=== PATIENT | female | born 1950 | race Caucasian/White ===

== ENCOUNTER 2017-12-16 07:24 | Day surgery (SDC) | payer OTHER, BC ==
[2017-12-16] MEDS ORDERED: SODIUM CHLORIDE 1,000 ML IV SCH (09:00)
[2017-12-16 09:42] LABS: BASO % 0.4 % (0-2.0); EOS % 2.8 % (0-4.5); HEMATOCRIT 38.6 % (32.4-45.2); HEMOGLOBIN 12.4 GM/dL (10.7-15.3); LYMPH % 11.4 % (8-40); MCH 30.3 pg (25.7-33.7); MCHC 32.2 g/dl (32.0-36.0); MEAN CELL VOLUME 94.1 fl (80-96); NEUT % 79.4 % (42.8-82.8); PLATELET COUNT 234 K/MM3 (134-434); RBC 4.11 M/mm3 (3.60-5.2); RDW 14.4 % (11.6-15.6); WHITE BLOOD COUNT 5.8 K/mm3 (4.0-10.0)
[2017-12-16] MEDS ORDERED: DEXAMETHASONE SOD PHOSPHATE 10 MG/1 ML VIAL IVPB ONE (09:45)
[2017-12-16] MEDS ORDERED: D5-1/2NS+20 MEQ KCL - 20 MEQ/1,000 ML INFUS.BAG IV SCH ×2 (09:45→10:45)
[2017-12-16] MEDS ORDERED: PALONOSETRON HCL 0.25 MG/5 ML VIAL IVPUSH ONE (10:00)
[2017-12-16] MEDS ORDERED: DEXAMETHASONE INJECTION 20 MG, RANITIDINE INJECTION 50 MG, DIPHENHYDRAMINE 50 MG in SOD... IVPB ONE (10:00)
[2017-12-16 10:19] LABS: ALBUMIN 3.5 g/dl (3.4-5.0); ALK PHOS 101 U/L (45-117); ANION GAP 8 (8-16); BILIRUBIN,DIRECT < 0.2 mg/dL (0.0-0.2); BILIRUBIN,TOTAL 0.5 mg/dL (0.2-1.0); BLOOD UREA NITROGEN 19 mg/dL (7-18); CALCIUM 7.8 mg/dL (8.5-10.1); CHLORIDE 108 mmol/L (98-107); CO2 26 mmol/L (21-32); CREATININE 0.6 mg/dL (0.55-1.02); GLUCOSE,RANDOM 105 mg/dL (74-106); MAGNESIUM 2.2 mg/dL (1.8-2.4); POTASSIUM 3.7 mmol/L (3.5-5.1); SGOT/AST 17 U/L (15-37); SGPT/ALT 22 U/L (12-78); SODIUM 142 mmol/L (136-145)
[2017-12-16] MEDS ORDERED: PACLITAXEL 126 MG in SODIUM CHLORIDE 250 ML IVPB ONE (10:30)
[2017-12-16] MEDS ORDERED: SODIUM CHLORIDE IVPB ONE (11:00)
[2017-12-16] MEDS ORDERED: CARBOPLATIN IVPB ONE (11:00)
[2017-12-16 15:11] VITALS: BP 114/61; PULSE 93; TEMP 98.1
[2017-12-22] MEDS ORDERED: DEXAMETHASONE IVPB ONE (15:00)
[2017-12-22] MEDS ORDERED: [UNRECOGNIZED DRUG - OTHER] IVPB ONE (15:00)
[2017-12-22] MEDS ORDERED: DIPHENHYDRAMINE IVPB ONE (15:00)
[2017-12-22] MEDS ORDERED: RANITIDINE IVPB ONE (15:00)
[2017-12-23] MEDS ORDERED: RANITIDINE IVPB ONE (10:00)
[2017-12-23] MEDS ORDERED: DIPHENHYDRAMINE IVPB ONE (10:00)
[2017-12-23] MEDS ORDERED: [UNRECOGNIZED DRUG - OTHER] IVPB ONE (10:00)
[2017-12-23] MEDS ORDERED: DEXAMETHASONE IVPB ONE (10:00)
[2017-12-23] MEDS ORDERED: SODIUM CHLORIDE 1,000 ML IV SCH (10:00)
[2017-12-23] MEDS ORDERED: PACLITAXEL 126 MG in SODIUM CHLORIDE 250 ML IVPB ONE (10:30)
[2017-12-23] MEDS ORDERED: CARBOPLATIN IVPB ONE (11:30)
[2017-12-23] MEDS ORDERED: SODIUM CHLORIDE IVPB ONE (11:30)
== END 2017-12-16 15:15 | disposition home or self-care (01) ==
LOC: JONCCHEMO 07:24 → J7W 09:19 → JONCCHEMO 15:15
PROVIDERS: ATTEND Internal Medicine Hematology & Oncology
PROC: 3E04305 Introduction of Other Antineoplastic into Central Vein, Percutaneous Approach (ICD-10-PCS; principal; 2017-12-16)
PROC: 3E043GC Introduction of Other Therapeutic Substance into Central Vein, Percutaneous Approach (ICD-10-PCS; 2017-12-16)
PROC: 3E0437Z Introduction of Electrolytic and Water Balance Substance into Central Vein, Percutaneous Approach (ICD-10-PCS; 2017-12-16)
DX: Z51.11 Encounter for antineoplastic chemotherapy (principal); C15.9 Malignant neoplasm of esophagus, unspecified; I10 Essential (primary) hypertension; E78.00 Pure hypercholesterolemia, unspecified
CPT/HCPCS: 36415; 80048; 80076; 82378; 83735; 85025; 96361; 96367; 96375; 96413; 96417; J1100; J2469

== ENCOUNTER 2017-12-23 07:54 | Day surgery (SDC) | payer OTHER, BC ==
[2017-12-23 09:49] LABS: BASO % 0.5 % (0-2.0); HEMATOCRIT 35.7 % (32.4-45.2); LYMPH % 13.9 % (8-40); MCH 31.4 pg (25.7-33.7); MCHC 33.5 g/dl (32.0-36.0); MEAN CELL VOLUME 93.8 fl (80-96); MEAN PLT VOLUME 8.6 fl (7.5-11.1); MONO % 6.2 % (3.8-10.2); NEUT % 75.4 % (42.8-82.8); PLATELET COUNT 236 K/MM3 (134-434); RBC 3.81 M/mm3 (3.60-5.2); RDW 14.1 % (11.6-15.6); WHITE BLOOD COUNT 4.7 K/mm3 (4.0-10.0)
[2017-12-23 10:13] LABS: ANION GAP 8 (8-16); BLOOD UREA NITROGEN 23 mg/dL (7-18); CALCIUM 7.9 mg/dL (8.5-10.1); CHLORIDE 108 mmol/L (98-107); CO2 25 mmol/L (21-32); CREATININE 0.5 mg/dL (0.55-1.02); GLUCOSE,RANDOM 90 mg/dL (74-106); MAGNESIUM 2.1 mg/dL (1.8-2.4); POTASSIUM 3.9 mmol/L (3.5-5.1); SODIUM 141 mmol/L (136-145)
[2017-12-23] MEDS ORDERED: ONDANSETRON IVPB ONE (10:30)
[2017-12-23] MEDS ORDERED: [UNRECOGNIZED DRUG - OTHER] IVPB ONE (10:30)
[2017-12-23] MEDS ORDERED: DEXAMETHASONE IVPB ONE (10:30)
[2017-12-23] MEDS ORDERED: SODIUM CHLORIDE 720 ML IV ONE (10:30)
[2017-12-23] MEDS ORDERED: PACLITAXEL 126 MG in SODIUM CHLORIDE 250 ML IVPB ONE (11:00)
[2017-12-23] MEDS ORDERED: SODIUM CHLORIDE IVPB ONE (12:00)
[2017-12-23] MEDS ORDERED: CARBOPLATIN IVPB ONE (12:00)
[2017-12-23 18:24] VITALS: BP 96/58; PULSE 98; TEMP 98.3
[2017-12-23] MEDS ORDERED: PORTA CATH FLUSH 10 ML IVPUSH ONE (18:24)
== END 2017-12-23 14:00 | disposition home or self-care (01) ==
LOC: JONCCHEMO 07:54 → J7W 09:05 → JONCCHEMO 14:00
PROVIDERS: ATTEND Internal Medicine Hematology & Oncology
DX: Z51.11 Encounter for antineoplastic chemotherapy (principal); C15.9 Malignant neoplasm of esophagus, unspecified
CPT/HCPCS: 36415; 80048; 83735; 85025; 96361; 96367; 96375; 96413; 96417

== ENCOUNTER 2017-12-30 07:34 | Day surgery (SDC) | payer OTHER, BC ==
[2017-12-30 09:44] LABS: BASO % 0.5 % (0-2.0); EOS % 3.5 % (0-4.5); HEMATOCRIT 34.9 % (32.4-45.2); HEMOGLOBIN 11.8 GM/dL (10.7-15.3); LYMPH % 15.1 % (8-40); MCH 31.8 pg (25.7-33.7); MCHC 33.9 g/dl (32.0-36.0); MEAN CELL VOLUME 93.9 fl (80-96); MEAN PLT VOLUME 8.1 fl (7.5-11.1); MONO % 7.9 % (3.8-10.2); PLATELET COUNT 215 K/MM3 (134-434); RBC 3.72 M/mm3 (3.60-5.2); RDW 14.2 % (11.6-15.6); WHITE BLOOD COUNT 3.3 K/mm3 (4.0-10.0)
[2017-12-30 09:56] VITALS: TEMP 97.6
[2017-12-30] MEDS ORDERED: DEXAMETHASONE IVPB ONE (10:00)
[2017-12-30] MEDS ORDERED: [UNRECOGNIZED DRUG - OTHER] IVPB ONE (10:00)
[2017-12-30] MEDS ORDERED: RANITIDINE IVPB ONE (10:00)
[2017-12-30] MEDS ORDERED: SODIUM CHLORIDE 1,000 ML IV SCH (10:00)
[2017-12-30 10:09] LABS: ALBUMIN 3.4 g/dl (3.4-5.0); ALK PHOS 88 U/L (45-117); ANION GAP 6 (8-16); BILIRUBIN,DIRECT 0.2 mg/dL (0.0-0.2); BILIRUBIN,TOTAL 0.7 mg/dL (0.2-1.0); BLOOD UREA NITROGEN 22 mg/dL (7-18); CALCIUM 7.4 mg/dL (8.5-10.1); CHLORIDE 109 mmol/L (98-107); CO2 26 mmol/L (21-32); CREATININE 0.6 mg/dL (0.55-1.02); GLUCOSE,RANDOM 88 mg/dL (74-106); POTASSIUM 3.8 mmol/L (3.5-5.1); SGOT/AST 14 U/L (15-37); SGPT/ALT 24 U/L (12-78); SODIUM 141 mmol/L (136-145); TOT PROT 6.5 g/dl (6.4-8.2)
[2017-12-30] MEDS ORDERED: PORTA CATH FLUSH 10 ML IVPUSH ONE (10:10)
[2017-12-30] MEDS ORDERED: WATER IVPB ONE (10:30)
[2017-12-30] MEDS ORDERED: DEXTROSE 5% IVPB ONE (10:30)
[2017-12-30] MEDS ORDERED: PACLITAXEL IVPB ONE (10:30)
[2017-12-30] MEDS ORDERED: SODIUM CHLORIDE IVPB ONE (11:30)
[2017-12-30] MEDS ORDERED: CARBOPLATIN IVPB ONE (11:30)
[2017-12-30 16:39] VITALS: BP 101/57; PULSE 89
== END 2017-12-30 12:00 | disposition home or self-care (01) ==
LOC: JONCCHEMO 07:34 → J7W 08:54 → JONCCHEMO 12:00
PROVIDERS: ATTEND Internal Medicine Hematology & Oncology
DX: Z51.11 Encounter for antineoplastic chemotherapy (principal); C15.9 Malignant neoplasm of esophagus, unspecified
CPT/HCPCS: 36415; 80048; 80076; 83735; 85025; 96367; 96375; 96413; J1100; J7030

== ENCOUNTER 2018-01-06 07:18 | Day surgery (SDC) | payer OTHER, BC ==
[2018-01-06] MEDS ORDERED: SODIUM CHLORIDE 1,000 ML IV ONE (08:00)
[2018-01-06] MEDS ORDERED: DEXAMETHASONE INJECTION 20 MG, DIPHENHYDRAMINE 50 MG, RANITIDINE INJECTION 50 MG in SOD... IVPB ONE (08:30)
[2018-01-06] MEDS ORDERED: PALONOSETRON HCL 0.25 MG/5 ML VIAL IVPUSH ONE (08:30)
[2018-01-06 08:48] LABS: BASO % 1.1 % (0-2.0); EOS % 4.3 % (0-4.5); HEMATOCRIT 35.3 % (32.4-45.2); HEMOGLOBIN 11.8 GM/dL (10.7-15.3); LYMPH % 21.7 % (8-40); MCH 31.7 pg (25.7-33.7); MCHC 33.4 g/dl (32.0-36.0); MEAN CELL VOLUME 94.8 fl (80-96); MEAN PLT VOLUME 7.9 fl (7.5-11.1); NEUT % 62.9 % (42.8-82.8); PLATELET COUNT 192 K/MM3 (134-434); RBC 3.72 M/mm3 (3.60-5.2); RDW 14.6 % (11.6-15.6); WHITE BLOOD COUNT 2.5 K/mm3 (4.0-10.0)
[2018-01-06] MEDS ORDERED: WATER IVPB ONE (09:00)
[2018-01-06] MEDS ORDERED: PACLITAXEL IVPB ONE (09:00)
[2018-01-06] MEDS ORDERED: DEXTROSE 5% IVPB ONE (09:00)
[2018-01-06 09:16] LABS: ALBUMIN 3.6 g/dl (3.4-5.0); ANION GAP 5 (8-16); BILIRUBIN,TOTAL 0.4 mg/dL (0.2-1.0); BLOOD UREA NITROGEN 17 mg/dL (7-18); CALCIUM 7.9 mg/dL (8.5-10.1); CHLORIDE 112 mmol/L (98-107); CO2 27 mmol/L (21-32); CREATININE 0.7 mg/dL (0.55-1.02); GLUCOSE,RANDOM 99 mg/dL (74-106); POTASSIUM 4.4 mmol/L (3.5-5.1); SGOT/AST 21 U/L (15-37); SGPT/ALT 37 U/L (12-78); SODIUM 144 mmol/L (136-145); TOT PROT 6.8 g/dl (6.4-8.2)
[2018-01-06 09:17] LABS: ALK PHOS 76 U/L (45-117)
[2018-01-06 09:42] VITALS: BP 113/66; PULSE 86; TEMP 97.9
[2018-01-06 09:50] LABS: BILIRUBIN,DIRECT < 0.2 mg/dL (0.0-0.2); MAGNESIUM 1.9 mg/dL (1.8-2.4)
[2018-01-06] MEDS ORDERED: CARBOplatin 155 MG in SODIUM CHLORIDE 250 ML IVPB ONE (10:00)
[2018-01-06] MEDS ORDERED: PORTA CATH FLUSH 10 ML IVPUSH ONE (17:36)
== END 2018-01-06 13:00 | disposition home or self-care (01) ==
LOC: JONCCHEMO 07:18 → J7W 09:10 → JONCCHEMO 13:00
PROVIDERS: ATTEND Internal Medicine Hematology & Oncology
DX: Z51.11 Encounter for antineoplastic chemotherapy (principal); C15.9 Malignant neoplasm of esophagus, unspecified
CPT/HCPCS: 36415; 80053; 80076; 82378; 83735; 85025; 96367; 96375; 96413; 96417; J1100; J2469; J7030

== ENCOUNTER 2018-01-20 07:32 | Day surgery (SDC) | payer OTHER, BC ==
[2018-01-20] MEDS ORDERED: RANITIDINE IVPB ONE ×2 (08:00→11:30)
[2018-01-20] MEDS ORDERED: [UNRECOGNIZED DRUG - OTHER] IVPB ONE (08:00)
[2018-01-20] MEDS ORDERED: SODIUM CHLORIDE 1,000 ML IV ONE (08:00)
[2018-01-20] MEDS ORDERED: DIPHENHYDRAMINE IVPB ONE ×2 (08:00→11:30)
[2018-01-20] MEDS ORDERED: DEXAMETHASONE IVPB ONE ×2 (08:00→11:30)
[2018-01-20] MEDS ORDERED: WATER IVPB ONE (08:30)
[2018-01-20] MEDS ORDERED: DEXTROSE 5% IVPB ONE (08:30)
[2018-01-20] MEDS ORDERED: PACLITAXEL 126 MG in SODIUM CHLORIDE 250 ML IVPB ONE (08:30)
[2018-01-20] MEDS ORDERED: PACLITAXEL IVPB ONE (08:30)
[2018-01-20] MEDS ORDERED: CARBOPLATIN IVPB ONE (09:30)
[2018-01-20] MEDS ORDERED: SODIUM CHLORIDE IVPB ONE (09:30)
[2018-01-20 10:27] LABS: BASO % 0.5 % (0-2.0); EOS % 1.6 % (0-4.5); HEMATOCRIT 35.4 % (32.4-45.2); HEMOGLOBIN 11.8 GM/dL (10.7-15.3); LYMPH % 25.3 % (8-40); MCH 32.3 pg (25.7-33.7); MCHC 33.3 g/dl (32.0-36.0); MEAN CELL VOLUME 96.9 fl (80-96); MEAN PLT VOLUME 8.6 fl (7.5-11.1); MONO % 10.3 % (3.8-10.2); NEUT % 62.3 % (42.8-82.8); PLATELET COUNT 112 K/MM3 (134-434); RBC 3.65 M/mm3 (3.60-5.2); RDW 15.8 % (11.6-15.6); WHITE BLOOD COUNT 2.3 K/mm3 (4.0-10.0)
[2018-01-20 10:51] VITALS: TEMP 97.7
[2018-01-20] MEDS ORDERED: PORTA CATH FLUSH 10 ML IVPUSH ONE (10:51)
[2018-01-20 10:56] LABS: ALBUMIN 3.7 g/dl (3.4-5.0); ANION GAP 5 (8-16); BLOOD UREA NITROGEN 26 mg/dL (7-18); CALCIUM 8.7 mg/dL (8.5-10.1); CHLORIDE 110 mmol/L (98-107); CO2 29 mmol/L (21-32); CREATININE 0.7 mg/dL (0.55-1.02); GLUCOSE,RANDOM 94 mg/dL (74-106); POTASSIUM 4.5 mmol/L (3.5-5.1); SGOT/AST 25 U/L (15-37); SODIUM 144 mmol/L (136-145)
[2018-01-20 10:59] LABS: ALK PHOS 86 U/L (45-117); BILIRUBIN,TOTAL 0.2 mg/dL (0.2-1.0); SGPT/ALT 36 U/L (12-78)
[2018-01-20 11:09] LABS: ALBUMIN 3.6 g/dl (3.4-5.0); ALK PHOS 83 U/L (45-117); BILIRUBIN,DIRECT < 0.2 mg/dL (0.0-0.2); BILIRUBIN,TOTAL 0.2 mg/dL (0.2-1.0); MAGNESIUM 1.7 mg/dL (1.8-2.4); SGOT/AST 23 U/L (15-37); SGPT/ALT 35 U/L (12-78)
[2018-01-20] MEDS ORDERED: [UNRECOGNIZED DRUG - OTHER] IVPB ONE (11:30)
[2018-01-20] MEDS ORDERED: ALTEPLASE 2 MG VIAL CVP ONE (11:45)
[2018-01-20 14:26] VITALS: BP 92/57; PULSE 96
== END 2018-01-20 14:27 | disposition home or self-care (01) ==
LOC: JONCCHEMO 07:32 → J7W 11:07 → JONCCHEMO 14:27
PROVIDERS: ATTEND Internal Medicine Hematology & Oncology
DX: Z51.11 Encounter for antineoplastic chemotherapy (principal); C15.9 Malignant neoplasm of esophagus, unspecified
CPT/HCPCS: 36415; 80053; 80076; 83735; 85025; 96413; 96417; J1100; J2405; J2997; J7030

== ENCOUNTER 2018-01-27 07:12 | Day surgery (SDC) | payer OTHER, BC ==
[2018-01-27] MEDS ORDERED: DEXAMETHASONE INJECTION 20 MG, DIPHENHYDRAMINE 50 MG, RANITIDINE INJECTION 50 MG in SOD... IVPB ONE (08:00)
[2018-01-27] MEDS ORDERED: SODIUM CHLORIDE 1,000 ML IV ONE (08:00)
[2018-01-27] MEDS ORDERED: PALONOSETRON HCL 0.25 MG/5 ML VIAL IVPUSH ONE (08:00)
[2018-01-27] MEDS ORDERED: PACLITAXEL 126 MG in SODIUM CHLORIDE 250 ML IVPB ONE (08:30)
[2018-01-27 09:28] LABS: BASO % 0.4 % (0-2.0); EOS % 1.7 % (0-4.5); HEMOGLOBIN 10.8 GM/dL (10.7-15.3); LYMPH % 18.4 % (8-40); MCH 32.7 pg (25.7-33.7); MCHC 33.6 g/dl (32.0-36.0); MEAN CELL VOLUME 97.1 fl (80-96); MEAN PLT VOLUME 8.1 fl (7.5-11.1); MONO % 9.5 % (3.8-10.2); PLATELET COUNT 105 K/MM3 (134-434); RDW 17.1 % (11.6-15.6)
[2018-01-27] MEDS ORDERED: CARBOplatin 155 MG in SODIUM CHLORIDE 250 ML IVPB ONE (09:30)
[2018-01-27 09:33] VITALS: TEMP 97.9
[2018-01-27] MEDS ORDERED: PORTA CATH FLUSH 10 ML IVPUSH ONE (09:33)
[2018-01-27 09:54] LABS: ALBUMIN 3.3 g/dl (3.4-5.0); ANION GAP 6 (8-16); BLOOD UREA NITROGEN 20 mg/dL (7-18); CALCIUM 8.4 mg/dL (8.5-10.1); CHLORIDE 110 mmol/L (98-107); CO2 27 mmol/L (21-32); CREATININE 0.6 mg/dL (0.55-1.02); GLUCOSE,RANDOM 101 mg/dL (74-106); POTASSIUM 4.6 mmol/L (3.5-5.1); SGOT/AST 15 U/L (15-37); SGPT/ALT 27 U/L (12-78); SODIUM 143 mmol/L (136-145)
[2018-01-27 09:56] LABS: ALK PHOS 71 U/L (45-117); BILIRUBIN,TOTAL 0.4 mg/dL (0.2-1.0); TOT PROT 6.7 g/dl (6.4-8.2)
[2018-01-27 09:57] LABS: BILIRUBIN,DIRECT < 0.2 mg/dL (0.0-0.2); MAGNESIUM 1.9 mg/dL (1.8-2.4)
[2018-01-27 14:23] VITALS: BP 92/52; PULSE 88
== END 2018-01-27 12:30 | disposition home or self-care (01) ==
LOC: JONCCHEMO 07:12 → J7W 09:18 → JONCCHEMO 12:30
PROVIDERS: ATTEND Internal Medicine Hematology & Oncology
DX: Z51.11 Encounter for antineoplastic chemotherapy (principal); C15.9 Malignant neoplasm of esophagus, unspecified
CPT/HCPCS: 36415; 80053; 80076; 83735; 85025; 96367; 96375; 96413; 96417; J1100; J2469; J7030

== ENCOUNTER 2018-02-10 07:41 | Day surgery (SDC) | payer OTHER, BC ==
[2018-02-10 09:58] LABS: HEMATOCRIT 32.4 % (32.4-45.2); HEMOGLOBIN 10.9 GM/dL (10.7-15.3); MCH 33.3 pg (25.7-33.7); MCHC 33.6 g/dl (32.0-36.0); MEAN CELL VOLUME 99.1 fl (80-96); MEAN PLT VOLUME 8.5 fl (7.5-11.1); PLATELET COUNT 180 K/MM3 (134-434); RBC 3.26 M/mm3 (3.60-5.2); RDW 19.4 % (11.6-15.6); WHITE BLOOD COUNT 2.8 K/mm3 (4.0-10.0)
[2018-02-10] MEDS ORDERED: SODIUM CHLORIDE 1,000 ML IV ONE (10:00)
[2018-02-10] MEDS ORDERED: [UNRECOGNIZED DRUG - OTHER] IVPB ONE (10:00)
[2018-02-10] MEDS ORDERED: DEXAMETHASONE IVPB ONE (10:00)
[2018-02-10] MEDS ORDERED: RANITIDINE IVPB ONE (10:00)
[2018-02-10 10:11] VITALS: TEMP 97.2
[2018-02-10] MEDS ORDERED: PORTA CATH FLUSH 10 ML IVPUSH ONE (10:11)
[2018-02-10 10:19] LABS: ALBUMIN 3.4 g/dl (3.4-5.0); ALK PHOS 83 U/L (45-117); ANION GAP 4 (8-16); BILIRUBIN,DIRECT < 0.2 mg/dL (0.0-0.2); BILIRUBIN,TOTAL 0.3 mg/dL (0.2-1.0); BLOOD UREA NITROGEN 27 mg/dL (7-18); CALCIUM 8.1 mg/dL (8.5-10.1); CHLORIDE 110 mmol/L (98-107); CO2 28 mmol/L (21-32); CREATININE 0.7 mg/dL (0.55-1.02); GLUCOSE,RANDOM 92 mg/dL (74-106); POTASSIUM 4.5 mmol/L (3.5-5.1); SGOT/AST 15 U/L (15-37); SGPT/ALT 22 U/L (12-78); SODIUM 142 mmol/L (136-145); TOT PROT 6.7 g/dl (6.4-8.2)
[2018-02-10] MEDS ORDERED: PACLITAXEL 126 MG in SODIUM CHLORIDE 250 ML IVPB ONE (10:30)
[2018-02-10 10:50] LABS: ANISOCYTOSIS 1+; PLATELET ESTIMATE NORMAL
[2018-02-10] MEDS ORDERED: SODIUM CHLORIDE IVPB ONE (11:30)
[2018-02-10] MEDS ORDERED: CARBOPLATIN IVPB ONE (11:30)
[2018-02-10 12:21] VITALS: BP 106/58; PULSE 95
== END 2018-02-10 12:15 | disposition home or self-care (01) ==
LOC: JONCCHEMO 07:41 → J7W 09:39 → JONCCHEMO 12:15
PROVIDERS: ATTEND Internal Medicine Hematology & Oncology
DX: Z51.11 Encounter for antineoplastic chemotherapy (principal); C15.9 Malignant neoplasm of esophagus, unspecified
CPT/HCPCS: 36415; 80053; 80076; 82378; 83735; 85025; 96367; 96375; 96413; 96417; J1100

== ENCOUNTER 2018-02-17 07:34 | Day surgery (SDC) | payer OTHER, BC ==
[2018-02-17] MEDS ORDERED: DEXAMETHASONE INJECTION 20 MG, RANITIDINE INJECTION 50 MG, DIPHENHYDRAMINE 50 MG in SOD... IVPB ONE (10:00)
[2018-02-17] MEDS ORDERED: PALONOSETRON HCL 0.25 MG/5 ML VIAL IVPUSH ONE (10:00)
[2018-02-17] MEDS ORDERED: SODIUM CHLORIDE 1,000 ML IV SCH (10:00)
[2018-02-17 10:13] LABS: HEMATOCRIT 30.1 % (32.4-45.2); HEMOGLOBIN 10.4 GM/dL (10.7-15.3); MCHC 34.5 g/dl (32.0-36.0); MEAN CELL VOLUME 98.5 fl (80-96); MEAN PLT VOLUME 8.5 fl (7.5-11.1); PLATELET COUNT 161 K/MM3 (134-434); RBC 3.05 M/mm3 (3.60-5.2); RDW 20.4 % (11.6-15.6); WHITE BLOOD COUNT 3.6 K/mm3 (4.0-10.0)
[2018-02-17] MEDS ORDERED: PACLITAXEL 126 MG in SODIUM CHLORIDE 250 ML IVPB ONE (10:30)
[2018-02-17 10:45] LABS: ANION GAP 8 (8-16); BLOOD UREA NITROGEN 19 mg/dL (7-18); CALCIUM 8.3 mg/dL (8.5-10.1); CHLORIDE 109 mmol/L (98-107); CO2 27 mmol/L (21-32); CREATININE 0.5 mg/dL (0.55-1.02); GLUCOSE,RANDOM 94 mg/dL (74-106); MAGNESIUM 2.1 mg/dL (1.8-2.4); SODIUM 144 mmol/L (136-145)
[2018-02-17 11:08] LABS: ALBUMIN 3.4 g/dl (3.4-5.0); ALK PHOS 86 U/L (45-117); BILIRUBIN,DIRECT < 0.2 mg/dL (0.0-0.2); BILIRUBIN,TOTAL 0.3 mg/dL (0.2-1.0); SGOT/AST 20 U/L (15-37); SGPT/ALT 30 U/L (12-78); TOT PROT 6.4 g/dl (6.4-8.2)
[2018-02-17] MEDS ORDERED: CARBOPLATIN IVPB ONE (11:30)
[2018-02-17] MEDS ORDERED: SODIUM CHLORIDE IVPB ONE (11:30)
[2018-02-17 11:52] LABS: ANISOCYTOSIS 2+; MACROCYTOSIS 1+; PLATELET ESTIMATE NORMAL
[2018-02-17 16:19] VITALS: BP 116/58; PULSE 98; TEMP 97.6
[2018-02-17] MEDS ORDERED: PORTA CATH FLUSH 10 ML IVPUSH ONE (16:19)
== END 2018-02-17 14:00 | disposition home or self-care (01) ==
LOC: JONCCHEMO 07:34 → J7W 10:27 → JONCCHEMO 14:00
PROVIDERS: ATTEND Internal Medicine Hematology & Oncology
DX: Z51.11 Encounter for antineoplastic chemotherapy (principal); C15.9 Malignant neoplasm of esophagus, unspecified
CPT/HCPCS: 36415; 80048; 80076; 82378; 83735; 85025; 96367; 96375; 96413; 96417; J1100; J2469; J7030

== ENCOUNTER → 2018-03-19 | Day surgery (SDC) | payer OTHER, BC ==
[~2018-03-19] MED LIST: DEXAMETHASONE INJECTION 20 MG in SODIUM CHLORIDE 50 ML IVPB ONE; OXALIPLATIN 100 MG, OXALIPLATIN 45 MG in DEXTROSE 5%-WATER - 500 ML IV ONE; PALONOSETRON HCL 0.25 MG/5 ML VIAL IVPUSH ONE; SODIUM CHLORIDE 250 ML IV ONE
[2018-03-19 10:54] VITALS: BP 91/58; PULSE 93; TEMP 97.8
[2018-03-19 11:09] LABS: BASO % 0.4 % (0-2.0); EOS % 2.8 % (0-4.5); HEMATOCRIT 29.6 % (32.4-45.2); HEMOGLOBIN 9.9 GM/dL (10.7-15.3); LYMPH % 13.5 % (8-40); MCHC 33.6 g/dl (32.0-36.0); MEAN CELL VOLUME 104.3 fl (80-96); MEAN PLT VOLUME 8.1 fl (7.5-11.1); MONO % 8.1 % (3.8-10.2); NEUT % 75.2 % (42.8-82.8); PLATELET COUNT 85 K/MM3 (134-434); RBC 2.84 M/mm3 (3.60-5.2); RDW 20.5 % (11.6-15.6); WHITE BLOOD COUNT 3.9 K/mm3 (4.0-10.0)
[2018-03-19 11:30] LABS: ALK PHOS 80 U/L (45-117); ANION GAP 5 (8-16); BILIRUBIN,DIRECT < 0.2 mg/dL (0.0-0.2); BILIRUBIN,TOTAL 0.4 mg/dL (0.2-1.0); BLOOD UREA NITROGEN 20 mg/dL (7-18); CHLORIDE 108 mmol/L (98-107); CO2 28 mmol/L (21-32); CREATININE 0.6 mg/dL (0.55-1.02); GLUCOSE,RANDOM 90 mg/dL (74-106); MAGNESIUM 2.3 mg/dL (1.8-2.4); SGOT/AST 19 U/L (15-37); SODIUM 141 mmol/L (136-145); TOT PROT 6.7 g/dl (6.4-8.2)
[2018-03-19 13:26] LABS: SGPT/ALT 32 U/L (12-78)
[2018-03-19 15:31] LABS: ANISOCYTOSIS 1+
[2018-03-19 15:32] LABS: MACROCYTOSIS 1+; PLATELET ESTIMATE SLT DECREASE
== END | disposition home or self-care (01) ==
LOC: JONCCHEMO 07:33
PROVIDERS: ATTEND Internal Medicine Hematology & Oncology
PROC: 3E043GC Introduction of Other Therapeutic Substance into Central Vein, Percutaneous Approach (ICD-10-PCS; principal; 2018-03-19)
DX: Z53.8 Procedure and treatment not carried out for other reasons (principal)
CPT/HCPCS: 36415; 80053; 80076; 83735; 85025

== ENCOUNTER 2018-03-26 07:36 | Day surgery (SDC) | payer OTHER, BC ==
[2018-03-26] MEDS ORDERED: SODIUM CHLORIDE 250 ML IV ONE ×2 (08:00→11:00)
[2018-03-26] MEDS ORDERED: DEXAMETHASONE INJECTION 20 MG in SODIUM CHLORIDE 50 ML IVPB ONE (08:30)
[2018-03-26] MEDS ORDERED: PALONOSETRON HCL 0.25 MG/5 ML VIAL IVPUSH ONE (08:30)
[2018-03-26] MEDS ORDERED: OXALIPLATIN 100 MG, OXALIPLATIN 45 MG in DEXTROSE 5%-WATER - 500 ML IV ONE (09:00)
[2018-03-26] MEDS ORDERED: SODIUM CHLORIDE 1,000 ML IV SCH (12:30)
[2018-03-26 15:58] VITALS: BP 116/64; PULSE 87; TEMP 98.1
[2018-03-26] MEDS ORDERED: PORTA CATH FLUSH 10 ML IVPUSH ONE (16:10)
== END 2018-03-26 10:30 | disposition home or self-care (01) ==
LOC: JONCCHEMO 07:36 → J7W 10:25 → JONCCHEMO 10:30
PROVIDERS: ATTEND Internal Medicine Hematology & Oncology
DX: Z51.11 Encounter for antineoplastic chemotherapy (principal); C15.9 Malignant neoplasm of esophagus, unspecified
CPT/HCPCS: 96361; 96367; 96375; 96413; 96415; J1100; J2469; J7030; J9263

== ENCOUNTER 2018-05-12 07:30 | Day surgery (SDC) | payer OTHER, BC ==
[2018-05-12] MEDS ORDERED: DEXAMETHASONE INJECTION 20 MG in SODIUM CHLORIDE 50 ML IVPB ONE (08:00)
[2018-05-12] MEDS ORDERED: PEMBROLIZUMAB 200 MG in SODIUM CHLORIDE 100 ML IV ONE (08:30)
[2018-05-12] MEDS ORDERED: PEMBROLIZUMAB 200 MG in SODIUM CHLORIDE 50 ML IV ONE (08:30)
[2018-05-12] MEDS ORDERED: SODIUM CHLORIDE 250 ML IV ONE (09:00)
[2018-05-12 09:18] LABS: BASO % 0.4 % (0-2.0); EOS % 3.1 % (0-4.5); HEMATOCRIT 33.4 % (32.4-45.2); HEMOGLOBIN 11.3 GM/dL (10.7-15.3); LYMPH % 13.4 % (8-40); MCHC 33.7 g/dl (32.0-36.0); MEAN CELL VOLUME 109.8 fl (80-96); MONO % 7.8 % (3.8-10.2); NEUT % 75.3 % (42.8-82.8); PLATELET COUNT 153 K/MM3 (134-434); RBC 3.05 M/mm3 (3.60-5.2); RDW 13.9 % (11.6-15.6); WHITE BLOOD COUNT 4.3 K/mm3 (4.0-10.0)
[2018-05-12 09:43] LABS: ALBUMIN 3.2 g/dl (3.4-5.0); ALK PHOS 94 U/L (45-117); ANION GAP 5 (8-16); BILIRUBIN,DIRECT < 0.2 mg/dL (0.0-0.2); BILIRUBIN,TOTAL 0.2 mg/dL (0.2-1.0); BLOOD UREA NITROGEN 22 mg/dL (7-18); CALCIUM 8.3 mg/dL (8.5-10.1); CHLORIDE 111 mmol/L (98-107); CO2 28 mmol/L (21-32); CREATININE 0.8 mg/dL (0.55-1.02); GLUCOSE,RANDOM 107 mg/dL (74-106); MAGNESIUM 2.2 mg/dL (1.8-2.4); POTASSIUM 4.1 mmol/L (3.5-5.1); SGOT/AST 22 U/L (15-37); SGPT/ALT 19 U/L (12-78); SODIUM 144 mmol/L (136-145); TOT PROT 6.5 g/dl (6.4-8.2)
[2018-05-12 14:36] LABS: ANISOCYTOSIS 1+; MACROCYTOSIS 1+; PLATELET ESTIMATE DECREASED
[2018-05-12 15:48] VITALS: TEMP 97.9
[2018-05-12] MEDS ORDERED: PORTA CATH FLUSH 10 ML IVPUSH ONE ×2 (15:48→15:59)
[2018-05-12 16:06] VITALS: BP 106/64; PULSE 90
== END 2018-05-12 11:30 | disposition home or self-care (01) ==
LOC: JONCCHEMO 07:30 → J7W 09:44 → JONCCHEMO 11:30
PROVIDERS: ATTEND Internal Medicine Hematology & Oncology
DX: Z51.11 Encounter for antineoplastic chemotherapy (principal); C15.9 Malignant neoplasm of esophagus, unspecified
CPT/HCPCS: 36415; 80053; 80076; 83735; 85025; 96361; 96367; 96375; 96413; J1100; J9271

== ENCOUNTER 2018-06-24 07:30 | Day surgery (SDC) | payer OTHER, BC ==
[2018-06-24] MEDS ORDERED: DEXAMETHASONE INJECTION 20 MG in SODIUM CHLORIDE 50 ML IVPB ONE (08:00)
[2018-06-24] MEDS ORDERED: PEMBROLIZUMAB 200 MG in SODIUM CHLORIDE 100 ML IV ONE (08:30)
[2018-06-24] MEDS ORDERED: SODIUM CHLORIDE 250 ML IV ONE (09:00)
[2018-06-24 09:32] LABS: BASO % 0.2 % (0-2.0); EOS % 3.2 % (0-4.5); HEMATOCRIT 34.9 % (32.4-45.2); HEMOGLOBIN 11.7 GM/dL (10.7-15.3); LYMPH % 12.2 % (8-40); MCH 33.7 pg (25.7-33.7); MCHC 33.5 g/dl (32.0-36.0); MEAN CELL VOLUME 100.9 fl (80-96); MEAN PLT VOLUME 8.8 fl (7.5-11.1); MONO % 8.7 % (3.8-10.2); NEUT % 75.7 % (42.8-82.8); PLATELET COUNT 177 K/MM3 (134-434); RBC 3.46 M/mm3 (3.60-5.2); RDW 13.2 % (11.6-15.6); WHITE BLOOD COUNT 3.8 K/mm3 (4.0-10.0)
[2018-06-24 10:03] LABS: ALBUMIN 2.8 g/dl (3.4-5.0); BILIRUBIN,DIRECT < 0.2 mg/dL (0.0-0.2); MAGNESIUM 2.2 mg/dL (1.8-2.4); SGOT/AST 28 U/L (15-37); SGPT/ALT 24 U/L (12-78)
[2018-06-24 10:04] LABS: ALBUMIN 2.9 g/dl (3.4-5.0); ANION GAP 8 MMOL/L (8-16); BLOOD UREA NITROGEN 17 mg/dL (7-18); CALCIUM 8.1 mg/dL (8.5-10.1); CHLORIDE 109 mmol/L (98-107); CO2 28 mmol/L (21-32); GLUCOSE,RANDOM 89 mg/dL (74-106); POTASSIUM 4.7 mmol/L (3.5-5.1); SODIUM 145 mmol/L (136-145)
[2018-06-24 10:05] LABS: ALK PHOS 103 U/L (45-117); BILIRUBIN,TOTAL 0.3 mg/dL (0.2-1.0); TOT PROT 6.3 g/dl (6.4-8.2)
[2018-06-24 10:07] LABS: ALK PHOS 108 U/L (45-117); BILIRUBIN,TOTAL 0.2 mg/dL (0.2-1.0); CREATININE 0.6 mg/dL (0.55-1.02); SGOT/AST 27 U/L (15-37); SGPT/ALT 26 U/L (12-78); TOT PROT 6.6 g/dl (6.4-8.2)
[2018-06-24] MEDS ORDERED: PORTA CATH FLUSH 10 ML IVPUSH ONE (11:49)
[2018-06-24 11:50] VITALS: TEMP 97.7
[2018-06-24 11:51] VITALS: BP 110/75; PULSE 92
== END 2018-06-24 11:30 | disposition home or self-care (01) ==
LOC: JONCCHEMO 07:30 → J7W 09:50 → JONCCHEMO 11:30
PROVIDERS: ATTEND Internal Medicine Hematology & Oncology
PROC: 3E04305 Introduction of Other Antineoplastic into Central Vein, Percutaneous Approach (ICD-10-PCS; principal; 2018-06-24)
PROC: 3E043GC Introduction of Other Therapeutic Substance into Central Vein, Percutaneous Approach (ICD-10-PCS; 2018-06-24)
PROC: 3E0437Z Introduction of Electrolytic and Water Balance Substance into Central Vein, Percutaneous Approach (ICD-10-PCS; 2018-06-24)
DX: Z51.11 Encounter for antineoplastic chemotherapy (principal); C15.5 Malignant neoplasm of lower third of esophagus
CPT/HCPCS: 36415; 80053; 80076; 82378; 83735; 85025; 96375; 96413; J1100; J9271

== ENCOUNTER 2018-07-14 07:34 | Day surgery (SDC) | payer OTHER, BC ==
[2018-07-14] MEDS ORDERED: DEXAMETHASONE INJECTION 20 MG in SODIUM CHLORIDE 50 ML IVPB ONE (08:00)
[2018-07-14] MEDS ORDERED: PEMBROLIZUMAB 200 MG in SODIUM CHLORIDE 100 ML IV ONE (08:30)
[2018-07-14 08:34] VITALS: TEMP 98.2
[2018-07-14] MEDS ORDERED: SODIUM CHLORIDE 250 ML IV ONE (09:00)
[2018-07-14 09:02] LABS: BASO % 0.2 % (0-2.0); EOS % 4.1 % (0-4.5); HEMATOCRIT 32.9 % (32.4-45.2); LYMPH % 9.3 % (8-40); MCHC 33.5 g/dl (32.0-36.0); MEAN CELL VOLUME 98.5 fl (80-96); MEAN PLT VOLUME 8.3 fl (7.5-11.1); MONO % 6.2 % (3.8-10.2); NEUT % 80.2 % (42.8-82.8); PLATELET COUNT 229 K/MM3 (134-434); RBC 3.34 M/mm3 (3.60-5.2); RDW 13.7 % (11.6-15.6); WHITE BLOOD COUNT 7.1 K/mm3 (4.0-10.0)
[2018-07-14 09:32] LABS: ALBUMIN 2.8 g/dl (3.4-5.0); ALBUMIN 2.9 g/dl (3.4-5.0); ALK PHOS 104 U/L (45-117); ANION GAP 4 MMOL/L (8-16); BILIRUBIN,DIRECT < 0.2 mg/dL (0.0-0.2); BILIRUBIN,TOTAL 0.3 mg/dL (0.2-1); BLOOD UREA NITROGEN 19 mg/dL (7-18); CHLORIDE 108 mmol/L (98-107); CO2 30 mmol/L (21-32); CREATININE 0.7 mg/dL (0.55-1.3); GLUCOSE,RANDOM 95 mg/dL (74-106); MAGNESIUM 2.1 mg/dL (1.8-2.4); POTASSIUM 4.5 mmol/L (3.5-5.1); SGOT/AST 17 U/L (15-37); SGOT/AST 18 U/L (15-37); SGPT/ALT 17 U/L (13-61); SODIUM 142 mmol/L (136-145); TOT PROT 6.6 g/dl (6.4-8.2); TOT PROT 6.8 g/dl (6.4-8.2)
[2018-07-14] MEDS ORDERED: PORTA CATH FLUSH 10 ML IVPUSH ONE (10:10)
[2018-07-14 13:25] VITALS: BP 98/51; PULSE 92
== END 2018-07-14 12:10 | disposition home or self-care (01) ==
LOC: JONCCHEMO 07:34 → J7W 09:41 → JONCCHEMO 12:10
PROVIDERS: ATTEND Internal Medicine Hematology & Oncology
DX: Z51.11 Encounter for antineoplastic chemotherapy (principal); C15.5 Malignant neoplasm of lower third of esophagus
CPT/HCPCS: 36415; 80053; 80076; 83735; 85025; 96361; 96375; 96413; J1100; J9271

== ENCOUNTER 2018-08-04 07:30 | Day surgery (SDC) | payer OTHER, BC ==
[2018-08-04] MEDS ORDERED: DEXAMETHASONE INJECTION 20 MG in SODIUM CHLORIDE 50 ML IVPB ONE (08:00)
[2018-08-04] MEDS ORDERED: PEMBROLIZUMAB 200 MG in SODIUM CHLORIDE 100 ML IV ONE (08:30)
[2018-08-04] MEDS ORDERED: SODIUM CHLORIDE 250 ML IV ONE (09:00)
[2018-08-04 09:17] LABS: BASO % 0.3 % (0-2.0); HEMATOCRIT 36.1 % (32.4-45.2); HEMOGLOBIN 11.7 GM/dL (10.7-15.3); LYMPH % 10.3 % (8-40); MCH 31.2 pg (25.7-33.7); MCHC 32.5 g/dl (32.0-36.0); MEAN CELL VOLUME 96.1 fl (80-96); MEAN PLT VOLUME 8.3 fl (7.5-11.1); MONO % 6.3 % (3.8-10.2); NEUT % 81.1 % (42.8-82.8); PLATELET COUNT 280 K/MM3 (134-434); RBC 3.75 M/mm3 (3.60-5.2); RDW 13.9 % (11.6-15.6); WHITE BLOOD COUNT 8.9 K/mm3 (4.0-10.0)
[2018-08-04 10:28] LABS: ALK PHOS 86 U/L (45-117); ANION GAP 7 MMOL/L (8-16); BILIRUBIN,TOTAL 0.4 mg/dL (0.2-1); BLOOD UREA NITROGEN 20 mg/dL (7-18); CALCIUM 8.9 mg/dL (8.5-10.1); CHLORIDE 110 mmol/L (98-107); CO2 26 mmol/L (21-32); CREATININE 0.7 mg/dL (0.55-1.3); GLUCOSE,RANDOM 86 mg/dL (74-106); POTASSIUM 4.7 mmol/L (3.5-5.1); SGOT/AST 18 U/L (15-37); SGPT/ALT 19 U/L (13-61); SODIUM 142 mmol/L (136-145); TOT PROT 6.8 g/dl (6.4-8.2)
[2018-08-04 10:58] LABS: BILIRUBIN,DIRECT 0.1 mg/dL (0.0-0.2); BILIRUBIN,TOTAL 0.4 mg/dL (0.2-1); MAGNESIUM 2.1 mg/dL (1.8-2.4); TOT PROT 6.6 g/dl (6.4-8.2)
[2018-08-04 11:56] VITALS: TEMP 97.8
[2018-08-04 11:57] VITALS: BP 98/52; PULSE 86
[2018-08-04] MEDS ORDERED: PORTA CATH FLUSH 10 ML IVPUSH ONE (11:59)
== END 2018-08-04 11:00 | disposition home or self-care (01) ==
LOC: JONCCHEMO 07:30 → JONCNONCHE 07:30 → J7W 09:27 → JONCCHEMO 11:00
PROVIDERS: ATTEND Internal Medicine Hematology & Oncology
DX: Z51.11 Encounter for antineoplastic chemotherapy (principal); C15.5 Malignant neoplasm of lower third of esophagus
CPT/HCPCS: 36415; 80053; 80076; 83735; 85025; 96361; 96367; 96375; 96413; J1100; J9271

== ENCOUNTER 2018-08-25 07:13 | Day surgery (SDC) | payer OTHER, BC ==
[2018-08-25] MEDS ORDERED: DEXAMETHASONE INJECTION 20 MG in SODIUM CHLORIDE 50 ML IVPB ONE (08:00)
[2018-08-25] MEDS ORDERED: PEMBROLIZUMAB 200 MG in SODIUM CHLORIDE 100 ML IV ONE (08:30)
[2018-08-25] MEDS ORDERED: SODIUM CHLORIDE 250 ML IV ONE (09:00)
[2018-08-25 10:21] LABS: BASO % 0.4 % (0-2.0); EOS % 3.2 % (0-4.5); HEMATOCRIT 36.5 % (32.4-45.2); HEMOGLOBIN 12.2 GM/dL (10.7-15.3); LYMPH % 11.8 % (8-40); MCH 30.8 pg (25.7-33.7); MCHC 33.3 g/dl (32.0-36.0); MEAN CELL VOLUME 92.4 fl (80-96); MEAN PLT VOLUME 8.1 fl (7.5-11.1); MONO % 7.1 % (3.8-10.2); NEUT % 77.5 % (42.8-82.8); PLATELET COUNT 284 K/MM3 (134-434); RBC 3.95 M/mm3 (3.60-5.2); RDW 14.2 % (11.6-15.6)
[2018-08-25 10:57] LABS: ALK PHOS 90 U/L (45-117); ANION GAP 8 MMOL/L (8-16); BILIRUBIN,DIRECT 0.1 mg/dL (0.0-0.2); BILIRUBIN,TOTAL 0.2 mg/dL (0.2-1); BLOOD UREA NITROGEN 22 mg/dL (7-18); CALCIUM 8.2 mg/dL (8.5-10.1); CHLORIDE 106 mmol/L (98-107); CO2 27 mmol/L (21-32); CREATININE 0.6 mg/dL (0.55-1.3); GLUCOSE,RANDOM 77 mg/dL (74-106); MAGNESIUM 2.2 mg/dL (1.8-2.4); POTASSIUM 4.4 mmol/L (3.5-5.1); SGOT/AST 15 U/L (15-37); SGPT/ALT 18 U/L (13-61); SODIUM 141 mmol/L (136-145); TOT PROT 6.9 g/dl (6.4-8.2)
[2018-08-25 16:18] VITALS: TEMP 98.3
[2018-08-25] MEDS ORDERED: PORTA CATH FLUSH 10 ML IVPUSH ONE (16:18)
[2018-08-25 16:20] VITALS: BP 99/45; PULSE 84
== END 2018-08-25 12:30 | disposition home or self-care (01) ==
LOC: JONCCHEMO 07:13 → J7W 10:50 → JONCCHEMO 12:30
PROVIDERS: ATTEND Internal Medicine Hematology & Oncology
DX: Z51.11 Encounter for antineoplastic chemotherapy (principal); C15.5 Malignant neoplasm of lower third of esophagus
CPT/HCPCS: 36415; 80053; 80076; 83735; 85025; 96361; 96375; 96413; J1100; J9271

== ENCOUNTER 2018-09-15 07:21 | Day surgery (SDC) | payer OTHER, BC ==
[2018-09-15 09:38] LABS: BASO % 0.3 % (0-2.0); EOS % 2.7 % (0-4.5); HEMATOCRIT 33.1 % (32.4-45.2); HEMOGLOBIN 11.2 GM/dL (10.7-15.3); LYMPH % 9.3 % (8-40); MCH 30.6 pg (25.7-33.7); MCHC 33.7 g/dl (32.0-36.0); MEAN CELL VOLUME 90.6 fl (80-96); MEAN PLT VOLUME 8.1 fl (7.5-11.1); MONO % 6.4 % (3.8-10.2); NEUT % 81.3 % (42.8-82.8); PLATELET COUNT 263 K/MM3 (134-434); RBC 3.65 M/mm3 (3.60-5.2); RDW 15.2 % (11.6-15.6); WHITE BLOOD COUNT 5.9 K/mm3 (4.0-10.0)
[2018-09-15] MEDS ORDERED: DEXAMETHASONE INJECTION 20 MG in SODIUM CHLORIDE 50 ML IVPB ONE (10:00)
[2018-09-15] MEDS ORDERED: PEMBROLIZUMAB 200 MG in SODIUM CHLORIDE 100 ML IVPB ONE (10:30)
[2018-09-15 10:52] LABS: ALK PHOS 86 U/L (45-117); ANION GAP 8 MMOL/L (8-16); BILIRUBIN,DIRECT 0.2 mg/dL (0.0-0.2); BILIRUBIN,TOTAL 0.4 mg/dL (0.2-1); BLOOD UREA NITROGEN 23 mg/dL (7-18); CHLORIDE 109 mmol/L (98-107); CO2 24 mmol/L (21-32); CREATININE 0.7 mg/dL (0.55-1.3); GLUCOSE,RANDOM 91 mg/dL (74-106); MAGNESIUM 2.1 mg/dL (1.8-2.4); POTASSIUM 4.2 mmol/L (3.5-5.1); SGOT/AST 17 U/L (15-37); SGPT/ALT 19 U/L (13-61); SODIUM 141 mmol/L (136-145); TOT PROT 6.6 g/dl (6.4-8.2)
[2018-09-15] MEDS ORDERED: SODIUM CHLORIDE 250 ML IV ONE (11:00)
[2018-09-15] MEDS ORDERED: PORTA CATH FLUSH 10 ML IVPUSH ONE (15:42)
[2018-09-15 15:43] VITALS: BP 116/52; PULSE 105; TEMP 97.9
== END 2018-09-15 12:00 | disposition home or self-care (01) ==
LOC: JONCCHEMO 07:21 → J7W 08:55 → JONCCHEMO 12:00
PROVIDERS: ATTEND Internal Medicine Hematology & Oncology
DX: Z51.11 Encounter for antineoplastic chemotherapy (principal); C15.5 Malignant neoplasm of lower third of esophagus
CPT/HCPCS: 36415; 80048; 80076; 83735; 85025; 96361; 96367; 96375; 96413; J1100; J9271

== ENCOUNTER 2018-10-06 06:56 | Day surgery (SDC) | payer OTHER, BC ==
[2018-10-06 09:16] LABS: BASO % 0.1 % (0-2.0); EOS % 2.3 % (0-4.5); HEMOGLOBIN 11.8 GM/dL (10.7-15.3); LYMPH % 7.9 % (8-40); MCH 30.5 pg (25.7-33.7); MCHC 33.7 g/dl (32.0-36.0); MEAN CELL VOLUME 90.4 fl (80-96); MEAN PLT VOLUME 8.1 fl (7.5-11.1); MONO % 5.7 % (3.8-10.2); PLATELET COUNT 208 K/MM3 (134-434); RBC 3.87 M/mm3 (3.60-5.2); RDW 15.7 % (11.6-15.6); WHITE BLOOD COUNT 6.7 K/mm3 (4.0-10.0)
[2018-10-06 09:36] LABS: ALBUMIN 2.9 g/dl (3.4-5.0); BILIRUBIN,DIRECT 0.1 mg/dL (0.0-0.2); BILIRUBIN,TOTAL 0.4 mg/dL (0.2-1); MAGNESIUM 2.2 mg/dL (1.8-2.4)
[2018-10-06 09:41] LABS: ALBUMIN 2.9 g/dl (3.4-5.0); ALK PHOS 72 U/L (45-117); ANION GAP 6 MMOL/L (8-16); BILIRUBIN,TOTAL 0.4 mg/dL (0.2-1); BLOOD UREA NITROGEN 21 mg/dL (7-18); CALCIUM 7.1 mg/dL (8.5-10.1); CHLORIDE 110 mmol/L (98-107); CO2 26 mmol/L (21-32); CREATININE 0.6 mg/dL (0.55-1.3); GLUCOSE,RANDOM 106 mg/dL (74-106); POTASSIUM 4.1 mmol/L (3.5-5.1); SGOT/AST 21 U/L (15-37); SGPT/ALT 24 U/L (13-61); SODIUM 142 mmol/L (136-145)
[2018-10-06] MEDS ORDERED: DEXAMETHASONE SODIUM PHOSPHATE 20 MG in SODIUM CHLORIDE 50 ML IVPB ONE (10:00)
[2018-10-06] MEDS ORDERED: PEMBROLIZUMAB 200 MG in SODIUM CHLORIDE 50 ML IV ONE (10:30)
[2018-10-06] MEDS ORDERED: SODIUM CHLORIDE 250 ML IV ONE (11:00)
[2018-10-06 11:05] VITALS: BP 92/43; PULSE 105; TEMP 97.2
[2018-10-06] MEDS ORDERED: PORTA CATH FLUSH 10 ML IVPUSH ONE (11:05)
== END 2018-10-06 10:50 | disposition home or self-care (01) ==
LOC: JONCCHEMO 06:56 → J7W 09:18 → JONCCHEMO 10:50
PROVIDERS: ATTEND Internal Medicine Hematology & Oncology
PROC: 3E04305 Introduction of Other Antineoplastic into Central Vein, Percutaneous Approach (ICD-10-PCS; principal; 2018-10-06)
PROC: 3E043GC Introduction of Other Therapeutic Substance into Central Vein, Percutaneous Approach (ICD-10-PCS; 2018-10-06)
DX: Z51.11 Encounter for antineoplastic chemotherapy (principal); C15.5 Malignant neoplasm of lower third of esophagus; I10 Essential (primary) hypertension; E78.00 Pure hypercholesterolemia, unspecified
CPT/HCPCS: 36415; 80053; 80076; 83735; 85025; 96375; 96413; J9271

== ENCOUNTER 2018-10-27 08:25 | Day surgery (SDC) | payer OTHER, BC ==
[2018-10-27] MEDS ORDERED: DEXAMETHASONE INJECTION 20 MG in SODIUM CHLORIDE 50 ML IVPB ONE (09:00)
[2018-10-27 09:06] LABS: BASO % 0.4 % (0-2.0); EOS % 1.8 % (0-4.5); HEMATOCRIT 34.5 % (32.4-45.2); HEMOGLOBIN 11.7 GM/dL (10.7-15.3); LYMPH % 11.5 % (8-40); MCH 29.8 pg (25.7-33.7); MCHC 33.8 g/dl (32.0-36.0); MEAN CELL VOLUME 88.2 fl (80-96); MEAN PLT VOLUME 7.7 fl (7.5-11.1); MONO % 8.8 % (3.8-10.2); NEUT % 77.5 % (42.8-82.8); PLATELET COUNT 273 K/MM3 (134-434); RBC 3.92 M/mm3 (3.60-5.2); RDW 15.2 % (11.6-15.6)
[2018-10-27] MEDS ORDERED: PEMBROLIZUMAB 200 MG in SODIUM CHLORIDE 100 ML IV ONE (09:30)
[2018-10-27 09:33] LABS: ALBUMIN 2.7 g/dl (3.4-5.0); ALK PHOS 76 U/L (45-117); ANION GAP 6 MMOL/L (8-16); BILIRUBIN,DIRECT 0.1 mg/dL (0.0-0.2); BILIRUBIN,TOTAL 0.4 mg/dL (0.2-1); BLOOD UREA NITROGEN 18 mg/dL (7-18); CALCIUM 7.8 mg/dL (8.5-10.1); CHLORIDE 109 mmol/L (98-107); CO2 27 mmol/L (21-32); CREATININE 0.7 mg/dL (0.55-1.3); GLUCOSE,RANDOM 116 mg/dL (74-106); MAGNESIUM 2.1 mg/dL (1.8-2.4); POTASSIUM 3.9 mmol/L (3.5-5.1); SGOT/AST 16 U/L (15-37); SGPT/ALT 18 U/L (13-61); SODIUM 142 mmol/L (136-145); TOT PROT 5.7 g/dl (6.4-8.2)
[2018-10-27] MEDS ORDERED: SODIUM CHLORIDE 250 ML IV ONE (10:00)
[2018-10-27] MEDS ORDERED: PORTA CATH FLUSH 10 ML IVPUSH ONE (16:13)
[2018-10-27 16:14] VITALS: BP 85/44; PULSE 104; TEMP 97.7
== END 2018-10-27 12:35 | disposition home or self-care (01) ==
LOC: JONCCHEMO 08:25 → J7W 10:44 → JONCCHEMO 12:35
PROVIDERS: ATTEND Internal Medicine Hematology & Oncology
DX: Z51.11 Encounter for antineoplastic chemotherapy (principal); C15.5 Malignant neoplasm of lower third of esophagus
CPT/HCPCS: 36415; 80048; 80076; 83735; 84436; 84439; 84443; 85025; 96361; 96375; 96413; J1100; J9271

== ENCOUNTER 2018-11-17 06:36 | Day surgery (SDC) | payer OTHER, BC ==
[2018-11-17 09:00] LABS: BASO % 0.4 % (0-2.0); EOS % 2.6 % (0-4.5); HEMATOCRIT 33.2 % (32.4-45.2); HEMOGLOBIN 11.2 GM/dL (10.7-15.3); LYMPH % 10.7 % (8-40); MCHC 33.8 g/dl (32.0-36.0); MEAN CELL VOLUME 88.8 fl (80-96); MEAN PLT VOLUME 7.9 fl (7.5-11.1); MONO % 7.6 % (3.8-10.2); NEUT % 78.7 % (42.8-82.8); PLATELET COUNT 261 K/MM3 (134-434); RBC 3.74 M/mm3 (3.60-5.2); RDW 16.1 % (11.6-15.6); WHITE BLOOD COUNT 5.3 K/mm3 (4.0-10.0)
[2018-11-17 09:28] LABS: ALBUMIN 2.8 g/dl (3.4-5.0); ALK PHOS 79 U/L (45-117); ANION GAP 4 MMOL/L (8-16); BILIRUBIN,DIRECT 0.1 mg/dL (0.0-0.2); BILIRUBIN,TOTAL 0.3 mg/dL (0.2-1); BLOOD UREA NITROGEN 17 mg/dL (7-18); CALCIUM 8.1 mg/dL (8.5-10.1); CHLORIDE 109 mmol/L (98-107); CO2 29 mmol/L (21-32); CREATININE 0.7 mg/dL (0.55-1.3); GLUCOSE,RANDOM 74 mg/dL (74-106); MAGNESIUM 2.2 mg/dL (1.8-2.4); POTASSIUM 4.6 mmol/L (3.5-5.1); SGOT/AST 19 U/L (15-37); SGPT/ALT 16 U/L (13-61); SODIUM 142 mmol/L (136-145); TOT PROT 6.2 g/dl (6.4-8.2)
[2018-11-17] MEDS ORDERED: DEXAMETHASONE SODIUM PHOSPHATE 20 MG in SODIUM CHLORIDE 50 ML IVPB ONE (10:00)
[2018-11-17 10:08] VITALS: TEMP 98.4
[2018-11-17] MEDS ORDERED: PEMBROLIZUMAB 200 MG in SODIUM CHLORIDE 100 ML IV ONE (10:30)
[2018-11-17] MEDS ORDERED: SODIUM CHLORIDE 250 ML IV ONE (11:00)
[2018-11-17 13:43] VITALS: BP 96/43; PULSE 92
[2018-11-17] MEDS ORDERED: PORTA CATH FLUSH 10 ML IVPUSH ONE (13:43)
== END 2018-11-17 11:40 | disposition home or self-care (01) ==
LOC: JONCCHEMO 06:36 → J7W 09:57 → JONCCHEMO 11:40
PROVIDERS: ATTEND Internal Medicine Hematology & Oncology
DX: Z51.11 Encounter for antineoplastic chemotherapy (principal); C18.8 Malignant neoplasm of overlapping sites of colon
CPT/HCPCS: 36415; 80048; 80076; 83735; 85025; 96375; 96413; J9271

== ENCOUNTER 2018-11-24 06:28 | Day surgery (SDC) | payer OTHER, BC ==
[2018-11-24 08:57] LABS: BASO % 0.4 % (0-2.0); EOS % 3.2 % (0-4.5); HEMATOCRIT 32.5 % (32.4-45.2); HEMOGLOBIN 10.8 GM/dL (10.7-15.3); LYMPH % 13.1 % (8-40); MCH 29.4 pg (25.7-33.7); MCHC 33.2 g/dl (32.0-36.0); MEAN CELL VOLUME 88.7 fl (80-96); MEAN PLT VOLUME 7.8 fl (7.5-11.1); NEUT % 72.3 % (42.8-82.8); PLATELET COUNT 243 K/MM3 (134-434); RBC 3.66 M/mm3 (3.60-5.2); RDW 16.3 % (11.6-15.6); WHITE BLOOD COUNT 4.9 K/mm3 (4.0-10.0)
[2018-11-24 09:26] LABS: ALBUMIN 2.8 g/dl (3.4-5.0); ALK PHOS 69 U/L (45-117); ANION GAP 6 MMOL/L (8-16); BILIRUBIN,DIRECT 0.1 mg/dL (0.0-0.2); BILIRUBIN,TOTAL 0.3 mg/dL (0.2-1); BLOOD UREA NITROGEN 20 mg/dL (7-18); CALCIUM 7.9 mg/dL (8.5-10.1); CHLORIDE 109 mmol/L (98-107); CO2 28 mmol/L (21-32); CREATININE 0.6 mg/dL (0.55-1.3); GLUCOSE,RANDOM 87 mg/dL (74-106); POTASSIUM 3.9 mmol/L (3.5-5.1); SGOT/AST 14 U/L (15-37); SGPT/ALT 15 U/L (13-61); SODIUM 142 mmol/L (136-145); TOT PROT 5.8 g/dl (6.4-8.2)
[2018-11-24] MEDS ORDERED: DEXAMETHASONE SODIUM PHOSPHATE 20 MG in SODIUM CHLORIDE 50 ML IVPB ONE (10:00)
[2018-11-24] MEDS ORDERED: ATROPINE SO4 0.4 MG/1 ML VIAL NR ONE (10:00)
[2018-11-24] MEDS ORDERED: PALONOSETRON HCL 0.25 MG/5 ML VIAL IVPUSH ONE (10:00)
[2018-11-24] MEDS ORDERED: LEUCOVORIN INJECTION - 572 MG in DEXTROSE 5%-WATER - 250 ML IVPB ONE (10:30)
[2018-11-24] MEDS ORDERED: IRINOTECAN HCL 190 MG in DEXTROSE 5%-WATER - 500 ML IVPB ONE (11:00)
[2018-11-24] MEDS ORDERED: FLUOROURACIL CP ONE (12:30)
[2018-11-24] MEDS ORDERED: FLUOROURACIL 500 MG/10 ML VIAL IVPUSH ONE (12:30)
[2018-11-24] MEDS ORDERED: SODIUM CHLORIDE CP ONE (12:30)
[2018-11-24] MEDS ORDERED: SODIUM CHLORIDE 1,000 ML IV SCH (13:00)
[2018-11-24] MEDS ORDERED: PORTA CATH FLUSH 10 ML IVPUSH ONE (16:18)
[2018-11-24 16:19] VITALS: TEMP 98
[2018-11-24 16:21] VITALS: BP 88/48; PULSE 98
== END 2018-11-24 15:55 | disposition home or self-care (01) ==
LOC: JONCCHEMO 06:28 → J7W 09:44 → JONCCHEMO 15:55
PROVIDERS: ATTEND Internal Medicine Hematology & Oncology
DX: Z51.11 Encounter for antineoplastic chemotherapy (principal); C18.8 Malignant neoplasm of overlapping sites of colon
CPT/HCPCS: 36415; 80048; 80076; 83735; 85025; 96367; 96375; 96413; 96415; 96417; G0498; J2469; J7030; J9190; J9206

== ENCOUNTER 2018-11-26 07:05 | Day surgery (SDC) | payer OTHER, BC ==
[2018-11-26] MEDS ORDERED: ONDANSETRON 4 MG/2 ML VIAL IVPB ONE (13:15)
[2018-11-26] MEDS ORDERED: DEXAMETHASONE SOD PHOSPHATE 4 MG/1 ML VIAL IVPB ONE (13:15)
[2018-11-26] MEDS ORDERED: D5-NS + 20 MEQ KCL - 20 MEQ/1,000 ML INFUS.BAG IV SCH (13:15)
[2018-11-26 17:29] VITALS: TEMP 97.8
[2018-11-26 17:38] VITALS: BP 86/45; PULSE 89
[2018-11-26] MEDS ORDERED: PORTA CATH FLUSH 10 ML IVPUSH ONE (17:38)
== END 2018-11-26 17:15 | disposition home or self-care (01) ==
LOC: JONCCHEMO 07:05 → J7W 12:34 → JONCCHEMO 17:15
PROVIDERS: ATTEND Internal Medicine Hematology & Oncology
PROC: 3E043GC Introduction of Other Therapeutic Substance into Central Vein, Percutaneous Approach (ICD-10-PCS; principal; 2018-11-26)
PROC: 3E043GC Introduction of Other Therapeutic Substance into Central Vein, Percutaneous Approach (ICD-10-PCS; 2018-11-26)
DX: C18.8 Malignant neoplasm of overlapping sites of colon (principal)
CPT/HCPCS: 96361; 96365; 96367; 96375

== ENCOUNTER 2018-11-27 09:25 | Day surgery (SDC) | payer OTHER, BC ==
[2018-11-27] MEDS ORDERED: MAGNESIUM SULF 50% (8.12 MEQ/2 ML-1 GM VIAL) ONE (10:00)
[2018-11-27] MEDS ORDERED: ONDANSETRON 4 MG/2 ML VIAL ONE (10:01)
[2018-11-27] MEDS ORDERED: DEXAMETHASONE SOD PHOSPHATE 10 MG/1 ML VIAL ONE (10:01)
[2018-11-27] MEDS ORDERED: D5-NS + 20 MEQ KCL - 20 MEQ/1,000 ML INFUS.BAG IV SCH (10:15)
[2018-11-27] MEDS ORDERED: DEXAMETHASONE SOD PHOSPHATE 10 MG/1 ML VIAL IVPB ONE (10:15)
[2018-11-27] MEDS ORDERED: ONDANSETRON 4 MG/2 ML VIAL IVPB ONE (10:15)
[2018-11-27] MEDS ORDERED: MAGNESIUM SULF 50% (8.12 MEQ/2 ML-1 GM VIAL) IVPB ONE (10:15)
[2018-11-27] MEDS ORDERED: PORTA CATH FLUSH 10 ML IVPUSH ONE ×2 (14:51→15:07)
[2018-11-27 15:07] VITALS: BP 112/52; PULSE 85
[2018-11-27 15:14] VITALS: TEMP 97.6
== END 2018-11-27 12:30 | disposition home or self-care (01) ==
LOC: JONCNONCHE 09:25 → J7W 09:43 → JONCNONCHE 12:30
PROVIDERS: ATTEND Internal Medicine Hematology & Oncology
PROC: 3E043GC Introduction of Other Therapeutic Substance into Central Vein, Percutaneous Approach (ICD-10-PCS; principal; 2018-11-27)
PROC: 3E043GC Introduction of Other Therapeutic Substance into Central Vein, Percutaneous Approach (ICD-10-PCS; 2018-11-27)
DX: C18.8 Malignant neoplasm of overlapping sites of colon (principal)
CPT/HCPCS: 96361; 96365; 96367; 96375; 96417; J1100

== ENCOUNTER 2018-12-04 20:33 | Inpatient (IN) | payer OTHER, BC ==
--- NOTE | 2018-12-04 20:43 | PDOC ---
History of Present Illness - General Stated Complaint: Broken hip Time Seen by Provider: 12/04/18 20:35 - History of Present Illness Initial Comments: 12/04/18 20:52 68 year old woman with a history of HTN, HLD, Esophageal CA s/p chemotherapy who presents after a fall onto the R hip that occurred this morning at approximately 0900 while walking to her car and slipping on ice. She was able to bear some weight on the hip after the fall. She denies hitting her head, or neck, falling on her back, any other extremity injury. Denies loss of consciousness, chest pain, nausea, diaphoresis, lightheadedness before or after falling. She was seen at an urgent care where she had hip Xrays that showed what looked to be a R hip fx and she was sent to Orthopedics and was seen by Dr. Conklin who wanted her to be admitted in hospital for surgery in 2 days. The patient took some Tylenol and states she currently feels okay if she does not move her hips too much. She has no other complaints at bedside. Past History - Past Medical History Allergies/Adverse Reactions: Allergies Allergy/AdvReac Type Severity Reaction Status Date / Time No Known Drug Allergies Allergy Verified 12/04/18 22:56 Home Medications: Ambulatory Orders Aspirin 81 mg PO DAILY 12/04/18 Docusate Sodium [Colace] 100 mg PO DAILY 12/04/18 Anemia: No Asthma: No Cancer: Yes (ESOPHAGEAL) Cardiac Disorders: No CVA: No COPD: No CHF: No Dementia: No Diabetes: No GI Disorders: No Disorders: No HTN: Yes Hypercholesterolemia: Yes Liver Disease: No Seizures: No Thyroid Disease: No - Surgical History Abdominal Surgery: Yes (12/01/15 EGD) Appendectomy: No Cardiac Surgery: No Cholecystectomy: Yes Lung Surgery: No Neurologic Surgery: No Orthopedic Surgery: No - Suicide/Smoking/Psychosocial Hx Smoking History: Never smoked Have you smoked in the past 12 months: No Hx Alcohol Use: No Drug/Substance Use Hx: No Substance Use Type: None Hx Substance Use Treatment: No *Physical Exam - Physical Exam Comments: 12/04/18 21:46 GENERAL: Awake, alert, and fully oriented, in no acute distress HEAD: No signs of trauma, normocephalic, atraumatic EYES: EOMI, sclera anicteric, conjunctiva clear ENT: oropharynx clear without exudates. Moist mucosa NECK: Normal ROM, supple LUNGS: No distress, speaks full sentences, clear to auscultation bilaterally HEART: Regular rate and rhythm, normal S1 and S2, no murmurs, rubs or gallops, peripheral pulses normal and equal bilaterally. ABDOMEN: Soft, nontender, normoactive bowel sounds. No guarding, no rebound. No masses EXTREMITIES : Normal inspection, Limited hip range 2/2 pain, 5/5 strength on plantar and dosriflexion, FROM of the R knee, no laxity or pain to palpation, no edema. No clubbing or cyanosis. palpable pulses NEUROLOGICAL: Cranial nerves II through XII grossly intact. Normal speech, no focal sensorimotor deficits SKIN: Warm, Dry, normal turgor, no rashes or lesions noted ED Treatment Course - LABORATORY CBC & Chemistry Diagram: 12/04/18 20:46 12/04/18 20:50 - RADIOLOGY Radiology Studies Ordered: Category Date Time Status FEMUR-RIGHT [RAD] Stat Radiology 12/04/18 20:36 Ordered HIP & PELVIS-RIGHT [RAD] Stat Radiology 12/04/18 20:36 Ordered Medical Decision Making - Medical Decision Making 12/05/18 04:30 ED Course: consdier fx vs dislocation vs contusion hoevwer pt found to have fx at outside facility hip XR, cbc, cmp, ptr/inr, ptt Patient does not currently desire pain medications at this time R Hip XR: intertrochanter fx Multiple attempts to contact Dr. Conklin, orthopedics. Could not be reached callisthenics instructor orthopedics called as requested by admitting, Dr Woo made aware of patient. Patient admitted to medicine. *DC/Admit/Observation/Transfer Diagnosis at time of Disposition: Hip fracture, right - Discharge Dispostion Condition at time of disposition: Fair Decision to Admit order: Yes - Referrals - Patient Instructions - Post Discharge Activity
--- NOTE | 2018-12-04 20:43 | PDOC ---
Attending Attestation - HPI HPI: 12/04/18 21:28 The patient is a 68 year old female, with a significant PMH of HTN, HLD, Esophageal CA 2/p chemotherapy who presents to the emergency department s/p fall at 9AM today. Patient states that she was walking and slipped on ice, sustaining her fall on the right hip. Patient has been able to bear weight after the fall. Patient went to an urgent care after the fall and had and XR done there. Patient was referred to an orthopedist, Dr. Conklin, who told her she had a fracture and needed to come to the ER to be admitted. Patient is not requesting any pain meds at this time. The patient denies chest pain, shortness of breath, headache and dizziness. Denies fever, chills, nausea, vomit, diarrhea and constipation. Denies dysuria, frequency, urgency and hematuria. Allergies: NKA Past surgical history: None reported. Social history: No reported alcohol, drug or cigarette use. <Urszula Benoit - Last Filed: 12/04/18 21:40> - Physicial Exam PE: 12/05/18 01:00 Agree with resident exam. patient is able to flex R hip to 90 degrees and to bend her knee past 90 degrees. No other signs of injury. - Medical Decision Making 12/05/18 01:02 Pt presents to the Ed after sent in from orthopedist office with hip fx. Xray shows intertrochanteric hip fx. Will admit to medicine and consult Dr. Conklin. <Aide Neri - Last Filed: 12/05/18 01:02>
[2018-12-04] MEDS ORDERED: morphine CARPU-JECT 2 MG/1 ML DISP.SYRIN IVPUSH ONE (20:46)
[2018-12-04 20:54] VITALS: BMI 15.6
[2018-12-04 21:23] LABS: BASO % 0.1 % (0-2.0); HEMATOCRIT 36.7 % (32.4-45.2); LYMPH % 8.1 % (8-40); MCH 29.8 pg (25.7-33.7); MCHC 32.8 g/dl (32.0-36.0); MEAN CELL VOLUME 90.8 fl (80-96); MEAN PLT VOLUME 7.8 fl (7.5-11.1); MONO % 5.4 % (3.8-10.2); NEUT % 84.4 % (42.8-82.8); PLATELET COUNT 165 K/MM3 (134-434); RBC 4.04 M/mm3 (3.60-5.2); RDW 16.3 % (11.6-15.6); WHITE BLOOD COUNT 5.7 K/mm3 (4.0-10.0)
[2018-12-04 21:34] LABS: INR 1.3 (0.83-1.09); PROTHROMBIN TIME (PATIENT) 15.4 SEC (9.7-13.0)
[2018-12-04 21:37] LABS: ACTIVATED PTT 26.2 SECONDS (25.2-36.5)
[2018-12-04 22:26] LABS: ALBUMIN 3.3 g/dl (3.4-5.0); ALK PHOS 84 U/L (45-117); ANION GAP 8 MMOL/L (8-16); BILIRUBIN,TOTAL 0.7 mg/dL (0.2-1); BLOOD UREA NITROGEN 23 mg/dL (7-18); CHLORIDE 107 mmol/L (98-107); CO2 24 mmol/L (21-32); CREATININE 0.7 mg/dL (0.55-1.3); GLUCOSE,RANDOM 171 mg/dL (74-106); POTASSIUM 3.7 mmol/L (3.5-5.1); SGOT/AST 21 U/L (15-37); SGPT/ALT 21 U/L (13-61); SODIUM 139 mmol/L (136-145)
--- NOTE | 2018-12-04 23:29 | PN ---
Teaching Attending Note Name of Resident: Melanie Lofton ATTENDING PHYSICIAN STATEMENT I saw and evaluated the patient. I reviewed the resident's note and discussed the case with the resident. I agree with the resident's findings and plan as documented. SUBJECTIVE: Patient is a 68 year old woman with a PMH of HTN, HLD, Esophageal CA s/p chemotherapy who presents after a fall onto the R hip that occurred this morning at approximately 0900 while walking to her car and slipping on ice. She was able to bear some weight on the hip after the fall. She denies hitting her head, or neck, falling on her back, any other extremity injury. Denies loss of consciousness, chest pain, nausea, diaphoresis, lightheadedness before or after falling. She was seen at an urgent care where she had hip Xrays that showed what looked to be a R hip fx and she was sent to Orthopedics and was seen by Dr. Conklin who wanted her to be admitted in hospital for surgery in 2 days. The patient took some Tylenol and states she currently feels okay if she does not move her hips too much. OBJECTIVE: Alert and small framed Vital Signs Period Temp Pulse Resp BP Sys/Spicer Pulse Ox Last 24 Hr 99.7 F 22 126/67 97 HEENT: No Jaundice, eye redness or discharge, PERRLA, EOMI. Normocephalic, atraumatic. External ears are normal and hearing is grossly intact. No nasal discharge. Neck: Supple, nontender. No palpable adenopathy or thyromegaly. No JVD Chest: Good effort. Right chest port. Clear to auscultation and percussion. Heart: Regular. No S3, rub or murmur Abdomen: Not distended, soft, nontender and no HSM. No rebound or guarding. Normoactive bowel sounds. Ext: Peripheral pulses intact. No leg edema. Limited ROM right hip. Skin: Warm and dry. No petechiae, rash or ecchymosis. Neuro: Alert. Oriented x3. CN 2-12 grossly intact. Sensation grossly intact in all four extremities and DTR are symmetric. Home Medications Medication Instructions Recorded Aspirin 81 mg PO DAILY 12/04/18 Docusate Sodium [Colace] 100 mg PO DAILY 12/04/18 Abnormal Lab Results 12/04/18 12/04/18 12/04/18 20:46 20:46 20:50 RDW 16.3 H Neutrophils % 84.4 H PT with INR 15.40 H INR 1.30 H BUN 23 H Random Glucose 171 H Calcium 8.0 L Albumin 3.3 L ASSESSMENT AND PLAN: 1. Right hip fracture - Diagnosis based on information from Urgent Care Center. Awaiting official reading of hip xrays. Will get right hip CT scan and use tylenol for pain control. Will keep her NPO and give IV NS. Sinus tachycardia noted on EKG. Will get TFT and Urinalysis. Ortho consulted. Consult PT. Hyperglycemia is unexplained. Check HbA1c and implement sliding scale insulin regimen. Will consult surgical tech for malnutrition and being underweight. Esophageal cancer stable on chemotherapy. 2. DVT prophylaxis - Heparin 5000u sq tid. 3. Advance directives - Full code
[2018-12-05] MEDS ORDERED: MORPHINE SULFATE 2 MG/ML VIAL ONE (00:43)
[2018-12-05] MEDS ORDERED: SODIUM CHLORIDE 1,000 ML IV SCH (00:45)
[2018-12-05] MEDS ORDERED: ACETAMINOPHEN 325 MG TABLET (FP) PO PRN ×2 (00:50→07:26)
--- NOTE | 2018-12-05 00:52 | HP ---
CHIEF COMPLAINT: s/p fall, R hip fracture PCP: Dr. Wolf (but has not seen since 2016) HISTORY OF PRESENT ILLNESS: 68F w/ pmhx of HTN, esophageal cancer (s/p tumor resection in 2016, now on chemo ) presented to the ED with R hip pain s/p fall. Pt states this morning at 9am, after loading her belongings in her car, she proceeded to walk towards the drivers' cash clerk's side when she slipped on ice and fall on her R hip. She does not report hitting her head or loss of consciousness. Pt states she was able to get back up herself and then proceeded to go to her dentist appointment. After returning home, the R hip pain worsened and as a result, she took Tylenol. She also reports borrowing her neighbors cane to help her walk around as the pain was exacerbated with weight-bearing, especially while walking. Pt states she went to Urgent Care to be evaluated where an x-ray of her hip was done and was subsequently referred to see an orthopedist at [facility]. Upon evaluation at [facility], pt was told that she would need surgery on her hip and to proceed to the hospital for further evaluation by ortho surgeon. ER course was notable for: (1) BP 126/67, HR 85, 97% RA, Glu 171 (2) Morphine 2 mg IVP (3) Hip/Pelvis, R femur xray done; awaiting read Recent Travel: Denies PAST MEDICAL HISTORY: HTN (not currently on meds) esophageal cx (s/p tumor resection, currently on chemo; follows up with Dr. 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 Exercise: Does chair yoga twice a week Family History: Allergies PCN - hives/rashes HOME MEDICATIONS: Home Medications Medication Instructions Recorded Aspirin 81 mg PO DAILY 12/04/18 Docusate Sodium [Colace] 100 mg PO DAILY 12/04/18 REVIEW OF SYSTEMS CONSTITUTIONAL: Denies fever, chills, diaphoresis, generalized weakness, malaise HEENT: Denies rhinorrhea, nasal congestion, throat pain, throat swelling, difficulty swallowing, mouth swelling, ear pain, eye pain, visual changes CARDIOVASCULAR: Denies chest pain, syncope, palpitations, irregular heart rate, lightheadedness, peripheral edema RESPIRATORY: Denies cough, shortness of breath, dyspnea with exertion, orthopnea GASTROINTESTINAL: Denies abdominal pain, abdominal distension, nausea, vomiting , diarrhea, constipation, melena, hematochezia GENITOURINARY: Denies dysuria, frequency, urgency, hesitancy, hematuria MUSCULOSKELETAL: Admits to R hip pain when weight bearing/walking NEUROLOGIC: Admits to unsteady, antalgic gait; Denies headache, focal weakness or paresthesias, dizziness, seizure, mental status changes, bladder or bowel incontinence PHYSICAL EXAMINATION Vital Signs - 24 hr 12/04/18 20:39 Temperature 99.7 F H Respiratory 22 H Rate Blood Pressure 126/67 O2 Sat by Pulse 97 Oximetry (%) GENERAL: AAOx3. NAD. Resting comfortably in bed. Pleasant. Thin female. HEENT: AT/NC. EOMI. PIOTR. Moist mucus membranes. Facial muscles intact. NECK: Normal range of motion, supple without lymphadenopathy, JVD, or masses. LUNGS: CTA B/L. No wheezes/crackles noted. Symmetric chest rise. CHEST: Has portacath R side of chest HEART: Tachycardic. Normal S1, S2. No murmurs noted. ABDOMEN: Soft, nontender, not distended, normoactive bowel sounds, no guarding, no rebound, no masses. No hepatomegaly or splenomegaly. MUSCULOSKELETAL: No bony deformities noted. UPPER EXTREMITIES: 2+ pulses, warm, well-perfused. No cyanosis. No clubbing. No peripheral edema. 5/5 b/l muscle strength shoulder and elbow flexion/extension. 5/5 hand tax services specialist b/l. LOWER EXTREMITIES: 2+ pulses, warm, well-perfused. No calf tenderness. No peripheral edema. Limited range of motion in R hip due to pain. 5/5 L hip flexion. NEUROLOGICAL: Facial muscles intact. Normal speech. Unable to assess gait. Laboratory Results - last 24 hr 12/04/18 12/04/18 12/04/18 20:46 20:46 20:46 WBC 5.7 RBC 4.04 Hgb 12.0 Hct 36.7 MCV 90.8 MCH 29.8 MCHC 32.8 RDW 16.3 H Plt Count 165 D MPV 7.8 Absolute Neuts (auto) 4.8 Neutrophils % 84.4 H Lymphocytes % 8.1 D Monocytes % 5.4 Eosinophils % 2.0 Basophils % 0.1 Nucleated RBC % 0 PT with INR 15.40 H INR 1.30 H PTT (Actin FS) 26.2 Sodium Potassium Chloride Carbon Dioxide Anion Gap BUN Creatinine Creat Clearance w eGFR Random Glucose Calcium Total Bilirubin AST ALT Alkaline Phosphatase Total Protein Albumin Blood Type B POSITIVE Antibody Screen Negative 12/04/18 20:50 WBC RBC Hgb Hct MCV MCH MCHC RDW Plt Count MPV Absolute Neuts (auto) Neutrophils % Lymphocytes % Monocytes % Eosinophils % Basophils % Nucleated RBC % PT with INR INR PTT (Actin FS) Sodium 139 Potassium 3.7 Chloride 107 Carbon Dioxide 24 Anion Gap 8 BUN 23 H Creatinine 0.7 Creat Clearance w eGFR > 60 Random Glucose 171 H Calcium 8.0 L Total Bilirubin 0.7 AST 21 ALT 21 Alkaline Phosphatase 84 Total Protein 7.0 Albumin 3.3 L Blood Type Antibody Screen IMAGING: * Femur x-ray: pending * Hip/Pelvis x-ray: pending * Pelvis CT: pending * EKG: sinus tachycardia, QTc 447 ms, no ST-T changes ASSESSMENT/PLAN: 68F w/ pmhx of HTN, esophageal cancer (s/p tumor resection in 2015, now on chemo ) presented to the ED with R hip pain s/p fall. #R hip pain; likely 2/2 R hip fracture -Concern for hip fracture was based on pt's prior imaging done at Urgent Care and evaluation by ortho at [facility]. Pt was told she needed R hip surgery. Will keep NPO, give IVF, and Tylenol PRN for pain control -CT of hip/pelvis ordered, femur/hip/pelvis x-ray ordered; await final read -Ortho consult; await recs -Fall risk precautions #Hyperglycemia; ? etiology as pt does not have history of DM -Hgb A1c ordered -ISS/BGMs Q6H -Cont to monitor #Underweight; BMI 15.7, likely related to malignancy/malnutrition -cheese wrapper consult #Esophageal cancer; currently on chemotherapy (s/p tumor resection in 2015) -Pt sees Dr. Gore for treatment; last tx was Saturday, Nov 24 -Cont to follow up as outpatient #HTN. Stable. 126/67. -Pt has been off medications as her BP has been wnl. -Cont to monitor #Prophylaxis -SCDs; hold home ASA for now #FEN -NS @ 75 -recheck cecile in AM -NPO except meds for possible surgery dispo -admit to med-surg -full code -medications have been reconciled Visit type - Emergency Visit Emergency Visit: Yes ED Registration Date: 12/05/18 Care time: The patient presented to the Emergency Department on the above date and was hospitalized for further evaluation of their emergent condition. - New Patient This patient is new to me today: Yes Date on this admission: 12/05/18 - Critical Care Critical Care patient: No
[2018-12-05] MEDS: INSULIN SLIDING SCALE (NOVOLOG) 1 VIAL SQ SCH ×2 (06:52→11:57)
[2018-12-05] MEDS ORDERED: MORPHINE SULFATE 2 MG/ML VIAL IVPUSH PRN (07:27)
--- NOTE | 2018-12-05 08:45 | CONSULT ---
Consult - text type - Consultation Consultation Note: ORTHOPEDIC SURGERY CONSULTATION NOTE Department of Orthopedic Surgery HISTORY OF PRESENT ILLNESS Arlene Hamilton is a 68 year old female with a PMH of HTN, esophageal cancer (s/p tumor resection in 2016, currently on chemo) who presents to [facility] with right hip pain. The orthopedic service was consulted for a right hip fracture. The injury occurred yesterday after a slip and fall on ice. She was able to get up and she went to her dentist appointment for a filling. She went to [facility] afterwards and they referred her to Dr. Pereira ([facility]). She was diagnosed with a hip fracture and was advised to go to the emergency room. The patient notes severe pain to the right hip. Denies any other injuries. Denies numbness, tingling or other constitutional complaints. The patient does not use an assistive devices at baseline. Active Problems Problem Status Category Onset Hip fracture, right Acute Medical Past Medical History Cardio/Vascular HTN,Hyperlipdemia Heme/Onc Other Past Surgical History Past Surgical History Cholecystectomy Social History Smoking history Never smoked Hx Alcohol Use No ADL Independent History of Recent Travel No Allergies Allergy/AdvReac Type Severity Reaction Status Date / Time No Known Drug Allergies Allergy Verified 12/04/18 22:56 Active Medications Generic Name Dose Route Start Last Admin Trade Name Freq PRN Reason Stop Dose Admin Acetaminophen 650 mg 12/05/18 07:26 Tylenol - PO Q4H PRN PAIN LEVEL 4 - 6 Sodium Chloride 1,000 mls @ 75 mls/hr 12/05/18 00:45 12/05/18 00:48 Normal Saline - IV 75 mls/hr ASDIR SUSANA Administration Insulin Aspart 1 vial 12/05/18 06:00 12/05/18 06:52 Novolog Vial Sliding Scale - SQ Not Given Q6HPO SUSANA Protocol Morphine Sulfate 2 mg 12/05/18 07:27 Morphine Sulfate IVPUSH Q4H PRN PAIN LEVEL 7 - 10 Vital Signs (last) Temp Pulse Resp BP Pulse Ox 98.2 F 96 H 18 131/68 99 12/05/18 03:44 12/05/18 03:44 12/05/18 03:44 12/05/18 03:44 12/05/18 03:44 Intake and Output 12/03/18 12/04/18 12/05/18 23:59 23:59 23:59 Intake Total 800 Balance 800 Intake: IV 800 Normal Saline - 1,000 ml 800 @ 75 mls/hr IV ASDIR [facility] Rx#:[id number] Other: Voiding Method Bedpan Weight 100 lb 100 lb Height 5 ft 7 in 5 ft 7 in Body Mass Index (BMI) 15.6 15.6 Weight Measurement Method Est/Stated by Patient Laboratory 12/04/18 20:46 12/04/18 20:50 PT with INR 15.40 SEC (9.7-13.0) H 12/04/18 20:46 PTT (Actin FS) 26.2 SECONDS (25.2-36.5) 12/04/18 20:46 FAMILY HISTORY Unknown REVIEW OF SYMPTOMS A twelve-point review of systems was performed and was negative except as noted in HPI. PHYSICAL EXAM Constitutional: Alert and oriented to person, place, and time. Appears well- developed and well-nourished. No acute distress, appropriate mood and affect. HEENT: Normocephalic, atraumatic Cardiovascular: Regular rate and rhythm, extremities warm, no cyanosis. Pulmonary: Breathing comfortably, normal air movement, no audible wheezing. Right Upper Extremity: No tenderness to palpation. Full passive and active ROM, free from pain. Left Upper Extremity: No tenderness to palpation. Full passive and active ROM, free from pain. Right Lower Extremity: Skin warm, dry, and intact; no lesions, rashes or ulcers noted. Muscle mass equal and symmetric to contralateral side. No atrophy noted. No masses or effusions noted. Tender to palpation at proximal thigh; nontender throughout rest of extremity. No cords or calf tenderness. No significant calf/ ankle edema. + Log roll. Unable to SLR. EHL/TA/GS motor intact; SILT distally; 2 + DP pulses; Cap refill brisk. Tone and reflexes normal. Left Lower Extremity: Skin warm, dry, and intact; no lesions, rashes or ulcers noted. Muscle mass equal and symmetric to contralateral side. No atrophy noted. No masses or effusions noted. No tenderness to palpation. No cords or calf tenderness. No significant calf/ankle edema. Full passive and active ROM, free from pain. Joints stable with no pathologic laxity. EHL/TA/GS motor intact; SILT distally; 2+ DP pulses; Cap refill brisk. Tone and reflexes normal. IMAGING I personally reviewed all radiographs, CT, and other imaging. They demonstrate an impacted femoral neck fracture. ASSESSMENT AND PLAN Arlene Hamilton is a 68 year old female presenting status post mechanical fall with a right sided impacted femoral neck fracture. We have reviewed the imaging and clinical findings in detail, as well as their potential implications. This is an operative fracture. - NPO; IVF - Will need clearance prior to surgery - Suman - [facility] - Patient was evaluated by another orthopedic surgeon in the office and sent to ED. Will attempt to reach Drs. Conklin/Kelli for further plan. Addendum 12/05/2018 1:13 PM: Case discussed with Dr. Conklin. I will take over the care for Ms. Hamilton. We will proceed to OR today as planned. Risks, benefits and alternatives discussed with the patient. She wishes to proceed with surgery. All questions were answered. Thank you for involving our team in the care of this patient. Please call us at [phone] with questions
[2018-12-05] MEDS ORDERED: LACTATED RINGERS SOLUTION 1,000 ML/1,000 ML INFUS.BAG IV SCH ×2 (10:30→16:15)
--- NOTE | 2018-12-05 11:28 | PN ---
Physical Exam: SUBJECTIVE: Patient seen and examined at bedside. Requests further pain control beyond tylenol. Difficulty urinating but was eventually able to void without catheterization. Otherwise no acute complaints. OBJECTIVE: Vital Signs Period Temp Pulse Resp BP Sys/Spicer Pulse Ox Last 24 Hr 98.2 F-99.7 F 96-98 18-22 126-131/65-68 97-100 GENERAL: A&Ox3, NAD HEAD: NC/AT EYES: PERRLA, EOMI, sclera anicteric, conjunctiva clear. No ptosis. ENT: Ears normal, nares patent, oropharynx clear without exudates, moist mucous membranes. NECK: Trachea midline, full range of motion, supple. LUNGS: Breath sounds equal, clear to auscultation bilaterally, no wheezes, no crackles, no accessory muscle use. HEART: Regular rate and rhythm, S1, S2 without murmur, rub or gallop. ABDOMEN: Soft, nontender, nondistended, normoactive bowel sounds, no guarding, no rebound, no hepatosplenomegaly, no masses. EXTREMITIES: 2+ pulses, warm, well-perfused, no edema. +tenderness to palpation on right trochanteric surface. NEUROLOGICAL: Cranial nerves II through XII grossly intact. Normal speech, gait not observed. PSYCH: Normal mood, normal affect. SKIN: Warm, dry, normal turgor, no rashes or lesions noted Laboratory Results - last 24 hr 12/04/18 12/04/18 12/04/18 20:46 20:46 20:46 WBC 5.7 RBC 4.04 Hgb 12.0 Hct 36.7 MCV 90.8 MCH 29.8 MCHC 32.8 RDW 16.3 H Plt Count 165 D MPV 7.8 Absolute Neuts (auto) 4.8 Neutrophils % 84.4 H Lymphocytes % 8.1 D Monocytes % 5.4 Eosinophils % 2.0 Basophils % 0.1 Nucleated RBC % 0 PT with INR 15.40 H INR 1.30 H PTT (Actin FS) 26.2 Sodium Potassium Chloride Carbon Dioxide Anion Gap BUN Creatinine Creat Clearance w eGFR POC Glucometer Random Glucose Hemoglobin A1c % Calcium Total Bilirubin AST ALT Alkaline Phosphatase Total Protein Albumin TSH Free T4 Blood Type B POSITIVE Antibody Screen Negative 12/04/18 12/05/18 12/05/18 20:50 05:30 05:45 WBC RBC Hgb Hct MCV MCH MCHC RDW Plt Count MPV Absolute Neuts (auto) Neutrophils % Lymphocytes % Monocytes % Eosinophils % Basophils % Nucleated RBC % PT with INR INR PTT (Actin FS) Sodium 139 Potassium 3.7 Chloride 107 Carbon Dioxide 24 Anion Gap 8 BUN 23 H Creatinine 0.7 Creat Clearance w eGFR > 60 POC Glucometer Random Glucose 171 H Hemoglobin A1c % 6.3 Calcium 8.0 L Total Bilirubin 0.7 AST 21 ALT 21 Alkaline Phosphatase 84 Total Protein 7.0 Albumin 3.3 L TSH 1.37 Free T4 1.55 H Blood Type Antibody Screen 12/05/18 06:45 WBC RBC Hgb Hct MCV MCH MCHC RDW Plt Count MPV Absolute Neuts (auto) Neutrophils % Lymphocytes % Monocytes % Eosinophils % Basophils % Nucleated RBC % PT with INR INR PTT (Actin FS) Sodium Potassium Chloride Carbon Dioxide Anion Gap BUN Creatinine Creat Clearance w eGFR POC Glucometer 75 Random Glucose Hemoglobin A1c % Calcium Total Bilirubin AST ALT Alkaline Phosphatase Total Protein Albumin TSH Free T4 Blood Type Antibody Screen Active Medications Generic Name Dose Route Start Last Admin Trade Name Freq PRN Reason Stop Dose Admin Acetaminophen 650 mg 12/05/18 07:26 Tylenol - PO Q4H PRN PAIN LEVEL 4 - 6 Lactated Ringer's 1,000 ml in 1,000 mls @ 75 mls/hr 12/05/18 10:30 12/05/18 10:34 Lactated Ringers Solution IV 75 mls/hr ASDIR SUSANA Administration Insulin Aspart 1 vial 12/05/18 06:00 12/05/18 06:52 Novolog Vial Sliding Scale - SQ Not Given Q6HPO [facility] Protocol Morphine Sulfate 2 mg 12/05/18 07:27 12/05/18 10:45 Morphine Sulfate IVPUSH 2 mg Q4H PRN Administration PAIN LEVEL 7 - 10 ASSESSMENT/PLAN: 68 y/o F w/ PMHx HTN, HLD 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 #R hip Fx -Dr. Woo (ortho) consulted, reviewed images and diagnosed with impacted femoral neck fracture of R hip -for surgery today -EKG and cardiac factors reviewed -Pt is at least moderate risk for this non-cardiac, non-vascular, non- neurosurgery -pain meds per scale -will treat with perioperative hydration and DVT prophylaxis #endocrine -elevated glucose -A1c pending -BGM, SSI for now #cardiac -home meds following Sx #oncologic -under Tx w/ Dr. Gore, no inpatient intervention #PPx -DVT: SCDs at this time, pharmacologic AC following Sx -GI: not indicated #FEN -LR @ 75 -monitor and replete lytes -resume diet following Sx #code -full #dispo -cont to monitor on med/surg Visit type - Emergency Visit Emergency Visit: No - New Patient This patient is new to me today: Yes Date on this admission: 12/05/18 - Critical Care Critical Care patient: No
[2018-12-05 12:33] LABS: URINE APPEARANCE CLEAR; URINE BILIRUBIN NEGATIVE (<2.0 mg/dL); URINE COLOR LTYELLOW; URINE GLUCOSE (UA) NEGATIVE (NEGATIVE); URINE KETONE 1+ (NEGATIVE); URINE LEUK ESTERASE NEGATIVE (NEGATIVE); URINE NITRITE NEGATIVE (NEGATIVE); URINE PROTEIN NEGATIVE (NEGATIVE); URINE UROBILINOGEN NEGATIVE mg/dL (0.2-1.0)
--- NOTE | 2018-12-05 12:52 | EKG ---
Test Reason : Blood Pressure : / mmHG Vent. Rate : 104 BPM Atrial Rate : 104 BPM P-R Int : 132 ms QRS Dur : 072 ms QT Int : 340 ms P-R-T Axes : 071 090 050 degrees QTc Int : 447 ms SINUS TACHYCARDIA POSSIBLE LEFT ATRIAL ENLARGEMENT RIGHTWARD AXIS BORDERLINE ECG WHEN COMPARED WITH ECG OF 17-NOV-2007 11:11, NO SIGNIFICANT CHANGE WAS FOUND Confirmed by PAGE LOVELL MD ([id number]) on 12/05/2018 12:52:08 PM Referred By: Confirmed By:PAGE LOVELL MD
[2018-12-05] MEDS ORDERED: BUPIVACAINE HCL/PF 0.5% (5MG/ML) 10 ML VIAL ONE ×2 (13:20→13:21)
[2018-12-05] MEDS ORDERED: MIDAZOLAM HCL 2 MG/2 ML SINGLE DOSE VIAL ONE ×2 (13:36→14:13)
[2018-12-05] MEDS ORDERED: CLINDAMYCIN PHOSPHATE 600 MG/4 ML VIAL ONE ×2 (13:38)
[2018-12-05] MEDS ORDERED: CLINDAMYCIN 900 MG PREMIX BAG IVPB ONE (13:39)
[2018-12-05] MEDS ORDERED: PHENYLEPHRINE HCL 10 MG/1 ML SINGLE DOSE VIAL ONE (14:17)
[2018-12-05] MEDS ORDERED: oxyCODONE HCL 5 MG TABLET PO PRN ×2 (15:01→16:15)
[2018-12-05] MEDS ORDERED: PROMETHAZINE HCL 25 MG/1 ML VIAL IVPUSH PRN ×2 (15:01→16:15)
[2018-12-05] MEDS ORDERED: ONDANSETRON 4 MG/2 ML VIAL IVPUSH PRN ×2 (15:01→16:15)
[2018-12-05 16:05] LABS: HEMATOCRIT 33.4 % (32.4-45.2); HEMOGLOBIN 11.2 GM/dL (10.7-15.3); MCH 30.4 pg (25.7-33.7); MCHC 33.5 g/dl (32.0-36.0); MEAN CELL VOLUME 90.7 fl (80-96); MEAN PLT VOLUME 7.9 fl (7.5-11.1); PLATELET COUNT 139 K/MM3 (134-434); RBC 3.68 M/mm3 (3.60-5.2); RDW 16.4 % (11.6-15.6); WHITE BLOOD COUNT 4.4 K/mm3 (4.0-10.0)
[2018-12-05 16:06] LABS: BASO % 0.3 % (0-2.0); EOS % 5.4 % (0-4.5); LYMPH % 9.1 % (8-40); MONO % 5.3 % (3.8-10.2); NEUT % 79.9 % (42.8-82.8)
--- NOTE | 2018-12-05 17:12 | OPR ---
OPERATIVE NOTE DATE OF PROCEDURE: 12/05/2018 TITLE OF PROCEDURE: Percutaneous Fixation of Right Femoral Neck Fracture (CPT 66408) INDICATIONS: Arlene Hamilton is a 68 year old female, who presented with a right impacted femoral neck fracture. The treatment options and alternatives, surgical procedure, risks and benefits, and post-operative course were discussed with the patient. Surgery was indicated for reduction and stabilization of the fracture to prevent injury and allow healing. They elected to proceed and consents were signed. PREOPERATIVE DIAGNOSIS: Right valgus impacted femoral neck fracture POSTOPERATIVE DIAGNOSIS: Right valgus impacted femoral neck fracture SURGEON: Manjinder Woo DO ASBESTOS MICROSCOPIST: Junaid Fraser DO ANESTHESIA: Spinal SPECIMENS: None IMPLANT: Carlos 8.0 mm and 6.5 mm Cannulated Screws PROCEDURE DETAILS: Before surgery, the patient was seen and identified in the preoperative holding area. The consent and planned procedure was again discussed with the patient and family, and all questions were answered. The operative site was marked. After obtaining informed consent, the patient was brought to the operating room and placed supine on the operating table. After appropriate anesthetic induction , the patient was positioned and secured to the fracture table. The left upper extremity was placed upon a well padded armrest and the ulnar nerve was protected with an egg-crate. The right upper extremity was positioned over a pillow across the chest. The left leg, which had an SCD that was on and operating, was brought into the scissor position. The left peroneal nerve was padded and protected with egg-crate. The right lower extremity was then isolated and pre-scrubbed with chlorhexidine. The right lower extremity was then prepped and draped in the usual surgical sterile fashion. A time-out was performed and we verified site and side of surgery and administration of pre- operative antibiotics. We used fluoroscopy throughout the procedure to help guide placement of the guide wires and screws. We marked an incision along the lateral aspect of the femur distal to the vastus ridge about 3 cm in length and an incision was made through the skin. Sharp dissection was carried out to the level of the IT fascia. This was divided also in line with the skin incision. The lateral femur was directly palpated. A terminally threaded guidewire was advanced to the the lateral cortex of the proximal femur above the level of the lesser trochanter. Biplanar fluoroscopy was used to housing court judge positioning. The guidewire was then placed through the lateral cortex along the central inferior portion along the inferior cortex of the femoral neck. We placed a second guidewire in the anterior-superior femoral neck and into the femoral head and a third wire along the posterior superior femoral neck to complete an inverted triangle. Guidewire lengths were judged fluoroscopically. We were careful to purchase subchondral bone without penetrating the femoral head cartilage. We then measured lengths of the screws. We drilled the cannulated drill over the guidewires to the femoral neck. We then placed an 8.0 mm diameter screw inferiorly and two 6.5 mm diameter screws superiorly. They were placed into the femoral head with excellent purchase on the lateral cortex. Fluoroscopy was used to verify screw length and that no screws violating the femoral head articular surface on multiple views. The hip was taken through range of motion and was smooth through a full range of motion. The wound was then copiously irrigated. Final films were obtained. We closed the deep tissue with 0 Vicryl suture. The skin was closed with 2-0 Vicryl and paddy. Xeroform and an Aquacell dressing was applied. Anesthesia was reversed and the patient was transferred to hospital bed. ESTIMATED BLOOD LOSS: 25 mL. POSTOPERATIVE PLAN: The patient will be allowed toe-touch weight-bearing from postoperative day 1, advancing to WBAT in 6-8 weeks. Follow up in the office in 2 to 3 weeks for wound check. DVT prophylaxis with lovenox (40 mg daily if ClCr >30 mL/min, or 30 mg daily if ClCr <30 mL/min) beginning tomorrow 10 am. Continue for 3 weeks.
[2018-12-05] MEDS ORDERED: INSULIN SLIDING SCALE (NOVOLOG) 1 VIAL SQ SCH (18:00)
[2018-12-05] MEDS: MORPHINE SULFATE 2 MG/ML VIAL IVPUSH PRN ×2 (19:03→22:46)
--- NOTE | 2018-12-05 19:11 | PN ---
Teaching Attending Note Name of Resident: Denton Claire ATTENDING PHYSICIAN STATEMENT I saw and evaluated the patient. I reviewed the resident's note and discussed the case with the resident. I agree with the resident's findings and plan as documented. SUBJECTIVE: Feels well, mild hip discomfort. No chest pain/nausea/vomiting. No fever/chills. OBJECTIVE: Afebrile, Hemodynamically Stable. Last Vital Signs Temp Pulse Resp BP Pulse Ox 97.7 F 80 18 116/54 L 99 12/05/18 18:57 12/05/18 18:57 12/05/18 18:57 12/05/18 18:57 12/05/18 18:57 HEENT - Atraumatic, Normocephalic. Heart - S1, S2, RRR Lungs - clear to auscultation. Abdomen - Soft, nontender. Bowel Sounds normal. Extremities - no edema. No calf tenderness (no rotation/shortening) Laboratory Results - last 24 hr 12/04/18 12/04/18 12/04/18 20:46 20:46 20:46 WBC 5.7 RBC 4.04 Hgb 12.0 Hct 36.7 MCV 90.8 MCH 29.8 MCHC 32.8 RDW 16.3 H Plt Count 165 D MPV 7.8 Absolute Neuts (auto) 4.8 Neutrophils % 84.4 H Lymphocytes % 8.1 D Monocytes % 5.4 Eosinophils % 2.0 Basophils % 0.1 Nucleated RBC % 0 PT with INR 15.40 H INR 1.30 H PTT (Actin FS) 26.2 Sodium Potassium Chloride Carbon Dioxide Anion Gap BUN Creatinine Creat Clearance w eGFR POC Glucometer Random Glucose Hemoglobin A1c % Calcium Total Bilirubin AST ALT Alkaline Phosphatase Total Protein Albumin TSH Free T4 Urine Color Urine Appearance Urine pH Ur Specific [place] Urine Protein Urine Glucose (UA) Urine Ketones Urine Blood Urine Nitrite Urine Bilirubin Urine Urobilinogen Ur Leukocyte Esterase Blood Type B POSITIVE Antibody Screen Negative 12/04/18 12/05/18 12/05/18 20:50 05:30 05:45 WBC RBC Hgb Hct MCV MCH MCHC RDW Plt Count MPV Absolute Neuts (auto) Neutrophils % Lymphocytes % Monocytes % Eosinophils % Basophils % Nucleated RBC % PT with INR INR PTT (Actin FS) Sodium 139 Potassium 3.7 Chloride 107 Carbon Dioxide 24 Anion Gap 8 BUN 23 H Creatinine 0.7 Creat Clearance w eGFR > 60 POC Glucometer Random Glucose 171 H Hemoglobin A1c % 6.3 Calcium 8.0 L Total Bilirubin 0.7 AST 21 ALT 21 Alkaline Phosphatase 84 Total Protein 7.0 Albumin 3.3 L TSH 1.37 Free T4 1.55 H Urine Color Urine Appearance Urine pH Ur Specific [place] Urine Protein Urine Glucose (UA) Urine Ketones Urine Blood Urine Nitrite Urine Bilirubin Urine Urobilinogen Ur Leukocyte Esterase Blood Type Antibody Screen 12/05/18 12/05/18 12/05/18 06:45 10:28 11:55 WBC RBC Hgb Hct MCV MCH MCHC RDW Plt Count MPV Absolute Neuts (auto) Neutrophils % Lymphocytes % Monocytes % Eosinophils % Basophils % Nucleated RBC % PT with INR INR PTT (Actin FS) Sodium Potassium Chloride Carbon Dioxide Anion Gap BUN Creatinine Creat Clearance w eGFR POC Glucometer 75 64 Random Glucose Hemoglobin A1c % Calcium Total Bilirubin AST ALT Alkaline Phosphatase Total Protein Albumin TSH Free T4 Urine Color Ltyellow Urine Appearance Clear Urine pH 5.0 Ur Specific [place] 1.019 Urine Protein Negative Urine Glucose (UA) Negative Urine Ketones 1+ H Urine Blood Negative Urine Nitrite Negative Urine Bilirubin Negative Urine Urobilinogen Negative Ur Leukocyte Esterase Negative Blood Type Antibody Screen 12/05/18 12/05/18 12/05/18 15:35 16:57 18:01 WBC 4.4 RBC 3.68 Hgb 11.2 Hct 33.4 MCV 90.7 MCH 30.4 MCHC 33.5 RDW 16.4 H Plt Count 139 MPV 7.9 Absolute Neuts (auto) 3.5 Neutrophils % 79.9 Lymphocytes % 9.1 Monocytes % 5.3 Eosinophils % 5.4 H D Basophils % 0.3 Nucleated RBC % 0 PT with INR INR PTT (Actin FS) Sodium Potassium Chloride Carbon Dioxide Anion Gap BUN Creatinine Creat Clearance w eGFR POC Glucometer 55 61 Random Glucose Hemoglobin A1c % Calcium Total Bilirubin AST ALT Alkaline Phosphatase Total Protein Albumin TSH Free T4 Urine Color Urine Appearance Urine pH Ur Specific [place] Urine Protein Urine Glucose (UA) Urine Ketones Urine Blood Urine Nitrite Urine Bilirubin Urine Urobilinogen Ur Leukocyte Esterase Blood Type Antibody Screen Current Medications Generic Name Dose Route Start Last Admin Trade Name Freq PRN Reason Stop Dose Admin Acetaminophen 650 mg 12/05/18 16:15 Tylenol - PO Q4H PRN PAIN LEVEL 4 - 6 Enoxaparin Sodium 40 mg 12/06/18 10:00 Lovenox - SQ DAILY [facility] Fentanyl 50 mcg 12/05/18 16:15 Sublimaze Injection - IVPUSH [id number] PRN PAIN-PACU ORDER X 4 DOSES ONLY Clindamycin Phosphate 900 mg in 50 mls @ 100 mls/hr 12/05/18 22:00 Cleocin 900 Mg Premix Ivpb - IVPB 12/06/18 06:29 Q8H SUSANA Protocol Lactated Ringer's 1,000 ml in 1,000 mls @ 75 mls/hr 12/05/18 16:15 12/05/18 16:00 Lactated Ringers Solution IV 100 mls ASDIR SUSANA Administration Insulin Aspart 1 vial 12/05/18 18:00 12/05/18 18:02 Novolog Vial Sliding Scale - SQ Not Given Q6HPO SUSANA Protocol Morphine Sulfate 2 mg 12/05/18 16:15 12/05/18 19:03 Morphine Sulfate IVPUSH 2 mg Q4H PRN Administration PAIN LEVEL 7 - 10 Ondansetron HCl 4 mg 12/05/18 16:15 Zofran Injection IVPUSH Q6H PRN NAUSEA AND/OR VOMITING Oxycodone HCl 10 mg 12/05/18 16:15 Roxicodone - PO 12/06/18 15:00 Q4H PRN PAIN LEVEL 6-10 Promethazine HCl 12.5 mg 12/05/18 16:15 Phenergan Injection - IVPUSH Q6H PRN NAUSEA-FOR RESCUE AFTER 15 MIN ASSESSMENT/PLAN 68 year old female with history of HTN (no longer on meds), Esophageal Ca s/p tumor resection 2015, recently received chemotherapy (follows with Dr. Gore) presented to ED after mechanical fall on ice with R hip pain, found to have femoral neck fracture. 1. R Femoral Neck fracture secondary to mechanical fall. CT Pelvis - R femoral neck fracture, displaced and rotated. Evaluated by Ortho - for OR today Tracey-op IV hydration, and post-op DVT Px. 2. Hyperglycemia at presentation, A1C 6.3 (pre-diabetic) No need for sliding scale coverage especially as patient is NPO. 3. Esophageal Ca currently on chemotherapy (s/p tumor resection in 2015) Last Chemo 11/24/18 No leukopenia on labs. Afebrile, Hemodynamically Stable. Follows with Dr. Zheng DVT Px - Lovenox post-op.
[2018-12-05] MEDS: CLINDAMYCIN 900 MG PREMIX IVPB 900 MG/50 ML BAG IVPB SCH (21:56)
[2018-12-05] MEDS ORDERED: diphenhydrAMINE HCL 25 MG CAPSULE (FP) PO ONE (22:02)
[2018-12-06] MEDS: CLINDAMYCIN 900 MG PREMIX IVPB 900 MG/50 ML BAG IVPB SCH (06:00)
[2018-12-06] MEDS: MORPHINE SULFATE 2 MG/ML VIAL IVPUSH PRN (06:55)
--- NOTE | 2018-12-06 08:27 | PN ---
Physical Exam: SUBJECTIVE: Patient seen and examined at bedside. No new complaints. Pain controlled. OBJECTIVE: Vital Signs Period Temp Pulse Resp BP Sys/Spicer Pulse Ox Last 24 Hr 97.7 F-98.6 F 71-99 11-18 92-157/39-553 99-100 GENERAL: The patient is awake, alert, and fully oriented, in no acute distress. HEAD: Normal with no signs of trauma. NECK: Trachea midline, full range of motion, supple. LUNGS: Breath sounds equal, clear to auscultation bilaterally, no wheezes, no crackles, no accessory muscle use. HEART: Regular rate and rhythm, S1, S2 without murmur, rub or gallop. ABDOMEN: Soft, nontender, nondistended, normoactive bowel sounds, no guarding, no rebound, no hepatosplenomegaly, no masses. EXTREMITIES: 2+ pulses, warm, well-perfused, no edema. NEUROLOGICAL: Cranial nerves II through X grossly intact. Normal speech, gait not observed. Strength 5/5 in all 4 extremities SKIN: Warm, dry, normal turgor, no rashes or lesions noted Laboratory Results - last 24 hr 12/05/18 12/05/18 12/05/18 10:28 11:55 15:35 WBC 4.4 RBC 3.68 Hgb 11.2 Hct 33.4 MCV 90.7 MCH 30.4 MCHC 33.5 RDW 16.4 H Plt Count 139 MPV 7.9 Absolute Neuts (auto) 3.5 Neutrophils % 79.9 Lymphocytes % 9.1 Monocytes % 5.3 Eosinophils % 5.4 H D Basophils % 0.3 Nucleated RBC % 0 POC Glucometer 64 Urine Color Ltyellow Urine Appearance Clear Urine pH 5.0 Ur Specific [place] 1.019 Urine Protein Negative Urine Glucose (UA) Negative Urine Ketones 1+ H Urine Blood Negative Urine Nitrite Negative Urine Bilirubin Negative Urine Urobilinogen Negative Ur Leukocyte Esterase Negative 12/05/18 12/05/18 12/05/18 16:57 18:01 22:21 WBC RBC Hgb Hct MCV MCH MCHC RDW Plt Count MPV Absolute Neuts (auto) Neutrophils % Lymphocytes % Monocytes % Eosinophils % Basophils % Nucleated RBC % POC Glucometer 55 61 69 Urine Color Urine Appearance Urine pH Ur Specific [place] Urine Protein Urine Glucose (UA) Urine Ketones Urine Blood Urine Nitrite Urine Bilirubin Urine Urobilinogen Ur Leukocyte Esterase 02/16/19 06:05 WBC RBC Hgb Hct MCV MCH MCHC RDW Plt Count MPV Absolute Neuts (auto) Neutrophils % Lymphocytes % Monocytes % Eosinophils % Basophils % Nucleated RBC % POC Glucometer 75 Urine Color Urine Appearance Urine pH Ur Specific [place] Urine Protein Urine Glucose (UA) Urine Ketones Urine Blood Urine Nitrite Urine Bilirubin Urine Urobilinogen Ur Leukocyte Esterase Active Medications Generic Name Dose Route Start Last Admin Trade Name Freq PRN Reason Stop Dose Admin Acetaminophen 650 mg 12/05/18 16:15 Tylenol - PO Q4H PRN PAIN LEVEL 4 - 6 Enoxaparin Sodium 40 mg 12/06/18 10:00 Lovenox - SQ DAILY [facility] Fentanyl 50 mcg 12/05/18 16:15 Sublimaze Injection - IVPUSH [id number] PRN PAIN-PACU ORDER X 4 DOSES ONLY Lactated Ringer's 1,000 ml in 1,000 mls @ 75 mls/hr 12/05/18 16:15 12/05/18 16:00 Lactated Ringers Solution IV 100 mls ASDIR SUSANA Administration Morphine Sulfate 2 mg 12/05/18 16:15 12/06/18 06:55 Morphine Sulfate IVPUSH 2 mg Q4H PRN Administration PAIN LEVEL 7 - 10 Ondansetron HCl 4 mg 12/05/18 16:15 Zofran Injection IVPUSH Q6H PRN NAUSEA AND/OR VOMITING Oxycodone HCl 10 mg 12/05/18 16:15 Roxicodone - PO 12/06/18 15:00 Q4H PRN PAIN LEVEL 6-10 Promethazine HCl 12.5 mg 12/05/18 16:15 Phenergan Injection - IVPUSH Q6H PRN NAUSEA-FOR RESCUE AFTER 15 MIN ASSESSMENT/PLAN: 68 y/o F w/ PMHx HTN, HLD 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 #POD 1 R hip Fx repair -pain controlled -c/w pain regimen per ortho -bendryl PO HS PRN insominia -d/c fluids; patient eating well. -Pt dropped 2 g Hb after surgery; 11.2 to 9.2 -afternoon CBC rpt shows improvement in Hb; monitor daily and maintain normal transfusion thresholds. #endocrine -BGM WNL overnight -will d/c BGM, ISS #cardiac -home meds following Sx #oncologic -under Tx w/ Dr. Gore, no inpatient intervention #FEN -no fluid indicated -pt hypokalemic and hypomagnesemic; repleted and rpt labs WNL -resume diet following Sx #PPx -Lovenox 40mg SQ daily per ortho #dispo -cont to monitor on med/surg -full code Visit type - Emergency Visit Emergency Visit: Yes ED Registration Date: 12/05/18 Care time: The patient presented to the Emergency Department on the above date and was hospitalized for further evaluation of their emergent condition. - New Patient This patient is new to me today: Yes Date on this admission: 12/06/18 - Critical Care Critical Care patient: No - Discharge Referral Referred to [facility] No
[2018-12-06 08:42] LABS: BASO % 0.3 % (0-2.0); HEMATOCRIT 28.3 % (32.4-45.2); HEMOGLOBIN 9.2 GM/dL (10.7-15.3); LYMPH % 5.6 % (8-40); MCH 29.3 pg (25.7-33.7); MCHC 32.5 g/dl (32.0-36.0); MEAN CELL VOLUME 90.2 fl (80-96); MEAN PLT VOLUME 7.8 fl (7.5-11.1); MONO % 5.4 % (3.8-10.2); NEUT % 81.7 % (42.8-82.8); PLATELET COUNT 131 K/MM3 (134-434); RBC 3.14 M/mm3 (3.60-5.2); RDW 16.2 % (11.6-15.6); WHITE BLOOD COUNT 5.1 K/mm3 (4.0-10.0)
[2018-12-06 09:25] LABS: ALBUMIN 2.4 g/dl (3.4-5.0); ALK PHOS 61 U/L (45-117); ANION GAP 10 MMOL/L (8-16); BILIRUBIN,TOTAL 0.6 mg/dL (0.2-1); BLOOD UREA NITROGEN 8 mg/dL (7-18); CALCIUM 7.2 mg/dL (8.5-10.1); CHLORIDE 105 mmol/L (98-107); CO2 24 mmol/L (21-32); CREATININE 0.5 mg/dL (0.55-1.3); GLUCOSE,RANDOM 73 mg/dL (74-106); MAGNESIUM 1.4 mg/dL (1.8-2.4); PHOSPHOROUS 3.9 mg/dL (2.5-4.9); POTASSIUM 3.3 mmol/L (3.5-5.1); SGOT/AST 15 U/L (15-37); SGPT/ALT 15 U/L (13-61); SODIUM 138 mmol/L (136-145)
[2018-12-06] MEDS: ENOXAPARIN NA (PORCINE) 40 MG/0.4 ML DISP.SYRIN SQ SCH (09:51)
[2018-12-06] MEDS ORDERED: MAGNESIUM SULF 50% (8.12 MEQ/2 ML-1 GM VIAL) IVPB ONE (09:55)
[2018-12-06] MEDS ORDERED: POTASSIUM CHLORIDE TABS 20 MEQ TABLET.ER (FP) PO ONE (09:55)
--- NOTE | 2018-12-06 10:58 | PN ---
Progress Note (short form) - Note Progress Note: ORTHOPEDIC SURGERY PROGRESS NOTE Department of Orthopedic Surgery SUBJECTIVE No acute events overnight. No complaints currently. Denies chest pain, shortness of breath, or calf pain. No nausea or vomiting. Tolerating oral intake. Pain control difficult overnight, but improving. Intake & Output 12/04/18 12/05/18 12/06/18 23:59 23:59 23:59 Intake Total 2475 900 Output Total 1475 300 Balance 1000 600 Intake: IV 2425 850 LACTATED RINGERS SOLUTION 525 850 1,000 ml In 1,000 ml @ 75 mls/hr IV ASDIR SUSANA Rx #:[id number] Normal Saline - 1,000 ml 800 @ 75 mls/hr IV ASDIR [facility] Rx#:[id number] IVPB 50 50 Output: Urine 1450 300 Will 500 300 Estimated Blood Loss 25 Other: Voiding Method Indwelling Catheter Weight 100 lb 100 lb Height 5 ft 7 in 5 ft 7 in Body Mass Index (BMI) 15.6 15.6 Weight Measurement Method Est/Stated by Patient Active Medications Generic Name Dose Route Start Last Admin Trade Name Freq PRN Reason Stop Dose Admin Acetaminophen 650 mg 12/05/18 16:15 Tylenol - PO Q4H PRN PAIN LEVEL 4 - 6 Diphenhydramine HCl 25 mg 12/06/18 10:38 Benadryl - PO HS PRN INSOMNIA Enoxaparin Sodium 40 mg 12/06/18 10:00 12/06/18 09:51 Lovenox - SQ 40 mg DAILY [facility] Administration Fentanyl 50 mcg 12/05/18 16:15 Sublimaze Injection - IVPUSH [id number] PRN PAIN-PACU ORDER X 4 DOSES ONLY Morphine Sulfate 2 mg 12/05/18 16:15 12/06/18 06:55 Morphine Sulfate IVPUSH 2 mg Q4H PRN Administration PAIN LEVEL 7 - 10 Ondansetron HCl 4 mg 12/05/18 16:15 Zofran Injection IVPUSH Q6H PRN NAUSEA AND/OR VOMITING Oxycodone HCl 10 mg 12/05/18 16:15 Roxicodone - PO 12/06/18 15:00 Q4H PRN PAIN LEVEL 6-10 Promethazine HCl 12.5 mg 12/05/18 16:15 Phenergan Injection - IVPUSH Q6H PRN NAUSEA-FOR RESCUE AFTER 15 MIN Vital Signs (last) Temp Pulse Resp BP Pulse Ox 98.1 F 95 H 20 116/62 99 12/06/18 10:00 12/06/18 10:00 12/06/18 10:00 12/06/18 10:00 12/05/18 20:54 Laboratory (coagulation) PT with INR 15.40 SEC (9.7-13.0) H 12/04/18 20:46 Laboratory 12/06/18 06:00 12/06/18 06:00 PHYSICAL EXAMINATION General: Alert, oriented, cooperative and no distress. Lower Extremity: Dressing clean and intact; Compartments soft and compressible. Muscle mass equal and symmetric to contralateral side. No atrophy noted. No masses or effusions noted. No tenderness to palpation. Full passive and active ROM, free from pain. EHL/TA/GS motor intact; SILT distally; 2+ DP pulses; Cap refill brisk. DVT Exam: No evidence of DVT seen on physical exam; No cords or calf tenderness ; No significant calf/ankle edema. IMAGING Postoperative radiographs reviewed. They show maintenance of fracture reduction with hardware in good position. ASSESSMENT AND PLAN Arlene Hamilton is a 68 year old female status post right hip CRPP POD #1. - Monitor H/H - Pain control: Minimize narcotic use - DVT prophylaxis - TTWB RLE - OOBTC - Ice/Elevation - Elevate HOB, encourage oral intake - Appreciate medical management (Nutrition optimization, decubitus precautions heel/sacrum) - PT/OT
--- NOTE | 2018-12-06 11:32 | PN ---
Progress Note (short form) - Note Progress Note: POD #1 - s/p cannulated screw right hip under spinal anesthesia. VSS. Pt. doing well, resting comfortably in bed. No complaints. No apparent anesthetic complications noted. Continue current care.
[2018-12-06 12:44] LABS: HEMATOCRIT 30.5 % (32.4-45.2); HEMOGLOBIN 10.3 GM/dL (10.7-15.3); MCH 30.3 pg (25.7-33.7); MCHC 33.6 g/dl (32.0-36.0); MEAN CELL VOLUME 90.2 fl (80-96); PLATELET COUNT 144 K/MM3 (134-434); RBC 3.38 M/mm3 (3.60-5.2); RDW 16.2 % (11.6-15.6); WHITE BLOOD COUNT 5.5 K/mm3 (4.0-10.0)
[2018-12-06 13:07] LABS: ANION GAP 7 MMOL/L (8-16); BLOOD UREA NITROGEN 8 mg/dL (7-18); CALCIUM 7.3 mg/dL (8.5-10.1); CHLORIDE 105 mmol/L (98-107); CO2 27 mmol/L (21-32); CREATININE 0.5 mg/dL (0.55-1.3); GLUCOSE,RANDOM 105 mg/dL (74-106); MAGNESIUM 2.5 mg/dL (1.8-2.4); POTASSIUM 3.6 mmol/L (3.5-5.1); SODIUM 139 mmol/L (136-145)
--- NOTE | 2018-12-06 20:15 | PN ---
Teaching Attending Note Name of Resident: Arnold Zambrano ATTENDING PHYSICIAN STATEMENT I saw and evaluated the patient. I reviewed the resident's note and discussed the case with the resident. I agree with the resident's findings and plan as documented. SUBJECTIVE: Feels well, mild hip discomfort. No chest pain/nausea/vomiting. No fever/chills. Tolerating oral intake. OBJECTIVE: Afebrile, Hemodynamically Stable. Last Vital Signs Temp Pulse Resp BP Pulse Ox 98.1 F 95 H 20 116/62 98 12/06/18 10:00 12/06/18 10:00 12/06/18 10:00 12/06/18 10:00 12/06/18 09:00 HEENT - Atraumatic, Normocephalic. Heart - S1, S2, RRR Lungs - clear to auscultation. Abdomen - Soft, nontender. Bowel Sounds normal. Extremities - no edema. No calf tenderness. Surgical Site dressed. Laboratory Results - last 24 hr 12/05/18 12/06/18 12/06/18 22:21 06:00 06:00 WBC 5.1 RBC 3.14 L Hgb 9.2 L Hct 28.3 L D MCV 90.2 MCH 29.3 MCHC 32.5 RDW 16.2 H Plt Count 131 L MPV 7.8 Absolute Neuts (auto) 4.2 Neutrophils % 81.7 Lymphocytes % 5.6 L D Monocytes % 5.4 Eosinophils % 7.0 H Basophils % 0.3 Nucleated RBC % 0 Sodium 138 Potassium 3.3 L Chloride 105 Carbon Dioxide 24 Anion Gap 10 BUN 8 Creatinine 0.5 L Creat Clearance w eGFR > 60 POC Glucometer 69 Random Glucose 73 L Calcium 7.2 L Phosphorus 3.9 Magnesium 1.4 L Total Bilirubin 0.6 AST 15 ALT 15 Alkaline Phosphatase 61 Total Protein 5.0 L Albumin 2.4 L 12/06/18 12/06/18 12/06/18 06:05 12:30 12:30 WBC 5.5 RBC 3.38 L Hgb 10.3 L Hct 30.5 L MCV 90.2 MCH 30.3 MCHC 33.6 RDW 16.2 H Plt Count 144 MPV 8.0 Absolute Neuts (auto) Neutrophils % Lymphocytes % Monocytes % Eosinophils % Basophils % Nucleated RBC % Sodium 139 Potassium 3.6 Chloride 105 Carbon Dioxide 27 Anion Gap 7 L BUN 8 Creatinine 0.5 L Creat Clearance w eGFR > 60 POC Glucometer 75 Random Glucose 105 Calcium 7.3 L Phosphorus Magnesium 2.5 H Total Bilirubin AST ALT Alkaline Phosphatase Total Protein Albumin Current Medications Generic Name Dose Route Start Last Admin Trade Name Freq PRN Reason Stop Dose Admin Acetaminophen 650 mg 12/05/18 16:15 Tylenol - PO Q4H PRN PAIN LEVEL 4 - 6 Diphenhydramine HCl 25 mg 12/06/18 10:38 Benadryl - PO HS PRN INSOMNIA Enoxaparin Sodium 40 mg 12/06/18 10:00 12/06/18 09:51 Lovenox - SQ 40 mg DAILY SUSANA Administration Fentanyl 50 mcg 12/05/18 16:15 Sublimaze Injection - IVPUSH [id number] PRN PAIN-PACU ORDER X 4 DOSES ONLY Morphine Sulfate 2 mg 12/05/18 16:15 12/06/18 06:55 Morphine Sulfate IVPUSH 2 mg Q4H PRN Administration PAIN LEVEL 7 - 10 Ondansetron HCl 4 mg 12/05/18 16:15 Zofran Injection IVPUSH Q6H PRN NAUSEA AND/OR VOMITING Promethazine HCl 12.5 mg 12/05/18 16:15 Phenergan Injection - IVPUSH Q6H PRN NAUSEA-FOR RESCUE AFTER 15 MIN ASSESSMENT/PLAN 68 year old female with history of HTN (no longer on meds), Esophageal Ca s/p tumor resection 2016, recently received chemotherapy (follows with Dr. Gore) presented to ED after mechanical fall on ice with R hip pain, found to have femoral neck fracture. 1. R Femoral Neck fracture secondary to mechanical fall. POD 1 s/p Percutaneous fixation of R femoral neck by Ortho CT Pelvis - R femoral neck fracture, displaced and rotated. PT Rehab versus home with PT 2. Hyperglycemia at presentation, A1C 6.3 (pre-diabetic) No need for sliding scale coverage 3. Esophageal Ca currently on chemotherapy (s/p tumor resection in 2015) Last Chemo 11/24/18 No leukopenia on labs. Afebrile, Hemodynamically Stable. Follows with Dr. Gore 4. Electrolyte Abnormalities - Hypokalemia/Hypomagnesemia - repleted. 5. Acute Blood Loss Anemia sec to Orthopedic fracture and surgery H/H 9.12/18 down from on admission Fe supplementation started. DVT Px - Lovenox SQ
[2018-12-06] MEDS: ACETAMINOPHEN 325 MG TABLET (FP) PO PRN (21:35)
[2018-12-06] MEDS: FERROUS SO4 325 MG TABLET (FP) PO SCH (22:35)
[2018-12-06] MEDS: diphenhydrAMINE HCL 25 MG CAPSULE (FP) PO PRN (23:18)
[2018-12-07 07:51] LABS: HEMATOCRIT 30.5 % (32.4-45.2); HEMOGLOBIN 10.5 GM/dL (10.7-15.3); MCHC 34.4 g/dl (32.0-36.0); MEAN CELL VOLUME 90.2 fl (80-96); MEAN PLT VOLUME 7.7 fl (7.5-11.1); PLATELET COUNT 147 K/MM3 (134-434); RBC 3.39 M/mm3 (3.60-5.2); RDW 15.9 % (11.6-15.6); WHITE BLOOD COUNT 5.1 K/mm3 (4.0-10.0)
[2018-12-07 08:37] LABS: ANION GAP 6 MMOL/L (8-16); BLOOD UREA NITROGEN 7 mg/dL (7-18); CALCIUM 7.5 mg/dL (8.5-10.1); CHLORIDE 107 mmol/L (98-107); CO2 27 mmol/L (21-32); CREATININE 0.5 mg/dL (0.55-1.3); GLUCOSE,RANDOM 81 mg/dL (74-106); MAGNESIUM 2.3 mg/dL (1.8-2.4); PHOSPHOROUS 3.3 mg/dL (2.5-4.9); POTASSIUM 4.2 mmol/L (3.5-5.1); SODIUM 140 mmol/L (136-145)
[2018-12-07] MEDS: ENOXAPARIN NA (PORCINE) 40 MG/0.4 ML DISP.SYRIN SQ SCH (09:33)
[2018-12-07] MEDS: FERROUS SO4 325 MG TABLET (FP) PO SCH ×2 (09:33→23:05)
--- NOTE | 2018-12-07 10:24 | PN ---
Progress Note (short form) - Note Progress Note: ORTHOPEDIC SURGERY PROGRESS NOTE ` Department of Orthopedic Surgery SUBJECTIVE No acute events overnight. No complaints currently. Denies chest pain, shortness of breath, or calf pain. No nausea or vomiting. Tolerating oral intake. Pain controlled. PHYSICAL EXAMINATION General: Alert, oriented, cooperative and no distress. Lower Extremity: Dressing clean and intact; Compartments soft and compressible. Muscle mass equal and symmetric to contralateral side. No atrophy noted. No masses or effusions noted. No tenderness to palpation. Full passive and active ROM, free from pain. Able to SLR without pain. EHL/TA/GS motor intact; SILT distally; 2+ DP pulses; Cap refill brisk. DVT Exam: No evidence of DVT seen on physical exam; No cords or calf tenderness ; No significant calf/ankle edema. Intake & Output 12/05/18 12/06/18 12/07/18 23:59 23:59 23:59 Intake Total 2475 1800 Output Total 1475 1300 700 Balance 1000 500 -700 Intake: IV 2425 850 LACTATED RINGERS SOLUTION 525 850 1,000 ml In 1,000 ml @ 75 mls/hr IV ASDIR SUSANA Rx #:[id number] Normal Saline - 1,000 ml 800 @ 75 mls/hr IV ASDIR SUSANA Rx#:[id number] IVPB 50 150 Oral 800 Output: Urine 1450 1300 700 Will 500 1300 Void 700 Estimated Blood Loss 25 Other: Voiding Method Indwelling Catheter Bedpan Bowel Movement No Weight 100 lb Height 5 ft 7 in Body Mass Index (BMI) 15.6 Active Medications Generic Name Dose Route Start Last Admin Trade Name Freq PRN Reason Stop Dose Admin Acetaminophen 650 mg 12/05/18 16:15 12/06/18 21:35 Tylenol - PO 650 mg Q4H PRN Administration PAIN LEVEL 4 - 6 Diphenhydramine HCl 25 mg 12/06/18 10:38 12/06/18 23:18 Benadryl - PO 25 mg HS PRN Administration INSOMNIA Enoxaparin Sodium 40 mg 12/06/18 10:00 12/07/18 09:33 Lovenox - SQ 40 mg DAILY SUSANA Administration Fentanyl 50 mcg 12/05/18 16:15 Sublimaze Injection - IVPUSH [id number] PRN PAIN-PACU ORDER X 4 DOSES ONLY Ferrous Sulfate 325 mg 12/06/18 22:00 12/07/18 09:33 Feosol - PO 325 mg BID SUSANA Administration Morphine Sulfate 2 mg 12/05/18 16:15 12/06/18 06:55 Morphine Sulfate IVPUSH 2 mg Q4H PRN Administration PAIN LEVEL 7 - 10 Ondansetron HCl 4 mg 12/05/18 16:15 Zofran Injection IVPUSH Q6H PRN NAUSEA AND/OR VOMITING Promethazine HCl 12.5 mg 12/05/18 16:15 Phenergan Injection - IVPUSH Q6H PRN NAUSEA-FOR RESCUE AFTER 15 MIN Vital Signs (last) Temp Pulse Resp BP Pulse Ox 97.4 F L 89 20 110/58 L 98 12/07/18 06:06 12/07/18 06:06 12/07/18 06:06 12/07/18 06:06 12/06/18 21:00 Laboratory (coagulation) PT with INR 15.40 SEC (9.7-13.0) H 12/04/18 20:46 Laboratory 12/07/18 06:30 12/07/18 06:30 ASSESSMENT AND PLAN Arlene Hamilton is a 68 year old female status post right hip CRPP POD #2. - Monitor H/H - Pain control: Minimize narcotic use - PT Daily - DVT prophylaxis - TTWB RLE - OOBTC - Ice/Elevation - Elevate HOB, encourage oral intake - Appreciate medical management (Nutrition optimization, decubitus precautions heel/sacrum) - Dispo Planning
--- NOTE | 2018-12-07 15:49 | PN ---
Progress Note (short form) - Note Progress Note: SUBJECTIVE: Feels well, mild hip discomfort. No chest pain/nausea/vomiting. No fever/chills. Tolerating oral intake. OBJECTIVE: Afebrile, BP on low side. Last Vital Signs Temp Pulse Resp BP Pulse Ox 98.1 F 108 H 19 90/50 L 96 12/07/18 15:00 12/07/18 15:00 12/07/18 15:00 12/07/18 15:00 12/07/18 09:00 Heart - S1, S2, RRR Lungs - clear to auscultation. Abdomen - Soft, nontender. Bowel Sounds normal. Extremities - no edema. No calf tenderness. Surgical Site dressed. Laboratory Results - last 24 hr 12/07/18 12/07/18 06:30 06:30 WBC 5.1 RBC 3.39 L Hgb 10.5 L Hct 30.5 L MCV 90.2 MCH 31.0 MCHC 34.4 RDW 15.9 H Plt Count 147 MPV 7.7 Sodium 140 Potassium 4.2 Chloride 107 Carbon Dioxide 27 Anion Gap 6 L BUN 7 Creatinine 0.5 L Creat Clearance w eGFR > 60 Random Glucose 81 Calcium 7.5 L Phosphorus 3.3 Magnesium 2.3 Current Medications Generic Name Dose Route Start Last Admin Trade Name Freq PRN Reason Stop Dose Admin Acetaminophen 650 mg 12/05/18 16:15 12/06/18 21:35 Tylenol - PO 650 mg Q4H PRN Administration PAIN LEVEL 4 - 6 Diphenhydramine HCl 25 mg 12/06/18 10:38 12/06/18 23:18 Benadryl - PO 25 mg HS PRN Administration INSOMNIA Enoxaparin Sodium 40 mg 12/06/18 10:00 12/07/18 09:33 Lovenox - SQ 40 mg DAILY SUSANA Administration Fentanyl 50 mcg 12/05/18 16:15 Sublimaze Injection - IVPUSH [id number] PRN PAIN-PACU ORDER X 4 DOSES ONLY Ferrous Sulfate 325 mg 12/06/18 22:00 12/07/18 09:33 Feosol - PO 325 mg BID SUSANA Administration Morphine Sulfate 2 mg 12/05/18 16:15 12/06/18 06:55 Morphine Sulfate IVPUSH 2 mg Q4H PRN Administration PAIN LEVEL 7 - 10 Ondansetron HCl 4 mg 12/05/18 16:15 Zofran Injection IVPUSH Q6H PRN NAUSEA AND/OR VOMITING Promethazine HCl 12.5 mg 12/05/18 16:15 Phenergan Injection - IVPUSH Q6H PRN NAUSEA-FOR RESCUE AFTER 15 MIN ASSESSMENT/PLAN 68 year old female with history of HTN (no longer on meds), Esophageal Ca s/p tumor resection 2016, recently received chemotherapy (follows with Dr. Gore) presented to ED after mechanical fall on ice with R hip pain, found to have femoral neck fracture. 1. R Femoral Neck fracture secondary to mechanical fall. POD 2 s/p Percutaneous fixation of R femoral neck by Ortho CT Pelvis - R femoral neck fracture, displaced and rotated. PT Awaiting placement at Rehab facility 2. Hyperglycemia at presentation, A1C 6.3 (pre-diabetic) No need for sliding scale coverage 3. Esophageal Ca currently on chemotherapy (s/p tumor resection in 2015) Last Chemo 11/24/18 No leukopenia on labs. Afebrile, Hemodynamically Stable. Follows with Dr. Gore 4. Electrolyte Abnormalities - Hypokalemia/Hypomagnesemia - resolved s/p repletion. 5. Acute Blood Loss Anemia sec to Orthopedic fracture and surgery H/H 10.5/30.5 down from on admission Fe supplementation started. DVT Px - Lovenox SQ Visit type - Emergency Visit Emergency Visit: Yes ED Registration Date: 12/05/18 Care time: The patient presented to the Emergency Department on the above date and was hospitalized for further evaluation of their emergent condition. - New Patient This patient is new to me today: No - Critical Care Critical Care patient: No - Discharge Referral Referred to [facility] Med P.C.: No
[2018-12-07] MEDS: ACETAMINOPHEN 325 MG TABLET (FP) PO PRN (20:43)
[2018-12-07] MEDS: diphenhydrAMINE HCL 25 MG CAPSULE (FP) PO PRN (23:05)
[2018-12-08] MEDS: ENOXAPARIN NA (PORCINE) 40 MG/0.4 ML DISP.SYRIN SQ SCH (09:30)
[2018-12-08] MEDS: FERROUS SO4 325 MG TABLET (FP) PO SCH ×2 (09:30→22:03)
--- NOTE | 2018-12-08 09:31 | PN ---
Progress Note (short form) - Note Progress Note: ORTHOPEDIC SURGERY PROGRESS NOTE ` Department of Orthopedic Surgery SUBJECTIVE No acute events overnight. No complaints currently. Denies chest pain, shortness of breath, or calf pain. No nausea or vomiting. Tolerating oral intake. Pain controlled. Patient was able to get up with PT yesterday and sit in a chair with minimal discomfort. PHYSICAL EXAMINATION General: Alert, oriented, cooperative and no distress. Right Lower Extremity: Dressing clean and intact; Compartments soft and compressible. Muscle mass equal and symmetric to contralateral side. No atrophy noted. No masses or effusions noted. No tenderness to palpation. Full passive and active ROM, free from pain. Able to SLR and bend knee without pain. EHL/TA/ GS motor intact; SILT distally; 2+ DP pulses; Cap refill brisk. DVT Exam: No evidence of DVT seen on physical exam; No cords or calf tenderness ; No significant calf/ankle edema. Intake & Output 12/06/18 12/07/18 12/08/18 23:59 23:59 23:59 Intake Total 1800 Output Total 1300 1100 Balance 500 -1100 Intake: IV 850 LACTATED RINGERS SOLUTION 850 1,000 ml In 1,000 ml @ 75 mls/hr IV ASDIR SUSANA Rx #:[id number] IVPB 150 Oral 800 Output: Urine 1300 1100 Will 1300 Void 1100 Other: Voiding Method Bedpan Bedside Commode Bowel Movement No Yes: 1 No # Bowel Movements 1 Active Medications Generic Name Dose Route Start Last Admin Trade Name Freq PRN Reason Stop Dose Admin Acetaminophen 650 mg 12/05/18 16:15 12/07/18 20:43 Tylenol - PO 650 mg Q4H PRN Administration PAIN LEVEL 4 - 6 Diphenhydramine HCl 25 mg 12/06/18 10:38 12/07/18 23:05 Benadryl - PO 25 mg HS PRN Administration INSOMNIA Enoxaparin Sodium 40 mg 12/06/18 10:00 12/07/18 09:33 Lovenox - SQ 40 mg DAILY SUSANA Administration Fentanyl 50 mcg 12/05/18 16:15 Sublimaze Injection - IVPUSH [id number] PRN PAIN-PACU ORDER X 4 DOSES ONLY Ferrous Sulfate 325 mg 12/06/18 22:00 12/07/18 23:05 Feosol - PO 325 mg BID SUSANA Administration Morphine Sulfate 2 mg 12/05/18 16:15 12/06/18 06:55 Morphine Sulfate IVPUSH 2 mg Q4H PRN Administration PAIN LEVEL 7 - 10 Ondansetron HCl 4 mg 12/05/18 16:15 Zofran Injection IVPUSH Q6H PRN NAUSEA AND/OR VOMITING Promethazine HCl 12.5 mg 12/05/18 16:15 Phenergan Injection - IVPUSH Q6H PRN NAUSEA-FOR RESCUE AFTER 15 MIN Vital Signs (last) Temp Pulse Resp BP Pulse Ox 98.3 F 85 20 100/51 L 96 12/08/18 06:00 12/08/18 06:00 12/08/18 06:00 12/08/18 06:00 12/07/18 21:00 Laboratory (coagulation) PT with INR 15.40 SEC (9.7-13.0) H 12/04/18 20:46 Laboratory 12/07/18 06:30 12/07/18 06:30 ASSESSMENT AND PLAN Arlene Hamilton is a 68 year old female status post right hip CRPP POD #3. - Monitor H/H - Pain control: Minimize narcotic use - PT Daily - DVT prophylaxis - TTWB RLE - OOBTC - Ice/Elevation - Elevate HOB, encourage oral intake - Appreciate medical management (Nutrition optimization, decubitus precautions heel/sacrum) - Dispo Planning
[2018-12-08] MEDS: ACETAMINOPHEN 325 MG TABLET (FP) PO PRN ×2 (09:37→22:03)
--- NOTE | 2018-12-08 10:12 | PN ---
Progress Note (short form) - Note Progress Note: UPDATE: BP noted to be 85/55 (MAP 65) this afternoon. Will bolus 250cc NS followed by NS@100cc/hr for 1L. Monitor BP; signed out to night team to monitor. CBC ordered for tomorrow to r/o blood loss as causative agent for hypovolemia Subjective: Pt without complaints today. Continues to work with physical therapy and reports can bend knee slightly. Pt tolerating food without complaints. BM today with normal character and quality. No other complaints today Objective: 12/08/18 06:00 Temperature 98.3 F Pulse Rate 85 Respiratory 20 Rate Blood Pressure 100/51 L Gen: NAD, awake, alert, sitting in bed HEENT: NC/AT, JULIETH, MMM Neck: ROM intact, supple Lungs: CTA b/l without wheezes or rhonchi noted. On RA Cardiac: RRR no appreciable murmur ABD: Soft, nondistended, nontender, no guarding, normoactive BS, no organomegaly appreciated MSK: ROM limited with lower extremities. Neuro: Nonfocal exam. normal speech. gait not observed EXT: No peripheral edema, no calf tenderness noted SKIN: No rashes noted Active Medications Acetaminophen (Tylenol -) 650 mg PO Q4H PRN PRN Reason: PAIN LEVEL 4 - 6 Last Admin: 12/08/18 09:37 Dose: 650 mg Diphenhydramine HCl (Benadryl -) 25 mg PO HS PRN PRN Reason: INSOMNIA Last Admin: 12/07/18 23:05 Dose: 25 mg Enoxaparin Sodium (Lovenox -) 40 mg SQ DAILY [facility] Last Admin: 12/08/18 09:30 Dose: 40 mg Fentanyl (Sublimaze Injection -) 50 mcg IVPUSH [id number] PRN PRN Reason: PAIN-PACU ORDER X 4 DOSES ONLY Ferrous Sulfate (Feosol -) 325 mg PO BID [facility] Last Admin: 12/08/18 09:30 Dose: 325 mg Sodium Chloride (Normal Saline -) 1,000 mls @ 100 mls/hr IV ASDIR SUSANA Sodium Chloride (Normal Saline -) 250 mls @ 250 mls/hr IV ASDIR STA Stop: 12/08/18 19:25 Last Admin: 12/08/18 18:35 Dose: 250 mls/hr Morphine Sulfate (Morphine Sulfate) 2 mg IVPUSH Q4H PRN PRN Reason: PAIN LEVEL 7 - 10 Last Admin: 12/06/18 06:55 Dose: 2 mg Ondansetron HCl (Zofran Injection) 4 mg IVPUSH Q6H PRN PRN Reason: NAUSEA AND/OR VOMITING Promethazine HCl (Phenergan Injection -) 12.5 mg IVPUSH Q6H PRN PRN Reason: NAUSEA-FOR RESCUE AFTER 15 MIN A/P R femoral neck fx 2/2 mechanical fall Acute blood loss anemia (resolved) Pre-diabetes Esophageal Cancer (s/p tumor resection) --POD 3 s/p ORIF R fem neck fx with ortho --Continue pain control with Morphine 2mg q4h IVP and Tylenol PRN --Continue physical therapy --Pending placement for rehabilitation services --Hem/Onc on board --Will defer chemotherapy until next week due to concern with post-op wound healing --Currently stable --A1c 6.3% this admission; no indication for ISS FEN: Fluids: None Electrolyte abnormalities: Nutrition: PPX: DVT - Lovenox 40mg SQ GI - not indicated Dispo: Awaiting rehab placement Case discussed with Dr. Roque Suarez, DO - IM PGY-2
--- NOTE | 2018-12-08 11:25 | PN ---
Progress Note (short form) - Note Progress Note: Patient seen and examined Well known to me Metastatic esophageal ca, s/p neoadjuvant chemotherapy with carboplatinum, taxol , followed by esophagectomy, followed by adjuvant therapy. Unfortunately with recurrence followed by immunotherapy followed by progression and most recently with FOLFOX therapy. Patient slipped on ice sustaining hip fracture requiring repair. P.E. HEENT: LAUREN, EOM Intact Oropharynx: No thrush, No mucositis Neck: Supple Nodes: Without adenopathy Breasts: Without masses Cor: RSR, No murmurs, No gallops Lungs: Clear to P&A Abd: Soft, Normal bowel sounds, No organomegaly Ext:No significant edema Skin: No rashes, Integument intact Last Vital Signs Temp Pulse Resp BP Pulse Ox 98.3 F 85 20 100/51 L 96 12/08/18 06:00 12/08/18 06:00 12/08/18 09:00 12/08/18 06:00 12/08/18 09:00 Current Medications Generic Name Dose Route Start Last Admin Trade Name Freq PRN Reason Stop Dose Admin Acetaminophen 650 mg 12/05/18 16:15 12/08/18 09:37 Tylenol - PO 650 mg Q4H PRN Administration PAIN LEVEL 4 - 6 Diphenhydramine HCl 25 mg 12/06/18 10:38 12/07/18 23:05 Benadryl - PO 25 mg HS PRN Administration INSOMNIA Enoxaparin Sodium 40 mg 12/06/18 10:00 12/08/18 09:30 Lovenox - SQ 40 mg DAILY SUSANA Administration Fentanyl 50 mcg 12/05/18 16:15 Sublimaze Injection - IVPUSH [id number] PRN PAIN-PACU ORDER X 4 DOSES ONLY Ferrous Sulfate 325 mg 12/06/18 22:00 12/08/18 09:30 Feosol - PO 325 mg BID SUSANA Administration Morphine Sulfate 2 mg 12/05/18 16:15 12/06/18 06:55 Morphine Sulfate IVPUSH 2 mg Q4H PRN Administration PAIN LEVEL 7 - 10 Ondansetron HCl 4 mg 12/05/18 16:15 Zofran Injection IVPUSH Q6H PRN NAUSEA AND/OR VOMITING Promethazine HCl 12.5 mg 12/05/18 16:15 Phenergan Injection - IVPUSH Q6H PRN NAUSEA-FOR RESCUE AFTER 15 MIN CBC, BMP 12/07/18 06:30 12/07/18 06:30 Impression: 68 year old s/p fall on ice with hip fracture requiring repair s/p chemotherapy and surgery Will hold off on chemotherapy as it interferes with wound healing . Will discuss with surgery when it can be resumed. Would maintain lovenox x 30 days post op.
--- NOTE | 2018-12-08 18:19 | PN ---
Teaching Attending Note Name of Resident: Rick Suarez ATTENDING PHYSICIAN STATEMENT I saw and evaluated the patient. I reviewed the resident's note and discussed the case with the resident. I agree with the resident's findings and plan as documented. SUBJECTIVE: Feels well, mild hip discomfort. No chest pain/nausea/vomiting. No fever/chills. No cough/sputum. Tolerating oral intake. OBJECTIVE: Afebrile, BP low trending. Last Vital Signs Temp Pulse Resp BP Pulse Ox 97.9 F 111 H 20 85/55 L 96 12/08/18 17:23 12/08/18 17:23 12/08/18 17:23 12/08/18 17:23 12/08/18 09:00 HEENT - Atraumatic. No pharyngeal erythema/exudate Heart - S1, S2, RRR Lungs - clear to auscultation. Abdomen - Soft, nontender. Bowel Sounds normal. Extremities - no edema. No calf tenderness. Surgical Site dressed. Current Medications Generic Name Dose Route Start Last Admin Trade Name Freq PRN Reason Stop Dose Admin Acetaminophen 650 mg 12/05/18 16:15 12/08/18 09:37 Tylenol - PO 650 mg Q4H PRN Administration PAIN LEVEL 4 - 6 Diphenhydramine HCl 25 mg 12/06/18 10:38 12/07/18 23:05 Benadryl - PO 25 mg HS PRN Administration INSOMNIA Enoxaparin Sodium 40 mg 12/06/18 10:00 12/08/18 09:30 Lovenox - SQ 40 mg DAILY SUSANA Administration Fentanyl 50 mcg 12/05/18 16:15 Sublimaze Injection - IVPUSH [id number] PRN PAIN-PACU ORDER X 4 DOSES ONLY Ferrous Sulfate 325 mg 12/06/18 22:00 12/08/18 09:30 Feosol - PO 325 mg BID SUSANA Administration Morphine Sulfate 2 mg 12/05/18 16:15 12/06/18 06:55 Morphine Sulfate IVPUSH 2 mg Q4H PRN Administration PAIN LEVEL 7 - 10 Ondansetron HCl 4 mg 12/05/18 16:15 Zofran Injection IVPUSH Q6H PRN NAUSEA AND/OR VOMITING Promethazine HCl 12.5 mg 12/05/18 16:15 Phenergan Injection - IVPUSH Q6H PRN NAUSEA-FOR RESCUE AFTER 15 MIN ASSESSMENT/PLAN 68 year old female with history of HTN (no longer on meds), Esophageal Ca s/p tumor resection 2016, recently received chemotherapy (follows with Dr. Gore) presented to ED after mechanical fall on ice with R hip pain, found to have femoral neck fracture. 1. R Femoral Neck fracture secondary to mechanical fall. POD 3 s/p Percutaneous fixation of R femoral neck by Ortho CT Pelvis - R femoral neck fracture, displaced and rotated. PT Awaiting placement at Rehab facility 2. Hyperglycemia at presentation, A1C 6.3 (pre-diabetic) No need for sliding scale coverage 3. Esophageal Ca currently on chemotherapy (s/p tumor resection in 2015) Last Chemo 11/24/18 No leukopenia on labs. Afebrile, Hemodynamically Stable. Follows with Dr. Gore - next chemo scheduled 12/09/18 - will be deferred as per Dr. Gore. 4. Electrolyte Abnormalities - Hypokalemia/Hypomagnesemia - resolved s/p repletion. 5. Acute Blood Loss Anemia sec to Orthopedic fracture and surgery H/H 10.5/30.5 down from on admission Fe supplementation started. Repeat labs pending. 6. Hypotensive - likely due to dehydration/mild blood loss. Will repeat H/H and hydrate gently overnight. No signs of infection or sepsis currently. DVT Px - Lovenox SQ for 30 days post-op
[2018-12-08] MEDS ORDERED: SODIUM CHLORIDE 250 ML IV STA (18:26)
[2018-12-08] MEDS ORDERED: SODIUM CHLORIDE 1,000 ML IV SCH (18:30)
[2018-12-08 21:01] LABS: BASO % 0.4 % (0-2.0); EOS % 9.6 % (0-4.5); HEMATOCRIT 29.9 % (32.4-45.2); HEMOGLOBIN 10.1 GM/dL (10.7-15.3); MCH 30.8 pg (25.7-33.7); MCHC 33.7 g/dl (32.0-36.0); MEAN CELL VOLUME 91.4 fl (80-96); MEAN PLT VOLUME 8.1 fl (7.5-11.1); MONO % 7.3 % (3.8-10.2); NEUT % 72.7 % (42.8-82.8); PLATELET COUNT 172 K/MM3 (134-434); RBC 3.28 M/mm3 (3.60-5.2); RDW 16.8 % (11.6-15.6)
[2018-12-08 21:23] LABS: ANION GAP 7 MMOL/L (8-16); BLOOD UREA NITROGEN 17 mg/dL (7-18); CALCIUM 7.7 mg/dL (8.5-10.1); CHLORIDE 108 mmol/L (98-107); CO2 27 mmol/L (21-32); CREATININE 0.6 mg/dL (0.55-1.3); GLUCOSE,RANDOM 101 mg/dL (74-106); PHOSPHOROUS 3.3 mg/dL (2.5-4.9); POTASSIUM 3.9 mmol/L (3.5-5.1); SODIUM 142 mmol/L (136-145)
[2018-12-08] MEDS: diphenhydrAMINE HCL 25 MG CAPSULE (FP) PO PRN (22:04)
[2018-12-09] MEDS: ACETAMINOPHEN 325 MG TABLET (FP) PO PRN (02:02)
[2018-12-09] MEDS ORDERED: LACTATED RINGERS SOLUTION 1,000 ML/1,000 ML INFUS.BAG IV SCH (09:00)
--- NOTE | 2018-12-09 09:01 | PN ---
Physical Exam: SUBJECTIVE: Patient seen and examined at bedside. Slept poorly d/t pain. PRN pain medications explained. Has been passing flatus, having bowel movements, and voiding. OBJECTIVE: Vital Signs Period Temp Pulse Resp BP Sys/Spicer Pulse Ox Last 24 Hr 97.4 F-98.1 F 72-111 20-20 85-138/55-82 96-96 GENERAL: A&Ox3, NAD HEAD: NC/AT EYES: PERRLA, EOMI, sclera anicteric, conjunctiva clear. No ptosis. ENT: Ears normal, nares patent, oropharynx clear without exudates, moist mucous membranes. NECK: Trachea midline, full range of motion, supple. LUNGS: Breath sounds equal, clear to auscultation bilaterally, no wheezes, no crackles, no accessory muscle use. HEART: Regular rate and rhythm, S1, S2 without murmur, rub or gallop. ABDOMEN: Soft, nontender, nondistended, normoactive bowel sounds, no guarding, no rebound, no hepatosplenomegaly, no masses. EXTREMITIES: 2+ pulses, warm, well-perfused, no edema. dressings on right trochanteric surface c/d/i, tender in surrounding area NEUROLOGICAL: Cranial nerves II through XII grossly intact. Normal speech, gait not observed. PSYCH: Normal mood, normal affect. SKIN: Warm, dry, normal turgor, no rashes or lesions noted Laboratory Results - last 24 hr 12/08/18 12/08/18 20:30 20:30 WBC 5.0 RBC 3.28 L Hgb 10.1 L Hct 29.9 L MCV 91.4 MCH 30.8 MCHC 33.7 RDW 16.8 H Plt Count 172 MPV 8.1 Absolute Neuts (auto) 3.7 Neutrophils % 72.7 Lymphocytes % 10.0 D Monocytes % 7.3 Eosinophils % 9.6 H Basophils % 0.4 Nucleated RBC % 0 Sodium 142 Potassium 3.9 Chloride 108 H Carbon Dioxide 27 Anion Gap 7 L BUN 17 Creatinine 0.6 Creat Clearance w eGFR > 60 Random Glucose 101 Calcium 7.7 L Phosphorus 3.3 Magnesium 2.0 Active Medications Generic Name Dose Route Start Last Admin Trade Name Freq PRN Reason Stop Dose Admin Acetaminophen 650 mg 12/05/18 16:15 12/09/18 02:02 Tylenol - PO 650 mg Q4H PRN Administration PAIN LEVEL 4 - 6 Diphenhydramine HCl 25 mg 12/06/18 10:38 12/08/18 22:04 Benadryl - PO 25 mg HS PRN Administration INSOMNIA Enoxaparin Sodium 40 mg 12/06/18 10:00 12/08/18 09:30 Lovenox - SQ 40 mg DAILY SUSANA Administration Fentanyl 50 mcg 12/05/18 16:15 Sublimaze Injection - IVPUSH [id number] PRN PAIN-PACU ORDER X 4 DOSES ONLY Ferrous Sulfate 325 mg 12/06/18 22:00 12/08/18 22:03 Feosol - PO 325 mg BID SUSANA Administration Sodium Chloride 1,000 mls @ 100 mls/hr 12/08/18 18:30 Normal Saline - IV ASDIR SUSANA Morphine Sulfate 2 mg 12/05/18 16:15 12/06/18 06:55 Morphine Sulfate IVPUSH 2 mg Q4H PRN Administration PAIN LEVEL 7 - 10 Ondansetron HCl 4 mg 12/05/18 16:15 Zofran Injection IVPUSH Q6H PRN NAUSEA AND/OR VOMITING Promethazine HCl 12.5 mg 12/05/18 16:15 Phenergan Injection - IVPUSH Q6H PRN NAUSEA-FOR RESCUE AFTER 15 MIN ASSESSMENT/PLAN: 68 y/o F w/ PMHx HTN, HLD, recurrent/metastatic 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 #R hip Fx -POD 4 s/p ORIF R hip Fx -morphine/tylenol PRN per pain scale -Zofran PRN -IS -LR @ 100 -PT/OT -for rehab placement #heme/onc -under Tx w/ Dr. Gore -holding chemo at present for wound healing -Lovenox x 30 days #PPx -DVT: Lovenox subq -GI: not indicated #FEN -LR @ 100 -monitor and replete lytes -Na-controlled diet #code -full #dispo -cont to monitor on med/surg -pending SNF placement
[2018-12-09 09:18] LABS: ANION GAP 3 MMOL/L (8-16); BLOOD UREA NITROGEN 12 mg/dL (7-18); CALCIUM 7.9 mg/dL (8.5-10.1); CHLORIDE 110 mmol/L (98-107); CO2 29 mmol/L (21-32); CREATININE 0.5 mg/dL (0.55-1.3); GLUCOSE,RANDOM 85 mg/dL (74-106); POTASSIUM 4.1 mmol/L (3.5-5.1); SODIUM 142 mmol/L (136-145)
[2018-12-09] MEDS: FERROUS SO4 325 MG TABLET (FP) PO SCH (09:30)
[2018-12-09] MEDS: ENOXAPARIN NA (PORCINE) 40 MG/0.4 ML DISP.SYRIN SQ SCH (09:30)
--- NOTE | 2018-12-09 13:59 | PN ---
Teaching Attending Note Name of Resident: Denton Claire ATTENDING PHYSICIAN STATEMENT I saw and evaluated the patient. I reviewed the resident's note and discussed the case with the resident. I agree with the resident's findings and plan as documented. SUBJECTIVE:asymptomatic. states pain is controlled with pain medication. denies Cp, SOB, fever, chills, N/V/C/D OBJECTIVE: Last Vital Signs Temp Pulse Resp BP Pulse Ox 97.6 F 99 H 20 106/59 L 96 12/09/18 08:55 12/09/18 08:55 12/09/18 08:55 12/09/18 08:55 12/08/18 21:00 General NAD CV S1 S2 RRR no murmur/rub/gallop Lungs CTA B/L no wheezing/rales/rhonchi Extremities no hip tenderness. surgical dressing c/d/i ASSESSMENT AND PLAN: 68 year old female with history of HTN (no longer on meds), Esophageal Ca s/p tumor resection 2015, recently received chemotherapy (follows with Dr. Gore) presented to ED after mechanical fall on ice with R hip pain, found to have femoral neck fracture. 1. R Femoral Neck fracture secondary to mechanical fall- 3 s/p Percutaneous fixation of R femoral neck by Ortho 12/05. further recommendations by ortho. awaiting NESS placement. 2. Hyperglycemia at presentation, A1C 6.3 (pre-diabetic). no further treatment 3. Esophageal Ca currently on chemotherapy (s/p tumor resection in 2015). Last Chemo 11/24/18. Follows with Dr. Gore - next chemo scheduled 12/09/18 - will be deferred as per Dr. Gore. 4. Electrolyte Abnormalities - Hypokalemia/Hypomagnesemia - resolved s/p repletion. 5. Acute Blood Loss Anemia sec to Orthopedic fracture and surgery. on iron supplementation. hgb stable 6. Hypotensive - likely due to dehydration/mild blood loss. Will repeat H/H and hydrate gently overnight. No signs of infection or sepsis currently. 7. DVT Px - Lovenox SQ for 30 days post-op 8. medically optimized for discharge. awaiting placement
[2018-12-09 15:11] VITALS: BP 93/50; PULSE 117; TEMP 97.4
--- NOTE | 2018-12-09 15:49 | DS ---
Physical Exam: SUBJECTIVE: Patient seen and examined at bedside. Slept poorly d/t pain. PRN pain medications explained. Has been passing flatus, having bowel movements, and voiding. OBJECTIVE: Vital Signs Period Temp Pulse Resp BP Sys/Spicer Pulse Ox Last 24 Hr 97.4 F-97.9 F 72-117 18-20 85-118/50-59 96 PHYSICAL EXAM GENERAL: A&Ox3, NAD HEAD: NC/AT EYES: PERRLA, EOMI, sclera anicteric, conjunctiva clear. No ptosis. ENT: Ears normal, nares patent, oropharynx clear without exudates, moist mucous membranes. NECK: Trachea midline, full range of motion, supple. LUNGS: Breath sounds equal, clear to auscultation bilaterally, no wheezes, no crackles, no accessory muscle use. HEART: Regular rate and rhythm, S1, S2 without murmur, rub or gallop. ABDOMEN: Soft, nontender, nondistended, normoactive bowel sounds, no guarding, no rebound, no hepatosplenomegaly, no masses. EXTREMITIES: 2+ pulses, warm, well-perfused, no edema. dressings on right trochanteric surface c/d/i, tender in surrounding area NEUROLOGICAL: Cranial nerves II through XII grossly intact. Normal speech, gait not observed. PSYCH: Normal mood, normal affect. SKIN: Warm, dry, normal turgor, no rashes or lesions noted LABS Laboratory Results - last 24 hr 12/08/18 12/08/18 12/09/18 20:30 20:30 08:30 WBC 5.0 RBC 3.28 L Hgb 10.1 L Hct 29.9 L MCV 91.4 MCH 30.8 MCHC 33.7 RDW 16.8 H Plt Count 172 MPV 8.1 Absolute Neuts (auto) 3.7 Neutrophils % 72.7 Lymphocytes % 10.0 D Monocytes % 7.3 Eosinophils % 9.6 H Basophils % 0.4 Nucleated RBC % 0 Sodium 142 142 Potassium 3.9 4.1 Chloride 108 H 110 H Carbon Dioxide 27 29 Anion Gap 7 L 3 L BUN 17 12 Creatinine 0.6 0.5 L Creat Clearance w eGFR > 60 > 60 Random Glucose 101 85 Calcium 7.7 L 7.9 L Phosphorus 3.3 Magnesium 2.0 HOSPITAL COURSE: Date of Admission:12/05/18 Patient is a 68 y/o F w/ PMHx HTN, HLD, recurrent/metastatic esophageal adenoCa s/p TMT now on chemo with Dr. Gore admitted for R hip Fx / mechanical fall on ice. On presentation, imaging demonstrated an impacted fracture of the right femoral neck. Orthopedic surgery was consulted and the patient underwent ORIF with Dr. Woo on 12/05/18 without complication. She recovered well over the subsequent weekend. She was discharged to SNF on 12/09/18 with pain control and instructions to resume home medications, for orthopedic post-operative followup and temporary cessation of chemotherapy to assist in wound healing. She will additionally follow up with Dr. Gore for resumption of chemotherapy. Date of Discharge: 12/09/18 Minutes to complete discharge: 40 Discharge Summary Reason For Visit: FRACTURE OF RIGHT HIP Current Active Problems Hip fracture, right (Acute) Condition: Stable - Instructions Diet, Activity, Other Instructions: You were brought to the hospital for a hip fracture and underwent surgery without complication. You are being discharged to a skilled facility for physical rehabilitation. Please follow up in the office with Dr. Woo in 2 to 3 weeks for post-operative evaluation. Please follow up with Dr. Gore at your earliest opportunity for evaluation for restarting chemotherapy. You will be provided Tylenol and Ibuprofen for pain control during rehabilitation. You will resume your other home medications. You will also need medication to prevent the development of blood clots in your legs for three weeks following discharge. Instructions to the rehabilitation facility from your orthopedic surgeon are provided below. For SNF staff, orthopedic post-operative instructions: The patient will be allowed toe-touch weight-bearing from postoperative day 1, advancing to WBAT in 6-8 weeks. Follow up in the office in 2 to 3 weeks for wound check. DVT prophylaxis with lovenox (40 mg daily if ClCr >30 mL/min, or 30 mg daily if ClCr <30 mL/min) beginning tomorrow 10 am. Continue for 3 weeks. Referrals: Manjinder Woo DO [Staff Physician] - Saurabh Gore MD [Staff Physician] - Disposition: LONG TERM FACILITY - Home Medications Comprehensive Discharge Medication List: Ambulatory Orders Aspirin 81 mg PO DAILY 12/04/18 Docusate Sodium [Colace] 100 mg PO DAILY 12/04/18 Acetaminophen [Tylenol .Regular Strength -] 650 mg PO Q4H PRN tablet 12/09/18 Enoxaparin [Lovenox -] 40 mg SQ DAILY disp.syrin 12/09/18 Ferrous Sulfate [Feosol] 325 mg PO BID ud 12/09/18 Ibuprofen 400 mg PO Q4H PRN #30 tablet MDD 2400 12/09/18 This patient is new to me today: No Emergency Visit: No Critical Care patient: No - Discharge Referral Referred to [facility] No
--- NOTE | 2018-12-09 17:06 | PN ---
Progress Note (short form) - Note Progress Note: Patient seen and discussed with orthopedics . To facilitate optimum recovery and rehab will with-hold chemotherapy until such time as patient is discharged from rehab. As previously written and as discussed with patient , patient will require extended lovenox for 30 days post discharge. Patient will contact me after discharge from [facility] and treatment will resume.
--- NOTE | 2018-12-09 17:42 | PN ---
Progress Note (short form) - Note Progress Note: ORTHOPEDIC SURGERY PROGRESS NOTE Department of Orthopedic Surgery SUBJECTIVE Patient was seen this morning at 0730. Hypotension overnight treated with IVF. No complaints. Denied chest pain, shortness of breath, or calf pain. No nausea or vomiting. Tolerating oral intake. Pain control was difficult overnight, but improving. PHYSICAL EXAMINATION General: Alert, oriented, cooperative and no distress. Lower Extremity: Dressing was clean and intact; Incision C/D/I; paddy intact. Compartments soft and compressible. Muscle mass equal and symmetric to contralateral side. No atrophy noted. No masses or effusions noted. No tenderness to palpation. Full passive and active ROM, free from pain. EHL/TA/GS motor intact; SILT distally; 2+ DP pulses; Cap refill brisk. DVT Exam: No evidence of DVT seen on physical exam; No cords or calf tenderness ; No significant calf/ankle edema. ASSESSMENT AND PLAN Arlene Hamilton is a 68 year old female status post right hip CRPP POD #3. - Dressing was changed - Monitor H/H - Pain control: Minimize narcotic use - DVT prophylaxis - TTWB RLE - OOBTC - Ice/Elevation - Elevate HOB, encourage oral intake - Appreciate medical management (Nutrition optimization, decubitus precautions heel/sacrum) - PT/OT - DC paddy POD 14; follow up in office in 2 weeks
== END 2018-12-09 19:36 | DRG 481 ==
LOC: JER 20:33 → JERBED 12-05 00:22 → OBSVTOIN 12-05 00:33 → J8W 12-05 03:41
PROVIDERS: ADMIT Internal Medicine; ATTEND Internal Medicine
PROC: 0QH604Z Insertion of Internal Fixation Device into Right Upper Femur, Open Approach (ICD-10-PCS; principal; 2018-12-05 15:30)
DX: S72.001A Fracture of unspecified part of neck of right femur, initial encounter for closed fracture (principal); C15.9 Malignant neoplasm of esophagus, unspecified; D62 Acute posthemorrhagic anemia; E46 Unspecified protein-calorie malnutrition; Z68.1 Body mass index [BMI] 19.9 or less, adult; I10 Essential (primary) hypertension; E78.5 Hyperlipidemia, unspecified; I95.9 Hypotension, unspecified; E86.0 Dehydration; W19.XXXA Unspecified fall, initial encounter; Y92.89 Other specified places as the place of occurrence of the external cause; Y99.9 Unspecified external cause status
CPT/HCPCS: 36415; 71045-TC-FY; 72192-TC; 73501-TC-RT-FY; 73523-TC-FY; 73552-TC-RT-FY; 76000-TC-FY; 80048; 80053; 81003; 82962; 83036; 83735; 84100; 84439; 84443; 85025; 85027; 85610; 85730; 86850; 86900; 86901; 93005; 93010; 94010; 94760; 97116-GP; 97161-GP; 99284-25; G0378; J7030

== ENCOUNTER 2018-12-23 11:12 | Day surgery (SDC) | payer OTHER, BC ==
[2018-12-23 11:55] LABS: BASO % 0.5 % (0-2.0); EOS % 1.8 % (0-4.5); HEMATOCRIT 34.9 % (32.4-45.2); HEMOGLOBIN 11.7 GM/dL (10.7-15.3); MCH 31.1 pg (25.7-33.7); MCHC 33.5 g/dl (32.0-36.0); MEAN CELL VOLUME 92.8 fl (80-96); MEAN PLT VOLUME 7.6 fl (7.5-11.1); MONO % 5.6 % (3.8-10.2); NEUT % 85.1 % (42.8-82.8); PLATELET COUNT 314 K/MM3 (134-434); RBC 3.76 M/mm3 (3.60-5.2); RDW 19.4 % (11.6-15.6); WHITE BLOOD COUNT 8.8 K/mm3 (4.0-10.0)
[2018-12-23 12:25] LABS: ALBUMIN 3.2 g/dl (3.4-5.0); ALK PHOS 121 U/L (45-117); ANION GAP 8 MMOL/L (8-16); BILIRUBIN,DIRECT 0.1 mg/dL (0.0-0.2); BILIRUBIN,TOTAL 0.3 mg/dL (0.2-1); BLOOD UREA NITROGEN 22 mg/dL (7-18); CALCIUM 8.7 mg/dL (8.5-10.1); CHLORIDE 107 mmol/L (98-107); CO2 27 mmol/L (21-32); CREATININE 0.7 mg/dL (0.55-1.3); GLUCOSE,RANDOM 90 mg/dL (74-106); MAGNESIUM 2.2 mg/dL (1.8-2.4); POTASSIUM 4.7 mmol/L (3.5-5.1); SGOT/AST 16 U/L (15-37); SGPT/ALT 21 U/L (13-61); SODIUM 142 mmol/L (136-145); TOT PROT 6.9 g/dl (6.4-8.2)
[2018-12-23] MEDS ORDERED: POTASSIUM CHLORIDE IVPB ONE (13:00)
[2018-12-23] MEDS ORDERED: DEXTROSE 5% IVPB ONE (13:00)
[2018-12-23] MEDS ORDERED: MAGNESIUM SULFATE IVPB ONE (13:00)
[2018-12-23] MEDS ORDERED: DEXAMETHASONE INJECTION 8 MG, ONDANSETRON INJECTION 8 MG in SODIUM CHLORIDE 100 ML IVPUSH ONE (13:00)
[2018-12-23] MEDS ORDERED: NORMAL SALINE IVPB ONE (13:00)
[2018-12-23] MEDS ORDERED: PORTA CATH FLUSH 10 ML IVPUSH ONE (16:42)
[2018-12-23 16:43] VITALS: TEMP 98.3
[2018-12-23 16:44] VITALS: BP 104/56; PULSE 106
== END 2018-12-23 16:47 | disposition home or self-care (01) ==
LOC: JONCNONCHE 11:12 → JLAB 11:12 → EDSTATUS 12:40 → J7W 12:42 → JONCNONCHE 16:47
PROVIDERS: ATTEND Internal Medicine Hematology & Oncology
PROC: 3E043GC Introduction of Other Therapeutic Substance into Central Vein, Percutaneous Approach (ICD-10-PCS; principal; 2018-12-23)
PROC: 3E043GC Introduction of Other Therapeutic Substance into Central Vein, Percutaneous Approach (ICD-10-PCS; 2018-12-23)
DX: C18.8 Malignant neoplasm of overlapping sites of colon (principal); Z76.89 Persons encountering health services in other specified circumstances
CPT/HCPCS: 36415; 80053; 80076; 82378; 83735; 85025; 96360; 96361; 96365; 96366; 96367; J1100; J2405

== ENCOUNTER 2018-12-29 06:14 | Day surgery (SDC) | payer OTHER, BC ==
[2018-12-29] MEDS ORDERED: ATROPINE SULFATE 1 MG/10 ML DISP.SYRIN IVPUSH ONE (08:00)
[2018-12-29] MEDS ORDERED: DEXAMETHASONE SODIUM PHOSPHATE 20 MG in SODIUM CHLORIDE 50 ML IVPB ONE (08:00)
[2018-12-29] MEDS ORDERED: PALONOSETRON HCL 0.25 MG/5 ML VIAL IVPUSH ONE (08:00)
[2018-12-29] MEDS ORDERED: IRINOTECAN HCL 190 MG in DEXTROSE 5%-WATER - 500 ML IVPB ONE (08:30)
[2018-12-29] MEDS ORDERED: LEUCOVORIN INJECTION - 572 MG in DEXTROSE 5%-WATER - 250 ML IVPB ONE (08:30)
[2018-12-29 09:39] LABS: BASO % 0.2 % (0-2.0); EOS % 2.7 % (0-4.5); HEMATOCRIT 34.5 % (32.4-45.2); HEMOGLOBIN 11.5 GM/dL (10.7-15.3); LYMPH % 9.6 % (8-40); MCH 31.5 pg (25.7-33.7); MCHC 33.4 g/dl (32.0-36.0); MEAN CELL VOLUME 94.1 fl (80-96); MEAN PLT VOLUME 8.3 fl (7.5-11.1); NEUT % 81.5 % (42.8-82.8); PLATELET COUNT 256 K/MM3 (134-434); RBC 3.67 M/mm3 (3.60-5.2); RDW 19.7 % (11.6-15.6); WHITE BLOOD COUNT 6.1 K/mm3 (4.0-10.0)
[2018-12-29] MEDS ORDERED: FLUOROURACIL 2,500 MG/50 ML VIAL IVPUSH ONE (10:00)
[2018-12-29 10:06] LABS: ALBUMIN 3.1 g/dl (3.4-5.0); ALK PHOS 94 U/L (45-117); ANION GAP 5 MMOL/L (8-16); BILIRUBIN,TOTAL 0.3 mg/dL (0.2-1); BLOOD UREA NITROGEN 26 mg/dL (7-18); CALCIUM 8.1 mg/dL (8.5-10.1); CHLORIDE 109 mmol/L (98-107); CO2 27 mmol/L (21-32); CREATININE 0.7 mg/dL (0.55-1.3); GLUCOSE,RANDOM 91 mg/dL (74-106); POTASSIUM 4.1 mmol/L (3.5-5.1); SGOT/AST 11 U/L (15-37); SGPT/ALT 20 U/L (13-61); SODIUM 141 mmol/L (136-145); TOT PROT 6.6 g/dl (6.4-8.2)
[2018-12-29 10:08] LABS: ALBUMIN 3.1 g/dl (3.4-5.0); BILIRUBIN,DIRECT 0.1 mg/dL (0.0-0.2); BILIRUBIN,TOTAL 0.4 mg/dL (0.2-1); TOT PROT 6.6 g/dl (6.4-8.2)
[2018-12-29] MEDS ORDERED: SODIUM CHLORIDE CP ONE (10:15)
[2018-12-29] MEDS ORDERED: FLUOROURACIL CP ONE (10:15)
[2018-12-29] MEDS ORDERED: MAGNESIUM SULF 50% (8.12 MEQ/2 ML-1 GM VIAL) ONE (13:48)
[2018-12-29 16:16] VITALS: BP 103/64; PULSE 102; TEMP 97.3
[2018-12-29] MEDS ORDERED: PORTA CATH FLUSH 10 ML IVPUSH ONE (16:16)
[2018-12-29] MEDS ORDERED: POTASSIUM CHLORIDE 20 MEQ, MAGNESIUM SULFATE 1 GM in DEXTROSE 5%-NORMAL SALINE 1,000 ML IVPB ONE (16:45)
== END 2018-12-29 16:00 | disposition home or self-care (01) ==
LOC: JONCCHEMO 06:14 → J7W 10:34 → JONCCHEMO 16:00
PROVIDERS: ATTEND Internal Medicine Hematology & Oncology
DX: Z51.11 Encounter for antineoplastic chemotherapy (principal); C18.8 Malignant neoplasm of overlapping sites of colon
CPT/HCPCS: 36415; 80053; 80076; 83735; 85025; 96361; 96375; 96409; 96411; 96413; 96415; 96417; G0498; J2469; J9206

== ENCOUNTER 2018-12-31 09:48 | Day surgery (SDC) | payer OTHER, BC ==
[2018-12-31 16:27] VITALS: BP 93/74; PULSE 87; TEMP 97.1
[2018-12-31] MEDS ORDERED: PORTA CATH FLUSH 10 ML IVPUSH ONE (16:27)
== END 2018-12-31 11:35 | disposition home or self-care (01) ==
LOC: JONCCHEMO 09:48 → J7W 11:05 → JONCCHEMO 11:35
PROVIDERS: ATTEND Internal Medicine Hematology & Oncology
PROC: 2W54XYZ Removal of Other Device on Chest Wall (ICD-10-PCS; principal; 2018-12-31)
DX: Z53.8 Procedure and treatment not carried out for other reasons (principal)

== ENCOUNTER 2019-01-05 07:05 | Day surgery (SDC) | payer OTHER, BC ==
[2019-01-05] MEDS ORDERED: POTASSIUM CHLORIDE 20 MEQ, MAGNESIUM SULFATE 2 GM in DEXTROSE 5%-NORMAL SALINE 1,000 ML IVPB ONE (10:00)
[2019-01-05 16:20] VITALS: BP 102/50; PULSE 102; TEMP 97.5
== END 2019-01-05 14:10 | disposition home or self-care (01) ==
LOC: JONCCHEMO 07:05 → J7W 09:53 → JONCCHEMO 14:10
PROVIDERS: ATTEND Internal Medicine Hematology & Oncology
PROC: 3E0337Z Introduction of Electrolytic and Water Balance Substance into Peripheral Vein, Percutaneous Approach (ICD-10-PCS; principal; 2019-01-05)
DX: C15.9 Malignant neoplasm of esophagus, unspecified (principal); I10 Essential (primary) hypertension; E78.00 Pure hypercholesterolemia, unspecified
CPT/HCPCS: 96360; 96361

== ENCOUNTER 2019-01-12 07:08 | Day surgery (SDC) | payer OTHER, BC ==
[2019-01-12 09:31] LABS: BASO % 0.3 % (0-2.0); HEMATOCRIT 28.7 % (32.4-45.2); HEMOGLOBIN 9.9 GM/dL (10.7-15.3); LYMPH % 8.2 % (8-40); MCHC 34.6 g/dl (32.0-36.0); MEAN CELL VOLUME 92.6 fl (80-96); MEAN PLT VOLUME 7.5 fl (7.5-11.1); MONO % 6.2 % (3.8-10.2); NEUT % 79.3 % (42.8-82.8); PLATELET COUNT 202 K/MM3 (134-434); RDW 19.3 % (11.6-15.6); WHITE BLOOD COUNT 6.1 K/mm3 (4.0-10.0)
[2019-01-12] MEDS ORDERED: PALONOSETRON HCL 0.25 MG/5 ML VIAL IVPUSH ONE (10:00)
[2019-01-12] MEDS ORDERED: DEXAMETHASONE SODIUM PHOSPHATE 20 MG in SODIUM CHLORIDE 50 ML IVPB ONE (10:00)
[2019-01-12 10:06] LABS: ALBUMIN 2.8 g/dl (3.4-5.0); ALK PHOS 74 U/L (45-117); ANION GAP 6 MMOL/L (8-16); BILIRUBIN,TOTAL 0.3 mg/dL (0.2-1); BLOOD UREA NITROGEN 14 mg/dL (7-18); CALCIUM 7.4 mg/dL (8.5-10.1); CHLORIDE 113 mmol/L (98-107); CO2 25 mmol/L (21-32); CREATININE 0.6 mg/dL (0.55-1.3); GLUCOSE,RANDOM 79 mg/dL (74-106); POTASSIUM 3.5 mmol/L (3.5-5.1); SGOT/AST 15 U/L (15-37); SGPT/ALT 21 U/L (13-61); SODIUM 144 mmol/L (136-145); TOT PROT 6.1 g/dl (6.4-8.2)
[2019-01-12 10:08] LABS: ALBUMIN 2.9 g/dl (3.4-5.0); BILIRUBIN,DIRECT 0.1 mg/dL (0.0-0.2); BILIRUBIN,TOTAL 0.3 mg/dL (0.2-1); TOT PROT 6.1 g/dl (6.4-8.2)
[2019-01-12] MEDS ORDERED: LEUCOVORIN INJECTION - 572 MG in DEXTROSE 5%-WATER - 250 ML IVPB ONE (10:30)
[2019-01-12] MEDS ORDERED: IRINOTECAN HCL 190 MG in DEXTROSE 5%-WATER - 500 ML IVPB ONE (11:00)
[2019-01-12] MEDS ORDERED: FLUOROURACIL 2,500 MG/50 ML VIAL IVPUSH ONE (12:30)
[2019-01-12] MEDS ORDERED: SODIUM CHLORIDE CP ONE (12:45)
[2019-01-12] MEDS ORDERED: FLUOROURACIL CP ONE (12:45)
[2019-01-12 13:59] VITALS: BP 111/58; PULSE 92; TEMP 98.9
== END 2019-01-12 12:20 | disposition home or self-care (01) ==
LOC: JONCCHEMO 07:08 → J7W 10:12 → JONCCHEMO 12:20
PROVIDERS: ATTEND Internal Medicine Hematology & Oncology
DX: Z51.11 Encounter for antineoplastic chemotherapy (principal); C15.9 Malignant neoplasm of esophagus, unspecified
CPT/HCPCS: 36415; 80053; 80076; 83735; 85025; 96375; 96409; 96411; 96413; 96415; 96417; G0498; J2469; J9206

== ENCOUNTER 2019-01-14 07:07 | Day surgery (SDC) | payer OTHER, BC ==
[2019-01-14 16:01] VITALS: TEMP 97.3
[2019-01-14 16:02] VITALS: BP 100/50; PULSE 86
[2019-01-14] MEDS ORDERED: PORTA CATH FLUSH 10 ML IVPUSH ONE (16:03)
== END 2019-01-14 11:50 | disposition home or self-care (01) ==
LOC: JONCCHEMO 07:07 → J7W 10:47 → JONCCHEMO 11:50
PROVIDERS: ATTEND Internal Medicine Hematology & Oncology
DX: Z53.8 Procedure and treatment not carried out for other reasons (principal)

== ENCOUNTER 2019-01-26 07:02 | Day surgery (SDC) | payer OTHER, BC ==
[2019-01-26] MEDS ORDERED: PALONOSETRON HCL 0.25 MG/5 ML VIAL IVPUSH ONE (08:00)
[2019-01-26] MEDS ORDERED: DEXAMETHASONE SODIUM PHOSPHATE 20 MG in SODIUM CHLORIDE 50 ML IVPB ONE (08:00)
[2019-01-26] MEDS ORDERED: LEUCOVORIN INJECTION - 572 MG in DEXTROSE 5%-WATER - 250 ML IVPB ONE (08:30)
[2019-01-26] MEDS ORDERED: IRINOTECAN HCL 190 MG in DEXTROSE 5%-WATER - 500 ML IVPB ONE (08:30)
[2019-01-26 09:17] LABS: BASO % 0.4 % (0-2.0); EOS % 2.4 % (0-4.5); HEMATOCRIT 30.5 % (32.4-45.2); HEMOGLOBIN 10.1 GM/dL (10.7-15.3); LYMPH % 15.1 % (8-40); MCH 31.5 pg (25.7-33.7); MCHC 33.2 g/dl (32.0-36.0); MEAN CELL VOLUME 95.1 fl (80-96); MEAN PLT VOLUME 7.8 fl (7.5-11.1); MONO % 9.9 % (3.8-10.2); NEUT % 72.2 % (42.8-82.8); PLATELET COUNT 174 K/MM3 (134-434); RDW 20.6 % (11.6-15.6); WHITE BLOOD COUNT 4.7 K/mm3 (4.0-10.0)
[2019-01-26 09:52] LABS: BILIRUBIN,DIRECT 0.1 mg/dL (0.0-0.2); BILIRUBIN,TOTAL 0.3 mg/dL (0.2-1); TOT PROT 6.1 g/dl (6.4-8.2)
[2019-01-26 09:54] LABS: ALK PHOS 77 U/L (45-117); ANION GAP 5 MMOL/L (8-16); BILIRUBIN,TOTAL 0.3 mg/dL (0.2-1); BLOOD UREA NITROGEN 17 mg/dL (7-18); CHLORIDE 112 mmol/L (98-107); CO2 25 mmol/L (21-32); CREATININE 0.6 mg/dL (0.55-1.3); GLUCOSE,RANDOM 97 mg/dL (74-106); POTASSIUM 3.6 mmol/L (3.5-5.1); SGOT/AST 9 U/L (15-37); SGPT/ALT 13 U/L (13-61); SODIUM 142 mmol/L (136-145); TOT PROT 6.2 g/dl (6.4-8.2)
[2019-01-26] MEDS ORDERED: FLUOROURACIL 2,500 MG/50 ML VIAL IVPUSH ONE (10:00)
[2019-01-26] MEDS ORDERED: SODIUM CHLORIDE CP ONE (10:15)
[2019-01-26] MEDS ORDERED: FLUOROURACIL CP ONE (10:15)
[2019-01-26 11:22] LABS: ANISOCYTOSIS 1+; MACROCYTOSIS 1+; OVALOCYTE 1+; PLATELET ESTIMATE NORMAL
[2019-01-26 16:17] VITALS: TEMP 97.3
[2019-01-26 16:25] VITALS: BP 101/48; PULSE 95
[2019-01-26] MEDS ORDERED: PORTA CATH FLUSH 10 ML IVPUSH ONE (16:25)
== END 2019-01-26 13:00 | disposition home or self-care (01) ==
LOC: JONCCHEMO 07:02 → J7W 09:41 → JONCCHEMO 13:00
PROVIDERS: ATTEND Internal Medicine Hematology & Oncology
DX: Z51.11 Encounter for antineoplastic chemotherapy (principal); C15.9 Malignant neoplasm of esophagus, unspecified
CPT/HCPCS: 36415; 80053; 80076; 83735; 85025; 96367; 96375; 96409; 96411; 96413; 96415; 96417; G0498; J2469; J9206

== ENCOUNTER 2019-01-28 07:08 | Day surgery (SDC) | payer OTHER, BC ==
[2019-01-28 18:01] VITALS: BP 88/45; PULSE 79; TEMP 97.6
[2019-01-28] MEDS ORDERED: PORTA CATH FLUSH 10 ML IVPUSH ONE (18:01)
== END 2019-01-28 12:40 | disposition home or self-care (01) ==
LOC: JONCCHEMO 07:08 → J7W 12:38 → JONCCHEMO 12:40
PROVIDERS: ATTEND Internal Medicine Hematology & Oncology
DX: Z53.8 Procedure and treatment not carried out for other reasons (principal)

== ENCOUNTER 2019-02-09 06:59 | Day surgery (SDC) | payer OTHER, BC ==
[2019-02-09] MEDS ORDERED: DEXAMETHASONE SODIUM PHOSPHATE 20 MG in SODIUM CHLORIDE 50 ML IVPB ONE (08:00)
[2019-02-09] MEDS ORDERED: PALONOSETRON HCL 0.25 MG/5 ML VIAL IVPUSH ONE (08:00)
[2019-02-09] MEDS ORDERED: IRINOTECAN HCL 190 MG in DEXTROSE 5%-WATER - 500 ML IVPB ONE (08:30)
[2019-02-09] MEDS ORDERED: LEUCOVORIN INJECTION - 572 MG in DEXTROSE 5%-WATER - 250 ML IVPB ONE (08:30)
[2019-02-09 09:44] LABS: BASO % 0.3 % (0-2.0); EOS % 5.8 % (0-4.5); HEMATOCRIT 33.3 % (32.4-45.2); HEMOGLOBIN 11.2 GM/dL (10.7-15.3); MCH 32.6 pg (25.7-33.7); MCHC 33.6 g/dl (32.0-36.0); MEAN CELL VOLUME 96.9 fl (80-96); MEAN PLT VOLUME 7.5 fl (7.5-11.1); MONO % 6.8 % (3.8-10.2); NEUT % 75.1 % (42.8-82.8); PLATELET COUNT 167 K/MM3 (134-434); RBC 3.43 M/mm3 (3.60-5.2); RDW 20.4 % (11.6-15.6); WHITE BLOOD COUNT 3.6 K/mm3 (4.0-10.0)
[2019-02-09] MEDS ORDERED: FLUOROURACIL 2,500 MG/50 ML VIAL IVPUSH ONE (10:00)
[2019-02-09 10:13] LABS: ALBUMIN 3.2 g/dl (3.4-5.0); ALK PHOS 89 U/L (45-117); ANION GAP 5 MMOL/L (8-16); BILIRUBIN,DIRECT 0.2 mg/dL (0.0-0.2); BILIRUBIN,TOTAL 0.6 mg/dL (0.2-1); BLOOD UREA NITROGEN 17 mg/dL (7-18); CALCIUM 8.5 mg/dL (8.5-10.1); CHLORIDE 110 mmol/L (98-107); CO2 26 mmol/L (21-32); CREATININE 0.8 mg/dL (0.55-1.3); GLUCOSE,RANDOM 105 mg/dL (74-106); MAGNESIUM 2.2 mg/dL (1.8-2.4); POTASSIUM 4.2 mmol/L (3.5-5.1); SGOT/AST 12 U/L (15-37); SGPT/ALT 19 U/L (13-61); SODIUM 141 mmol/L (136-145)
[2019-02-09] MEDS ORDERED: SODIUM CHLORIDE CP ONE (10:30)
[2019-02-09] MEDS ORDERED: FLUOROURACIL CP ONE (10:30)
[2019-02-09] MEDS ORDERED: DEXTROSE 5%-NORMAL SALINE 1,000 ML IV SCH (10:45)
[2019-02-09] MEDS ORDERED: DEXTROSE 5%-NORMAL SALINE 500 ML IV SCH (11:03)
[2019-02-09] MEDS ORDERED: ALTEPLASE 2 MG VIAL CVP ONE ×2 (11:45)
[2019-02-09 15:47] VITALS: TEMP 97.5
[2019-02-09 15:55] VITALS: BP 97/45; PULSE 91
[2019-02-09] MEDS ORDERED: PORTA CATH FLUSH 10 ML IVPUSH ONE (15:56)
== END 2019-02-09 16:03 | disposition home or self-care (01) ==
LOC: JONCCHEMO 06:59 → J7W 10:31 → JONCCHEMO 16:03
PROVIDERS: ATTEND Internal Medicine Hematology & Oncology
DX: Z51.11 Encounter for antineoplastic chemotherapy (principal); C15.9 Malignant neoplasm of esophagus, unspecified
CPT/HCPCS: 36415; 80048; 80076; 83735; 85025; 96361; 96375; 96409; 96413; 96415; 96417; G0498; J2469; J2997; J9206

== ENCOUNTER 2019-02-11 06:59 | Day surgery (SDC) | payer OTHER, BC | END 2019-02-11 14:45 | disposition home or self-care (01) | LOC: JONCCHEMO 06:59 → J7W 14:36 → JONCCHEMO 14:45 ==

== ENCOUNTER 2019-02-12 11:15 | Inpatient (IN) | payer OTHER, BC ==
--- NOTE | 2019-02-12 11:32 | PDOC ---
Attending Attestation - Resident Resident Name: Amanda Rodriguez - ED Attending Attestation I have performed the following: I have examined & evaluated the patient, The case was reviewed & discussed with the resident, I agree w/resident's findings & plan, Exceptions are as noted - HPI HPI: 02/12/19 12:33 68 year old female with history of HTN (no longer on meds), Esophageal Ca s/p tumor resection 2016 on chemo (R chest port), recent R femoral neck fx s/p percutatneous fixation 12/05/18 presents to the ED with sudden onset SOB, chills at 9am this morning. Denies CP. Pt reports feeling progressive CRAFT over the last week. Pt sister states she was well yesterday and they went to lunch, no SOB at that time. No fevers, headache, focal weakness/numbness, N/V/D, abd pain , LE edema. - Physicial Exam PE: 02/12/19 12:37 GENERAL: Awake, alert, and fully oriented, in mild resp distress. Thin, chronically ill appearing. EYES: PERRLA, EOMI, sclera anicteric, conjunctiva clear ENT: Nares patent, oropharynx clear without exudates. Moist mucosa NECK: Normal ROM, supple, no lymphadenopathy, +JVD, no masses LUNGS: Breath sounds equal, clear to auscultation bilaterally. No wheezes, and no crackles HEART: Tachy but regular to 110, normal S1 and S2, no murmurs, rubs or gallops ABDOMEN: Soft, nontender, normoactive bowel sounds. No guarding, no rebound. No masses EXTREMITIES: Normal range of motion, no edema. No cords, erythema, or tenderness NEUROLOGICAL: Normal speech, cranial nerves intact, equal strength and sensation SKIN: Port over R chest, non erythematous or indurated. Dusky appearance to face and neck, otherwise skin is warm, Dry, normal turgor, no rashes or lesions noted. - Critical Care Time Total Critical Care Time: 30 Critical Care Statement: The care of this patient involved high complexity decision making to prevent further life threatening deterioration of the patient 's condition and/or to evaluate & treat vital organ system(s) failure or risk of failure. 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 Vitals remarkable for tachycardia, O2 sat 100% RA, BP elevated to 149/121 Pt with multiple RF for PE, and story highly concerning. As such, was taken to CTA prior to labs 02/12/19 14:26 CTA with no PE, possible infiltrate. In light of mild hypothermia, chills earlier, and immunecomprimised pt, will cover empirically for PNA Significant delay in labs, per lab staff, pt has 2 EMRs and they can not run the first set Plan to resend, anticipate admission Pt feeling much better, is HDS 02/12/19 15:20 Labs were run, mild BNP elevation but non specific Pt continues to feel better Pt admitted to Dr. Guillory for further mgmt
[2019-02-12 11:59] LABS: VENOUS PC02 29.3 mmHg (41-51); VENOUS PH 7.31 (7.31-7.41); VENOUS PO2 54.5 mmHg (30-40)
[2019-02-12 12:27] LABS: INR 1.29 (0.83-1.09); PROTHROMBIN TIME (PATIENT) 15.3 SEC (9.7-13.0)
[2019-02-12 12:39] LABS: ALBUMIN 3.8 g/dl (3.4-5.0); ALK PHOS 93 U/L (45-117); ANION GAP 14 MMOL/L (8-16); BILIRUBIN,TOTAL 1.3 mg/dL (0.2-1); BLOOD UREA NITROGEN 21 mg/dL (7-18); CALCIUM 8.7 mg/dL (8.5-10.1); CHLORIDE 106 mmol/L (98-107); CO2 18 mmol/L (21-32); CREATININE 1.1 mg/dL (0.55-1.3); GLUCOSE,RANDOM 180 mg/dL (74-106); MAGNESIUM 2.6 mg/dL (1.8-2.4); N-TERMINAL BNP 548.9 pg/ml (5-125); POTASSIUM 5.2 mmol/L (3.5-5.1); SGOT/AST 20 U/L (15-37); SGPT/ALT 16 U/L (13-61); SODIUM 137 mmol/L (136-145); TOT PROT 7.6 g/dl (6.4-8.2)
--- NOTE | 2019-02-12 12:58 | PDOC ---
History of Present Illness - General Chief Complaint: Shortness of Breath Stated Complaint: Shortness of Breath Time Seen by Provider: 02/12/19 11:24 History Source: Patient Exam Limitations: No Limitations - History of Present Illness Initial Comments: 02/12/19 12:53 68 y/o female with PMH of HTN, esophageal cancer (diagnosed in 2015), r femroal neck fracture on 12/04/18 presents to the ED with sudden onset shortness of breath that staretyd this AM. patient states the it was sudden in nature and she could not catch her breath- she had some associated chills and an episode of diarrhea as well this AM. she denies any fevers, nausea/vomiting or sick contacts at home. Of note, she also traveled to [place] back in december. She had seen Dr. Gore on saturday, had a pump placed which was subsequently removed yesterday. she denies any recent illnesses or any sick contacts. she felt completely fine as of lest night. Timing/Duration: 1-3 hours Severity: moderate Associated Symptoms: reports: shortness of breath. denies: headaches, nausea/ vomiting Past History - Travel Traveled outside of the country in the last 30 days: No Close contact w/someone who was outside of country & ill: No - Past Medical History Allergies/Adverse Reactions: Allergies Allergy/AdvReac Type Severity Reaction Status Date / Time amoxicillin Allergy Verified 02/12/19 11:23 Penicillins Allergy Difficulty Verified 02/12/19 11:23 Breathing Home Medications: Ambulatory Orders Aspirin 81 mg PO DAILY 12/04/18 Docusate Sodium [Colace] 100 mg PO DAILY 12/04/18 Acetaminophen [Tylenol .Regular Strength -] 650 mg PO Q4H PRN tablet 12/09/18 Enoxaparin [Lovenox -] 40 mg SQ DAILY disp.syrin 12/09/18 Ferrous Sulfate [Feosol] 325 mg PO BID ud 12/09/18 Ibuprofen 400 mg PO Q4H PRN #30 tablet MDD 2400 12/09/18 Anemia: No Asthma: No Cancer: Yes (ESOPHAGEAL) Cardiac Disorders: No CVA: No COPD: No CHF: No Dementia: No Diabetes: No GI Disorders: No Disorders: No HTN: Yes Hypercholesterolemia: Yes Liver Disease: No Seizures: No Thyroid Disease: No - Surgical History Abdominal Surgery: Yes (12/01/15 EGD) Appendectomy: No Cardiac Surgery: No Cholecystectomy: Yes Lung Surgery: No Neurologic Surgery: No Orthopedic Surgery: No - Family Disease History Family Disease History: Diabetes: Father, Heart Disease: Mother - Immunization History Immunization Up to Date: Yes - Suicide/Smoking/Psychosocial Hx Smoking History: Unknown if ever smoked Have you smoked in the past 12 months: No Hx Alcohol Use: No Drug/Substance Use Hx: No Substance Use Type: None Hx Substance Use Treatment: No Review of Systems - Review of Systems Able to Perform ROS?: Yes Is the patient limited Sudanese proficient: No HEENTM: No: Blurred Vision Respiratory: Yes: Shortness of Breath Cardiac (ROS): Yes: Palpitations ABD/GI: Yes: Diarrhea : No: Burning, Dysuria Musculoskeletal: No: Muscle Weakness Neurological: No: Headache, Numbness *Physical Exam - Vital Signs Last Vital Signs Temp Pulse Resp BP Pulse Ox 95.7 F L 103 H 24 H 149/121 H 100 02/12/19 11:31 02/12/19 11:26 02/12/19 11:26 02/12/19 11:26 02/12/19 11:58 - Physical Exam General Appearance: Yes: Mild Distress HEENT: positive: Normal Voice Neck: positive: Normal Thyroid Respiratory/Chest: positive: Lungs Clear Cardiovascular: positive: Regular Rhythm, S1, S2, Tachycardia Gastrointestinal/Abdominal: positive: Normal Bowel Sounds, Flat, Soft Musculoskeletal: negative: CVA Tenderness Extremity: positive: Coldness (cool extremities) Medical Decision Making - Medical Decision Making 02/12/19 12:58 cbc/cmp/cardaic prof pt/ptt blood cx head CT; chest CTA r/o PE *DC/Admit/Observation/Transfer - Referrals Referrals: Lynn Renee MD [Primary Care Provider] - - Patient Instructions - Post Discharge Activity
[2019-02-12] MEDS ORDERED: AZTREONAM 2 GM in DEXTROSE 5%-WATER 100 ML IVPB ONE (13:56)
[2019-02-12] MEDS ORDERED: VANCOMYCIN 1,000 MG in DEXTROSE 5%-WATER - 250 ML IVPB ONE (14:00)
[2019-02-12] MEDS ORDERED: VANCOMYCIN 1 GRAM (PRE-DOCKED) 1,000 MG/250 ML BAG IVPB ONE (14:21)
[2019-02-12 15:17] LABS: BASO % 0.2 % (0-2.0); EOS % 0.2 % (0-4.5); HEMATOCRIT 32.7 % (32.4-45.2); LYMPH % 7.3 % (8-40); MCH 32.9 pg (25.7-33.7); MCHC 33.6 g/dl (32.0-36.0); MEAN PLT VOLUME 7.6 fl (7.5-11.1); MONO % 1.5 % (3.8-10.2); NEUT % 90.8 % (42.8-82.8); PLATELET COUNT 133 K/MM3 (134-434); RBC 3.34 M/mm3 (3.60-5.2); RDW 20.9 % (11.6-15.6); WHITE BLOOD COUNT 6.5 K/mm3 (4.0-10.0)
--- NOTE | 2019-02-12 15:18 | PDOC ---
*Physical Exam - Vital Signs Last Vital Signs Temp Pulse Resp BP Pulse Ox 95.7 F L 103 H 24 H 149/121 H 100 02/12/19 11:31 02/12/19 11:26 02/12/19 11:26 02/12/19 11:26 02/12/19 11:58 - Physical Exam General Appearance: Yes: Appropriately Dressed, Thin. No: Apparent Distress HEENT: positive: EOMI, PIOTR, Normal ENT Inspection Neck: positive: Trachea midline, Supple. negative: Lymphadenopathy (R), Lymphadenopathy (L) Respiratory/Chest: positive: Lungs Clear, Normal Breath Sounds. negative: Crackles, Wheezing Cardiovascular: positive: Regular Rhythm, Regular Rate, S1, S2, JVD. negative: Edema, Murmur Vascular Pulses: Carotid (R): 2+, Carotid (L): 2+, Dorsalis-Pedis (R): 2+, Doralis-Pedis (L): 2+ Gastrointestinal/Abdominal: positive: Normal Bowel Sounds, Soft. negative: Tender Musculoskeletal: negative: CVA Tenderness Extremity: positive: Normal Capillary Refill. 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 NML intact, Fully Oriented, Alert, Normal Mood/ Affect, Normal Response, Motor Strength / ED Treatment Course - LABORATORY CBC & Chemistry Diagram: 02/12/19 15:01 02/12/19 11:49 - ADDITIONAL ORDERS Additional order review: Laboratory Results 02/12/19 02/12/19 02/12/19 11:49 11:49 11:49 PT with INR 15.30 H INR 1.29 H PTT (Actin FS) 27.5 VBG pH POC VBG pCO2 POC VBG pO2 VBG HCO3 VBG O2 Sat (Geeta) VBG Base Excess Sodium 137 Potassium 5.2 H Chloride 106 Carbon Dioxide 18 L Anion Gap 14 BUN 21 H Creatinine 1.1 Creat Clearance w eGFR 49.10 Random Glucose 180 H Calcium 8.7 Magnesium 2.6 H Total Bilirubin 1.3 H AST 20 ALT 16 Alkaline Phosphatase 93 Creatine Kinase 73 B-Natriuretic Peptide 548.9 H Total Protein 7.6 Albumin 3.8 02/12/19 11:49 PT with INR INR PTT (Actin FS) VBG pH 7.31 POC VBG pCO2 29.3 L POC VBG pO2 54.5 H VBG HCO3 14.2 L VBG O2 Sat (Geeta) 81.3 H VBG Base Excess -10.6 L Sodium Potassium Chloride Carbon Dioxide Anion Gap BUN Creatinine Creat Clearance w eGFR Random Glucose Calcium Magnesium Total Bilirubin AST ALT Alkaline Phosphatase Creatine Kinase B-Natriuretic Peptide Total Protein Albumin 02/12/19 11:49 RBC Cancelled MCV Cancelled MCHC Cancelled RDW Cancelled MPV Cancelled Neutrophils % Cancelled Lymphocytes % Cancelled Monocytes % Cancelled Eosinophils % Cancelled Basophils % Cancelled - Medications Given in the ED: ED Medications Discontinued Medications Generic Name Dose Route Start Last Admin Trade Name Freq PRN Reason Stop Dose Admin Vancomycin HCl 1,000 mg/ 250 mls @ 250 mls/hr 02/12/19 14:00 02/12/19 14:29 Dextrose IVPB 02/12/19 14:59 250 mls/hr ONCE ONE Administration Protocol Medical Decision Making - Medical Decision Making 02/13/19 00:36 Pt signed out to me by Dr. Rodriguez 68 y/o female with PMH of HTN, esophageal cancer (diagnosed in 2015) s/p resection on chemotherapy, r femroal neck fracture on 12/04/18 presents to the ED with sudden onset shortness of breath that started this AM. patient states the it was sudden in nature and she could not catch her breath- she had some associated chills and an episode of diarrhea as well this AM. she denies any fevers, nausea/vomiting or sick contacts at home. Of note, she also traveled to [place] back in december. she denies any recent illnesses or any sick contacts. she felt completely fine as of lest night. Pt feeling fine now. Does not feel short of breath. labs are unremarkable. CTA- no PE however pt has groundglass appearance of lungs. pt is immunocompromised and had sudden onset sob. -vanc, aztreonam will admit for pna *DC/Admit/Observation/Transfer Diagnosis at time of Disposition: PNA (pneumonia) Qualifiers: Laterality: bilateral Lung location: upper lobe of lung - Referrals - Patient Instructions - Post Discharge Activity
--- NOTE | 2019-02-12 16:18 | EKG ---
Test Reason : Blood Pressure : / mmHG Vent. Rate : 104 BPM Atrial Rate : 104 BPM P-R Int : 120 ms QRS Dur : 064 ms QT Int : 342 ms P-R-T Axes : 079 112 070 degrees QTc Int : 449 ms POOR DATA QUALITY, INTERPRETATION MAY BE ADVERSELY AFFECTED SINUS TACHYCARDIA LEFT POSTERIOR FASCICULAR BLOCK ABNORMAL ECG WHEN COMPARED WITH ECG OF 04-DEC-2018 23:19, NO SIGNIFICANT CHANGE WAS FOUND Confirmed by ITZEL HERNADEZ MD ([id number]) on 02/12/2019 4:18:13 PM Referred By: Confirmed By:ITZEL HERNADEZ MD
[2019-02-12] MEDS ORDERED: DOCUSATE SODIUM 100 MG CAPSULE (FP) PO PRN (16:37)
--- NOTE | 2019-02-12 16:46 | HP ---
Admitting History and Physical - Primary Care Physician PCP: Lynn Renee - Admission Chief Complaint: sudden onset dyspnea History of Present Illness: received chemotherapy saturday, and pump saturday (FOLFIRI) this am woke up due to sudden onset dyspnea, was unable to finish her sentences , called sister and was driven to er here symptoms subsided, without any medication now feels ok, no dyspnea at rest denies recent cough/cold/fever or chills - Past Medical History Cardiovascular: Yes: HTN, Hyperlipdemia Heme/Onc: Yes: Other (mod. diff. esophageal adenoca.2016 neoadjuvant chemo) - Past Surgical History Past Surgical History: Yes: Cholecystectomy, Tonsillectomy Additional Past Surgical History: right hip ORIF after a fall gastroesophagectomy with gastric pullup on chemo off-on since gastrostomy tube in 2015 s/p portacath - Smoking History Smoking history: Unknown if ever smoked Have you smoked in the past 12 months: No - Alcohol/Substance Use Hx Alcohol Use: No - Social History ADL: Independent History of Recent Travel: No Home Medications - Allergies Allergies/Adverse Reactions: Allergies Allergy/AdvReac Type Severity Reaction Status Date / Time amoxicillin Allergy Verified 02/12/19 11:23 Penicillins Allergy Difficulty Verified 02/12/19 11:23 Breathing - Home Medications Home Medications: Ambulatory Orders RX: Aspirin 81 mg PO DAILY 12/04/18 RX: Docusate Sodium [Colace] 100 mg PO DAILY 12/04/18 RX: Acetaminophen [Tylenol .Regular Strength -] 650 mg PO Q4H PRN tablet Review of Systems - Review of Systems Constitutional: reports: Unintentional Wgt. Loss, Weakness Eyes: reports: No Symptoms HENT: reports: No Symptoms Neck: reports: No Symptoms Cardiovascular: reports: No Symptoms. denies: Chest Pain, Edema, Palpitations Respiratory: reports: Exercise Intolerance, SOB, SOB on Exertion. denies: Cough , Wheezing Gastrointestinal: reports: No Symptoms Genitourinary: reports: No Symptoms Integumentary: reports: No Symptoms Neurological: reports: No Symptoms Endocrine: reports: No Symptoms Physical Examination Vital Signs: Vital Signs Temperature 95.7 F L 02/12/19 11:31 Pulse Rate 86 02/12/19 15:36 Respiratory Rate 18 02/12/19 15:36 Blood Pressure 136/78 04/25/19 15:36 O2 Sat by Pulse Oximetry (%) 100 02/12/19 15:36 Constitutional: Yes: No Distress, Calm, Cachectic Eyes: Yes: EOM Intact HENT: Yes: Normocephalic Neck: Yes: Trachea Midline Cardiovascular: Yes: Regular Rate and Rhythm. No: Murmur Respiratory: Yes: CTA Bilaterally. No: Accessory Muscle Use, Bradypnea, Cough Gastrointestinal: Yes: Normal Bowel Sounds, Soft Musculoskeletal: Yes: WNL Extremities: Yes: WNL Edema: No Peripheral Pulses WNL: Yes Integumentary: Yes: WNL Neurological: Yes: WNL Labs: CBC, BMP 02/12/19 15:01 02/12/19 11:49 Abnormal Lab Results 02/12/19 02/12/19 02/12/19 11:49 11:49 11:49 RBC MCV RDW Plt Count Neutrophils % Lymphocytes % Monocytes % PT with INR 15.30 H INR 1.29 H POC VBG pCO2 29.3 L POC VBG pO2 54.5 H VBG HCO3 14.2 L VBG O2 Sat (Geeta) 81.3 H VBG Base Excess -10.6 L Potassium 5.2 H Carbon Dioxide 18 L BUN 21 H Random Glucose 180 H Magnesium 2.6 H Total Bilirubin 1.3 H B-Natriuretic Peptide 548.9 H 02/12/19 15:01 RBC 3.34 L MCV 98.0 H RDW 20.9 H Plt Count 133 L D Neutrophils % 90.8 H Lymphocytes % 7.3 L D Monocytes % 1.5 L PT with INR INR POC VBG pCO2 POC VBG pO2 VBG HCO3 VBG O2 Sat (Geeta) VBG Base Excess Potassium Carbon Dioxide BUN Random Glucose Magnesium Total Bilirubin B-Natriuretic Peptide Imaging - Results Cat Scan: Report Reviewed (bilateral new upper lobe opacities, no pulmonary embolism) Problem List - Problems (1) PNA (pneumonia) Code(s): J18.9 - PNEUMONIA, UNSPECIFIED ORGANISM Qualifiers: Laterality: bilateral Lung location: upper lobe of lung (2) Primary adenocarcinoma of esophagus Code(s): C15.9 - MALIGNANT NEOPLASM OF ESOPHAGUS, UNSPECIFIED Assessment/Plan blood cultures were collected received empiric vanco and aztreonam in er infectious vs. malignant origin? not toxic looking at present will request oncology f/up and ID and pulmonary evaluation
[2019-02-12] MEDS ORDERED: PORTA CATH FLUSH 10 ML IVPUSH ONE (17:15)
--- NOTE | 2019-02-12 18:04 | PN ---
Progress Note (short form) - Note Progress Note: ID consult dictated imp/reccd now recalls an episode of SOB late last night, then fell back asleep, she awoke this am with SOB, unable to talk she is s/p gastro-esopohagectomy in 09/2016 and reports she sometimes gets some white mucous in her mouth no fevers chills in ED after coming with her sister symptoms now resolved Chest CTA negative for PE, bilateral new ground glass upper lobe densities ?aspiration pen/amp allergy (rash) recurrent esophageal cancer - on chemo clindamycin/azactam for now f/u cultures f/u pulmonary Problem List - Problems (1) PNA (pneumonia) Code(s): J18.9 - PNEUMONIA, UNSPECIFIED ORGANISM Qualifiers: Laterality: bilateral Lung location: upper lobe of lung (2) Primary adenocarcinoma of esophagus Code(s): C15.9 - MALIGNANT NEOPLASM OF ESOPHAGUS, UNSPECIFIED (3) Penicillin allergy Code(s): Z88.0 - ALLERGY STATUS TO PENICILLIN
[2019-02-12 18:29] LABS: MAGNESIUM 2.3 mg/dL (1.8-2.4)
[2019-02-12 19:37] LABS: ANISOCYTOSIS 2+; MACROCYTOSIS 2+; PLATELET ESTIMATE ADEQUATE
[2019-02-12 19:38] LABS: URINE APPEARANCE CLOUDY; URINE BILIRUBIN NEGATIVE (NEGATIVE); URINE COLOR YELLOW; URINE GLUCOSE (UA) NEGATIVE (NEGATIVE); URINE KETONE NEGATIVE (NEGATIVE)
[2019-02-12 19:39] LABS: PH,URINE 5.5 (5.0-8.0); URINE LEUK ESTERASE 1+ (NEGATIVE); URINE NITRITE NEGATIVE (NEGATIVE); URINE PROTEIN NEGATIVE (NEGATIVE)
[2019-02-12 19:40] LABS: URINE RBC 2.2 /hpf (0-4)
[2019-02-12 19:41] LABS: EPI CELLS 0.5 /HPF (0-5/HPF); URINE BACTERIA 8177.9 /hpf (NEGATIVE); URINE CASTS NEGATIVE /lpf (0-8); URINE CRYSTALS 0 /hpf; URINE WBC 42.8 /hpf (0-5)
--- NOTE | 2019-02-12 20:08 | CONS ---
DATE OF CONSULTATION: 02/12/2019 REQUESTED BY: Lynn Renee MD This is a 68-year-old woman. She has a history of recurrent esophageal cancer. She was originally diagnosed in 2015, at which time she underwent a gastro-esophagectomy in September of 2016. She had chemotherapy and RT as well. She had a recurrence and about 3 months ago she resumed chemotherapy. She came for chemotherapy on Saturday, went home with a pump that was de-accessed on Saturday. She went out to dinner on Saturday night with her sister. Reports waking up in the middle of the night and feeling somewhat short of breath. She went back to sleep and she woke up in the morning again very short of breath and unable to finish her sentences, but was able to call her sister who drove her to the emergency room. In the ER, she was evaluated. She was tachycardic. Her pulse was 103. Her blood pressure was 149/121, respiratory rate was 24. She was afebrile, but noted that she had chills in the ER. She never had any fever. She had a CAT scan to rule out a pulmonary embolus, which was negative for PE, but she was noted to have new ground glass opacities within the right upper lobe and left upper lobe. She had cultures drawn and was started on vancomycin and aztreonam for possible pneumonia. She is currently resting comfortably. Her dyspnea has subsided. She does note over the last couple of weeks that she has been more fatigued than usual. She has had some shortness of breath only with exertion that resolved when she rests. She denies any nausea or vomiting, eating any spicy food yesterday. She does that every once in a while she does wake up with some white saliva in her mouth, which she attributes to her prior surgery. PAST MEDICAL HISTORY: Notable for a history of hypertension, hyperlipidemia, esophageal cancer. Notable for recent fall. She fell and fractured her right hip in November and she underwent surgery for repair in November as well. She went to rehab for 2 weeks and then went home. SURGICAL HISTORY: Notable for cholecystectomy. She is status post [place] gastro-esophagectomy on September 26, 2016. She is status post tonsillectomy. She had a temporary G-tube that fell out and that was never used. She had Port-A-Cath placement. ALLERGIES: PENICILLIN AND AMOXICILLIN WHICH GIVE HER A RASH. She denies any shortness of breath or anaphylaxis. SOCIAL HISTORY: She lives alone. 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 She has a good support system with her family. She is a never smoker. There is no history of any alcohol or substance use. She recently traveled to [place] on January 06 for 4 days and returned. CURRENT MEDICATIONS: Include Colace, Tylenol, and aspirin 81 mg. REVIEW OF SYSTEMS: As per HPI. She denies any fever. She notes that the ER was very cold. She currently reports her breathing is not labored. PHYSICAL EXAMINATION: General: She is awake and alert. She is a very thin woman, in no acute distress. Vital Signs: Temperature is 98.4, pulse 98, blood pressure 128/75, respiratory rate 20. She is saturating 98% on room air. HEENT: She is normocephalic. Eyes are anicteric. Neck: Supple. Lungs: Have diminished breath sounds at the bases. Heart: Regular rate and rhythm. Abdomen: Soft and nontender. Extremities: Right hip is well healed. Her extremities are without edema. LABORATORY: Notable for a white count of 6.5, hemoglobin 11, platelets of 133. Her BUN is 21 and creatinine is 1.1. She received vancomycin and Azactam. CAT scan findings are as previously stated. Blood cultures are pending. IN SUMMARY: This is a 68-year-old woman with recurrent esophageal cancer on chemotherapy admitted with sudden onset of shortness of breath, abnormal chest CAT scan. Possibly this is aspiration pneumonia and given the fact that she has a gastro-esophagectomy. She PENICILLIN AND AMOXICILLIN ALLERGIC and she has recurrent esophageal cancer on chemotherapy. Treat her with clindamycin and Azactam for now. Follow up cultures and follow up with Pulmonary. Further recommendations to follow. DOUG BLAIR M.D. [id number]
--- NOTE | 2019-02-12 21:17 | CONSULT ---
Consult - text type - Consultation Consultation Note: 68 year old female with history of HTN , Esophageal adenoca s/p surgery 2016, now on FOLFIRI (02/09), recent R femoral neck fx s/p percutatneous fixation presents to the ED with sudden onset SOB, chills at 9am this morning. Denies CP. Pt reports feeling progressive CRAFT over the last week.No cough/pain/ wheezing. - Past Medical History Cardiovascular: Yes: HTN, Hyperlipdemia Heme/Onc: Yes: Other (mod. diff. esophageal adenoca.2015 neoadjuvant chemo) - Past Surgical History Past Surgical History: Yes: Cholecystectomy, Tonsillectomy Additional Past Surgical History: right hip ORIF after a fall gastroesophagectomy with gastric pullup on chemo off-on since gastrostomy tube in 2015 s/p portacath - Smoking History Smoking history: Unknown if ever smoked Have you smoked in the past 12 months: No - Allergies Allergies/Adverse Reactions: Allergies Allergy/AdvReac Type Severity Reaction Status Date / Time amoxicillin Allergy Verified 02/12/19 11:23 Penicillins Allergy Difficulty Verified 02/12/19 11:23 Breathing - Home Medications Home Medications: Ambulatory Orders RX: Aspirin 81 mg PO DAILY 12/04/18 RX: Docusate Sodium [Colace] 100 mg PO DAILY 12/04/18 RX: Acetaminophen [Tylenol .Regular Strength -] 650 mg PO Q4H PRN tablet Physical Examination Vital Signs: Vital Signs Temperature 95.7 F L 02/12/19 11:31 Pulse Rate 86 02/12/19 15:36 Respiratory Rate 18 02/12/19 15:36 Blood Pressure 136/78 02/12/19 15:36 O2 Sat by Pulse Oximetry (%) 100 02/12/19 15:36 Constitutional: Yes: No Distress, Calm, Cachectic Cardiovascular: Yes: Regular Rate and Rhythm. No: Murmur Respiratory: Yes: CTA Bilaterally. Gastrointestinal: Yes: Normal Bowel Sounds, Soft Musculoskeletal: Yes: WNL Extremities: Yes: WNL Peripheral Pulses WNL: Yes Abnormal Lab Results 02/12/19 02/12/19 02/12/19 11:49 11:49 11:49 RBC MCV RDW Plt Count Neutrophils % Lymphocytes % Monocytes % PT with INR 15.30 H INR 1.29 H POC VBG pCO2 29.3 L POC VBG pO2 54.5 H VBG HCO3 14.2 L VBG O2 Sat (Geeta) 81.3 H VBG Base Excess -10.6 L Potassium 5.2 H Carbon Dioxide 18 L BUN 21 H Random Glucose 180 H Magnesium 2.6 H Total Bilirubin 1.3 H B-Natriuretic Peptide 548.9 H 02/12/19 15:01 RBC 3.34 L MCV 98.0 H RDW 20.9 H Plt Count 133 L D Neutrophils % 90.8 H Lymphocytes % 7.3 L D Monocytes % 1.5 L PT with INR INR POC VBG pCO2 POC VBG pO2 VBG HCO3 VBG O2 Sat (Geeta) VBG Base Excess Potassium Carbon Dioxide BUN Random Glucose Magnesium Total Bilirubin B-Natriuretic Peptide Imaging - Results Cat Scan: Report Reviewed (bilateral new upper lobe opacities, no pulmonary embolism) Problem List - Problems (1) PNA (pneumonia) Code(s): J18.9 - PNEUMONIA, UNSPECIFIED ORGANISM Qualifiers: Laterality: bilateral Lung location: upper lobe of lung (2) Primary adenocarcinoma of esophagus Code(s): C15.9 - MALIGNANT NEOPLASM OF ESOPHAGUS, UNSPECIFIED A/P 68 year old female with history of HTN , Esophageal adenoca s/p surgery 2016, now on FOLFIRI (02/09), recent R femoral neck fx s/p percutatneous fixation presents to the ED with sudden onset SOB, chills at 9am this morning. Denies CP. Pt reports feeling progressive CRAFT over the last week.No cough/pain/ wheezing. Feels much better now CTA with no PE, RUL/KAYCE ground glass opacities, stable nodules empiric antibiotics pulmonary/ID consults Will follow
[2019-02-12] MEDS: ACETAMINOPHEN 325 MG TABLET (FP) PO PRN (22:02)
[2019-02-13] MEDS ORDERED: DEXTROSE 5%-WATER - 50 ML IVPB ONE ×3 (01:37→16:13)
[2019-02-13] MEDS ORDERED: AZTREONAM 1 GM VIAL (RESTRICTED TO ID) ONE ×3 (01:37→16:13)
[2019-02-13] MEDS: CLINDAMYCIN 600MG PREMIX IVPB 600 MG/50 ML BAG IVPB SCH ×3 (01:54→17:42)
[2019-02-13] MEDS: AZTREONAM 1 GM in DEXTROSE 5%-WATER - 50 ML IVPB SCH ×3 (01:54→17:06)
[2019-02-13 07:24] LABS: BASO % 0.5 % (0-2.0); EOS % 2.6 % (0-4.5); HEMATOCRIT 31.7 % (32.4-45.2); HEMOGLOBIN 10.5 GM/dL (10.7-15.3); LYMPH % 12.5 % (8-40); MCHC 33.2 g/dl (32.0-36.0); MEAN CELL VOLUME 96.4 fl (80-96); MEAN PLT VOLUME 7.7 fl (7.5-11.1); MONO % 1.9 % (3.8-10.2); NEUT % 82.5 % (42.8-82.8); PLATELET COUNT 139 K/MM3 (134-434); RBC 3.29 M/mm3 (3.60-5.2); RDW 19.6 % (11.6-15.6)
[2019-02-13 07:59] LABS: ALK PHOS 76 U/L (45-117); ANION GAP 6 MMOL/L (8-16); BILIRUBIN,TOTAL 0.7 mg/dL (0.2-1); BLOOD UREA NITROGEN 21 mg/dL (7-18); CALCIUM 7.7 mg/dL (8.5-10.1); CHLORIDE 106 mmol/L (98-107); CO2 25 mmol/L (21-32); CREATININE 0.6 mg/dL (0.55-1.3); GLUCOSE,RANDOM 85 mg/dL (74-106); POTASSIUM 3.8 mmol/L (3.5-5.1); SGOT/AST 10 U/L (15-37); SGPT/ALT 12 U/L (13-61); SODIUM 138 mmol/L (136-145); TOT PROT 6.1 g/dl (6.4-8.2)
--- NOTE | 2019-02-13 09:03 | PN ---
Progress Note (short form) - Note Progress Note: CBC, BMP 02/13/19 06:45 02/13/19 06:45 Vital Signs Period Temp Pulse Resp BP Sys/Spicer Pulse Ox Last 24 Hr 95.7 F-98.8 F 86-103 18- 123-149/55-121 98-100 was uncomfortable overnight dyspnea again this am, when she got up no fever, no sputum, no chills denies dysphagia, denies coughing on meals cachectic neck supple s1s2 rrr lungs cta abd soft no edema Progressive esophaeal adenoca. bilateral UL opacities empiric abx for now awaiting pulm. input possible aspiration possible metastatic ds. Problem List - Problems (1) PNA (pneumonia) Code(s): J18.9 - PNEUMONIA, UNSPECIFIED ORGANISM Qualifiers: Laterality: bilateral Lung location: upper lobe of lung (2) Primary adenocarcinoma of esophagus Code(s): C15.9 - MALIGNANT NEOPLASM OF ESOPHAGUS, UNSPECIFIED
[2019-02-13] MEDS: ENOXAPARIN NA (PORCINE) 30 MG/0.3 ML DISP.SYRIN SQ SCH (10:39)
[2019-02-13] MEDS: ASPIRIN 81 MG CHEWABLE TABLETS PO SCH (10:39)
--- NOTE | 2019-02-13 10:52 | PN ---
Progress Note (short form) - Note Progress Note: Patient seen and examined Acute shortness of breath on minimal exertion --rather acute onset yesterday CT with new onset of ground glass infiltrates in left and right lung and with additionally stable pulmonary nodules No evidence of pulmonary embolism Last Vital Signs Temp Pulse Resp BP Pulse Ox 98.5 F 95 H 18 130/73 100 02/13/19 06:00 02/13/19 06:00 02/13/19 06:00 02/13/19 06:00 02/12/19 21:00 HEENT: LAUREN, EOM Intact Oropharynx: No thrush, No mucositis Neck: Supple Nodes: Without adenopathy Cor: RSR, No murmurs, No gallops Lungs: Clear to P&A Abd: Soft, Normal bowel sounds, No organomegaly Ext:No significant edema Skin: No rashes, Integument intact CBC, BMP 02/13/19 06:45 02/13/19 06:45 Current Medications Generic Name Dose Route Start Last Admin Trade Name Freq PRN Reason Stop Dose Admin Acetaminophen 650 mg 02/12/19 16:47 02/12/19 22:02 Tylenol - PO 650 mg Q6H PRN Administration FEVER Aspirin 81 mg 02/13/19 10:00 Asa - PO DAILY SUSANA Docusate Sodium 100 mg 02/12/19 16:37 Colace - PO DAILY PRN CONSTIPATION Enoxaparin Sodium 30 mg 02/13/19 10:00 Lovenox - SQ DAILY SUSANA Aztreonam 1 gm/ Dextrose 50 mls @ 100 mls/hr 02/13/19 02:00 02/13/19 01:54 IVPB 100 mls/hr Q8H-IV SUSANA Administration Protocol Clindamycin Phosphate 600 mg in 50 mls @ 100 mls/hr 02/13/19 02:00 02/13/19 01:54 Cleocin 600 Mg Premix Ivpb - IVPB 100 mls/hr Q8H-IV SUSANA Administration Protocol Zolpidem Tartrate 5 mg 02/13/19 09:03 Ambien - PO HS PRN INSOMNIA Impression: Metastatic esophageal ca Acute SOB --Patient lying in bed had an O2 sat of 98%.When she walked to the bathroom (about 10 feet) her O2 sat went down to 86% and her heart rate increased to 135. She was taken back to bed and oxygen was provided. Patient has had recently 6 cycles of FOLFIRI (total of 12 weeks). Prior to this she had pembrolizumab. The 3 month hiatus since immunotherapy leads me to think that this is not secondary to the pembro. The current ground glass CT findings do raise concern for tumor vs. infection , vs inflammatory changes. Might need to consider steroid therapy in addition to antibiotics. May need to consider lung biopsy in short term pending response or lack thereof.
[2019-02-13] MEDS: ACETAMINOPHEN 325 MG TABLET (FP) PO PRN ×2 (13:59→17:49)
--- NOTE | 2019-02-13 15:46 | CON.PULM ---
Consult Consult Specialty:: PULMLONARY Referred by:: BRIDGER Reason for Consultation:: SOB - History of Present Illness Chief Complaint: SOB History of Present Illness: 68 y/o female with PMH of HTN, esophageal cancer (diagnosed in 2015), r femoral neck fracture on 12/04/18 s/p repair presents to the ED with sudden onset shortness of breath that started AM of admission. Patient states the it was sudden in nature and she could not catch her breath- she had some associated chills and an episode of diarrhea as well . She denies any fevers, nausea/ vomiting or sick contacts at home. Of note, she also traveled to [place] in december. She had seen Dr. Gore on Saturday, had a pump placed which was subsequently removed. She denies any recent illnesses or any sick contacts. She desats with exertion. - History Source History Provided By: Patient, Medical Record Limitations to Obtaining History: No Limitations - Past Medical History [employer]: No: Alzheimer's Cardio/Vascular: Yes: HTN, Hyperlipdemia Pulmonary: No: Asthma, COPD Gastrointestinal: No: Ascites Hepatobiliary: No: Cirrhosis Renal/: No: Renal Failure Reproductive: Yes: Postmenopausal ...: No Heme/Onc: Yes: Anemia Psych: No: Addictions Musculoskeletal: Yes: Osteoarthritis - Past Surgical History Past Surgical History: Yes: Cholecystectomy, Tonsillectomy Additional Surgical History: gastric pullup 2/2 esophag ca - Alcohol/Substance Use Hx Alcohol Use: No History of Substance Use: reports: None - Smoking History Smoking history: Unknown if ever smoked Have you smoked in the past 12 months: No - Social History ADL: Independent Place of : [facility] History of Recent Travel: Yes ([place]) Home Medications - Allergies Allergies/Adverse Reactions: Allergies Allergy/AdvReac Type Severity Reaction Status Date / Time amoxicillin Allergy Verified 02/12/19 11:23 Penicillins Allergy Difficulty Verified 02/12/19 11:23 Breathing - Home Medications Home Medications: Ambulatory Orders Aspirin 81 mg PO DAILY 12/04/18 Docusate Sodium [Colace] 100 mg PO DAILY 12/04/18 Acetaminophen [Tylenol .Regular Strength -] 650 mg PO Q4H PRN tablet 12/09/18 Family Disease History - Family Disease History Family History: Unremarkable Review of Systems - Review of Systems Constitutional: denies: Fever Eyes: denies: Blurred Vision Neck: reports: No Symptoms Cardiovascular: denies: Chest Pain Respiratory: reports: Exercise Intolerance, SOB on Exertion. denies: Cough, Hemoptysis, Wheezing Gastrointestinal: denies: Abdominal Pain Genitourinary: denies: Burning Breasts: reports: No Symptoms Reported Musculoskeletal: reports: No Symptoms Integumentary: reports: No Symptoms Physical Exam Vital Sings: Vital Signs Temperature 98.1 F 02/13/19 13:54 Pulse Rate 106 H 02/13/19 13:54 Respiratory Rate 20 02/13/19 13:54 Blood Pressure 110/52 L 02/13/19 13:54 O2 Sat by Pulse Oximetry (%) 100 02/13/19 09:00 Constitutional: Yes: Calm Eyes: Yes: EOM Intact HENT: Yes: Normocephalic Neck: Yes: Trachea Midline Cardiovascular: Yes: Regular Rate and Rhythm Respiratory: Yes: Diminished Gastrointestinal: Yes: Soft Edema: No Labs: CBC, BMP 02/13/19 06:45 02/13/19 06:45 Imaging - Results Chest X-ray: Report Reviewed, Image Reviewed X-ray: Report Reviewed, Image Reviewed Cat Scan: Report Reviewed, Image Reviewed Problem List - Problems (1) Pneumonitis Code(s): J18.9 - PNEUMONIA, UNSPECIFIED ORGANISM (2) Primary adenocarcinoma of esophagus Code(s): C15.9 - MALIGNANT NEOPLASM OF ESOPHAGUS, UNSPECIFIED (3) COPD (chronic obstructive pulmonary disease) Code(s): J44.9 - CHRONIC OBSTRUCTIVE PULMONARY DISEASE, UNSPECIFIED Assessment/Plan DESATURATION ON EXERTION AND DYSPNEA LIKELY DUE TO B/L GGO ETIOLOGY ? CHRONIC ASPIRATION/?CHEMO HYPERINFLATED LUNG [place] INDICATIVE OF UNDERLYING COPD TRIAL OF STEROIDS/O2 SUPPLEMENTATION/BRONCHODILATION WILL FOLLOW Brian TEJEDA MD
--- NOTE | 2019-02-13 15:53 | PN ---
Progress Note (short form) - Note Progress Note: had another episode of sob this am no fevers Vital Signs Period Temp Pulse Resp BP Sys/Spicer Pulse Ox Last 24 Hr 98.1 F-98.8 F 95-106 18-20 110-130/52-75 98-100 cor-rrr lungs clear abd soft,nt ext no edema CBC, BMP 02/13/19 06:45 02/13/19 06:45 Microbiology 02/12/19 11:45 Blood - Peripheral Venous Blood Culture - Preliminary NO GROWTH OBTAINED AFTER 24 HOURS, INCUBATION TO CONTINUE FOR 4 DAYS. 02/12/19 11:50 Blood - Peripheral Venous Blood Culture - Preliminary NO GROWTH OBTAINED AFTER 24 HOURS, INCUBATION TO CONTINUE FOR 4 DAYS. imp/reccd Chest CTA negative for PE, bilateral new ground glass upper lobe densities ?aspiration pen/amp allergy (rash) recurrent esophageal cancer - on chemo clindamycin/azactam for now f/u cultures f/u pulmonary -?trial of steroids Problem List - Problems (1) PNA (pneumonia) Code(s): J18.9 - PNEUMONIA, UNSPECIFIED ORGANISM (2) Primary adenocarcinoma of esophagus Code(s): C15.9 - MALIGNANT NEOPLASM OF ESOPHAGUS, UNSPECIFIED (3) Penicillin allergy Code(s): Z88.0 - ALLERGY STATUS TO PENICILLIN
[2019-02-13] MEDS ORDERED: ONDANSETRON 4 MG/2 ML VIAL IVPB PRN (17:36)
[2019-02-13] MEDS: oxyCODONE HCL 5 MG TABLET PO PRN (17:49)
[2019-02-13] MEDS: ZOLPIDEM TARTRATE 5 MG TABLET PO PRN (22:13)
[2019-02-14] MEDS: CLINDAMYCIN 600MG PREMIX IVPB 600 MG/50 ML BAG IVPB SCH ×2 (01:14→09:23)
[2019-02-14] MEDS ORDERED: AZTREONAM 1 GM VIAL (RESTRICTED TO ID) ONE ×3 (01:21→16:45)
[2019-02-14] MEDS ORDERED: DEXTROSE 5%-WATER - 50 ML IVPB ONE ×3 (01:21→16:45)
[2019-02-14] MEDS: AZTREONAM 1 GM in DEXTROSE 5%-WATER - 50 ML IVPB SCH ×3 (01:53→17:18)
--- NOTE | 2019-02-14 08:33 | PN ---
Progress Note (short form) - Note Progress Note: Vital Signs Period Temp Pulse Resp BP Sys/Spicer Pulse Ox Last 24 Hr 97.8 F-98.6 F 79-111 18-20 101-124/41-67 100-100 Slept well with pain med. and sleeping pill uses o2 while ambulating little better cachectic neck supple s1s2 rrr lungs cta abd soft no edema Progressive esophaeal adenoca. bilateral UL opacities empiric abx empiric steroids consults appreciated Problem List - Problems (1) PNA (pneumonia) Code(s): J18.9 - PNEUMONIA, UNSPECIFIED ORGANISM Qualifiers: Laterality: bilateral Lung location: upper lobe of lung (2) Primary adenocarcinoma of esophagus Code(s): C15.9 - MALIGNANT NEOPLASM OF ESOPHAGUS, UNSPECIFIED
[2019-02-14] MEDS: ENOXAPARIN NA (PORCINE) 30 MG/0.3 ML DISP.SYRIN SQ SCH (09:23)
[2019-02-14] MEDS: ASPIRIN 81 MG CHEWABLE TABLETS PO SCH (09:23)
[2019-02-14] MEDS: methylPREDNISolone NA SUCC 40 MG/1 ML VIAL IVPUSH SCH ×2 (09:23→17:19)
--- NOTE | 2019-02-14 11:08 | PN ---
Progress Note (short form) - Note Progress Note: Breathing and cough seem a little better today. No hemoptysis. Intake & Output 02/11/19 02/12/19 02/13/19 02/14/19 23:59 23:59 23:59 23:59 Intake Total 340 1100 250 Balance 340 1100 250 Weight 82 lb 4.8 oz Last Vital Signs Temp Pulse Resp BP Pulse Ox 97.9 F 86 20 100/70 100 02/14/19 10:00 02/14/19 10:00 02/14/19 10:00 02/14/19 10:00 02/14/19 09:00 Active Medications Acetaminophen (Tylenol -) 650 mg PO Q6H PRN PRN Reason: FEVER Last Admin: 02/13/19 13:59 Dose: 650 mg Acetaminophen (Tylenol -) 325 mg PO Q4H PRN PRN Reason: PAIN LEVEL 6-10 Stop: 02/16/19 17:39 Last Admin: 02/13/19 17:49 Dose: 325 mg Aspirin (Asa -) 81 mg PO DAILY SUSANA Last Admin: 02/14/19 09:23 Dose: 81 mg Docusate Sodium (Colace -) 100 mg PO DAILY PRN PRN Reason: CONSTIPATION Enoxaparin Sodium (Lovenox -) 30 mg SQ DAILY SUSANA Last Admin: 02/14/19 09:23 Dose: 30 mg Aztreonam 1 gm/ Dextrose 50 mls @ 100 mls/hr IVPB Q8H-IV SUSANA; Protocol Last Admin: 02/14/19 09:23 Dose: 100 mls/hr Clindamycin Phosphate (Cleocin 600 Mg Premix Ivpb -) 600 mg in 50 mls @ 100 mls /hr IVPB Q8H-IV SUSANA; Protocol Last Admin: 02/14/19 09:23 Dose: 100 mls/hr Methylprednisolone Sodium Succinate (Solu-Medrol -) 40 mg IVPUSH Q8H-IV SUSANA Last Admin: 02/14/19 09:23 Dose: 40 mg Ondansetron HCl (Zofran Injection) 8 mg IVPB Q6H PRN PRN Reason: NAUSEA Last Admin: 02/13/19 17:50 Dose: 8 mg Oxycodone HCl (Roxicodone -) 5 mg PO Q4H PRN PRN Reason: PAIN LEVEL 6-10 Last Admin: 02/13/19 17:49 Dose: 5 mg Zolpidem Tartrate (Ambien -) 5 mg PO HS PRN PRN Reason: INSOMNIA Last Admin: 02/13/19 22:13 Dose: 5 mg Constitutional: Yes: Calm, cachectic Eyes: Yes: EOM Intact HENT: Yes: Normocephalic Neck: Yes: Trachea Midline Cardiovascular: Yes: Regular Rate and Rhythm Respiratory: Yes: Diminished, few rhonchi Gastrointestinal: Yes: Soft Edema: No Labs: Problem List - Problems (1) Pneumonitis Code(s): J18.9 - PNEUMONIA, UNSPECIFIED ORGANISM (2) Primary adenocarcinoma of esophagus Code(s): C15.9 - MALIGNANT NEOPLASM OF ESOPHAGUS, UNSPECIFIED (3) COPD (chronic obstructive pulmonary disease) Code(s): J44.9 - CHRONIC OBSTRUCTIVE PULMONARY DISEASE, UNSPECIFIED Assessment/Plan Multiple pulmonary nodules: appear stable on imaging. Will need follow up imaging as an outpatient ABX coverage Medrol Check sputum O2 as needed Dr Vázquez
--- NOTE | 2019-02-14 11:49 | PN ---
Progress Note (short form) - Note Progress Note: Patient seen in follow up. No events overnight. Reports less dyspnea when she went to bathroom this am. Denies significant dyspnea at rest. Inpatient Meds reviewed. Current Medications Acetaminophen (Tylenol -) 650 mg PO Q6H PRN PRN Reason: FEVER Last Admin: 02/13/19 13:59 Dose: 650 mg Acetaminophen (Tylenol -) 325 mg PO Q4H PRN PRN Reason: PAIN LEVEL 6-10 Stop: 02/16/19 17:39 Last Admin: 02/13/19 17:49 Dose: 325 mg Aspirin (Asa -) 81 mg PO DAILY [facility] Last Admin: 02/14/19 09:23 Dose: 81 mg Docusate Sodium (Colace -) 100 mg PO DAILY PRN PRN Reason: CONSTIPATION Enoxaparin Sodium (Lovenox -) 30 mg SQ DAILY [facility] Last Admin: 02/14/19 09:23 Dose: 30 mg Aztreonam 1 gm/ Dextrose 50 mls @ 100 mls/hr IVPB Q8H-IV [facility]; Protocol Last Admin: 02/14/19 09:23 Dose: 100 mls/hr Clindamycin Phosphate (Cleocin 600 Mg Premix Ivpb -) 600 mg in 50 mls @ 100 mls /hr IVPB Q8H-IV [facility]; Protocol Last Admin: 02/14/19 09:23 Dose: 100 mls/hr Methylprednisolone Sodium Succinate (Solu-Medrol -) 40 mg IVPUSH Q8H-IV [facility] Last Admin: 02/14/19 09:23 Dose: 40 mg Ondansetron HCl (Zofran Injection) 8 mg IVPB Q6H PRN PRN Reason: NAUSEA Last Admin: 02/13/19 17:50 Dose: 8 mg Oxycodone HCl (Roxicodone -) 5 mg PO Q4H PRN PRN Reason: PAIN LEVEL 6-10 Last Admin: 02/13/19 17:49 Dose: 5 mg Zolpidem Tartrate (Ambien -) 5 mg PO HS PRN PRN Reason: INSOMNIA Last Admin: 02/13/19 22:13 Dose: 5 mg On examination: Last Vital Signs Temp Pulse Resp BP Pulse Ox 97.9 F 86 20 100/70 100 02/14/19 10:00 02/14/19 10:00 02/14/19 10:00 02/14/19 10:00 02/14/19 09:00 General: In no acute distress, supine in bed. Extremities: No pallor or icterus. No pedal edema. CVS: S1, S2, regular, no gallop or murmur. Chest: good air entry bilaterally, clear Abdomen: Non-distended, non-tender. Neuro: Alert, oriented, non-focal. Labs: CBC, BMP 02/13/19 06:45 02/13/19 06:45 Assessment. Esophageal cancer, progressive, with history of multiple lines of chemotherapy, most recently Folfiri, and prior to that immunotherapy (Pembro), presents with marked dyspnea, and unidentified parenchymal lung process. Empiric treatment wit Abics and steroids, with improvement noted. Appreciate input pulmonology. Continue present treatment.
--- NOTE | 2019-02-14 13:44 | PN ---
Progress Note (short form) - Note Progress Note: -appears improved on the steroids Vital Signs Period Temp Pulse Resp BP Sys/Spicer Pulse Ox Last 24 Hr 97.8 F-98.4 F 79-111 18-20 100-117/41-70 100-100 cor-rrr lungs clear abd soft,nt ext no edema CBC, BMP 02/13/19 06:45 02/13/19 06:45 Microbiology 02/12/19 11:45 Blood - Peripheral Venous Blood Culture - Preliminary NO GROWTH OBTAINED AFTER 48 HOURS, INCUBATION TO CONTINUE FOR 3 DAYS. 02/12/19 11:50 Blood - Peripheral Venous Blood Culture - Preliminary NO GROWTH OBTAINED AFTER 48 HOURS, INCUBATION TO CONTINUE FOR 3 DAYS. Current Medications Acetaminophen (Tylenol -) 650 mg PO Q6H PRN PRN Reason: FEVER Last Admin: 02/13/19 13:59 Dose: 650 mg Acetaminophen (Tylenol -) 325 mg PO Q4H PRN PRN Reason: PAIN LEVEL 6-10 Stop: 02/16/19 17:39 Last Admin: 02/13/19 17:49 Dose: 325 mg Aspirin (Asa -) 81 mg PO DAILY [facility] Last Admin: 02/14/19 09:23 Dose: 81 mg Docusate Sodium (Colace -) 100 mg PO DAILY PRN PRN Reason: CONSTIPATION Enoxaparin Sodium (Lovenox -) 30 mg SQ DAILY [facility] Last Admin: 02/14/19 09:23 Dose: 30 mg Aztreonam 1 gm/ Dextrose 50 mls @ 100 mls/hr IVPB Q8H-IV [facility]; Protocol Last Admin: 02/14/19 09:23 Dose: 100 mls/hr Clindamycin Phosphate (Cleocin 600 Mg Premix Ivpb -) 600 mg in 50 mls @ 100 mls /hr IVPB Q8H-IV [facility]; Protocol Last Admin: 02/14/19 09:23 Dose: 100 mls/hr Methylprednisolone Sodium Succinate (Solu-Medrol -) 40 mg IVPUSH Q8H-IV [facility] Last Admin: 02/14/19 09:23 Dose: 40 mg Ondansetron HCl (Zofran Injection) 8 mg IVPB Q6H PRN PRN Reason: NAUSEA Last Admin: 02/13/19 17:50 Dose: 8 mg Oxycodone HCl (Roxicodone -) 5 mg PO Q4H PRN PRN Reason: PAIN LEVEL 6-10 Last Admin: 02/13/19 17:49 Dose: 5 mg Zolpidem Tartrate (Ambien -) 5 mg PO HS PRN PRN Reason: INSOMNIA Last Admin: 02/13/19 22:13 Dose: 5 mg imp/reccd improved on the prednisone Chest CTA negative for PE, bilateral new ground glass upper lobe densities ?aspiration pen/amp allergy (rash) recurrent esophageal cancer - on chemo continue clindamycin/azactam day #2 consider switch to po levaquin in am 250 a day for 5 days Problem List - Problems (1) PNA (pneumonia) Code(s): J18.9 - PNEUMONIA, UNSPECIFIED ORGANISM Qualifiers: Laterality: bilateral Lung location: upper lobe of lung (2) Primary adenocarcinoma of esophagus Code(s): C15.9 - MALIGNANT NEOPLASM OF ESOPHAGUS, UNSPECIFIED (3) Penicillin allergy Code(s): Z88.0 - ALLERGY STATUS TO PENICILLIN
[2019-02-14] MEDS: CLINDAMYCIN IVPB 300 MG in DEXTROSE 5%-WATER - 48 ML IVPB SCH (17:18)
[2019-02-14] MEDS: ACETAMINOPHEN 325 MG TABLET (FP) PO PRN ×2 (17:19→22:13)
[2019-02-14] MEDS: oxyCODONE HCL 5 MG TABLET PO PRN ×2 (17:19→22:12)
[2019-02-14] MEDS: ZOLPIDEM TARTRATE 5 MG TABLET PO PRN (22:14)
[2019-02-15] MEDS ORDERED: DEXTROSE 5%-WATER - 50 ML IVPB ONE ×2 (01:46→08:17)
[2019-02-15] MEDS ORDERED: AZTREONAM 1 GM VIAL (RESTRICTED TO ID) ONE ×2 (01:46→08:17)
[2019-02-15] MEDS ORDERED: PT OWN MED DRAWER 7, Y5N ONE ×2 (01:47→08:17)
[2019-02-15] MEDS: methylPREDNISolone NA SUCC 40 MG/1 ML VIAL IVPUSH SCH ×3 (02:16→17:08)
[2019-02-15] MEDS: CLINDAMYCIN IVPB 300 MG in DEXTROSE 5%-WATER - 48 ML IVPB SCH ×2 (02:16→09:31)
[2019-02-15] MEDS: AZTREONAM 1 GM in DEXTROSE 5%-WATER - 50 ML IVPB SCH ×2 (02:17→09:31)
--- NOTE | 2019-02-15 07:27 | PN ---
Progress Note (short form) - Note Progress Note: Vital Signs Period Temp Pulse Resp BP Sys/Spicer Pulse Ox Last 24 Hr 97.6 F-98.7 F 65-104 19-20 100-126/55-70 98-100 feels little better subjectively cachectic neck supple s1s2 rrr lungs cta abd soft no edema Progressive esophageal adenoca. bilateral UL opacities infectious vs. inflammatory vs. malgnant empiric abx empiric steroids consults appreciated encouraged exercise Problem List - Problems (1) PNA (pneumonia) Code(s): J18.9 - PNEUMONIA, UNSPECIFIED ORGANISM Qualifiers: Laterality: bilateral Lung location: upper lobe of lung (2) Primary adenocarcinoma of esophagus Code(s): C15.9 - MALIGNANT NEOPLASM OF ESOPHAGUS, UNSPECIFIED
[2019-02-15] MEDS: RANITIDINE HCL 150 MG/10 ML UNIT-DOSE PO SCH (09:31)
[2019-02-15] MEDS: ASPIRIN 81 MG CHEWABLE TABLETS PO SCH (09:31)
[2019-02-15] MEDS: ENOXAPARIN NA (PORCINE) 30 MG/0.3 ML DISP.SYRIN SQ SCH (09:31)
[2019-02-15] MEDS ORDERED: CLINDAMYCIN 300 MG PREMIX IVPB 300 MG/50 ML BAG IVPB SCH (10:00)
[2019-02-15 10:46] VITALS: BMI 13.6
--- NOTE | 2019-02-15 11:13 | PN ---
Progress Note (short form) - Note Progress Note: Breathing and cough continues to improve. No hemoptysis. Intake & Output 02/12/19 02/13/19 02/14/19 02/15/19 23:59 23:59 23:59 23:59 Intake Total 340 1100 900 100 Balance 340 1100 900 100 Weight 82 lb 4.8 oz 82 lb Last Vital Signs Temp Pulse Resp BP Pulse Ox 97.7 F 76 20 109/67 98 02/15/19 10:00 02/15/19 10:00 02/15/19 10:00 02/15/19 10:00 02/15/19 09:00 Active Medications Acetaminophen (Tylenol -) 650 mg PO Q6H PRN PRN Reason: FEVER Last Admin: 02/13/19 13:59 Dose: 650 mg Acetaminophen (Tylenol -) 325 mg PO Q4H PRN PRN Reason: PAIN LEVEL 6-10 Stop: 02/16/19 17:39 Last Admin: 02/14/19 22:13 Dose: 325 mg Aspirin (Asa -) 81 mg PO DAILY [facility] Last Admin: 02/15/19 09:31 Dose: 81 mg Docusate Sodium (Colace -) 100 mg PO DAILY PRN PRN Reason: CONSTIPATION Enoxaparin Sodium (Lovenox -) 30 mg SQ DAILY [facility] Last Admin: 02/15/19 09:31 Dose: 30 mg Levofloxacin (Levaquin -) 250 mg PO DAILY [facility] Stop: 02/20/19 09:00 Last Admin: 02/15/19 10:26 Dose: 250 mg Methylprednisolone Sodium Succinate (Solu-Medrol -) 40 mg IVPUSH Q8H-IV [facility] Last Admin: 02/15/19 09:31 Dose: 40 mg Ondansetron HCl (Zofran Injection) 8 mg IVPB Q6H PRN PRN Reason: NAUSEA Last Admin: 02/13/19 17:50 Dose: 8 mg Oxycodone HCl (Roxicodone -) 5 mg PO Q4H PRN PRN Reason: PAIN LEVEL 6-10 Last Admin: 02/14/19 22:12 Dose: 5 mg Ranitidine HCl (Zantac Oral Solution -) 150 mg PO DAILY [facility] Last Admin: 02/15/19 09:31 Dose: 150 mg Zolpidem Tartrate (Ambien -) 5 mg PO HS PRN PRN Reason: INSOMNIA Last Admin: 02/14/19 22:14 Dose: 5 mg Constitutional: Yes: Calm, cachectic Eyes: Yes: EOM Intact HENT: Yes: Normocephalic Neck: Yes: Trachea Midline Cardiovascular: Yes: Regular Rate and Rhythm Respiratory: Yes: Diminished, few rhonchi Gastrointestinal: Yes: Soft Edema: No Labs: Problem List - Problems (1) Pneumonitis Code(s): J18.9 - PNEUMONIA, UNSPECIFIED ORGANISM (2) Primary adenocarcinoma of esophagus Code(s): C15.9 - MALIGNANT NEOPLASM OF ESOPHAGUS, UNSPECIFIED (3) COPD (chronic obstructive pulmonary disease) Code(s): J44.9 - CHRONIC OBSTRUCTIVE PULMONARY DISEASE, UNSPECIFIED Assessment/Plan Multiple pulmonary nodules: appear stable on imaging. Will need follow up imaging as an outpatient ABX coverage: Noted change to levaquin Can change to short Prednisone course tomorrow O2 as needed Follow CT in [address] Vázquez
--- NOTE | 2019-02-15 12:44 | PN ---
Progress Note (short form) - Note Progress Note: Patient seen in follow up. No events overnight. Reports ongoing improvement in respiratory status - ambulating with O2. Denies significant dyspnea at rest. Inpatient Meds reviewed. Current Medications Generic Name Dose Route Start Last Admin Trade Name Freq PRN Reason Stop Dose Admin Acetaminophen 650 mg 02/12/19 16:47 02/13/19 13:59 Tylenol - PO 650 mg Q6H PRN Administration FEVER Acetaminophen 325 mg 02/13/19 17:40 02/14/19 22:13 Tylenol - PO 02/16/19 17:39 325 mg Q4H PRN Administration PAIN LEVEL 6-10 Aspirin 81 mg 02/13/19 10:00 02/15/19 09:31 Asa - PO 81 mg DAILY [facility] Administration Docusate Sodium 100 mg 02/12/19 16:37 Colace - PO DAILY PRN CONSTIPATION Enoxaparin Sodium 30 mg 02/13/19 10:00 02/15/19 09:31 Lovenox - SQ 30 mg DAILY [facility] Administration Levofloxacin 250 mg 02/15/19 10:00 02/15/19 10:26 Levaquin - PO 02/20/19 09:00 250 mg DAILY [facility] Administration Methylprednisolone Sodium Succinate 40 mg 02/14/19 10:00 02/15/19 09:31 Solu-Medrol - IVPUSH 40 mg Q8H-IV [facility] Administration Ondansetron HCl 8 mg 02/13/19 17:36 02/13/19 17:50 Zofran Injection IVPB 8 mg Q6H PRN Administration NAUSEA Oxycodone HCl 5 mg 02/13/19 17:40 02/14/19 22:12 Roxicodone - PO 5 mg Q4H PRN Administration PAIN LEVEL 6-10 Ranitidine HCl 150 mg 02/15/19 10:00 02/15/19 09:31 Zantac Oral Solution - PO 150 mg DAILY [facility] Administration Zolpidem Tartrate 5 mg 02/13/19 09:03 02/14/19 22:14 Ambien - PO 5 mg HS PRN Administration INSOMNIA On examination: Last Vital Signs Temp Pulse Resp BP Pulse Ox 97.7 F 76 20 109/67 98 02/15/19 10:00 02/15/19 10:00 02/15/19 10:00 02/15/19 10:00 02/15/19 09:00 General: In no acute distress, sitting up in bed. Extremities: No pallor or icterus. No pedal edema. CVS: S1, S2, regular, no gallop or murmur. Chest: good air entry bilaterally, clear Abdomen: Non-distended, non-tender. Neuro: Alert, oriented, non-focal. Labs: CBC, BMP 02/13/19 06:45 02/13/19 06:45 Assessment. Esophageal cancer, progressive, with history of multiple lines of chemotherapy, most recently Folfiri, and prior to that immunotherapy (Pembro), presents with marked dyspnea, and unidentified parenchymal lung process. Empiric treatment wit Abics (now on Levaquin) and steroids, with ongoing improvement noted. Appreciate input pulmonology. Continue present treatment. Anticipate discharge soon.
[2019-02-15] MEDS: oxyCODONE HCL 5 MG TABLET PO PRN (21:08)
[2019-02-15] MEDS: ACETAMINOPHEN 325 MG TABLET (FP) PO PRN (21:09)
[2019-02-15] MEDS: ZOLPIDEM TARTRATE 5 MG TABLET PO PRN (22:01)
[2019-02-16] MEDS: methylPREDNISolone NA SUCC 40 MG/1 ML VIAL IVPUSH SCH (01:07)
[2019-02-16 07:03] LABS: HEMATOCRIT 28.9 % (32.4-45.2); HEMOGLOBIN 9.7 GM/dL (10.7-15.3); LYMPH % 12.3 % (8-40); MCH 32.7 pg (25.7-33.7); MCHC 33.5 g/dl (32.0-36.0); MEAN CELL VOLUME 97.5 fl (80-96); MEAN PLT VOLUME 8.4 fl (7.5-11.1); MONO % 1.7 % (3.8-10.2); PLATELET COUNT 119 K/MM3 (134-434); RBC 2.96 M/mm3 (3.60-5.2); RDW 19.5 % (11.6-15.6); WHITE BLOOD COUNT 3.3 K/mm3 (4.0-10.0)
[2019-02-16 07:36] LABS: ALBUMIN 2.6 g/dl (3.4-5.0); ALK PHOS 69 U/L (45-117); ANION GAP 5 MMOL/L (8-16); BILIRUBIN,TOTAL 0.4 mg/dL (0.2-1); BLOOD UREA NITROGEN 33 mg/dL (7-18); CALCIUM 7.8 mg/dL (8.5-10.1); CHLORIDE 107 mmol/L (98-107); CO2 25 mmol/L (21-32); CREATININE 0.7 mg/dL (0.55-1.3); GLUCOSE,RANDOM 130 mg/dL (74-106); POTASSIUM 4.4 mmol/L (3.5-5.1); SGOT/AST 5 U/L (15-37); SGPT/ALT 10 U/L (13-61); SODIUM 136 mmol/L (136-145)
--- NOTE | 2019-02-16 08:31 | PN ---
Progress Note (short form) - Note Progress Note: CBC, BMP 02/16/19 06:00 02/16/19 06:00 Vital Signs Period Temp Pulse Resp BP Sys/Spicer Pulse Ox Last 24 Hr 97.6 F-98.1 F 76-100 18-20 89-117/52-78 97-98 o2sats are good at rest cachectic neck supple s1s2 rrr lungs cta abd soft no edema Progressive esophageal adenoca. bilateral UL opacities infectious vs. inflammatory vs. malignant on oral abx can switch to oral steroids pre and post o2 dc planning in the afternoon today Problem List - Problems (1) PNA (pneumonia) Code(s): J18.9 - PNEUMONIA, UNSPECIFIED ORGANISM Qualifiers: Laterality: bilateral Lung location: upper lobe of lung (2) Primary adenocarcinoma of esophagus Code(s): C15.9 - MALIGNANT NEOPLASM OF ESOPHAGUS, UNSPECIFIED
[2019-02-16] MEDS: ASPIRIN 81 MG CHEWABLE TABLETS PO SCH (09:30)
[2019-02-16] MEDS: ENOXAPARIN NA (PORCINE) 30 MG/0.3 ML DISP.SYRIN SQ SCH (09:30)
[2019-02-16] MEDS: RANITIDINE HCL 150 MG/10 ML UNIT-DOSE PO SCH (09:30)
[2019-02-16] MEDS ORDERED: methylPREDNISolone NA SUCC 40 MG/1 ML VIAL IVPUSH SCH (10:00)
--- NOTE | 2019-02-16 12:09 | DS ---
Physical Examination Vital Signs: Vital Signs Temperature 98.4 F 02/16/19 10:00 Pulse Rate 70 02/16/19 10:00 Respiratory Rate 20 02/16/19 10:00 Blood Pressure 108/50 L 02/16/19 10:00 O2 Sat by Pulse Oximetry (%) 94 L 02/16/19 09:30 Constitutional: Yes: Calm, Cachectic Eyes: Yes: EOM Intact HENT: Yes: Normocephalic Neck: Yes: Trachea Midline Cardiovascular: Yes: Regular Rate and Rhythm Respiratory: Yes: CTA Bilaterally Gastrointestinal: Yes: Normal Bowel Sounds, Soft Extremities: Yes: WNL Edema: No Labs: CBC, BMP 02/16/19 06:00 02/16/19 06:00 Discharge Summary Reason For Visit: CHEMO Current Active Problems COPD (chronic obstructive pulmonary disease) (Acute) PNA (pneumonia) (Acute) Penicillin allergy (Acute) Pneumonitis (Acute) Hospital Course: Progressive esophageal adenoca. admitted for sudden onset dyspnea and hypoxia, chest ct with iv contrast showed bilateral UL opacities, but no pulmonary embolism infectious vs. inflammatory vs. malignant much improved on steroids and abx. sats are better, does not require home O2 stable to dc home on oral abx and steroid taper and f/up for repeat chest CT in 6 weeks. outpt chemo as per Condition: Guarded - Instructions Diet, Activity, Other Instructions: repeat chest CT in 6 weeks Disposition: HOME - Home Medications Comprehensive Discharge Medication List: Ambulatory Orders Aspirin 81 mg PO DAILY 12/04/18 Docusate Sodium [Colace] 100 mg PO DAILY 12/04/18 Acetaminophen [Tylenol .Regular Strength -] 650 mg PO Q4H PRN tablet 12/09/18 Prednisone 10 mg PO DAILY #15 tab.ds.pk 02/16/19 Zolpidem Tartrate [Ambien] 5 mg PO HS PRN #30 tablet MDD 1 02/16/19 levoFLOXacin [Levaquin -] 250 mg PO DAILY #4 tablet 02/16/19
[2019-02-16 13:37] VITALS: BP 116/63; PULSE 74; TEMP 97.8
== END 2019-02-16 13:46 | disposition home or self-care (01) | DRG 193 ==
LOC: JER 11:15 → JERBED 14:56 → J7W 16:17
PROVIDERS: ADMIT Internal Medicine; ATTEND Internal Medicine
DX: J18.9 Pneumonia, unspecified organism (principal); E43 Unspecified severe protein-calorie malnutrition; C15.9 Malignant neoplasm of esophagus, unspecified; R64 Cachexia; Z68.1 Body mass index [BMI] 19.9 or less, adult; R09.02 Hypoxemia; E78.5 Hyperlipidemia, unspecified; I10 Essential (primary) hypertension; Z88.0 Allergy status to penicillin
CPT/HCPCS: 36415; 70450-TC; 71275-TC; 80048; 80053; 80076; 81003; 82550; 82803; 83735; 83880; 84484; 85025; 85610; 85730; 86850; 86900; 86901; 87040; 93005; 93010; 94761; 96361; 96375; 96409; 96413; 96415; 96417; 99284-25; G0498; J2469; J2997; J9206

== ENCOUNTER 2019-02-23 07:15 | Day surgery (SDC) | payer OTHER, BC ==
[2019-02-23] MEDS ORDERED: PALONOSETRON HCL 0.25 MG/5 ML VIAL IVPUSH ONE (09:00)
[2019-02-23] MEDS ORDERED: DEXAMETHASONE SODIUM PHOSPHATE 20 MG in SODIUM CHLORIDE 50 ML IVPB ONE (09:00)
[2019-02-23] MEDS ORDERED: IRINOTECAN HCL 190 MG in DEXTROSE 5%-WATER - 500 ML IVPB ONE (09:30)
[2019-02-23] MEDS ORDERED: LEUCOVORIN INJECTION - 572 MG in DEXTROSE 5%-WATER - 250 ML IVPB ONE (09:30)
[2019-02-23] MEDS ORDERED: POTASSIUM CHLORIDE 20 MEQ, MAGNESIUM SULFATE 1 GM in DEXTROSE 5%-NORMAL SALINE 500 ML IVPB SCH (10:00)
[2019-02-23] MEDS ORDERED: POTASSIUM CHLORIDE 20 MEQ, MAGNESIUM SULFATE 1 GM in DEXTROSE 5%-NORMAL SALINE 500 ML IVPB ONE (10:00)
[2019-02-23] MEDS ORDERED: methylPREDNISolone NA SUCC 40 MG/1 ML VIAL IVPB ONE (10:00)
[2019-02-23] MEDS ORDERED: FLUOROURACIL 500 MG/10 ML VIAL IVPUSH ONE (11:00)
[2019-02-23] MEDS ORDERED: FLUOROURACIL CP ONE (11:15)
[2019-02-23] MEDS ORDERED: SODIUM CHLORIDE CP ONE (11:15)
[2019-02-23] MEDS ORDERED: PANTOPRAZOLE SODIUM 40 MG VIAL IVPUSH ONE (11:30)
[2019-02-23 15:39] VITALS: BP 92/47; PULSE 94; TEMP 97.1
[2019-02-23] MEDS ORDERED: PORTA CATH FLUSH 10 ML IVPUSH ONE (15:39)
== END 2019-02-23 15:55 | disposition home or self-care (01) ==
LOC: JONCCHEMO 07:15 → J7W 09:51 → JONCCHEMO 15:55
PROVIDERS: ATTEND Internal Medicine Hematology & Oncology
PROC: 3E0437Z Introduction of Electrolytic and Water Balance Substance into Central Vein, Percutaneous Approach (ICD-10-PCS; principal; 2019-02-23)
PROC: 3E043GC Introduction of Other Therapeutic Substance into Central Vein, Percutaneous Approach (ICD-10-PCS; 2019-02-23)
DX: C15.9 Malignant neoplasm of esophagus, unspecified (principal)
CPT/HCPCS: 96361; 96365; 96367; 96375

== ENCOUNTER 2019-02-24 10:05 | Day surgery (SDC) | payer OTHER, BC | END 2019-02-24 14:50 | disposition home or self-care (01) | LOC: JONCNONCHE 10:05 → J7W 10:08 → JONCNONCHE 14:50 ==

== ENCOUNTER 2019-02-27 13:35 | Inpatient (IN) | payer OTHER, BC ==
[2019-02-27 13:52] VITALS: BMI 15.0
[2019-02-27] MEDS ORDERED: HEPARIN NA (PORCINE) 5,000 UNITS/ML 1ML VIAL IVPUSH ONE (15:04)
--- NOTE | 2019-02-27 15:07 | PDOC ---
History of Present Illness - General Chief Complaint: Pain Stated Complaint: POSITIVE DVT Time Seen by Provider: 02/27/19 14:34 History Source: Patient Exam Limitations: No Limitations - History of Present Illness Initial Comments: 02/27/19 15:05 69-year-old female with history of esophageal cancer and receives chemotherapy via a right Port-A-Cath presents to ED for recent diagnosis of right upper extremity DVT detected today via ultrasound after seeing her primary care physician Dr. Maxwell in the office. Patient went to the office with complaints of swelling to the right upper extremity and increased warmth to the area. Timing/Duration: unsure Severity: moderate Associated Symptoms: reports: other Past History - Travel Traveled outside of the country in the last 30 days: No Close contact w/someone who was outside of country & ill: No - Past Medical History Allergies/Adverse Reactions: Allergies Allergy/AdvReac Type Severity Reaction Status Date / Time amoxicillin Allergy Verified 02/27/19 13:51 Penicillins Allergy Difficulty Verified 02/27/19 13:51 Breathing Home Medications: Ambulatory Orders Aspirin 81 mg PO DAILY 12/04/18 Docusate Sodium [Colace] 100 mg PO DAILY 12/04/18 Acetaminophen [Tylenol .Regular Strength -] 650 mg PO Q4H PRN tablet 12/09/18 Prednisone 10 mg PO DAILY #15 tab.ds.pk 02/16/19 Zolpidem Tartrate [Ambien] 5 mg PO HS PRN #30 tablet MDD 1 02/16/19 levoFLOXacin [Levaquin -] 250 mg PO DAILY #4 tablet 02/16/19 Anemia: No Asthma: No Cancer: Yes (ESOPHAGEAL) Cardiac Disorders: No CVA: No COPD: No CHF: No Dementia: No Diabetes: No GI Disorders: No Disorders: No HTN: Yes Hypercholesterolemia: Yes Liver Disease: No Seizures: No Thyroid Disease: No Other medical history: HIP Fracture 12/05/18 - Surgical History Abdominal Surgery: Yes (12/01/15 EGD) Appendectomy: No Cardiac Surgery: No Cholecystectomy: Yes Lung Surgery: No Neurologic Surgery: No Orthopedic Surgery: No - Family Disease History Family Disease History: Diabetes: Father, Heart Disease: Mother - Immunization History Immunization Up to Date: Yes - Suicide/Smoking/Psychosocial Hx Smoking History: Never smoked Have you smoked in the past 12 months: No Information on smoking cessation initiated: No Hx Alcohol Use: No Drug/Substance Use Hx: No Substance Use Type: None, Alcohol, Cocaine, Heroin, Marijuana, Opiates, Prescribed, Tranquilizers Hx Substance Use Treatment: No Patient Lives Alone: No Review of Systems - Review of Systems Able to Perform ROS?: Yes Constitutional: No: Symptoms Reported HEENTM: No: Symptoms Reported Respiratory: No: Symptoms reported Cardiac (ROS): No: Symptoms Reported ABD/GI: No: Symptoms Reported : No: Symptoms Reported Musculoskeletal: No: Symptoms Reported Integumentary: Yes: Erythema ( right upper arm) Neurological: No: Numbness, Weakness, Dizziness Hematologic/Lymphatic: Yes: See HPI *Physical Exam - Vital Signs Last Vital Signs Temp Pulse Resp BP Pulse Ox 98.2 F 84 18 109/46 L 100 02/27/19 13:47 02/27/19 13:47 02/27/19 13:47 02/27/19 13:47 02/27/19 13:47 - Physical Exam General Appearance: Yes: Appropriately Dressed, Thin. No: Apparent Distress HEENT: negative: Pale Conjunctivae Neck: positive: Normal Thyroid, Supple Respiratory/Chest: positive: Lungs Clear, Normal Breath Sounds. negative: Respiratory Distress, Accessory Muscle Use Cardiovascular: positive: Regular Rhythm, Regular Rate. negative: Murmur Gastrointestinal/Abdominal: positive: Soft. negative: Tenderness Extremity: positive: Normal Capillary Refill, Normal Range of Motion, Swelling ( over the bicep and tricep of the right upper extremity along with increased warmth to the area.). negative: Tender Integumentary: positive: Erythema, Swelling Neurologic: positive: Motor Strength 5/5 (right hand grasp) ED Treatment Course - LABORATORY CBC & Chemistry Diagram: 02/27/19 15:19 02/27/19 15:19 Medical Decision Making - Medical Decision Making 02/27/19 15:38 Chief complaint: Recent diagnosis of right DVT. Patient with right Port-A-Cath and history of esophageal cancer under the care of Dr. Gore. DVT noted within the internal jugular, subclavian, axillary and brachial veins. The radial and ulnar veins are patent. The basilic and median cubital veins are also thrombosed. The cephalic vein is patent. Exam: Patient with increased warmth and swelling to the area on and swelling over the right bicep Plan: Labs, EKG unfractionated heparin due to extent of clot. Consult placed to Dr. Leach for questionable catheter induced thrombosis. Consult also placed for Dr. Gore patient's oncologist 02/27/19 15:43 *DC/Admit/Observation/Transfer Diagnosis at time of Disposition: DVT (deep venous thrombosis), Esophageal cancer, Port-A-Cath in place - Discharge Dispostion Decision to Admit order: Yes - Referrals Referrals: Lynn Renee MD [Primary Care Provider] - - Patient Instructions - Post Discharge Activity
[2019-02-27] MEDS ORDERED: HEPARIN INFUSION - 25,000 UNITS/500 ML INFUS.BAG IVPB SCH (15:15)
[2019-02-27] MEDS ORDERED: HEPARIN INFUSION - 25,000 UNITS/500 ML INFUS.BAG IVPB ONE (15:26)
[2019-02-27] MEDS ORDERED: HEPARIN NA (PORCINE) 5,000 UNITS/ML 1ML VIAL ONE (15:26)
[2019-02-27 15:38] LABS: BASO % 0.3 % (0-2.0); HEMATOCRIT 35.9 % (32.4-45.2); HEMOGLOBIN 11.5 GM/dL (10.7-15.3); LYMPH % 7.4 % (8-40); MCH 32.6 pg (25.7-33.7); MCHC 32.2 g/dl (32.0-36.0); MEAN CELL VOLUME 101.3 fl (80-96); MEAN PLT VOLUME 8.2 fl (7.5-11.1); MONO % 4.6 % (3.8-10.2); NEUT % 87.7 % (42.8-82.8); PLATELET COUNT 208 K/MM3 (134-434); RBC 3.54 M/mm3 (3.60-5.2); WHITE BLOOD COUNT 4.7 K/mm3 (4.0-10.0)
[2019-02-27 15:52] LABS: INR 1.12 (0.83-1.09); PROTHROMBIN TIME (PATIENT) 13.2 SEC (9.7-13.0)
[2019-02-27 15:54] LABS: ACTIVATED PTT 24.6 SECONDS (25.2-36.5)
[2019-02-27 16:10] LABS: ALBUMIN 3.4 g/dl (3.4-5.0); ALK PHOS 80 U/L (45-117); ANION GAP 6 MMOL/L (8-16); BILIRUBIN,TOTAL 0.7 mg/dL (0.2-1); BLOOD UREA NITROGEN 30 mg/dL (7-18); CALCIUM 8.6 mg/dL (8.5-10.1); CHLORIDE 105 mmol/L (98-107); CO2 26 mmol/L (21-32); CREATININE 0.7 mg/dL (0.55-1.3); GLUCOSE,RANDOM 113 mg/dL (74-106); POTASSIUM 3.7 mmol/L (3.5-5.1); SGOT/AST 16 U/L (15-37); SGPT/ALT 26 U/L (13-61); SODIUM 137 mmol/L (136-145); TOT PROT 6.6 g/dl (6.4-8.2)
[2019-02-27] MEDS ORDERED: ACETAMINOPHEN 325 MG TABLET (FP) PO PRN (18:03)
--- NOTE | 2019-02-27 18:25 | PN ---
Progress Note (short form) - Note Progress Note: Patient seen and examined Well known to me Metastatic esophageal cancer - s/p neoadjuvant chemotherapy with taxol/ carboplatinum followed by esophagectomy . Had recurrence treated with chemotherapy once again with taxol/carboplatinum. Progression treated with immunotherapy with pembrolizumab discontinued 3 1/2 nonths ago. Switched to FOLFOX chemotherapy. Developed SOB / dyspnea with ground-glass appearance on CT compatible with immunotherapy induced pulmonary reaction . Begun on steroids with improvement. Seen today by PCP who noticed swelling LUE. Had positive duplex. Port - likely nidus. Last Vital Signs Temp Pulse Resp BP Pulse Ox 98.4 F 72 18 136/60 100 02/27/19 18:00 02/27/19 18:00 02/27/19 18:00 02/27/19 18:00 02/27/19 13:56 HEENT: LAUREN, EOM Intact Oropharynx: No thrush, No mucositis Neck: Supple Nodes: Without adenopathy Breasts: Without masses Cor: RSR, No murmurs, No gallops Lungs: Clear to P&A Abd: Soft, Normal bowel sounds, No organomegaly Ext:mild swelling RUE especially in area of antecubital fossa Skin: No rashes, Integument intact Impression: Esophageal ca Hypercoaguable state secondary to malignancy. RUE DVT with port as nidus. Suggest : Can continue with port in place if functional along with anticoagulation. Would suggest Lovenox - 1 1/2 /kg daily --i.e. 60 mg. daily. Continue with Prednisone 60 mg daily Continue with protonix. Can be discharged per PCP on Lovenox on 02/28 if stable.
[2019-02-27] MEDS ORDERED: ZOLPIDEM TARTRATE 5 MG TABLET PO PRN (19:34)
[2019-02-27] MEDS ORDERED: PNEUMOC 13-VAL CONJ-DIP CRM/PF 0.5 ML DISP.SYRIN IM ONE (20:00)
--- NOTE | 2019-02-27 21:13 | HP ---
Admitting History and Physical - Primary Care Physician PCP: Lynn Renee - Admission Chief Complaint: RUE swelling History of Present Illness: came to office for hospital f/up, noted to have RUE swelling was recently admitted for acute dyspnea and bilateral pulmonary opacities, thought to be reaction to recent chemotherapy clinically improved on steroids History Source: Patient Limitations to Obtaining History: No Limitations - Past Medical History Cardiovascular: Yes: HTN, Hyperlipdemia ...: No Heme/Onc: Yes: Other (mod. diff. esophageal adenoca s/p 2016 neoadjuvant chemo surgery, +chemotherapy) - Past Surgical History Past Surgical History: Yes: Cholecystectomy, Tonsillectomy Additional Past Surgical History: Right hip ORIF .2018 after a fall gastroesophagectomy with gastric pullup on chemo off-on since gastrostomy tube in 2015 s/p portacath - Smoking History Smoking history: Never smoked Have you smoked in the past 12 months: No - Alcohol/Substance Use Hx Alcohol Use: No - Social History ADL: Independent History of Recent Travel: No Home Medications - Allergies Allergies/Adverse Reactions: Allergies Allergy/AdvReac Type Severity Reaction Status Date / Time amoxicillin Allergy Verified 02/27/19 13:51 Penicillins Allergy Difficulty Verified 02/27/19 13:51 Breathing - Home Medications Home Medications: Ambulatory Orders Aspirin 81 mg PO DAILY 12/04/18 Docusate Sodium [Colace] 100 mg PO DAILY 12/04/18 Acetaminophen [Tylenol .Regular Strength -] 650 mg PO Q4H PRN tablet 12/09/18 Prednisone 10 mg PO DAILY #15 tab.ds.pk 02/16/19 Zolpidem Tartrate [Ambien] 5 mg PO HS PRN #30 tablet MDD 1 02/16/19 Family Disease History - Family Disease History Family History: Unremarkable Review of Systems - Review of Systems Constitutional: reports: Unintentional Wgt. Loss, Weakness Eyes: reports: No Symptoms Cardiovascular: reports: No Symptoms Respiratory: reports: SOB on Exertion (improved recenlty) Gastrointestinal: reports: Nausea Genitourinary: reports: No Symptoms Breasts: reports: No Symptoms Reported Musculoskeletal: reports: No Symptoms Integumentary: reports: No Symptoms Physical Examination Vital Signs: Vital Signs Temperature 98.4 F 02/27/19 18:00 Pulse Rate 72 02/27/19 18:00 Respiratory Rate 18 02/27/19 18:00 Blood Pressure 136/60 02/27/19 18:00 O2 Sat by Pulse Oximetry (%) 100 02/27/19 13:56 Constitutional: Yes: Calm, Cachectic Eyes: Yes: Conjunctiva Clear, EOM Intact HENT: Yes: Normocephalic Neck: Yes: Trachea Midline Cardiovascular: Yes: Regular Rate and Rhythm, JVD (right external jugular vein distended) Respiratory: Yes: CTA Bilaterally Gastrointestinal: Yes: Normal Bowel Sounds, Soft Integumentary: Yes: Other (upper chest wall veins distended, right arm/elbow with non-pitting edema and increased erythema in hand and forearm) Neurological: Yes: WNL Psychiatric: Yes: WNL Labs: CBC, BMP 02/27/19 15:19 02/27/19 15:19 Imaging - Results Ultrasound: Other (extensive superficial and deep venous thrombosis in right arm -internal jugular/subclavian/axillary/brachial) Problem List - Problems (1) DVT (deep venous thrombosis) Code(s): I82.409 - ACUTE EMBOLISM AND THOMBOS UNSP DEEP VN UNSP LOWER EXTREMITY Qualifiers: DVT location: upper extremity Affected thrombotic vein of extremity: brachial Chronicity: acute Laterality: right Qualified Code(s): I82.621 - Acute embolism and thrombosis of deep veins of right upper extremity (2) Esophageal cancer Code(s): C15.9 - MALIGNANT NEOPLASM OF ESOPHAGUS, UNSPECIFIED Qualifiers: Malignant neoplasm of esophagus location: unspecified location Qualified Code(s): C15.9 - Malignant neoplasm of esophagus, unspecified (3) Port-A-Cath in place Code(s): Z95.828 - PRESENCE OF OTHER VASCULAR IMPLANTS AND GRAFTS (4) COPD (chronic obstructive pulmonary disease) Code(s): J44.9 - CHRONIC OBSTRUCTIVE PULMONARY DISEASE, UNSPECIFIED Assessment/Plan heparin heme and vascular consult requested will need to assess port functionality will follow
--- NOTE | 2019-02-28 07:21 | DS ---
Physical Examination Vital Signs: Vital Signs Temperature 98.3 F 02/28/19 06:00 Pulse Rate 69 02/28/19 06:00 Respiratory Rate 18 02/28/19 06:00 Blood Pressure 101/54 L 02/28/19 06:00 O2 Sat by Pulse Oximetry (%) 100 02/27/19 21:00 Constitutional: Yes: Cachectic Eyes: Yes: EOM Intact HENT: Yes: Normocephalic Neck: Yes: Trachea Midline Cardiovascular: Yes: Regular Rate and Rhythm Respiratory: Yes: CTA Bilaterally Musculoskeletal: Yes: WNL Edema: Yes Edema: RUE: 3+ Peripheral Pulses WNL: Yes Neurological: Yes: WNL Labs: CBC, BMP 02/27/19 15:19 02/27/19 15:19 Discharge Summary Reason For Visit: DEEP VEIN THROMBOSIS Current Active Problems DVT (deep venous thrombosis) (Acute) Esophageal cancer (Acute) Port-A-Cath in place (Acute) Hospital Course: admitted for acute extensive right upper extremity deep venous thrombosis due to posrtacath and underlying malignancy. was seen by gamaliel Hernadez to dc home on sc LMWH. will follow up in the office. - Instructions Diet, Activity, Other Instructions: [facility] dr. Jacob 5.20 Saturday stop all advil/aleeve/ibuprofen/aspirin products - Home Medications Comprehensive Discharge Medication List: Ambulatory Orders Docusate Sodium [Colace] 100 mg PO DAILY 12/04/18 Acetaminophen [Tylenol .Regular Strength -] 650 mg PO Q4H PRN tablet 12/09/18 Zolpidem Tartrate [Ambien] 5 mg PO HS PRN #30 tablet MDD 1 02/16/19 Enoxaparin [Lovenox -] 60 mg SQ DAILY #30 disp.syrin 02/28/19 Pantoprazole Sodium [Protonix -] 40 mg PO DAILY tablet.ec 02/28/19 predniSONE [Deltasone -] 60 mg PO DAILY tablet 02/28/19
[2019-02-28 09:01] LABS: BASO % 0.3 % (0-2.0); EOS % 0.1 % (0-4.5); HEMATOCRIT 31.2 % (32.4-45.2); HEMOGLOBIN 10.2 GM/dL (10.7-15.3); LYMPH % 26.5 % (8-40); MCH 32.9 pg (25.7-33.7); MCHC 32.8 g/dl (32.0-36.0); MEAN CELL VOLUME 100.4 fl (80-96); MEAN PLT VOLUME 7.7 fl (7.5-11.1); MONO % 13.1 % (3.8-10.2); PLATELET COUNT 176 K/MM3 (134-434); RBC 3.11 M/mm3 (3.60-5.2); RDW 23.2 % (11.6-15.6); WHITE BLOOD COUNT 4.2 K/mm3 (4.0-10.0)
[2019-02-28 09:38] VITALS: BP 105/52; PULSE 77; TEMP 98.5
[2019-02-28] MEDS ORDERED: predniSONE 20 MG TABLET (UD) PO SCH (10:00)
[2019-02-28] MEDS ORDERED: DOCUSATE SODIUM 100 MG CAPSULE (FP) PO SCH (10:00)
[2019-02-28] MEDS ORDERED: PANTOPRAZOLE 40 MG TABLET (FP) PO SCH (10:00)
[2019-02-28] MEDS ORDERED: ENOXAPARIN NA (PORCINE) 60 MG/0.6 ML DISP.SYRIN SQ SCH (10:00)
--- NOTE | 2019-02-28 11:43 | EKG ---
Test Reason : Blood Pressure : / mmHG Vent. Rate : 075 BPM Atrial Rate : 075 BPM P-R Int : 100 ms QRS Dur : 066 ms QT Int : 378 ms P-R-T Axes : -39 095 064 degrees QTc Int : 422 ms UNUSUAL P AXIS, POSSIBLE ECTOPIC ATRIAL RHYTHM RIGHTWARD AXIS ABNORMAL ECG WHEN COMPARED WITH ECG OF 12-FEB-2019 13:15, ECTOPIC ATRIAL RHYTHM HAS REPLACED SINUS RHYTHM Confirmed by MARICARMEN FRIED, ITZEL ([id number]) on 02/28/2019 11:43:32 AM Referred By: Confirmed By:ITZEL HERNADEZ MD
--- NOTE | 2019-03-01 14:42 | PN ---
Progress Note (short form) - Note Progress Note: Patient seen in follow up. No new complaints. No significant events overnight. Getting ready to be discharged Assessment. UE catheter-related thrombosis, in setting of metastatic esophageal cancer. Started on LMWH, which she will continue at home. Follow up Dr Gore for ongoing management of her solid tumor. May consider use of a DOAC, which recent trial data indicates is non-inferior to LMWH in the context of secondary prophylaxis for cancer-related thrombosis.
== END 2019-02-28 10:51 | disposition home or self-care (01) | DRG 300 ==
LOC: JER 13:35 → JERBED 15:21 → J5S 17:18
PROVIDERS: ADMIT Internal Medicine; ATTEND Internal Medicine
DX: I82.621 Acute embolism and thrombosis of deep veins of right upper extremity (principal); C15.9 Malignant neoplasm of esophagus, unspecified; D68.59 Other primary thrombophilia; R64 Cachexia; Z68.1 Body mass index [BMI] 19.9 or less, adult; E78.00 Pure hypercholesterolemia, unspecified; E78.5 Hyperlipidemia, unspecified; I10 Essential (primary) hypertension; J44.9 Chronic obstructive pulmonary disease, unspecified; Z95.828 Presence of other vascular implants and grafts
CPT/HCPCS: 36415; 80053; 82550; 84484; 85025; 85610; 85730; 90670; 93005; 93010; 93931; 93971; 96360; 96361; 96365; 99285-25; J1644

== ENCOUNTER 2019-03-02 07:09 | Day surgery (SDC) | payer OTHER, BC ==
[2019-03-02 09:21] LABS: BASO % 0.2 % (0-2.0); EOS % 0.1 % (0-4.5); HEMATOCRIT 36.6 % (32.4-45.2); HEMOGLOBIN 11.9 GM/dL (10.7-15.3); LYMPH % 17.1 % (8-40); MCH 32.9 pg (25.7-33.7); MCHC 32.6 g/dl (32.0-36.0); MEAN CELL VOLUME 100.9 fl (80-96); MEAN PLT VOLUME 7.7 fl (7.5-11.1); MONO % 10.3 % (3.8-10.2); NEUT % 72.3 % (42.8-82.8); PLATELET COUNT 212 K/MM3 (134-434); RBC 3.63 M/mm3 (3.60-5.2); RDW 22.7 % (11.6-15.6); WHITE BLOOD COUNT 5.9 K/mm3 (4.0-10.0)
[2019-03-02] MEDS ORDERED: DEXAMETHASONE SODIUM PHOSPHATE 20 MG in SODIUM CHLORIDE 50 ML IVPB ONE (10:00)
[2019-03-02] MEDS ORDERED: PALONOSETRON HCL 0.25 MG/5 ML VIAL IVPUSH ONE (10:00)
[2019-03-02 10:16] LABS: ALBUMIN 3.4 g/dl (3.4-5.0); BILIRUBIN,TOTAL 0.7 mg/dL (0.2-1); CALCIUM 8.7 mg/dL (8.5-10.1); CREATININE 0.7 mg/dL (0.55-1.3); MAGNESIUM 2.5 mg/dL (1.8-2.4); POTASSIUM 3.3 mmol/L (3.5-5.1); TOT PROT 6.4 g/dl (6.4-8.2)
[2019-03-02] MEDS ORDERED: LEUCOVORIN INJECTION - 572 MG in DEXTROSE 5%-WATER - 250 ML IVPB ONE (10:30)
[2019-03-02] MEDS ORDERED: POTASSIUM CHLORIDE 10 MEQ PREMIX IVPB (POTASSIUM RIDER) IVPB SCH (10:31)
[2019-03-02] MEDS ORDERED: IRINOTECAN HCL 190 MG in DEXTROSE 5%-WATER - 500 ML IVPB ONE (11:00)
[2019-03-02] MEDS ORDERED: FLUOROURACIL 2,500 MG/50 ML VIAL IVPUSH ONE (12:30)
[2019-03-02] MEDS ORDERED: SODIUM CHLORIDE CP ONE (12:45)
[2019-03-02] MEDS ORDERED: FLUOROURACIL CP ONE (12:45)
[2019-03-02] MEDS: KCL 10 MEQ IVPB 10 MEQ/100 ML INFUS.BAG IVPB SCH ×2 (14:35→15:35)
[2019-03-02] MEDS ORDERED: ONDANSETRON 4 MG/2 ML VIAL IVPUSH ONE (15:00)
[2019-03-02 17:30] VITALS: TEMP 97.9
[2019-03-02 17:32] VITALS: BP 109/51; PULSE 73
== END 2019-03-02 16:50 | disposition home or self-care (01) ==
LOC: JONCCHEMO 07:09 → J7W 11:03 → JONCCHEMO 16:50
PROVIDERS: ATTEND Internal Medicine Hematology & Oncology
DX: Z51.11 Encounter for antineoplastic chemotherapy (principal); C15.9 Malignant neoplasm of esophagus, unspecified
CPT/HCPCS: 36415; 80053; 82378; 83735; 84436; 84439; 84443; 85025; 96366; 96367; 96375; 96409; 96411; 96413; 96415; 96417; G0498; J2469; J9206

== ENCOUNTER 2019-03-04 07:12 | Day surgery (SDC) | payer OTHER, BC ==
[2019-03-04] MEDS ORDERED: POTASSIUM CHLORIDE 20 MEQ, MAGNESIUM SULFATE 1 GM in DEXTROSE 5%-0.45% SALINE - 500 ML IVPB ONE (10:00)
[2019-03-04] MEDS ORDERED: DEXAMETHASONE SODIUM PHOSPHATE 8 MG, ONDANSETRON INJECTION 8 MG in SODIUM CHLORIDE 100 ML IVPB ONE (10:00)
[2019-03-04] MEDS ORDERED: [UNRECOGNIZED DRUG - OTHER] IVPB ONE (13:30)
[2019-03-04] MEDS ORDERED: MAGNESIUM SULFATE IVPB ONE (13:30)
[2019-03-04] MEDS ORDERED: POTASSIUM CHLORIDE IVPB ONE (13:30)
[2019-03-04] MEDS ORDERED: DEXTROSE IVPB ONE (13:30)
[2019-03-04 16:32] VITALS: TEMP 97.9
[2019-03-04] MEDS ORDERED: PORTA CATH FLUSH 10 ML IVPUSH ONE ×2 (16:32→17:04)
[2019-03-04 17:04] VITALS: BP 90/48; PULSE 77
[2019-03-05] MEDS ORDERED: POTASSIUM CHLORIDE IVPB ONE (10:00)
[2019-03-05] MEDS ORDERED: [UNRECOGNIZED DRUG - OTHER] IVPB ONE (10:00)
[2019-03-05] MEDS ORDERED: MAGNESIUM SULFATE IVPB ONE (10:00)
[2019-03-05] MEDS ORDERED: DEXTROSE IVPB ONE (10:00)
== END 2019-03-04 15:35 | disposition home or self-care (01) ==
LOC: JONCCHEMO 07:12 → J7W 12:55 → JONCCHEMO 15:35
PROVIDERS: ATTEND Internal Medicine Hematology & Oncology
PROC: 3E043GC Introduction of Other Therapeutic Substance into Central Vein, Percutaneous Approach (ICD-10-PCS; principal; 2019-03-04)
DX: C15.9 Malignant neoplasm of esophagus, unspecified (principal); Z76.89 Persons encountering health services in other specified circumstances
CPT/HCPCS: 96361; 96367; 96375; J2405

== ENCOUNTER 2019-03-05 07:11 | Day surgery (SDC) | payer OTHER, BC ==
[2019-03-05 09:29] VITALS: TEMP 97.3
[2019-03-05] MEDS ORDERED: PORTA CATH FLUSH 10 ML IVPUSH ONE (09:37)
[2019-03-05] MEDS ORDERED: POTASSIUM CHLORIDE 20 MEQ, MAGNESIUM SULFATE 1 GM in DEXTROSE 5%-0.45% SALINE - 500 ML IVPB ONE (10:00)
[2019-03-05 12:43] VITALS: BP 105/37; PULSE 80
== END 2019-03-05 11:40 | disposition home or self-care (01) ==
LOC: JONCNONCHE 07:11 → J7W 08:37 → JONCNONCHE 11:40
PROVIDERS: ATTEND Internal Medicine Hematology & Oncology
PROC: 3E043GC Introduction of Other Therapeutic Substance into Central Vein, Percutaneous Approach (ICD-10-PCS; principal; 2019-03-05)
DX: C15.9 Malignant neoplasm of esophagus, unspecified (principal); Z76.89 Persons encountering health services in other specified circumstances
CPT/HCPCS: 96360; 96361

== ENCOUNTER 2019-03-17 07:14 | Day surgery (SDC) | payer OTHER, BC ==
[2019-03-17 09:26] LABS: BASO % 0.1 % (0-2.0); EOS % 0.2 % (0-4.5); HEMOGLOBIN 11.8 GM/dL (10.7-15.3); LYMPH % 11.6 % (8-40); MCH 33.1 pg (25.7-33.7); MCHC 31.9 g/dl (32.0-36.0); MEAN CELL VOLUME 103.6 fl (80-96); MEAN PLT VOLUME 9.1 fl (7.5-11.1); MONO % 5.6 % (3.8-10.2); NEUT % 82.5 % (42.8-82.8); PLATELET COUNT 135 K/MM3 (134-434); RBC 3.57 M/mm3 (3.60-5.2); RDW 22.5 % (11.6-15.6); WHITE BLOOD COUNT 5.1 K/mm3 (4.0-10.0)
[2019-03-17 09:48] LABS: ALBUMIN 3.4 g/dl (3.4-5.0); BILIRUBIN,DIRECT 0.2 mg/dL (0.0-0.2); BILIRUBIN,TOTAL 0.7 mg/dL (0.2-1); CALCIUM 8.2 mg/dL (8.5-10.1); MAGNESIUM 2.2 mg/dL (1.8-2.4); POTASSIUM 3.2 mmol/L (3.5-5.1); TOT PROT 5.9 g/dl (6.4-8.2)
[2019-03-17] MEDS ORDERED: DEXAMETHASONE SODIUM PHOSPHATE 20 MG in SODIUM CHLORIDE 50 ML IVPB ONE (10:00)
[2019-03-17] MEDS ORDERED: PALONOSETRON HCL 0.25 MG/5 ML VIAL IVPUSH ONE (10:00)
[2019-03-17] MEDS ORDERED: LEUCOVORIN INJECTION - 572 MG in DEXTROSE 5%-WATER - 250 ML IVPB ONE (10:30)
[2019-03-17] MEDS ORDERED: IRINOTECAN HCL 190 MG in DEXTROSE 5%-WATER - 500 ML IVPB ONE (10:30)
[2019-03-17] MEDS ORDERED: POTASSIUM CHLORIDE 10 MEQ PREMIX IVPB (POTASSIUM RIDER) IVPB SCH (11:05)
[2019-03-17] MEDS ORDERED: POTASSIUM CHLORIDE 20 MEQ PREMIX IVPB 100 ML IVPB SCH (11:15)
[2019-03-17] MEDS ORDERED: FLUOROURACIL 2,500 MG/50 ML VIAL IVPUSH ONE (12:30)
[2019-03-17] MEDS ORDERED: SODIUM CHLORIDE CP ONE (12:45)
[2019-03-17] MEDS ORDERED: FLUOROURACIL CP ONE (12:45)
[2019-03-17 14:43] LABS: ANISOCYTOSIS 1+; MACROCYTOSIS 0; OVALOCYTE 1+; PLATELET ESTIMATE DECREASED; TEAR DROP CELLS 1+
[2019-03-17] MEDS: POTASSIUM CHLORIDE 10 MEQ PREMIX IVPB (POTASSIUM RIDER) IVPB SCH ×2 (16:40→17:33)
[2019-03-17 18:03] VITALS: TEMP 99
[2019-03-17] MEDS ORDERED: PORTA CATH FLUSH 10 ML IVPUSH ONE (18:03)
[2019-03-17 18:44] VITALS: BP 85/55; PULSE 80
== END 2019-03-17 18:45 | disposition home or self-care (01) ==
LOC: JONCCHEMO 07:14 → J7W 11:42 → JONCCHEMO 18:45
PROVIDERS: ATTEND Internal Medicine Hematology & Oncology
PROC: 3E04305 Introduction of Other Antineoplastic into Central Vein, Percutaneous Approach (ICD-10-PCS; principal; 2019-03-17)
PROC: 3E043GC Introduction of Other Therapeutic Substance into Central Vein, Percutaneous Approach (ICD-10-PCS; 2019-03-17)
DX: Z51.11 Encounter for antineoplastic chemotherapy (principal); C15.9 Malignant neoplasm of esophagus, unspecified; I10 Essential (primary) hypertension; E78.00 Pure hypercholesterolemia, unspecified
CPT/HCPCS: 36415; 80048; 80076; 83735; 84439; 84443; 85025; 96367; 96375; 96409; 96413; 96415; 96417; G0498; J2469; J9206

== ENCOUNTER 2019-03-19 06:12 | Day surgery (SDC) | payer OTHER, BC ==
[2019-03-19 17:22] VITALS: PULSE 87; TEMP 98.9
[2019-03-19 17:32] VITALS: BP 86/55
[2019-03-19] MEDS ORDERED: PORTA CATH FLUSH 10 ML IVPUSH ONE (17:32)
== END 2019-03-19 17:00 | disposition home or self-care (01) ==
LOC: JONCCHEMO 06:12 → J7W 16:26 → JONCCHEMO 17:00
PROVIDERS: ATTEND Internal Medicine Hematology & Oncology
DX: Z53.8 Procedure and treatment not carried out for other reasons (principal)

== ENCOUNTER 2019-03-27 10:22 | Day surgery (SDC) | payer OTHER, BC | END 2019-03-30 14:45 | disposition home or self-care (01) | LOC: JONCCHEMO 10:22 → J7W 03-30 11:18 → JONCCHEMO 03-30 14:45 ==

== ENCOUNTER 2019-03-31 07:11 | Day surgery (SDC) | payer OTHER, BC | END 2019-03-31 16:15 | disposition home or self-care (01) | LOC: JONCNONCHE 07:11 → J7W 10:26 → JONCNONCHE 16:15 ==

== ENCOUNTER 2019-04-03 10:41 | Emergency (ER) | payer OTHER, BC | END 2019-04-03 13:02 | disposition home or self-care (01) | LOC: JER 10:41 ==

== ENCOUNTER 2019-04-13 07:04 | Day surgery (SDC) | payer OTHER, BC ==
[2019-04-13] MEDS ORDERED: PALONOSETRON HCL 0.25 MG/5 ML VIAL IVPUSH ONE (09:00)
[2019-04-13] MEDS ORDERED: DEXAMETHASONE SODIUM PHOSPHATE 20 MG in SODIUM CHLORIDE 50 ML IVPB ONE (09:00)
[2019-04-13] MEDS ORDERED: SODIUM CHLORIDE 0.9%/KCL 20 MEQ/1,000 ML INFUS.BAG IV SCH (09:15)
[2019-04-13] MEDS ORDERED: LEUCOVORIN IVPB ONE (09:30)
[2019-04-13] MEDS ORDERED: DEXTROSE 5% IVPB ONE ×2 (09:30)
[2019-04-13] MEDS ORDERED: WATER IVPB ONE ×2 (09:30)
[2019-04-13] MEDS ORDERED: IRINOTECAN HCL IVPB ONE (09:30)
[2019-04-13 09:32] LABS: BASO % 0.4 % (0-2.0); HEMATOCRIT 32.7 % (32.4-45.2); HEMOGLOBIN 10.7 GM/dL (10.7-15.3); MCH 34.9 pg (25.7-33.7); MCHC 32.6 g/dl (32.0-36.0); MEAN CELL VOLUME 106.9 fl (80-96); MONO % 4.2 % (3.8-10.2); NEUT % 88.4 % (42.8-82.8); PLATELET COUNT 263 K/MM3 (134-434); RBC 3.06 M/mm3 (3.60-5.2); RDW 23.9 % (11.6-15.6); WHITE BLOOD COUNT 10.6 K/mm3 (4.0-10.0)
[2019-04-13 10:08] LABS: ALBUMIN 2.8 g/dl (3.4-5.0); BILIRUBIN,DIRECT 0.2 mg/dL (0.0-0.2); BILIRUBIN,TOTAL 0.5 mg/dL (0.2-1); BLOOD UREA NITROGEN 26.9 mg/dL (7-18); CALCIUM 7.8 mg/dL (8.5-10.1); CREATININE 0.8 mg/dL (0.55-1.3); MAGNESIUM 2.4 mg/dL (1.8-2.4); POTASSIUM 3.6 mmol/L (3.5-5.1); TOT PROT 5.4 g/dl (6.4-8.2)
[2019-04-13 10:39] LABS: ANISOCYTOSIS 1+; MACROCYTOSIS 2+; OVALOCYTE 1+; PLATELET ESTIMATE NORMAL
[2019-04-13] MEDS ORDERED: FLUOROURACIL 500 MG/10 ML VIAL IVPUSH ONE (11:00)
[2019-04-13] MEDS ORDERED: SODIUM CHLORIDE CP ONE (11:15)
[2019-04-13] MEDS ORDERED: FLUOROURACIL CP ONE (11:15)
[2019-04-13 15:11] VITALS: TEMP 97.5
[2019-04-13] MEDS ORDERED: PORTA CATH FLUSH 10 ML IVPUSH ONE (15:15)
[2019-04-13 15:22] VITALS: BP 99/37; PULSE 84
== END 2019-04-13 15:00 | disposition home or self-care (01) ==
LOC: JONCCHEMO 07:04 → J7W 10:13 → JONCCHEMO 15:00
PROVIDERS: ATTEND Internal Medicine Hematology & Oncology
PROC: 3E04305 Introduction of Other Antineoplastic into Central Vein, Percutaneous Approach (ICD-10-PCS; principal; 2019-04-13)
PROC: 3E04305 Introduction of Other Antineoplastic into Central Vein, Percutaneous Approach (ICD-10-PCS; 2019-04-13)
PROC: 3E043GC Introduction of Other Therapeutic Substance into Central Vein, Percutaneous Approach (ICD-10-PCS; 2019-04-13)
PROC: 3E0437Z Introduction of Electrolytic and Water Balance Substance into Central Vein, Percutaneous Approach (ICD-10-PCS; 2019-04-13)
DX: Z51.11 Encounter for antineoplastic chemotherapy (principal); C15.9 Malignant neoplasm of esophagus, unspecified; I10 Essential (primary) hypertension; E78.00 Pure hypercholesterolemia, unspecified
CPT/HCPCS: 36415; 80048; 80076; 83735; 85025; 96361; 96367; 96375; 96409; 96413; 96415; 96417; G0498; J2469; J9190; J9206

== ENCOUNTER 2019-04-15 07:05 | Day surgery (SDC) | payer OTHER, BC ==
[2019-04-15 16:25] VITALS: BP 93/49; PULSE 98; TEMP 99
[2019-04-15] MEDS ORDERED: PORTA CATH FLUSH 10 ML IVPUSH ONE (17:22)
== END 2019-04-15 13:15 | disposition home or self-care (01) ==
LOC: JONCCHEMO 07:05 → J7W 13:07 → JONCCHEMO 13:15
PROVIDERS: ATTEND Internal Medicine Hematology & Oncology
DX: Z53.8 Procedure and treatment not carried out for other reasons (principal)

== ENCOUNTER 2019-04-27 06:37 | Day surgery (SDC) | payer OTHER, BC ==
[2019-04-27] MEDS ORDERED: PALONOSETRON HCL 0.25 MG/5 ML VIAL IVPUSH ONE (10:00)
[2019-04-27] MEDS ORDERED: DEXAMETHASONE SODIUM PHOSPHATE 20 MG in SODIUM CHLORIDE 50 ML IVPB ONE (10:00)
[2019-04-27 10:16] LABS: BASO % 0.4 % (0-2.0); EOS % 5.1 % (0-4.5); HEMATOCRIT 29.1 % (32.4-45.2); HEMOGLOBIN 9.6 GM/dL (10.7-15.3); LYMPH % 9.7 % (8-40); MCH 35.8 pg (25.7-33.7); MCHC 33.1 g/dl (32.0-36.0); MEAN CELL VOLUME 108.2 fl (80-96); MEAN PLT VOLUME 8.7 fl (7.5-11.1); MONO % 8.7 % (3.8-10.2); NEUT % 76.1 % (42.8-82.8); PLATELET COUNT 193 K/MM3 (134-434); RBC 2.69 M/mm3 (3.60-5.2)
[2019-04-27] MEDS ORDERED: DEXTROSE 5% IVPB ONE ×2 (10:30→11:00)
[2019-04-27] MEDS ORDERED: LEUCOVORIN IVPB ONE (10:30)
[2019-04-27] MEDS ORDERED: WATER IVPB ONE ×2 (10:30→11:00)
[2019-04-27 10:43] LABS: ALBUMIN 2.7 g/dl (3.4-5.0); BILIRUBIN,DIRECT 0.1 mg/dL (0.0-0.2); BILIRUBIN,TOTAL 0.4 mg/dL (0.2-1); BLOOD UREA NITROGEN 15.6 mg/dL (7-18); CREATININE 0.6 mg/dL (0.55-1.3); MAGNESIUM 1.9 mg/dL (1.8-2.4); POTASSIUM 3.6 mmol/L (3.5-5.1); TOT PROT 5.6 g/dl (6.4-8.2)
[2019-04-27] MEDS ORDERED: IRINOTECAN HCL IVPB ONE (11:00)
[2019-04-27] MEDS ORDERED: FLUOROURACIL 500 MG/10 ML VIAL IVPUSH ONE (12:30)
[2019-04-27] MEDS ORDERED: SODIUM CHLORIDE CP ONE (12:45)
[2019-04-27] MEDS ORDERED: FLUOROURACIL CP ONE (12:45)
[2019-04-27 17:25] VITALS: BP 100/62; PULSE 88; TEMP 97.4
[2019-04-27] MEDS ORDERED: PORTA CATH FLUSH 10 ML IVPUSH ONE (17:25)
[2019-04-27 20:56] LABS: ANISOCYTOSIS 2+
== END 2019-04-27 14:30 | disposition home or self-care (01) ==
LOC: JONCCHEMO 06:37 → J7W 09:44 → JONCCHEMO 14:30
PROVIDERS: ATTEND Internal Medicine Hematology & Oncology
DX: Z51.11 Encounter for antineoplastic chemotherapy (principal); C15.9 Malignant neoplasm of esophagus, unspecified
CPT/HCPCS: 36415; 80048; 80076; 83735; 84443; 85025; 96366; 96367; 96375; 96409; 96411; 96413; 96415; 96417; G0498; J2469; J9190; J9206

== ENCOUNTER 2019-04-27 14:43 | Emergency (ER) | payer OTHER, BC ==
[2019-04-27 14:50] VITALS: BP 102/51; PULSE 84; TEMP 97.5; BMI 12.9
--- NOTE | 2019-04-27 15:35 | PDOC ---
History of Present Illness - General Chief Complaint: Injury Stated Complaint: FALL Time Seen by Provider: 04/27/19 14:51 History Source: Patient Exam Limitations: Clinical Condition - History of Present Illness Initial Comments: 04/27/19 15:36 Patient with history of multiple comorbidities on Eliquis presenting for evaluation of abrasion to left elbow and left knee status post slip while putting on slippers and falling on the left side bracing her body with the left elbow and knees. Patient reported no pain to leg or arm. Denies any pain anywhere else. Denies hitting head or loss of consciousness. Patient reported only minor abrasion which she had previously and has worsened from the fall to lateral aspect of left elbow and left knee. Denies any other symptoms Timing/Duration: 1-3 hours Past History - Past Medical History Allergies/Adverse Reactions: Allergies Allergy/AdvReac Type Severity Reaction Status Date / Time amoxicillin Allergy Verified 04/27/19 14:52 Penicillins Allergy Difficulty Verified 04/27/19 14:52 Breathing Home Medications: Ambulatory Orders Docusate Sodium [Colace] 100 mg PO PRN PRN 12/04/18 Acetaminophen [Tylenol .Regular Strength -] 650 mg PO Q4H PRN tablet 12/09/18 Zolpidem Tartrate [Ambien] 5 mg PO HS PRN #30 tablet MDD 1 02/16/19 Pantoprazole Sodium [Protonix -] 40 mg PO DAILY tablet.ec 02/28/19 predniSONE [Deltasone -] 60 mg PO DAILY tablet 02/28/19 Apixaban [Eliquis] 5 mg PO BID 04/03/19 Anemia: No Asthma: No Cancer: Yes (ESOPHAGEAL) Cardiac Disorders: No CVA: No COPD: No CHF: No Dementia: No Diabetes: No GI Disorders: No Disorders: No HTN: Yes Hypercholesterolemia: Yes Liver Disease: No Seizures: No Thyroid Disease: No - Surgical History Abdominal Surgery: Yes (12/01/15 EGD) Appendectomy: No Cardiac Surgery: No Cholecystectomy: Yes Lung Surgery: No Neurologic Surgery: No Orthopedic Surgery: No - Family Disease History Family Disease History: Diabetes: Father, Heart Disease: Mother - Immunization History Immunization Up to Date: Yes - Suicide/Smoking/Psychosocial Hx Smoking History: Never smoked Have you smoked in the past 12 months: No Information on smoking cessation initiated: No Hx Alcohol Use: No Drug/Substance Use Hx: No Substance Use Type: None, Alcohol, Cocaine, Heroin, Marijuana, Opiates, Prescribed, Tranquilizers Hx Substance Use Treatment: No Review of Systems - Review of Systems Able to Perform ROS?: Yes Is the patient limited Arabic proficient: No Constitutional: No: Weakness HEENTM: No: Symptoms Reported, Blurred Vision, Recent change in vision, Double Vision Respiratory: No: Symptoms reported Cardiac (ROS): No: Symptoms Reported ABD/GI: No: Symptoms Reported Musculoskeletal: Yes: See HPI. No: Symptoms Reported, Muscle Pain, Muscle Weakness Integumentary: Yes: Symptoms Reported, Other (abrasion to left knee and elbow on lateral side) Neurological: No: Numbness, Paresthesia, Tingling All Other Systems: Reviewed and Negative *Physical Exam - Vital Signs Last Vital Signs Temp Pulse Resp BP Pulse Ox 97.5 F L 84 18 102/51 L 99 04/27/19 14:49 04/27/19 14:49 04/27/19 14:49 04/27/19 14:49 04/27/19 14:49 - Physical Exam Comments: 04/27/19 15:40 GENERAL: Well developed, well nourished. Awake and alert. No acute distress. CARDIOVASCULAR: Regular rate and rhythm. No murmurs, rubs, or gallops. PULMONARY: No evidence of respiratory distress. MUSCULOSKELETAL : No tenderness over extremities on bilateral sides. No bony deformities . No evidence of head trauma EXTREMITIES: No cyanosis. No clubbing. No edema. No calf tenderness. SKIN: Warm and dry. Normal capillary refill. Multiple superficial ecchymosis with 2 areas of 2 cm superficial abrasion to lateral aspect of left knee and left elbow. NEUROLOGICAL: Alert, awake, appropriate. No motor deficits in the lower extremities. Gait is normal without ataxia. PSYCHIATRIC: Cooperative. Good eye contact. Appropriate mood and affect. General Appearance: Yes: Nourished, Appropriately Dressed. No: Apparent Distress Medical Decision Making - Medical Decision Making 04/27/19 15:37 Patient with history of multiple comorbidities on Eliquis presenting for evaluation of abrasion to left elbow and left knee status post slip while putting on slippers and falling on the left side bracing her body with the left elbow and knees. Patient reported no pain to leg or arm. Denies any pain anywhere else. Denies hitting head or loss of consciousness. Patient reported only minor abrasion which she had previously and has worsened from the fall to lateral aspect of left elbow and left knee. Denies any other symptoms Exam significant for small area of 2 cm superficial abrasion to lateral aspect of left knee and another 2 cm superficial abrasion to lateral aspect of left elbow. No tenderness to bilateral extremities. Otherwise exam normal. Abrasion to left elbow and knee cleaned with Betadine. Bacitracin applied to abrasions. Wound covered with petrolatum jelly if she was gauze and 4 x 4 gauze with Tegaderm. Patient stable for discharge with strict instructions to come back if pain for reassessment and imaging as patient does not feel she needs imaging at this time *DC/Admit/Observation/Transfer Diagnosis at time of Disposition: Abrasion of left elbow, initial encounter, Abrasion, left knee, initial encounter Fall Qualifiers: Encounter type: initial encounter Qualified Code(s): W19.XXXA - Unspecified fall, initial encounter - Discharge Dispostion Disposition: HOME Condition at time of disposition: Stable Decision to Admit order: No - Referrals - Patient Instructions Printed Discharge Instructions: Minor Wounds (Alternative Therapy), DI for Abrasion Additional Instructions: Keep wound clean and dry for the next 24hrs. change wound dressing daily as discussed and apply home bacitracin to wound twice a day until healed. Come back to ED if worsening pain to arm or leg for imaging - Post Discharge Activity
== END 2019-04-27 15:40 | disposition home or self-care (01) ==
LOC: JERFT 14:43
DX: S80.212A Abrasion, left knee, initial encounter (principal); S50.312A Abrasion of left elbow, initial encounter; W18.39XA Other fall on same level, initial encounter; Y93.89 Activity, other specified; Y92.89 Other specified places as the place of occurrence of the external cause; Z79.01 Long term (current) use of anticoagulants; I10 Essential (primary) hypertension; E78.00 Pure hypercholesterolemia, unspecified; Z85.01 Personal history of malignant neoplasm of esophagus
CPT/HCPCS: 99281-25

== ENCOUNTER 2019-04-29 06:44 | Day surgery (SDC) | payer OTHER, BC ==
[2019-04-29] MEDS ORDERED: SODIUM CHLORIDE 1,000 ML IV SCH (13:00)
[2019-04-29 13:54] VITALS: TEMP 98.2
[2019-04-29] MEDS ORDERED: PORTA CATH FLUSH 10 ML IVPUSH ONE (15:55)
[2019-04-29 17:15] VITALS: BP 94/55; PULSE 94
== END 2019-04-29 15:30 | disposition home or self-care (01) ==
LOC: JONCCHEMO 06:44 → J7W 13:18 → JONCCHEMO 15:30
PROVIDERS: ATTEND Internal Medicine Hematology & Oncology
PROC: 3E0437Z Introduction of Electrolytic and Water Balance Substance into Central Vein, Percutaneous Approach (ICD-10-PCS; principal; 2019-04-29)
DX: C15.9 Malignant neoplasm of esophagus, unspecified (principal); Z76.89 Persons encountering health services in other specified circumstances
CPT/HCPCS: 96360; 96361; J7030

== ENCOUNTER 2019-05-11 07:01 | Day surgery (SDC) | payer OTHER, BC ==
[2019-05-11 08:30] LABS: BASO % 0.8 % (0-2.0); EOS % 3.8 % (0-4.5); HEMATOCRIT 29.2 % (32.4-45.2); HEMOGLOBIN 9.5 GM/dL (10.7-15.3); LYMPH % 10.9 % (8-40); MCH 36.1 pg (25.7-33.7); MCHC 32.7 g/dl (32.0-36.0); MEAN CELL VOLUME 110.5 fl (80-96); MEAN PLT VOLUME 7.9 fl (7.5-11.1); MONO % 8.1 % (3.8-10.2); NEUT % 76.4 % (42.8-82.8); PLATELET COUNT 267 K/MM3 (134-434); RBC 2.64 M/mm3 (3.60-5.2); RDW 19.2 % (11.6-15.6); WHITE BLOOD COUNT 5.2 K/mm3 (4.0-10.0)
[2019-05-11 08:56] LABS: ALBUMIN 2.7 g/dl (3.4-5.0); BILIRUBIN,DIRECT 0.1 mg/dL (0.0-0.2); BILIRUBIN,TOTAL 0.3 mg/dL (0.2-1); BLOOD UREA NITROGEN 18.6 mg/dL (7-18); CALCIUM 8.1 mg/dL (8.5-10.1); CREATININE 0.6 mg/dL (0.55-1.3); MAGNESIUM 1.7 mg/dL (1.8-2.4); POTASSIUM 3.3 mmol/L (3.5-5.1); TOT PROT 5.5 g/dl (6.4-8.2)
[2019-05-11] MEDS ORDERED: POTASSIUM CHLORIDE TABS 20 MEQ TABLET.ER (FP) PO ONE (09:21)
[2019-05-11] MEDS ORDERED: MAGNESIUM OXIDE 400 MG TABLET (FP) PO ONE (09:22)
[2019-05-11] MEDS ORDERED: DEXAMETHASONE SODIUM PHOSPHATE 20 MG in SODIUM CHLORIDE 50 ML IVPB ONE (10:00)
[2019-05-11] MEDS ORDERED: PALONOSETRON HCL 0.25 MG/5 ML VIAL IVPUSH ONE (10:00)
[2019-05-11] MEDS ORDERED: DEXTROSE 5% IVPB ONE ×2 (10:30→11:00)
[2019-05-11] MEDS ORDERED: LEUCOVORIN IVPB ONE (10:30)
[2019-05-11] MEDS ORDERED: POTASSIUM CHLORIDE 20 MEQ, MAGNESIUM SULFATE 1 GM in SODIUM CHLORIDE 500 ML IVPB ONE (10:30)
[2019-05-11] MEDS ORDERED: WATER IVPB ONE ×2 (10:30→11:00)
[2019-05-11] MEDS ORDERED: IRINOTECAN HCL IVPB ONE (11:00)
[2019-05-11] MEDS ORDERED: FLUOROURACIL 500 MG/10 ML VIAL IVPUSH ONE (12:30)
[2019-05-11] MEDS ORDERED: FLUOROURACIL CP ONE (12:45)
[2019-05-11] MEDS ORDERED: SODIUM CHLORIDE CP ONE (12:45)
[2019-05-11 14:24] LABS: ANISOCYTOSIS 1+; MACROCYTOSIS 1+; PLATELET ESTIMATE NORMAL; TARGET CELLS 1+; TEAR DROP CELLS 1+
[2019-05-11 16:09] VITALS: BP 95/54; PULSE 91; TEMP 91
== END 2019-05-11 16:10 | disposition home or self-care (01) ==
LOC: JONCCHEMO 07:01 → J7W 09:57 → JONCCHEMO 16:10
PROVIDERS: ATTEND Internal Medicine Hematology & Oncology
DX: Z51.11 Encounter for antineoplastic chemotherapy (principal); C15.9 Malignant neoplasm of esophagus, unspecified
CPT/HCPCS: 36415; 80048; 80076; 83735; 85025; 96361; 96367; 96375; 96409; 96411; 96413; 96415; 96417; G0498; J2469; J9190; J9206

== ENCOUNTER 2019-05-13 07:11 | Day surgery (SDC) | payer OTHER, BC | END 2019-05-13 16:15 | disposition home or self-care (01) | LOC: JONCCHEMO 07:11 → J7W 12:39 → JONCCHEMO 16:15 ==

== ENCOUNTER 2019-05-25 07:13 | Day surgery (SDC) | payer OTHER, BC ==
[2019-05-25] MEDS ORDERED: PALONOSETRON HCL 0.25 MG/5 ML VIAL IVPUSH ONE (09:00)
[2019-05-25] MEDS ORDERED: DEXAMETHASONE SODIUM PHOSPHATE 20 MG in SODIUM CHLORIDE 50 ML IVPB ONE (09:00)
[2019-05-25] MEDS ORDERED: IRINOTECAN HCL IVPB ONE (09:30)
[2019-05-25] MEDS ORDERED: LEUCOVORIN IVPB ONE (09:30)
[2019-05-25] MEDS ORDERED: DEXTROSE 5% IVPB ONE ×2 (09:30)
[2019-05-25] MEDS ORDERED: WATER IVPB ONE ×2 (09:30)
[2019-05-25 09:57] LABS: BASO % 0.9 % (0-2.0); EOS % 4.8 % (0-4.5); HEMATOCRIT 24.4 % (32.4-45.2); HEMOGLOBIN 8.1 GM/dL (10.7-15.3); LYMPH % 9.5 % (8-40); MCH 36.2 pg (25.7-33.7); MEAN CELL VOLUME 109.9 fl (80-96); MONO % 12.2 % (3.8-10.2); NEUT % 72.6 % (42.8-82.8); PLATELET COUNT 229 K/MM3 (134-434); RBC 2.22 M/mm3 (3.60-5.2); RDW 18.5 % (11.6-15.6); WHITE BLOOD COUNT 4.5 K/mm3 (4.0-10.0)
[2019-05-25] MEDS ORDERED: MAGNESIUM SULF 50% (8.12 MEQ/2 ML-1 GM VIAL) IVPB ONE (10:15)
[2019-05-25] MEDS ORDERED: ALTEPLASE 2 MG VIAL CVP ONE ×2 (10:15)
[2019-05-25 10:22] LABS: ALBUMIN 2.6 g/dl (3.4-5.0); BILIRUBIN,DIRECT 0.1 mg/dL (0.0-0.2); BILIRUBIN,TOTAL 0.3 mg/dL (0.2-1); BLOOD UREA NITROGEN 15.4 mg/dL (7-18); CALCIUM 7.8 mg/dL (8.5-10.1); CREATININE 0.6 mg/dL (0.55-1.3); MAGNESIUM 1.8 mg/dL (1.8-2.4); POTASSIUM 3.9 mmol/L (3.5-5.1); TOT PROT 5.6 g/dl (6.4-8.2)
[2019-05-25] MEDS ORDERED: POTASSIUM CHLORIDE 20 MEQ in DEXTROSE 5%-NORMAL SALINE 500 ML IVPB ONE (11:00)
[2019-05-25] MEDS ORDERED: FLUOROURACIL 500 MG/10 ML VIAL IVPUSH ONE (11:00)
[2019-05-25] MEDS ORDERED: FLUOROURACIL IV ONE (11:15)
[2019-05-25] MEDS ORDERED: SODIUM CHLORIDE IV ONE (11:15)
[2019-05-25] MEDS ORDERED: [UNRECOGNIZED DRUG - OTHER] IVPB ONE (12:00)
[2019-05-25] MEDS ORDERED: POTASSIUM CHLORIDE 20 MEQ in DEXTROSE 5%-0.45% SALINE - 500 ML IVPB ONE (12:00)
[2019-05-25] MEDS ORDERED: DEXTROSE IVPB ONE (12:00)
[2019-05-25] MEDS ORDERED: POTASSIUM CHLORIDE IVPB ONE (12:00)
[2019-05-25 13:50] LABS: ANISOCYTOSIS 1+; MACROCYTOSIS 2+; PLATELET ESTIMATE NORMAL
[2019-05-25] MEDS ORDERED: MAGNESIUM SULF 50% (8.12 MEQ/2 ML-1 GM VIAL) ONE (14:54)
[2019-05-25 16:05] VITALS: TEMP 98
[2019-05-25] MEDS ORDERED: PORTA CATH FLUSH 10 ML IVPUSH ONE ×2 (16:05→17:13)
[2019-05-25 17:31] VITALS: BP 101/46; PULSE 82
== END 2019-05-25 17:34 | disposition home or self-care (01) ==
LOC: JONCCHEMO 07:13 → J7W 09:19 → JONCCHEMO 17:34
PROVIDERS: ATTEND Internal Medicine Hematology & Oncology
DX: Z51.11 Encounter for antineoplastic chemotherapy (principal); C15.9 Malignant neoplasm of esophagus, unspecified
CPT/HCPCS: 36415; 80048; 80076; 83735; 85025; 96361; 96367; 96375; 96409; 96411; 96413; 96415; 96417; G0498; J2469; J2997; J9190; J9206

== ENCOUNTER 2019-05-27 07:14 | Day surgery (SDC) | payer OTHER, BC ==
[2019-05-27 16:02] VITALS: TEMP 98.2
[2019-05-27] MEDS ORDERED: PORTA CATH FLUSH 10 ML IVPUSH ONE (16:02)
[2019-05-27 16:03] VITALS: BP 88/40; PULSE 96
== END 2019-05-27 15:15 | disposition home or self-care (01) ==
LOC: JONCCHEMO 07:14 → J7W 14:57 → JONCCHEMO 15:15
PROVIDERS: ATTEND Internal Medicine Hematology & Oncology
DX: Z53.8 Procedure and treatment not carried out for other reasons (principal)

== ENCOUNTER 2019-06-08 07:25 | Day surgery (SDC) | payer OTHER, BC ==
[2019-06-08] MEDS ORDERED: PALONOSETRON HCL 0.25 MG/5 ML VIAL IVPUSH ONE (09:30)
[2019-06-08] MEDS ORDERED: DEXAMETHASONE SODIUM PHOSPHATE 20 MG in SODIUM CHLORIDE 50 ML IVPB ONE (09:30)
[2019-06-08] MEDS ORDERED: WATER IVPB ONE ×2 (10:00)
[2019-06-08] MEDS ORDERED: LEUCOVORIN IVPB ONE (10:00)
[2019-06-08] MEDS ORDERED: DEXTROSE 5% IVPB ONE ×2 (10:00)
[2019-06-08] MEDS ORDERED: IRINOTECAN HCL IVPB ONE (10:00)
[2019-06-08 10:26] LABS: BASO % 0.4 % (0-2.0); EOS % 4.5 % (0-4.5); HEMATOCRIT 27.4 % (32.4-45.2); HEMOGLOBIN 8.9 GM/dL (10.7-15.3); LYMPH % 9.6 % (8-40); MCH 35.5 pg (25.7-33.7); MCHC 32.4 g/dl (32.0-36.0); MEAN CELL VOLUME 109.3 fl (80-96); MEAN PLT VOLUME 8.1 fl (7.5-11.1); NEUT % 74.5 % (42.8-82.8); PLATELET COUNT 244 K/MM3 (134-434)
[2019-06-08 11:03] LABS: ALBUMIN 2.9 g/dl (3.4-5.0); BILIRUBIN,DIRECT 0.1 mg/dL (0.0-0.2); BILIRUBIN,TOTAL 0.2 mg/dL (0.2-1); BLOOD UREA NITROGEN 17.6 mg/dL (7-18); CALCIUM 8.3 mg/dL (8.5-10.1); CREATININE 0.6 mg/dL (0.55-1.3); MAGNESIUM 2.1 mg/dL (1.8-2.4); POTASSIUM 3.7 mmol/L (3.5-5.1); TOT PROT 5.8 g/dl (6.4-8.2)
[2019-06-08] MEDS ORDERED: FLUOROURACIL 500 MG/10 ML VIAL IVPUSH ONE (11:30)
[2019-06-08] MEDS ORDERED: SODIUM CHLORIDE CP ONE (11:45)
[2019-06-08] MEDS ORDERED: FLUOROURACIL CP ONE (11:45)
[2019-06-08 14:00] LABS: ANISOCYTOSIS 1+; MACROCYTOSIS 1+; PLATELET ESTIMATE NORMAL
[2019-06-08 17:24] VITALS: TEMP 98.2
[2019-06-08 17:38] VITALS: BP 101/50; PULSE 85
[2019-06-08] MEDS ORDERED: PORTA CATH FLUSH 10 ML IVPUSH ONE (17:38)
== END 2019-06-08 15:30 | disposition home or self-care (01) ==
LOC: JONCCHEMO 07:25 → J7W 08:46 → JONCCHEMO 15:30
PROVIDERS: ATTEND Internal Medicine Hematology & Oncology
DX: Z51.11 Encounter for antineoplastic chemotherapy (principal); C15.9 Malignant neoplasm of esophagus, unspecified
CPT/HCPCS: 36415; 80048; 80076; 83735; 85025; 96367; 96375; 96409; 96411; 96413; 96415; 96417; G0498; J2469; J9190; J9206

== ENCOUNTER 2019-06-10 06:49 | Day surgery (SDC) | payer OTHER, BC ==
[2019-06-10] MEDS ORDERED: SODIUM CHLORIDE 500 ML IV ONE (15:00)
[2019-06-10 17:35] VITALS: BP 93/41; TEMP 98.4
[2019-06-10] MEDS ORDERED: PORTA CATH FLUSH 10 ML IVPUSH ONE (17:35)
[2019-06-10 18:08] VITALS: PULSE 95
== END 2019-06-10 16:07 | disposition home or self-care (01) ==
LOC: JONCCHEMO 06:49 → J7W 13:56 → JONCCHEMO 16:07
PROVIDERS: ATTEND Internal Medicine Hematology & Oncology
PROC: 3E0337Z Introduction of Electrolytic and Water Balance Substance into Peripheral Vein, Percutaneous Approach (ICD-10-PCS; principal; 2019-06-10)
DX: C15.9 Malignant neoplasm of esophagus, unspecified (principal)
CPT/HCPCS: 96360; 96361

== ENCOUNTER 2019-06-23 07:07 | Day surgery (SDC) | payer OTHER, BC ==
[2019-06-23 09:38] LABS: BASO % 0.3 % (0-2.0); EOS % 3.4 % (0-4.5); HEMOGLOBIN 8.7 GM/dL (10.7-15.3); MCH 33.8 pg (25.7-33.7); MCHC 32.3 g/dl (32.0-36.0); MEAN CELL VOLUME 104.8 fl (80-96); MEAN PLT VOLUME 7.8 fl (7.5-11.1); MONO % 12.5 % (3.8-10.2); NEUT % 74.8 % (42.8-82.8); PLATELET COUNT 231 K/MM3 (134-434); RBC 2.58 M/mm3 (3.60-5.2); RDW 16.9 % (11.6-15.6); WHITE BLOOD COUNT 4.5 K/mm3 (4.0-10.0)
[2019-06-23] MEDS ORDERED: DEXAMETHASONE SODIUM PHOSPHATE 20 MG in SODIUM CHLORIDE 50 ML IVPB ONE (10:00)
[2019-06-23] MEDS ORDERED: PALONOSETRON HCL 0.25 MG/5 ML VIAL IVPUSH ONE (10:00)
[2019-06-23 10:07] LABS: BILIRUBIN,DIRECT 0.1 mg/dL (0.0-0.2); BILIRUBIN,TOTAL 0.3 mg/dL (0.2-1); CALCIUM 8.8 mg/dL (8.5-10.1); CREATININE 0.5 mg/dL (0.55-1.3); MAGNESIUM 2.2 mg/dL (1.8-2.4); POTASSIUM 4.6 mmol/L (3.5-5.1); TOT PROT 5.8 g/dl (6.4-8.2)
[2019-06-23] MEDS ORDERED: WATER IVPB ONE ×2 (10:30→11:00)
[2019-06-23] MEDS ORDERED: DEXTROSE 5% IVPB ONE ×2 (10:30→11:00)
[2019-06-23] MEDS ORDERED: LEUCOVORIN IVPB ONE (10:30)
[2019-06-23] MEDS ORDERED: IRINOTECAN HCL IVPB ONE (11:00)
[2019-06-23] MEDS ORDERED: FLUOROURACIL 2,500 MG/50 ML VIAL IVPUSH ONE (12:30)
[2019-06-23] MEDS ORDERED: FLUOROURACIL CP ONE (12:45)
[2019-06-23] MEDS ORDERED: SODIUM CHLORIDE CP ONE (12:45)
[2019-06-23 16:52] VITALS: TEMP 97.5
[2019-06-23 16:53] VITALS: BP 117/56; PULSE 83
== END 2019-06-23 15:30 | disposition home or self-care (01) ==
LOC: JONCCHEMO 07:07 → J7W 11:29 → JONCCHEMO 15:30
PROVIDERS: ATTEND Internal Medicine Hematology & Oncology
PROC: 3E04305 Introduction of Other Antineoplastic into Central Vein, Percutaneous Approach (ICD-10-PCS; principal; 2019-06-23)
PROC: 3E043GC Introduction of Other Therapeutic Substance into Central Vein, Percutaneous Approach (ICD-10-PCS; 2019-06-23)
PROC: 3E04305 Introduction of Other Antineoplastic into Central Vein, Percutaneous Approach (ICD-10-PCS; 2019-06-23)
DX: Z51.11 Encounter for antineoplastic chemotherapy (principal); C15.9 Malignant neoplasm of esophagus, unspecified
CPT/HCPCS: 36415; 80048; 80053; 80076; 83735; 85025; 96368; 96375; 96409; 96413; 96415; 96417; G0498; J2469; J9206

== ENCOUNTER 2019-06-25 05:37 | Day surgery (SDC) | payer OTHER, BC ==
[2019-06-25 16:39] VITALS: BP 94/52; PULSE 97; TEMP 97.8
[2019-06-25] MEDS ORDERED: PORTA CATH FLUSH 10 ML IVPUSH ONE (16:39)
== END 2019-06-25 14:10 | disposition home or self-care (01) ==
LOC: JONCCHEMO 05:37 → J7W 13:45 → JONCCHEMO 14:10
PROVIDERS: ATTEND Internal Medicine Hematology & Oncology
PROC: 2W54XYZ Removal of Other Device on Chest Wall (ICD-10-PCS; principal; 2019-06-25)
DX: Z53.8 Procedure and treatment not carried out for other reasons (principal)

== ENCOUNTER 2019-07-06 06:10 | Day surgery (SDC) | payer OTHER, BC ==
[2019-07-06 09:00] LABS: BASO % 0.7 % (0-2.0); EOS % 4.1 % (0-4.5); HEMATOCRIT 25.5 % (32.4-45.2); HEMOGLOBIN 8.2 GM/dL (10.7-15.3); LYMPH % 11.5 % (8-40); MCH 33.6 pg (25.7-33.7); MCHC 32.2 g/dl (32.0-36.0); MEAN CELL VOLUME 104.1 fl (80-96); MEAN PLT VOLUME 8.1 fl (7.5-11.1); MONO % 15.1 % (3.8-10.2); NEUT % 68.6 % (42.8-82.8); PLATELET COUNT 204 K/MM3 (134-434); RBC 2.45 M/mm3 (3.60-5.2); RDW 16.6 % (11.6-15.6); WHITE BLOOD COUNT 3.3 K/mm3 (4.0-10.0)
[2019-07-06 09:25] LABS: BILIRUBIN,TOTAL 0.5 mg/dL (0.2-1); BLOOD UREA NITROGEN 21.6 mg/dL (7-18); CALCIUM 8.3 mg/dL (8.5-10.1); CREATININE 0.5 mg/dL (0.55-1.3); MAGNESIUM 2.1 mg/dL (1.8-2.4); POTASSIUM 3.6 mmol/L (3.5-5.1); TOT PROT 5.8 g/dl (6.4-8.2)
[2019-07-06] MEDS ORDERED: DEXAMETHASONE SODIUM PHOSPHATE 20 MG in SODIUM CHLORIDE 50 ML IVPB ONE (10:00)
[2019-07-06] MEDS ORDERED: PALONOSETRON HCL 0.25 MG/5 ML VIAL IVPUSH ONE (10:00)
[2019-07-06] MEDS ORDERED: POTASSIUM CHLORIDE IVPB ONE (10:30)
[2019-07-06] MEDS ORDERED: POTASSIUM CHLORIDE 20 MEQ, MAGNESIUM SULFATE 1 GM in DEXTROSE 5%-NORMAL SALINE 1,000 ML IVPB SCH (10:30)
[2019-07-06] MEDS ORDERED: WATER IVPB ONE ×2 (10:30→11:00)
[2019-07-06] MEDS ORDERED: MAGNESIUM SULFATE IVPB ONE (10:30)
[2019-07-06] MEDS ORDERED: NORMAL SALINE IVPB ONE (10:30)
[2019-07-06] MEDS ORDERED: DEXTROSE 5% IVPB ONE ×3 (10:30→11:00)
[2019-07-06] MEDS ORDERED: LEUCOVORIN IVPB ONE (10:30)
[2019-07-06] MEDS ORDERED: IRINOTECAN HCL IVPB ONE (11:00)
[2019-07-06] MEDS ORDERED: FLUOROURACIL 2,500 MG/50 ML VIAL IVPUSH ONE (12:30)
[2019-07-06] MEDS ORDERED: FLUOROURACIL CP ONE (12:45)
[2019-07-06] MEDS ORDERED: SODIUM CHLORIDE CP ONE (12:45)
[2019-07-06 17:45] VITALS: BP 93/44; PULSE 94; TEMP 98.9
[2019-07-06] MEDS ORDERED: PORTA CATH FLUSH 10 ML IVPUSH ONE (17:45)
== END 2019-07-06 14:20 | disposition home or self-care (01) ==
LOC: JONCCHEMO 06:10 → J7W 10:11 → JONCCHEMO 14:20
PROVIDERS: ATTEND Internal Medicine Hematology & Oncology
PROC: 3E043GC Introduction of Other Therapeutic Substance into Central Vein, Percutaneous Approach (ICD-10-PCS; principal; 2019-07-06)
DX: C15.9 Malignant neoplasm of esophagus, unspecified (principal); Z76.89 Persons encountering health services in other specified circumstances
CPT/HCPCS: 36415; 80053; 83735; 85025; 96361; 96365; 96366

== ENCOUNTER 2019-07-08 05:38 | Day surgery (SDC) | payer OTHER, BC ==
[2019-07-08] MEDS ORDERED: PALONOSETRON HCL 0.25 MG/5 ML VIAL IVPUSH ONE (10:00)
[2019-07-08] MEDS ORDERED: DEXAMETHASONE SODIUM PHOSPHATE 20 MG, DIPHENHYDRAMINE 50 MG in SODIUM CHLORIDE 100 ML IVPB ONE (10:00)
[2019-07-08] MEDS ORDERED: WATER IV ONE (10:30)
[2019-07-08] MEDS ORDERED: LEUCOVORIN IVPB ONE (10:30)
[2019-07-08] MEDS ORDERED: DEXTROSE 5% IV ONE (10:30)
[2019-07-08] MEDS ORDERED: OXALIPLATIN IV ONE (10:30)
[2019-07-08] MEDS ORDERED: DEXTROSE 5% IVPB ONE (10:30)
[2019-07-08] MEDS ORDERED: WATER IVPB ONE (10:30)
[2019-07-08] MEDS ORDERED: FLUOROURACIL CP ONE (12:30)
[2019-07-08] MEDS ORDERED: SODIUM CHLORIDE CP ONE (12:30)
[2019-07-08 16:05] VITALS: BP 106/38; PULSE 88; TEMP 97.5
[2019-07-08] MEDS ORDERED: PORTA CATH FLUSH 10 ML IVPUSH ONE (16:05)
== END 2019-07-08 14:00 | disposition home or self-care (01) ==
LOC: JONCCHEMO 05:38 → J7W 08:52 → JONCCHEMO 14:00
PROVIDERS: ATTEND Internal Medicine Hematology & Oncology
PROC: 3E04305 Introduction of Other Antineoplastic into Central Vein, Percutaneous Approach (ICD-10-PCS; principal; 2019-07-08)
PROC: 3E04305 Introduction of Other Antineoplastic into Central Vein, Percutaneous Approach (ICD-10-PCS; 2019-07-08)
PROC: 3E043GC Introduction of Other Therapeutic Substance into Central Vein, Percutaneous Approach (ICD-10-PCS; 2019-07-08)
DX: Z51.11 Encounter for antineoplastic chemotherapy (principal); C15.5 Malignant neoplasm of lower third of esophagus; I10 Essential (primary) hypertension; E78.00 Pure hypercholesterolemia, unspecified
CPT/HCPCS: 96366; 96367; 96375; 96413; 96415; 96417; G0498; J2469; J9263

== ENCOUNTER 2019-07-10 05:21 | Day surgery (SDC) | payer OTHER, BC ==
[2019-07-10 13:56] VITALS: BP 100/50; PULSE 98; TEMP 97.7
[2019-07-10] MEDS ORDERED: PORTA CATH FLUSH 10 ML IVPUSH ONE (13:58)
== END 2019-07-10 13:45 | disposition home or self-care (01) ==
LOC: JONCCHEMO 05:21 → J7W 13:23 → JONCCHEMO 13:45
PROVIDERS: ATTEND Internal Medicine Hematology & Oncology
PROC: 2W54XYZ Removal of Other Device on Chest Wall (ICD-10-PCS; principal; 2019-07-10)
DX: Z53.8 Procedure and treatment not carried out for other reasons (principal)

== ENCOUNTER 2019-07-20 05:40 | Day surgery (SDC) | payer OTHER, BC ==
[2019-07-20] MEDS ORDERED: PALONOSETRON HCL 0.25 MG/5 ML VIAL IVPUSH ONE (09:30)
[2019-07-20] MEDS ORDERED: DEXAMETHASONE SODIUM PHOSPHATE 20 MG, DIPHENHYDRAMINE 50 MG in SODIUM CHLORIDE 100 ML IVPB ONE (09:30)
[2019-07-20 09:44] LABS: HEMATOCRIT 29.9 % (32.4-45.2); HEMOGLOBIN 9.3 GM/dL (10.7-15.3); MCH 31.7 pg (25.7-33.7); MCHC 31.2 g/dl (32.0-36.0); MEAN CELL VOLUME 101.6 fl (80-96); MEAN PLT VOLUME 8.5 fl (7.5-11.1); MONO % 1.4 % (3.8-10.2); NEUT % 92.6 % (42.8-82.8); PLATELET COUNT 210 K/MM3 (134-434); RBC 2.95 M/mm3 (3.60-5.2); RDW 16.8 % (11.6-15.6); WHITE BLOOD COUNT 3.9 K/mm3 (4.0-10.0)
[2019-07-20] MEDS ORDERED: LEUCOVORIN IVPB ONE (10:00)
[2019-07-20] MEDS ORDERED: DEXTROSE 5% IV ONE (10:00)
[2019-07-20] MEDS ORDERED: WATER IVPB ONE (10:00)
[2019-07-20] MEDS ORDERED: WATER IV ONE (10:00)
[2019-07-20] MEDS ORDERED: OXALIPLATIN IV ONE (10:00)
[2019-07-20] MEDS ORDERED: DEXTROSE 5% IVPB ONE (10:00)
[2019-07-20 10:19] LABS: ALBUMIN 3.3 g/dl (3.4-5.0); BILIRUBIN,DIRECT 0.1 mg/dL (0.0-0.2); BILIRUBIN,TOTAL 0.4 mg/dL (0.2-1); BLOOD UREA NITROGEN 21.5 mg/dL (7-18); CALCIUM 8.2 mg/dL (8.5-10.1); CREATININE 0.7 mg/dL (0.55-1.3); POTASSIUM 3.9 mmol/L (3.5-5.1); TOT PROT 6.4 g/dl (6.4-8.2)
[2019-07-20] MEDS ORDERED: SODIUM CHLORIDE CP ONE (12:00)
[2019-07-20] MEDS ORDERED: FLUOROURACIL CP ONE (12:00)
[2019-07-20 12:30] LABS: ANISOCYTOSIS 1+; MACROCYTOSIS 0; PLATELET ESTIMATE NORMAL
[2019-07-20 14:11] VITALS: BP 98/40; PULSE 83; TEMP 97.7
== END 2019-07-20 14:13 | disposition home or self-care (01) ==
LOC: JONCCHEMO 05:40 → J7W 08:55 → JONCCHEMO 14:13
PROVIDERS: ATTEND Internal Medicine Hematology & Oncology
DX: Z51.11 Encounter for antineoplastic chemotherapy (principal); C15.5 Malignant neoplasm of lower third of esophagus
CPT/HCPCS: 36415; 80048; 80076; 83735; 85025; 96366; 96367; 96375; 96413; 96415; 96417; G0498; J2469; J9263

== ENCOUNTER 2019-07-22 05:43 | Day surgery (SDC) | payer OTHER, BC ==
[2019-07-22 15:29] VITALS: BP 104/58; PULSE 98; TEMP 98.8
[2019-07-22] MEDS ORDERED: PORTA CATH FLUSH 10 ML IVPUSH ONE (15:31)
== END 2019-07-22 13:30 | disposition home or self-care (01) ==
LOC: JONCNONCHE 05:43 → J7W 13:28 → JONCNONCHE 13:30
PROVIDERS: ATTEND Internal Medicine Hematology & Oncology
PROC: 2W54XYZ Removal of Other Device on Chest Wall (ICD-10-PCS; principal; 2019-07-22)
DX: Z53.8 Procedure and treatment not carried out for other reasons (principal)

== ENCOUNTER 2019-08-03 06:39 | Day surgery (SDC) | payer OTHER, BC ==
[2019-08-03] MEDS ORDERED: DEXAMETHASONE SODIUM PHOSPHATE 20 MG, DIPHENHYDRAMINE 50 MG in SODIUM CHLORIDE 100 ML IVPB ONE (09:30)
[2019-08-03] MEDS ORDERED: PALONOSETRON HCL 0.25 MG/5 ML VIAL IVPUSH ONE (09:30)
[2019-08-03 09:38] LABS: BASO % 0.2 % (0-2.0); HEMATOCRIT 29.2 % (32.4-45.2); HEMOGLOBIN 9.1 GM/dL (10.7-15.3); LYMPH % 7.7 % (8-40); MCH 30.4 pg (25.7-33.7); MCHC 31.3 g/dl (32.0-36.0); MEAN CELL VOLUME 97.1 fl (80-96); MEAN PLT VOLUME 9.2 fl (7.5-11.1); NEUT % 90.1 % (42.8-82.8); PLATELET COUNT 206 K/MM3 (134-434); RBC 3.01 M/mm3 (3.60-5.2); WHITE BLOOD COUNT 3.6 K/mm3 (4.0-10.0)
[2019-08-03] MEDS ORDERED: OXALIPLATIN IV ONE (10:00)
[2019-08-03] MEDS ORDERED: LEUCOVORIN IVPB ONE (10:00)
[2019-08-03] MEDS ORDERED: WATER IVPB ONE (10:00)
[2019-08-03] MEDS ORDERED: WATER IV ONE (10:00)
[2019-08-03] MEDS ORDERED: DEXTROSE 5% IV ONE (10:00)
[2019-08-03] MEDS ORDERED: DEXTROSE 5% IVPB ONE (10:00)
[2019-08-03 10:15] LABS: ALBUMIN 3.3 g/dl (3.4-5.0); BILIRUBIN,TOTAL 0.5 mg/dL (0.2-1); BLOOD UREA NITROGEN 18.4 mg/dL (7-18); CALCIUM 8.4 mg/dL (8.5-10.1); CREATININE 0.7 mg/dL (0.55-1.3); MAGNESIUM 1.9 mg/dL (1.8-2.4); POTASSIUM 3.4 mmol/L (3.5-5.1); TOT PROT 6.1 g/dl (6.4-8.2)
[2019-08-03] MEDS ORDERED: POTASSIUM CHLORIDE ORAL LIQUID 20 MEQ/15 ML PO ONE (10:19)
[2019-08-03] MEDS ORDERED: INSULIN (NOVOLOG) ASPART 100 UNITS/ML 10ML VIAL SQ ONE (10:25)
[2019-08-03] MEDS ORDERED: SODIUM CHLORIDE CP ONE (12:00)
[2019-08-03] MEDS ORDERED: FLUOROURACIL CP ONE (12:00)
[2019-08-03 16:58] VITALS: TEMP 98.2
[2019-08-03 16:59] VITALS: BP 113/53; PULSE 94
== END 2019-08-03 16:00 | disposition home or self-care (01) ==
LOC: JONCCHEMO 06:39 → J7W 10:23 → JONCCHEMO 16:00
PROVIDERS: ATTEND Internal Medicine Hematology & Oncology
DX: Z51.11 Encounter for antineoplastic chemotherapy (principal); C15.5 Malignant neoplasm of lower third of esophagus
CPT/HCPCS: 36415; 80053; 82962; 83735; 85025; 96366; 96367; 96375; 96413; 96415; 96417; G0498; J2469; J9263

== ENCOUNTER 2019-08-05 07:06 | Day surgery (SDC) | payer OTHER, BC ==
[2019-08-05] MEDS ORDERED: PORTA CATH FLUSH 10 ML IVPUSH ONE (16:01)
[2019-08-05 16:02] VITALS: BP 123/56; PULSE 97; TEMP 98.2
== END 2019-08-05 14:35 | disposition home or self-care (01) ==
LOC: JONCNONCHE 07:06 → J7W 14:12 → JONCNONCHE 14:35
PROVIDERS: ATTEND Internal Medicine Hematology & Oncology
DX: Z53.8 Procedure and treatment not carried out for other reasons (principal)
CPT/HCPCS: 96365

== ENCOUNTER 2019-08-17 05:31 | Day surgery (SDC) | payer OTHER, BC ==
[2019-08-17 09:31] LABS: BASO % 0.2 % (0-2.0); HEMATOCRIT 31.2 % (32.4-45.2); HEMOGLOBIN 9.5 GM/dL (10.7-15.3); LYMPH % 6.9 % (8-40); MCH 29.6 pg (25.7-33.7); MCHC 30.6 g/dl (32.0-36.0); MEAN CELL VOLUME 96.6 fl (80-96); MEAN PLT VOLUME 9.9 fl (7.5-11.1); MONO % 1.2 % (3.8-10.2); NEUT % 91.7 % (42.8-82.8); PLATELET COUNT 133 K/MM3 (134-434); RBC 3.23 M/mm3 (3.60-5.2); RDW 17.9 % (11.6-15.6); WHITE BLOOD COUNT 3.3 K/mm3 (4.0-10.0)
[2019-08-17] MEDS ORDERED: DEXAMETHASONE SODIUM PHOSPHATE 20 MG, DIPHENHYDRAMINE 50 MG in SODIUM CHLORIDE 100 ML IVPB ONE (10:00)
[2019-08-17] MEDS ORDERED: PALONOSETRON HCL 0.25 MG/5 ML VIAL IVPUSH ONE (10:00)
[2019-08-17 10:26] LABS: ALBUMIN 3.3 g/dl (3.4-5.0); BILIRUBIN,TOTAL 0.4 mg/dL (0.2-1); BLOOD UREA NITROGEN 20.1 mg/dL (7-18); CALCIUM 8.2 mg/dL (8.5-10.1); CREATININE 0.8 mg/dL (0.55-1.3); MAGNESIUM 1.8 mg/dL (1.8-2.4); POTASSIUM 3.3 mmol/L (3.5-5.1); TOT PROT 6.4 g/dl (6.4-8.2)
[2019-08-17] MEDS ORDERED: OXALIPLATIN IV ONE ×3 (10:30→11:15)
[2019-08-17] MEDS ORDERED: WATER IVPB ONE (10:30)
[2019-08-17] MEDS ORDERED: WATER IV ONE ×3 (10:30→11:15)
[2019-08-17] MEDS ORDERED: DEXTROSE 5% IVPB ONE (10:30)
[2019-08-17] MEDS ORDERED: DEXTROSE 5% IV ONE ×3 (10:30→11:15)
[2019-08-17] MEDS ORDERED: LEUCOVORIN IVPB ONE (10:30)
[2019-08-17] MEDS ORDERED: SODIUM CHLORIDE 250 ML IV ONE ×2 (11:00→13:00)
[2019-08-17] MEDS ORDERED: POTASSIUM CHLORIDE TABS 20 MEQ TABLET.ER (FP) PO ONE (11:34)
[2019-08-17] MEDS ORDERED: SODIUM CHLORIDE CP ONE (12:30)
[2019-08-17] MEDS ORDERED: FLUOROURACIL CP ONE (12:30)
[2019-08-17] MEDS ORDERED: ALTEPLASE 2 MG VIAL IVPUSH ONE (13:17)
[2019-08-17 14:35] LABS: ANISOCYTOSIS 1+; MACROCYTOSIS 1+; OVALOCYTE 1+; PLATELET ESTIMATE DECREASED
[2019-08-17 16:33] VITALS: TEMP 98
[2019-08-17] MEDS ORDERED: PORTA CATH FLUSH 10 ML IVPUSH ONE (16:33)
[2019-08-17 16:58] VITALS: BP 122/63; PULSE 97
== END 2019-08-17 16:58 | disposition home or self-care (01) ==
LOC: JONCCHEMO 05:31 → J7W 10:52 → JONCCHEMO 16:58
PROVIDERS: ATTEND Internal Medicine Hematology & Oncology
PROC: 3E04305 Introduction of Other Antineoplastic into Central Vein, Percutaneous Approach (ICD-10-PCS; principal; 2019-08-17)
PROC: 3E04305 Introduction of Other Antineoplastic into Central Vein, Percutaneous Approach (ICD-10-PCS; 2019-08-17)
PROC: 3E043GC Introduction of Other Therapeutic Substance into Central Vein, Percutaneous Approach (ICD-10-PCS; 2019-08-17)
PROC: 3E0437Z Introduction of Electrolytic and Water Balance Substance into Central Vein, Percutaneous Approach (ICD-10-PCS; 2019-08-17)
DX: Z51.11 Encounter for antineoplastic chemotherapy (principal); C15.5 Malignant neoplasm of lower third of esophagus; I10 Essential (primary) hypertension; E78.00 Pure hypercholesterolemia, unspecified
CPT/HCPCS: 36415; 80053; 83735; 85025; 96361; 96366; 96367; 96413; 96415; G0498; J2469; J2997; J9263

== ENCOUNTER 2019-08-19 05:29 | Day surgery (SDC) | payer OTHER, BC ==
[2019-08-19 16:17] VITALS: BP 107/43; PULSE 91; TEMP 97.1
== END 2019-08-19 15:45 | disposition home or self-care (01) ==
LOC: JONCNONCHE 05:29 → J7W 15:21 → JONCNONCHE 15:45
PROVIDERS: ATTEND Internal Medicine Hematology & Oncology
PROC: 2W54XYZ Removal of Other Device on Chest Wall (ICD-10-PCS; principal; 2019-08-19)
DX: Z53.8 Procedure and treatment not carried out for other reasons (principal)

== ENCOUNTER 2019-08-31 05:42 | Day surgery (SDC) | payer OTHER, BC ==
[2019-08-31] MEDS ORDERED: DEXAMETHASONE SODIUM PHOSPHATE 20 MG, DIPHENHYDRAMINE 50 MG in SODIUM CHLORIDE 100 ML IVPB ONE (10:00)
[2019-08-31] MEDS ORDERED: PALONOSETRON HCL 0.25 MG/5 ML VIAL IVPUSH ONE (10:00)
[2019-08-31 10:01] LABS: BASO % 0.1 % (0-2.0); HEMATOCRIT 29.4 % (32.4-45.2); LYMPH % 8.2 % (8-40); MCH 29.1 pg (25.7-33.7); MCHC 30.6 g/dl (32.0-36.0); MEAN PLT VOLUME 9.1 fl (7.5-11.1); MONO % 1.6 % (3.8-10.2); NEUT % 90.1 % (42.8-82.8); PLATELET COUNT 126 K/MM3 (134-434); RBC 3.09 M/mm3 (3.60-5.2); RDW 19.1 % (11.6-15.6); WHITE BLOOD COUNT 2.5 K/mm3 (4.0-10.0)
[2019-08-31 10:16] LABS: BILIRUBIN,DIRECT 0.1 mg/dL (0.0-0.2); BILIRUBIN,TOTAL 0.3 mg/dL (0.2-1); BLOOD UREA NITROGEN 15.1 mg/dL (7-18); CREATININE 0.7 mg/dL (0.55-1.3)
[2019-08-31] MEDS ORDERED: DEXTROSE 5% IV ONE ×3 (10:30)
[2019-08-31] MEDS ORDERED: DEXTROSE 5% IVPB ONE (10:30)
[2019-08-31] MEDS ORDERED: WATER IV ONE ×3 (10:30)
[2019-08-31] MEDS ORDERED: WATER IVPB ONE (10:30)
[2019-08-31] MEDS ORDERED: LEUCOVORIN IVPB ONE (10:30)
[2019-08-31] MEDS ORDERED: OXALIPLATIN IV ONE ×3 (10:30)
[2019-08-31] MEDS ORDERED: FLUOROURACIL CP ONE (12:30)
[2019-08-31] MEDS ORDERED: SODIUM CHLORIDE CP ONE (12:30)
[2019-08-31 15:37] VITALS: BP 109/49; PULSE 95; TEMP 98.2
== END 2019-08-31 14:00 | disposition home or self-care (01) ==
LOC: JONCCHEMO 05:42 → J7W 08:44 → JONCCHEMO 14:00
PROVIDERS: ATTEND Internal Medicine Hematology & Oncology
DX: Z51.11 Encounter for antineoplastic chemotherapy (principal); C15.5 Malignant neoplasm of lower third of esophagus
CPT/HCPCS: 36415; 80048; 80076; 83735; 85025; 96366; 96367; 96375; 96413; 96415; G0498; J2469; J9263

== ENCOUNTER 2019-09-14 06:57 | Day surgery (SDC) | payer OTHER, BC ==
[2019-09-14 08:49] LABS: BASO % 0.3 % (0-2.0); HEMATOCRIT 29.3 % (32.4-45.2); HEMOGLOBIN 9.1 GM/dL (10.7-15.3); LYMPH % 7.9 % (8-40); MCH 28.8 pg (25.7-33.7); MCHC 31.1 g/dl (32.0-36.0); MEAN CELL VOLUME 92.7 fl (80-96); MEAN PLT VOLUME 9.4 fl (7.5-11.1); NEUT % 89.8 % (42.8-82.8); PLATELET COUNT 176 K/MM3 (134-434); RBC 3.16 M/mm3 (3.60-5.2); RDW 19.6 % (11.6-15.6); WHITE BLOOD COUNT 2.9 K/mm3 (4.0-10.0)
[2019-09-14 09:18] LABS: ALBUMIN 3.1 g/dl (3.4-5.0); BILIRUBIN,TOTAL 0.2 mg/dL (0.2-1); BLOOD UREA NITROGEN 18.5 mg/dL (7-18); CALCIUM 8.2 mg/dL (8.5-10.1); CREATININE 0.8 mg/dL (0.55-1.3); MAGNESIUM 1.9 mg/dL (1.8-2.4); POTASSIUM 4.4 mmol/L (3.5-5.1)
[2019-09-14] MEDS ORDERED: PALONOSETRON HCL 0.25 MG/5 ML VIAL IVPUSH ONE (09:30)
[2019-09-14] MEDS ORDERED: DEXAMETHASONE SODIUM PHOSPHATE 20 MG, DIPHENHYDRAMINE 50 MG in SODIUM CHLORIDE 100 ML IVPB ONE (09:30)
[2019-09-14] MEDS ORDERED: WATER IV ONE (10:00)
[2019-09-14] MEDS ORDERED: LEUCOVORIN IVPB ONE (10:00)
[2019-09-14] MEDS ORDERED: DEXTROSE 5% IVPB ONE (10:00)
[2019-09-14] MEDS ORDERED: OXALIPLATIN IV ONE (10:00)
[2019-09-14] MEDS ORDERED: DEXTROSE 5% IV ONE (10:00)
[2019-09-14] MEDS ORDERED: WATER IVPB ONE (10:00)
[2019-09-14] MEDS ORDERED: INSULIN SLIDING SCALE (NOVOLOG) 1 VIAL SQ PRN (11:57)
[2019-09-14] MEDS ORDERED: FLUOROURACIL CP ONE (12:00)
[2019-09-14] MEDS ORDERED: SODIUM CHLORIDE CP ONE (12:00)
[2019-09-14 15:40] VITALS: BP 96/51; PULSE 99; TEMP 97.6
== END 2019-09-14 14:15 | disposition home or self-care (01) ==
LOC: JONCCHEMO 06:57 → J7W 12:12 → JONCCHEMO 14:15
PROVIDERS: ATTEND Internal Medicine Hematology & Oncology
PROC: 3E04305 Introduction of Other Antineoplastic into Central Vein, Percutaneous Approach (ICD-10-PCS; principal; 2019-09-14)
PROC: 3E043GC Introduction of Other Therapeutic Substance into Central Vein, Percutaneous Approach (ICD-10-PCS; 2019-09-14)
DX: Z51.11 Encounter for antineoplastic chemotherapy (principal); C15.5 Malignant neoplasm of lower third of esophagus; I10 Essential (primary) hypertension; E78.00 Pure hypercholesterolemia, unspecified
CPT/HCPCS: 36415; 80053; 82962; 83735; 85025; 96366; 96367; 96413; 96415; J2469; J9263

== ENCOUNTER 2019-09-16 07:06 | Day surgery (SDC) | payer OTHER, BC ==
[2019-09-16 14:13] VITALS: BP 119/48; PULSE 101; TEMP 97.6
[2019-09-16] MEDS ORDERED: PORTA CATH FLUSH 10 ML IVPUSH ONE (14:14)
== END 2019-09-16 13:15 | disposition home or self-care (01) ==
LOC: JONCCHEMO 07:06 → J7W 12:43 → JONCCHEMO 13:15
PROVIDERS: ATTEND Internal Medicine Hematology & Oncology
PROC: 2W54XYZ Removal of Other Device on Chest Wall (ICD-10-PCS; principal; 2019-09-16)
DX: Z53.8 Procedure and treatment not carried out for other reasons (principal)

== ENCOUNTER 2019-09-28 07:07 | Day surgery (SDC) | payer OTHER, BC ==
[2019-09-28 09:12] LABS: BASO % 0.3 % (0-2.0); HEMATOCRIT 27.8 % (32.4-45.2); HEMOGLOBIN 8.7 GM/dL (10.7-15.3); LYMPH % 6.9 % (8-40); MCH 28.4 pg (25.7-33.7); MCHC 31.2 g/dl (32.0-36.0); MEAN CELL VOLUME 91.1 fl (80-96); MEAN PLT VOLUME 9.2 fl (7.5-11.1); MONO % 1.5 % (3.8-10.2); NEUT % 91.3 % (42.8-82.8); PLATELET COUNT 150 K/MM3 (134-434); RBC 3.05 M/mm3 (3.60-5.2); WHITE BLOOD COUNT 3.2 K/mm3 (4.0-10.0)
[2019-09-28] MEDS ORDERED: PALONOSETRON HCL 0.25 MG/5 ML VIAL IVPUSH ONE (09:30)
[2019-09-28] MEDS ORDERED: DEXAMETHASONE SODIUM PHOSPHATE 20 MG, DIPHENHYDRAMINE 50 MG in SODIUM CHLORIDE 100 ML IVPB ONE (09:30)
[2019-09-28 09:45] LABS: ALBUMIN 2.9 g/dl (3.4-5.0); BILIRUBIN,TOTAL 0.3 mg/dL (0.2-1); BLOOD UREA NITROGEN 16.5 mg/dL (7-18); CALCIUM 8.2 mg/dL (8.5-10.1); CREATININE 0.6 mg/dL (0.55-1.3); MAGNESIUM 1.9 mg/dL (1.8-2.4); POTASSIUM 3.9 mmol/L (3.5-5.1); TOT PROT 5.9 g/dl (6.4-8.2)
[2019-09-28] MEDS ORDERED: INSULIN (NOVOLOG) ASPART 100 UNITS/ML 10ML VIAL SQ ONE (09:55)
[2019-09-28] MEDS ORDERED: WATER IV ONE (10:00)
[2019-09-28] MEDS ORDERED: OXALIPLATIN IV ONE (10:00)
[2019-09-28] MEDS ORDERED: DEXTROSE 5% IVPB ONE (10:00)
[2019-09-28] MEDS ORDERED: DEXTROSE 5% IV ONE (10:00)
[2019-09-28] MEDS ORDERED: LEUCOVORIN IVPB ONE (10:00)
[2019-09-28] MEDS ORDERED: WATER IVPB ONE (10:00)
[2019-09-28] MEDS ORDERED: SODIUM CHLORIDE IV ONE (12:00)
[2019-09-28] MEDS ORDERED: FLUOROURACIL IV ONE (12:00)
[2019-09-28 13:08] LABS: ANISOCYTOSIS 1+; MACROCYTOSIS 0; PLATELET ESTIMATE DECREASED
[2019-09-28 16:45] VITALS: TEMP 97.8
[2019-09-28] MEDS ORDERED: PORTA CATH FLUSH 10 ML IVPUSH ONE (16:53)
[2019-09-28 16:54] VITALS: BP 110/50; PULSE 98
== END 2019-09-28 14:45 | disposition home or self-care (01) ==
LOC: JONCCHEMO 07:07 → J7W 10:20 → JONCCHEMO 14:45
PROVIDERS: ATTEND Internal Medicine Hematology & Oncology
DX: Z51.11 Encounter for antineoplastic chemotherapy (principal); C15.5 Malignant neoplasm of lower third of esophagus
CPT/HCPCS: 36415; 80053; 83735; 85025; 96366; 96367; 96375; 96413; 96415; G0498; J2469; J9263

== ENCOUNTER 2019-09-30 06:53 | Day surgery (SDC) | payer OTHER, BC ==
[2019-09-30 16:52] VITALS: BP 118/52; PULSE 97; TEMP 98.4
[2019-09-30] MEDS ORDERED: PORTA CATH FLUSH 10 ML IVPUSH ONE (16:52)
== END 2019-09-30 14:00 | disposition home or self-care (01) ==
LOC: JONCCHEMO 06:53 → J7W 13:47 → JONCCHEMO 14:00
PROVIDERS: ATTEND Internal Medicine Hematology & Oncology
DX: Z53.8 Procedure and treatment not carried out for other reasons (principal)
CPT/HCPCS: 96365

== ENCOUNTER 2019-11-03 05:53 | Day surgery (SDC) | payer OTHER, BC ==
[2019-11-03 08:37] LABS: BASO % 0.3 % (0-2.0); HEMATOCRIT 25.9 % (32.4-45.2); HEMOGLOBIN 8.3 GM/dL (10.7-15.3); LYMPH % 6.4 % (8-40); MCH 27.4 pg (25.7-33.7); MCHC 31.9 g/dl (32.0-36.0); MEAN PLT VOLUME 8.7 fl (7.5-11.1); MONO % 1.5 % (3.8-10.2); NEUT % 91.8 % (42.8-82.8); PLATELET COUNT 204 K/MM3 (134-434); RBC 3.02 M/mm3 (3.60-5.2); RDW 20.9 % (11.6-15.6)
[2019-11-03 09:05] LABS: ALBUMIN 2.9 g/dl (3.4-5.0); BILIRUBIN,TOTAL 0.3 mg/dL (0.2-1); BLOOD UREA NITROGEN 15.8 mg/dL (7-18); CREATININE 0.6 mg/dL (0.55-1.3); MAGNESIUM 1.9 mg/dL (1.8-2.4); POTASSIUM 4.2 mmol/L (3.5-5.1); TOT PROT 6.4 g/dl (6.4-8.2)
[2019-11-03] MEDS ORDERED: Insulin (LOG) Aspart 100 UNITS/ML VIAL SQ ONE (09:15)
[2019-11-03] MEDS ORDERED: PALONOSETRON HCL 0.25 MG/5 ML VIAL IVPUSH ONE (10:00)
[2019-11-03] MEDS ORDERED: DEXAMETHASONE SODIUM PHOSPHATE 20 MG, DIPHENHYDRAMINE 50 MG in SODIUM CHLORIDE 100 ML IVPB ONE (10:00)
[2019-11-03] MEDS ORDERED: DEXTROSE 5% IVPB ONE (10:30)
[2019-11-03] MEDS ORDERED: OXALIPLATIN IV ONE (10:30)
[2019-11-03] MEDS ORDERED: WATER IV ONE (10:30)
[2019-11-03] MEDS ORDERED: DEXTROSE 5% IV ONE (10:30)
[2019-11-03] MEDS ORDERED: LEUCOVORIN IVPB ONE (10:30)
[2019-11-03] MEDS ORDERED: WATER IVPB ONE (10:30)
[2019-11-03 10:54] LABS: ANISOCYTOSIS 1+; MACROCYTOSIS 0; OVALOCYTE 1+; PLATELET ESTIMATE NORMAL; TEAR DROP CELLS 1+
[2019-11-03] MEDS ORDERED: INSULIN (NOVOLOG) ASPART 100 UNITS/ML 10ML VIAL ONE (10:58)
[2019-11-03] MEDS ORDERED: SODIUM CHLORIDE CP ONE (12:30)
[2019-11-03] MEDS ORDERED: FLUOROURACIL CP ONE (12:30)
[2019-11-03 16:22] VITALS: TEMP 98.4
[2019-11-03 16:43] VITALS: BP 103/43; PULSE 96
[2019-11-03] MEDS ORDERED: PORTA CATH FLUSH 10 ML IVPUSH ONE (16:43)
== END 2019-11-03 14:15 | disposition home or self-care (01) ==
LOC: JONCCHEMO 05:53 → J7W 09:52 → JONCCHEMO 14:15
PROVIDERS: ATTEND Internal Medicine Hematology & Oncology
DX: Z51.11 Encounter for antineoplastic chemotherapy (principal); C15.5 Malignant neoplasm of lower third of esophagus; D64.81 Anemia due to antineoplastic chemotherapy
CPT/HCPCS: 36415; 80053; 83735; 85025; 96366; 96367; 96413; 96415; G0498; J2469; J9263

== ENCOUNTER 2019-11-05 07:12 | Day surgery (SDC) | payer OTHER, BC ==
[2019-11-05] MEDS ORDERED: SODIUM CHLORIDE IVPB ONE (10:00)
[2019-11-05] MEDS ORDERED: ONDANSETRON IVPB ONE (10:00)
[2019-11-05] MEDS ORDERED: POTASSIUM CHLORIDE 20 MEQ, MAGNESIUM SULFATE 1 GM in SODIUM CHLORIDE 1,000 ML IVPB SCH (10:00)
[2019-11-05] MEDS ORDERED: DEXAMETHASONE IVPB ONE (10:00)
[2019-11-05 15:54] VITALS: TEMP 99.4
[2019-11-05 16:01] VITALS: BP 105/41; PULSE 88
[2019-11-05] MEDS ORDERED: PORTA CATH FLUSH 10 ML IVPUSH ONE (16:01)
== END 2019-11-05 16:02 | disposition home or self-care (01) ==
LOC: JONCNONCHE 07:12 → J7W 12:41 → JONCNONCHE 16:02
PROVIDERS: ATTEND Internal Medicine Hematology & Oncology
DX: C15.5 Malignant neoplasm of lower third of esophagus (principal); Z76.89 Persons encountering health services in other specified circumstances
CPT/HCPCS: 96361; 96365; J1100; J7030

== ENCOUNTER 2019-11-16 07:10 | Day surgery (SDC) | payer OTHER, BC ==
[2019-11-16 08:57] LABS: BASO % 0.2 % (0-2.0); EOS % 0.2 % (0-4.5); HEMATOCRIT 26.9 % (32.4-45.2); HEMOGLOBIN 8.4 GM/dL (10.7-15.3); LYMPH % 7.8 % (8-40); MCH 26.5 pg (25.7-33.7); MCHC 31.1 g/dl (32.0-36.0); MEAN CELL VOLUME 85.2 fl (80-96); MEAN PLT VOLUME 8.5 fl (7.5-11.1); MONO % 1.2 % (3.8-10.2); NEUT % 90.6 % (42.8-82.8); PLATELET COUNT 178 K/MM3 (134-434); RBC 3.16 M/mm3 (3.60-5.2); RDW 20.7 % (11.6-15.6); WHITE BLOOD COUNT 3.1 K/mm3 (4.0-10.0)
[2019-11-16 09:29] LABS: BILIRUBIN,TOTAL 0.2 mg/dL (0.2-1); BLOOD UREA NITROGEN 19.8 mg/dL (7-18); CALCIUM 8.2 mg/dL (8.5-10.1); CREATININE 0.6 mg/dL (0.55-1.3); MAGNESIUM 2.1 mg/dL (1.8-2.4); POTASSIUM 4.3 mmol/L (3.5-5.1); TOT PROT 6.3 g/dl (6.4-8.2)
[2019-11-16] MEDS ORDERED: DEXAMETHASONE SODIUM PHOSPHATE 20 MG, DIPHENHYDRAMINE 50 MG in SODIUM CHLORIDE 100 ML IVPB ONE (09:30)
[2019-11-16] MEDS ORDERED: PALONOSETRON HCL 0.25 MG/5 ML VIAL IVPUSH ONE (09:30)
[2019-11-16] MEDS ORDERED: WATER IVPB ONE (10:00)
[2019-11-16] MEDS ORDERED: DEXTROSE 5% IVPB ONE (10:00)
[2019-11-16] MEDS ORDERED: WATER IV ONE (10:00)
[2019-11-16] MEDS ORDERED: OXALIPLATIN IV ONE (10:00)
[2019-11-16] MEDS ORDERED: LEUCOVORIN IVPB ONE (10:00)
[2019-11-16] MEDS ORDERED: DEXTROSE 5% IV ONE (10:00)
[2019-11-16] MEDS ORDERED: INSULIN (NOVOLOG) ASPART 100 UNITS/ML 10ML VIAL SQ SCH (11:00)
[2019-11-16 11:49] LABS: ANISOCYTOSIS 1+; MACROCYTOSIS 0; OVALOCYTE 1+; PLATELET ESTIMATE NORMAL; TARGET CELLS 1+; TEAR DROP CELLS 1+
[2019-11-16] MEDS ORDERED: FLUOROURACIL CP ONE (12:00)
[2019-11-16] MEDS ORDERED: SODIUM CHLORIDE CP ONE (12:00)
[2019-11-16 16:13] VITALS: TEMP 98.1
[2019-11-16 16:14] VITALS: BP 104/62; PULSE 92
== END 2019-11-16 14:00 | disposition home or self-care (01) ==
LOC: JONCCHEMO 07:10 → J7W 10:06 → JONCCHEMO 14:00
PROVIDERS: ATTEND Internal Medicine Hematology & Oncology
DX: Z51.11 Encounter for antineoplastic chemotherapy (principal); C15.5 Malignant neoplasm of lower third of esophagus
CPT/HCPCS: 36415; 80053; 83735; 85025; 96366; 96367; 96413; 96415; G0498; J2469; J9263

== ENCOUNTER 2019-11-18 06:58 | Day surgery (SDC) | payer OTHER, BC ==
[2019-11-18] MEDS ORDERED: DEXAMETHASONE SOD PHOSPHATE 4 MG/1 ML VIAL IVPB ONE (14:00)
[2019-11-18] MEDS ORDERED: SODIUM CHLORIDE 500 ML IV ONE (14:00)
[2019-11-18 16:58] VITALS: BP 85/48; PULSE 104; TEMP 98.8
[2019-11-18] MEDS ORDERED: PORTA CATH FLUSH 10 ML IVPUSH ONE (17:08)
== END 2019-11-18 15:00 | disposition home or self-care (01) ==
LOC: JONCNONCHE 06:58
PROVIDERS: ATTEND Internal Medicine Hematology & Oncology
PROC: 3E033GC Introduction of Other Therapeutic Substance into Peripheral Vein, Percutaneous Approach (ICD-10-PCS; principal; 2019-11-18)
PROC: 3E0337Z Introduction of Electrolytic and Water Balance Substance into Peripheral Vein, Percutaneous Approach (ICD-10-PCS; 2019-11-18)
DX: Z76.89 Persons encountering health services in other specified circumstances (principal); C15.5 Malignant neoplasm of lower third of esophagus
CPT/HCPCS: 96361; 96374

== ENCOUNTER 2019-11-30 05:25 | Day surgery (SDC) | payer OTHER, BC ==
[2019-11-30] MEDS ORDERED: PALONOSETRON HCL 0.25 MG/5 ML VIAL IVPUSH ONE (09:30)
[2019-11-30] MEDS ORDERED: DEXAMETHASONE SODIUM PHOSPHATE 20 MG, DIPHENHYDRAMINE 50 MG in SODIUM CHLORIDE 100 ML IVPB ONE (09:30)
[2019-11-30] MEDS ORDERED: DEXTROSE 5% IV ONE (10:00)
[2019-11-30] MEDS ORDERED: DEXTROSE 5% IVPB ONE (10:00)
[2019-11-30] MEDS ORDERED: OXALIPLATIN IV ONE (10:00)
[2019-11-30] MEDS ORDERED: LEUCOVORIN CALCIUM IVPB ONE (10:00)
[2019-11-30] MEDS ORDERED: WATER IV ONE (10:00)
[2019-11-30] MEDS ORDERED: WATER IVPB ONE (10:00)
[2019-11-30 10:40] LABS: BASO % 0.3 % (0-2.0); HEMOGLOBIN 8.6 GM/dL (10.7-15.3); LYMPH % 5.2 % (8-40); MCH 26.7 pg (25.7-33.7); MCHC 30.9 g/dl (32.0-36.0); MEAN CELL VOLUME 86.7 fl (80-96); MEAN PLT VOLUME 8.9 fl (7.5-11.1); MONO % 1.6 % (3.8-10.2); NEUT % 92.9 % (42.8-82.8); PLATELET COUNT 171 K/MM3 (134-434); RBC 3.23 M/mm3 (3.60-5.2); RDW 20.6 % (11.6-15.6)
[2019-11-30 10:43] LABS: ALBUMIN 2.9 g/dl (3.4-5.0); BILIRUBIN,TOTAL 0.5 mg/dL (0.2-1); BLOOD UREA NITROGEN 19.7 mg/dL (7-18); CALCIUM 8.1 mg/dL (8.5-10.1); CREATININE 0.9 mg/dL (0.55-1.3); MAGNESIUM 1.9 mg/dL (1.8-2.4); POTASSIUM 4.2 mmol/L (3.5-5.1); TOT PROT 6.4 g/dl (6.4-8.2)
[2019-11-30] MEDS ORDERED: SODIUM CHLORIDE CP ONE (12:00)
[2019-11-30] MEDS ORDERED: FLUOROURACIL CP ONE (12:00)
[2019-11-30 13:54] LABS: ANISOCYTOSIS 2+; PLATELET ESTIMATE NORMAL; ROULEAU 1+; TEAR DROP CELLS 1+
[2019-11-30 17:01] VITALS: TEMP 97.7
[2019-11-30 17:02] VITALS: BP 114/51; PULSE 100
== END 2019-11-30 14:50 | disposition home or self-care (01) ==
LOC: JONCCHEMO 05:25 → J7W 11:17 → JONCCHEMO 14:50
PROVIDERS: ATTEND Internal Medicine Hematology & Oncology
DX: Z51.11 Encounter for antineoplastic chemotherapy (principal); C15.5 Malignant neoplasm of lower third of esophagus
CPT/HCPCS: 36415; 80053; 83735; 85025; 96366; 96367; 96413; 96415; G0498; J2469; J9263

== ENCOUNTER 2019-12-02 05:38 | Day surgery (SDC) | payer OTHER, BC ==
[2019-12-02 16:11] VITALS: BP 94/46; PULSE 100; TEMP 98.7
[2019-12-02] MEDS ORDERED: PORTA CATH FLUSH 10 ML IVPUSH ONE (16:13)
== END 2019-12-02 13:55 | disposition home or self-care (01) ==
LOC: JONCCHEMO 05:38 → J7W 13:45 → JONCCHEMO 13:55
PROVIDERS: ATTEND Internal Medicine Hematology & Oncology
DX: Z53.8 Procedure and treatment not carried out for other reasons (principal)

== ENCOUNTER 2019-12-14 05:58 | Day surgery (SDC) | payer OTHER, BC ==
[2019-12-14 09:04] LABS: BASO % 0.4 % (0-2.0); HEMATOCRIT 27.7 % (32.4-45.2); HEMOGLOBIN 8.6 GM/dL (10.7-15.3); LYMPH % 8.1 % (8-40); MCH 26.3 pg (25.7-33.7); MCHC 31.1 g/dl (32.0-36.0); MEAN CELL VOLUME 84.4 fl (80-96); MEAN PLT VOLUME 9.1 fl (7.5-11.1); MONO % 1.2 % (3.8-10.2); NEUT % 90.3 % (42.8-82.8); PLATELET COUNT 138 K/MM3 (134-434); RBC 3.28 M/mm3 (3.60-5.2); RDW 20.6 % (11.6-15.6); WHITE BLOOD COUNT 3.1 K/mm3 (4.0-10.0)
[2019-12-14 09:35] LABS: ALBUMIN 3.1 g/dl (3.4-5.0); BILIRUBIN,TOTAL 0.4 mg/dL (0.2-1); BLOOD UREA NITROGEN 18.4 mg/dL (7-18); CALCIUM 8.3 mg/dL (8.5-10.1); CREATININE 0.7 mg/dL (0.55-1.3); POTASSIUM 3.9 mmol/L (3.5-5.1); TOT PROT 6.4 g/dl (6.4-8.2)
[2019-12-14] MEDS ORDERED: Insulin (LOG) Aspart 100 UNITS/ML VIAL SQ ONE (09:53)
[2019-12-14] MEDS ORDERED: DEXAMETHASONE SODIUM PHOSPHATE 20 MG, DIPHENHYDRAMINE 50 MG in SODIUM CHLORIDE 100 ML IVPB ONE (10:00)
[2019-12-14] MEDS ORDERED: PALONOSETRON HCL 0.25 MG/5 ML VIAL IVPUSH ONE (10:00)
[2019-12-14] MEDS ORDERED: LEUCOVORIN IVPB ONE (10:30)
[2019-12-14] MEDS ORDERED: WATER IVPB ONE (10:30)
[2019-12-14] MEDS ORDERED: DEXTROSE 5% IVPB ONE (10:30)
[2019-12-14] MEDS ORDERED: OXALIPLATIN IV ONE (10:30)
[2019-12-14] MEDS ORDERED: DEXTROSE 5% IV ONE (10:30)
[2019-12-14] MEDS ORDERED: WATER IV ONE (10:30)
[2019-12-14] MEDS ORDERED: FLUOROURACIL CP ONE (12:30)
[2019-12-14] MEDS ORDERED: SODIUM CHLORIDE CP ONE (12:30)
[2019-12-14 12:32] LABS: ANISOCYTOSIS 1+; MACROCYTOSIS 0; OVALOCYTE 1+; PLATELET ESTIMATE DECREASED; TARGET CELLS 1+; TEAR DROP CELLS 1+; TOXIC GRANULATION 1+
[2019-12-14 14:58] VITALS: BP 106/47; PULSE 91; TEMP 97.8
== END 2019-12-14 14:15 | disposition home or self-care (01) ==
LOC: JONCCHEMO 05:58 → J7W 09:53 → JONCCHEMO 14:15
PROVIDERS: ATTEND Internal Medicine Hematology & Oncology
PROC: 3E04305 Introduction of Other Antineoplastic into Central Vein, Percutaneous Approach (ICD-10-PCS; principal; 2019-12-14)
PROC: 3E04305 Introduction of Other Antineoplastic into Central Vein, Percutaneous Approach (ICD-10-PCS; 2019-12-14)
PROC: 3E043GC Introduction of Other Therapeutic Substance into Central Vein, Percutaneous Approach (ICD-10-PCS; 2019-12-14)
DX: Z51.11 Encounter for antineoplastic chemotherapy (principal); C15.5 Malignant neoplasm of lower third of esophagus
CPT/HCPCS: 36415; 80053; 83735; 85025; 96368; 96375; 96413; 96415; G0498; J2469; J9263

== ENCOUNTER 2019-12-16 05:34 | Day surgery (SDC) | payer OTHER, BC ==
[2019-12-16 16:16] VITALS: BP 88/51; PULSE 67; TEMP 98.6
== END 2019-12-16 13:40 | disposition home or self-care (01) ==
LOC: JONCCHEMO 05:34 → J7W 13:20 → JONCCHEMO 13:40
PROVIDERS: ATTEND Internal Medicine Hematology & Oncology
PROC: 2W54XYZ Removal of Other Device on Chest Wall (ICD-10-PCS; principal; 2019-12-16)
DX: Z53.8 Procedure and treatment not carried out for other reasons (principal)
CPT/HCPCS: 96379

== ENCOUNTER 2019-12-23 08:02 | Day surgery (SDC) | payer OTHER, BC ==
[2019-12-22 17:03] VITALS: BMI 14.1
[2019-12-23 12:39] VITALS: TEMP 98.1
[2019-12-23 12:43] VITALS: BP 114/53; PULSE 87
--- NOTE | 2019-12-24 16:21 | PATH ---
Surgical Pathology Report Patient Name: ADAN MANN [facility]. Rec. #: [id number] /Age/Gender: 1950 (Age: 69) / F Account: [id number] Location: U-ENDOSCOPY Taken: 12/23/2019 Received: 12/23/2019 Reported: 12/24/2019 Physicians: Ashu Evans M.D. Specimen(s) Received A: SECOND PORTION BULB DUODENAL B: ANTRUM C: TUMOR INTRATHORACIC TRANSPOSED STOMACH D: ESOPHAGEAL GASTRIC ANASTOMATIC TUMOR Clinical History Esophageal cancer surveillance, abnormal CT findings, history of gastritic transposition Postoperative diagnosis: Recurrent esophageal tumor Final Diagnosis A. SECOND PORTION BULB AND DUODENAL BIOPSY: DUODENAL MUCOSA WITH NONSPECIFIC CHRONIC DUODENITIS. B. ANTRUM, BIOPSY: GASTRIC MUCOSA WITH CHRONIC GASTRITIS. IMMUNOSTAIN FOR H. PYLORI IS NEGATIVE. NEGATIVE FOR INTESTINAL METAPLASIA. C. LABELED "TUMOR INTRATHORACIC TRANSPOSED STOMACH", BIOPSY: ADENOCARCINOMA, MODERATELY DIFFERENTIATED, WITH MARKED NECROSIS. D. ESOPHAGEAL GASTRIC ANASTOMOTIC TUMOR, BIOPSY: ADENOCARCINOMA, MODERATELY DIFFERENTIATED, WITH MARKED NECROSIS. SEE COMMENT. Comment: Prior history of esophageal carcinoma noted. Her2 (IHC) stain pending. An addendum report to follow. This case was discussed with Dr. Evans on 12/24/2019. Electronically Signed Walter Breen M.D. Addendum Reported: 01/01/2020 Addendum Diagnosis Her2 IHC and FISH Analysis studies performed on block "D1" at [facility] shows the following: Marker Result Interpretation Her2 IHC: 2+ Equivocal Her2/CEP17: 1.3 Negative Final Her2 Interpretation: Negative See [facility] report ([id number]) for details. Walter Breen M.D. Gross Description A. Received in formalin, labeled "second portion of bulb and duodenal biopsy" are 4 may, irregular portions of soft tissue ranging from 0.2-0.5 cm. in greatest dimension. The specimens are submitted in toto in one cassette. B. Received in formalin, labeled "antrum biopsy" are 4 may, irregular portions of soft tissue ranging from 0.1-0.7 cm. in greatest dimension. The specimens are submitted in toto in one cassette. C. Received in formalin labeled "biopsy tumor intrathoracic transposed stomach," is a 0.7 x 0.4 x 0.1 cm aggregate of may soft tissue fragments. The formalin is filtered and the specimen is entirely submitted in one cassette. D. Received in formalin labeled "esophageal gastric anastomotic tumor," is a 0.7 x 0.4 x 0.1 cm aggregate of may soft tissue fragments. The formalin is filtered and the specimen is entirely submitted in one cassette. 12/23/2019 [facility]12/23/2019
== END 2019-12-23 10:43 | disposition home or self-care (01) ==
LOC: JASU-ENDO 08:02
PROVIDERS: ATTEND Internal Medicine Gastroenterology
PROC: 0DB68ZX Excision of Stomach, Via Natural or Artificial Opening Endoscopic, Diagnostic (ICD-10-PCS; 2019-12-23)
PROC: 0DB28ZX Excision of Middle Esophagus, Via Natural or Artificial Opening Endoscopic, Diagnostic (ICD-10-PCS; 2019-12-23)
PROC: 0DB98ZX Excision of Duodenum, Via Natural or Artificial Opening Endoscopic, Diagnostic (ICD-10-PCS; principal; 2019-12-23 09:00)
DX: C15.4 Malignant neoplasm of middle third of esophagus (principal); C16.5 Malignant neoplasm of lesser curvature of stomach, unspecified; K29.80 Duodenitis without bleeding; K29.50 Unspecified chronic gastritis without bleeding; Z98.0 Intestinal bypass and anastomosis status

== ENCOUNTER 2020-04-11 06:21 | Day surgery (SDC) | payer OTHER, BC ==
[2020-04-11 09:32] LABS: EOS % 0.1 % (0-4.5); HEMATOCRIT 31.3 % (32.4-45.2); HEMOGLOBIN 9.8 GM/dL (10.7-15.3); LYMPH % 5.8 % (8-40); MCH 28.1 pg (25.7-33.7); MCHC 31.4 g/dl (32.0-36.0); MEAN CELL VOLUME 89.7 fl (80-96); MEAN PLT VOLUME 8.9 fl (7.5-11.1); MONO % 1.8 % (3.8-10.2); NEUT % 92.3 % (42.8-82.8); PLATELET COUNT 149 K/MM3 (134-434); RBC 3.49 M/mm3 (3.60-5.2); RDW 20.9 % (11.6-15.6); WHITE BLOOD COUNT 5.2 K/mm3 (4.0-10.0)
[2020-04-11] MEDS ORDERED: SODIUM CHLORIDE 0.9% 500 ML INFUS.BAG IV ONE (09:44)
[2020-04-11] MEDS ORDERED: CYANOCOBALAMIN (VITAMIN B-12) 1000 MCG/1 ML VIAL IM ONE (10:00)
[2020-04-11] MEDS ORDERED: IRON SUCROSE INJECTION 200 MG in SODIUM CHLORIDE 100 ML IVPB ONE (10:00)
[2020-04-11] MEDS ORDERED: DEXAMETHASONE SODIUM PHOSPHATE 20 MG, DIPHENHYDRAMINE 50 MG in SODIUM CHLORIDE 100 ML IVPB ONE (11:00)
[2020-04-11] MEDS ORDERED: PALONOSETRON HCL 0.25 MG/5 ML VIAL IVPUSH ONE (11:00)
[2020-04-11 11:13] LABS: ALBUMIN 2.6 g/dl (3.4-5.0); BILIRUBIN,DIRECT 0.1 mg/dL (0.0-0.2); BILIRUBIN,TOTAL 0.3 mg/dL (0.2-1); BLOOD UREA NITROGEN 18.6 mg/dL (7-18); CALCIUM 8.1 mg/dL (8.5-10.1); CREATININE 0.6 mg/dL (0.55-1.3); TOT PROT 5.7 g/dl (6.4-8.2)
[2020-04-11] MEDS ORDERED: DEXTROSE 5% IV ONE (11:30)
[2020-04-11] MEDS ORDERED: LEUCOVORIN IVPB ONE (11:30)
[2020-04-11] MEDS ORDERED: OXALIPLATIN IV ONE (11:30)
[2020-04-11] MEDS ORDERED: WATER IV ONE (11:30)
[2020-04-11] MEDS ORDERED: DEXTROSE 5% IVPB ONE (11:30)
[2020-04-11] MEDS ORDERED: WATER IVPB ONE (11:30)
[2020-04-11] MEDS ORDERED: Insulin (LOG) Aspart 100 UNITS/ML VIAL SQ ONE (11:47)
[2020-04-11 11:51] LABS: ANISOCYTOSIS 1+; MACROCYTOSIS 0; PLATELET ESTIMATE DECREASED; TEAR DROP CELLS 1+
[2020-04-11] MEDS ORDERED: SODIUM CHLORIDE CP ONE (13:30)
[2020-04-11] MEDS ORDERED: FLUOROURACIL CP ONE (13:30)
[2020-04-11 16:43] VITALS: TEMP 97.9
[2020-04-11 16:55] VITALS: BP 94/59; PULSE 820
[2020-04-11] MEDS ORDERED: PORTA CATH FLUSH 10 ML IVPUSH ONE (16:55)
== END 2020-04-11 15:59 | disposition home or self-care (01) ==
LOC: JONCCHEMO 06:21
PROVIDERS: ATTEND Nurse Practitioner Family
DX: Z51.11 Encounter for antineoplastic chemotherapy (principal); C15.5 Malignant neoplasm of lower third of esophagus; D64.81 Anemia due to antineoplastic chemotherapy
CPT/HCPCS: 36415; 80048; 80076; 83735; 85025; 96361; 96366; 96367; 96372; 96375; 96413; 96415; J1756; J2469; J9263

== ENCOUNTER 2020-04-25 07:04 | Day surgery (SDC) | payer OTHER, BC ==
[2020-04-25] MEDS ORDERED: SODIUM CHLORIDE 250 ML IV ONE (09:00)
[2020-04-25] MEDS ORDERED: PALONOSETRON HCL 0.25 MG/5 ML VIAL IVPUSH ONE (09:30)
[2020-04-25] MEDS ORDERED: CYANOCOBALAMIN (VITAMIN B-12) 1000 MCG/1 ML VIAL IM ONE (09:30)
[2020-04-25] MEDS ORDERED: DEXAMETHASONE SODIUM PHOSPHATE 20 MG, DIPHENHYDRAMINE 50 MG in SODIUM CHLORIDE 100 ML IVPB ONE (09:30)
[2020-04-25] MEDS ORDERED: IRON SUCROSE INJECTION 200 MG in SODIUM CHLORIDE 100 ML IVPB ONE (10:00)
[2020-04-25] MEDS ORDERED: WATER IVPB ONE (10:30)
[2020-04-25] MEDS ORDERED: OXALIPLATIN IV ONE ×2 (10:30→14:00)
[2020-04-25] MEDS ORDERED: WATER IV ONE ×2 (10:30→14:00)
[2020-04-25] MEDS ORDERED: DEXTROSE 5% IVPB ONE (10:30)
[2020-04-25] MEDS ORDERED: DEXTROSE 5% IV ONE ×2 (10:30→14:00)
[2020-04-25] MEDS ORDERED: LEUCOVORIN IVPB ONE (10:30)
[2020-04-25 11:47] LABS: ALBUMIN 2.6 g/dl (3.4-5.0); BILIRUBIN,DIRECT 0.1 mg/dL (0.0-0.2); BILIRUBIN,TOTAL 0.3 mg/dL (0.2-1); BLOOD UREA NITROGEN 19.8 mg/dL (7-18); CALCIUM 7.8 mg/dL (8.5-10.1); CREATININE 0.6 mg/dL (0.55-1.3); MAGNESIUM 2.2 mg/dL (1.8-2.4); POTASSIUM 3.9 mmol/L (3.5-5.1); TOT PROT 5.6 g/dl (6.4-8.2)
[2020-04-25 11:59] LABS: BASO % 0.4 % (0-2.0); HEMATOCRIT 29.5 % (32.4-45.2); HEMOGLOBIN 9.3 GM/dL (10.7-15.3); LYMPH % 5.7 % (8-40); MCH 29.2 pg (25.7-33.7); MCHC 31.4 g/dl (32.0-36.0); MEAN CELL VOLUME 92.8 fl (80-96); MEAN PLT VOLUME 9.1 fl (7.5-11.1); MONO % 2.3 % (3.8-10.2); NEUT % 91.6 % (42.8-82.8); PLATELET COUNT 118 K/MM3 (134-434); RBC 3.17 M/mm3 (3.60-5.2); RDW 24.4 % (11.6-15.6)
[2020-04-25] MEDS ORDERED: FLUOROURACIL CP ONE (12:30)
[2020-04-25] MEDS ORDERED: SODIUM CHLORIDE CP ONE (12:30)
[2020-04-25 12:47] LABS: ANISOCYTOSIS 2+; MACROCYTOSIS 1+; PLATELET ESTIMATE DECREASED
[2020-04-25 16:28] VITALS: TEMP 98.3
[2020-04-25 16:30] VITALS: BP 85/65; PULSE 56
== END 2020-04-25 15:45 | disposition home or self-care (01) ==
LOC: JONCCHEMO 07:04
PROVIDERS: ATTEND Internal Medicine Hematology & Oncology
PROC: 3E04305 Introduction of Other Antineoplastic into Central Vein, Percutaneous Approach (ICD-10-PCS; principal; 2020-04-25)
PROC: 3E04305 Introduction of Other Antineoplastic into Central Vein, Percutaneous Approach (ICD-10-PCS; 2020-04-25)
PROC: 3E043GC Introduction of Other Therapeutic Substance into Central Vein, Percutaneous Approach (ICD-10-PCS; 2020-04-25)
PROC: 3E0437Z Introduction of Electrolytic and Water Balance Substance into Central Vein, Percutaneous Approach (ICD-10-PCS; 2020-04-25)
PROC: 3E04305 Introduction of Other Antineoplastic into Central Vein, Percutaneous Approach (ICD-10-PCS; 2020-04-25)
DX: Z51.11 Encounter for antineoplastic chemotherapy (principal); C15.5 Malignant neoplasm of lower third of esophagus; I10 Essential (primary) hypertension; E78.00 Pure hypercholesterolemia, unspecified
CPT/HCPCS: 36415; 80048; 80076; 83735; 85025; 96366; 96367; 96375; 96413; 96415; G0498; J1756; J2469; J9263

== ENCOUNTER 2020-04-27 07:03 | Day surgery (SDC) | payer OTHER, BC ==
[2020-04-27 14:41] VITALS: BP 98/49; PULSE 110; TEMP 99.4
[2020-04-27] MEDS ORDERED: PORTA CATH FLUSH 10 ML IVPUSH ONE (15:26)
== END 2020-04-27 14:10 | disposition home or self-care (01) ==
LOC: JONCCHEMO 07:03
PROVIDERS: ATTEND Internal Medicine Hematology & Oncology
PROC: 2W54XYZ Removal of Other Device on Chest Wall (ICD-10-PCS; principal; 2020-04-27)
DX: Z53.8 Procedure and treatment not carried out for other reasons (principal)
CPT/HCPCS: 96379

== ENCOUNTER 2020-05-16 07:11 | Day surgery (SDC) | payer OTHER, BC ==
[2020-05-16] MEDS ORDERED: SODIUM CHLORIDE 250 ML IV ONE (09:00)
[2020-05-16] MEDS ORDERED: PALONOSETRON HCL 0.25 MG/5 ML VIAL IVPUSH ONE (09:30)
[2020-05-16] MEDS ORDERED: BEVACIZUMAB AWWB IVPB ONE ×2 (10:00→14:30)
[2020-05-16] MEDS ORDERED: SODIUM CHLORIDE IVPB ONE ×2 (10:00→14:30)
[2020-05-16] MEDS ORDERED: LEUCOVORIN IVPB ONE (10:30)
[2020-05-16] MEDS ORDERED: DEXTROSE 5% IVPB ONE (10:30)
[2020-05-16] MEDS ORDERED: WATER IVPB ONE (10:30)
[2020-05-16] MEDS ORDERED: IRON SUCROSE INJECTION 200 MG in SODIUM CHLORIDE 90 ML IVPB ONE (11:00)
[2020-05-16] MEDS ORDERED: CYANOCOBALAMIN (VITAMIN B-12) 1000 MCG/1 ML VIAL IM ONE (11:00)
[2020-05-16] MEDS ORDERED: FLUOROURACIL 500 MG/10 ML VIAL IVPUSH ONE (11:30)
[2020-05-16] MEDS ORDERED: ALTEPLASE 2 MG VIAL NR ONE ×2 (12:14→12:15)
[2020-05-16 13:04] LABS: BASO % 0.4 % (0-2.0); EOS % 0.7 % (0-4.5); HEMATOCRIT 29.8 % (32.4-45.2); HEMOGLOBIN 9.5 GM/dL (10.7-15.3); LYMPH % 9.6 % (8-40); MCH 31.4 pg (25.7-33.7); MEAN CELL VOLUME 98.4 fl (80-96); MEAN PLT VOLUME 9.1 fl (7.5-11.1); MONO % 14.5 % (3.8-10.2); NEUT % 74.8 % (42.8-82.8); PLATELET COUNT 154 K/MM3 (134-434); RBC 3.02 M/mm3 (3.60-5.2); RDW 26.3 % (11.6-15.6); WHITE BLOOD COUNT 5.5 K/mm3 (4.0-10.0)
[2020-05-16 13:51] LABS: BLOOD UREA NITROGEN 13.1 mg/dL (7-18); CREATININE 0.5 mg/dL (0.55-1.3); MAGNESIUM 2.1 mg/dL (1.8-2.4)
[2020-05-16 14:20] LABS: ALBUMIN 2.4 g/dl (3.4-5.0); BILIRUBIN,DIRECT 0.2 mg/dL (0.0-0.2); BILIRUBIN,TOTAL 0.7 mg/dL (0.2-1); TOT PROT 5.6 g/dl (6.4-8.2)
[2020-05-16 15:02] LABS: ANISOCYTOSIS 1+; MACROCYTOSIS 1+; OVALOCYTE 1+; PLATELET ESTIMATE NORMAL
[2020-05-16] MEDS ORDERED: DEXAMETHASONE SOD PHOSPHATE 10 MG/1 ML VIAL IVPB ONE (16:24)
[2020-05-16 18:28] VITALS: PULSE 102; TEMP 96.7
[2020-05-16 19:13] VITALS: BP 98/59
== END 2020-05-16 19:13 | disposition home or self-care (01) ==
LOC: JONCCHEMO 07:11
PROVIDERS: ATTEND Internal Medicine Hematology & Oncology
DX: Z51.11 Encounter for antineoplastic chemotherapy (principal); C15.5 Malignant neoplasm of lower third of esophagus; D64.81 Anemia due to antineoplastic chemotherapy
CPT/HCPCS: 36415; 80048; 80076; 82378; 83735; 84156; 85025; 86301; 96366; 96367; 96411; 96413; 96415; J1100; J1756; J2469; J2997; J9190; Q5107

== ENCOUNTER 2020-05-23 07:29 | Day surgery (SDC) | payer OTHER, BC ==
[2020-05-23 09:49] LABS: BASO % 0.7 % (0-2.0); EOS % 3.5 % (0-4.5); HEMATOCRIT 30.6 % (32.4-45.2); HEMOGLOBIN 9.6 GM/dL (10.7-15.3); LYMPH % 12.7 % (8-40); MCH 30.7 pg (25.7-33.7); MCHC 31.3 g/dl (32.0-36.0); MEAN CELL VOLUME 98.3 fl (80-96); MEAN PLT VOLUME 8.2 fl (7.5-11.1); MONO % 8.8 % (3.8-10.2); NEUT % 74.3 % (42.8-82.8); PLATELET COUNT 138 K/MM3 (134-434); RBC 3.11 M/mm3 (3.60-5.2); RDW 25.8 % (11.6-15.6); WHITE BLOOD COUNT 4.4 K/mm3 (4.0-10.0)
[2020-05-23] MEDS ORDERED: IRON SUCROSE INJECTION 200 MG in SODIUM CHLORIDE 100 ML IVPB ONE (10:00)
[2020-05-23] MEDS ORDERED: CYANOCOBALAMIN (VITAMIN B-12) 1000 MCG/1 ML VIAL IM ONE (10:00)
[2020-05-23] MEDS ORDERED: SODIUM CHLORIDE 250 ML IV ONE (10:00)
[2020-05-23 10:16] LABS: ALBUMIN 2.6 g/dl (3.4-5.0); BILIRUBIN,DIRECT 0.1 mg/dL (0.0-0.2); BILIRUBIN,TOTAL 0.6 mg/dL (0.2-1); BLOOD UREA NITROGEN 16.3 mg/dL (7-18); CALCIUM 7.8 mg/dL (8.5-10.1); CREATININE 0.5 mg/dL (0.55-1.3); POTASSIUM 3.9 mmol/L (3.5-5.1); TOT PROT 5.7 g/dl (6.4-8.2)
[2020-05-23] MEDS ORDERED: PALONOSETRON HCL 0.25 MG/5 ML VIAL IVPUSH ONE (10:30)
[2020-05-23] MEDS ORDERED: DEXAMETHASONE SODIUM PHOSPHATE 10 MG in SODIUM CHLORIDE 50 ML IVPB ONE (10:30)
[2020-05-23 10:38] LABS: ANISOCYTOSIS 2+; MACROCYTOSIS 1+; PLATELET ESTIMATE DECREASED
[2020-05-23] MEDS ORDERED: DEXTROSE 5% IVPB ONE (11:00)
[2020-05-23] MEDS ORDERED: WATER IVPB ONE (11:00)
[2020-05-23] MEDS ORDERED: LEUCOVORIN IVPB ONE (11:00)
[2020-05-23] MEDS ORDERED: FLUOROURACIL 2,500 MG/50 ML VIAL IVPUSH ONE (12:00)
[2020-05-23 17:30] VITALS: BP 109/60; PULSE 95; TEMP 98
[2020-05-23] MEDS ORDERED: PORTA CATH FLUSH 10 ML IVPUSH ONE (17:30)
== END 2020-05-23 15:20 | disposition home or self-care (01) ==
LOC: JONCCHEMO 07:29
PROVIDERS: ATTEND Internal Medicine Hematology & Oncology
PROC: 3E033GC Introduction of Other Therapeutic Substance into Peripheral Vein, Percutaneous Approach (ICD-10-PCS; principal; 2020-05-23)
PROC: 3E033GC Introduction of Other Therapeutic Substance into Peripheral Vein, Percutaneous Approach (ICD-10-PCS; 2020-05-23)
PROC: 3E0337Z Introduction of Electrolytic and Water Balance Substance into Peripheral Vein, Percutaneous Approach (ICD-10-PCS; 2020-05-23)
PROC: 3E023GC Introduction of Other Therapeutic Substance into Muscle, Percutaneous Approach (ICD-10-PCS; 2020-05-23)
DX: Z76.89 Persons encountering health services in other specified circumstances (principal); C15.5 Malignant neoplasm of lower third of esophagus; I10 Essential (primary) hypertension; E78.00 Pure hypercholesterolemia, unspecified
CPT/HCPCS: 36415; 80048; 80076; 83735; 85025; 96361; 96365; 96366; 96367; 96372; 96375; J1756; J2469

== ENCOUNTER 2020-05-30 07:40 | Day surgery (SDC) | payer OTHER, BC ==
[2020-05-30] MEDS ORDERED: SODIUM CHLORIDE 250 ML IV ONE (09:00)
[2020-05-30] MEDS ORDERED: IRON SUCROSE INJECTION 200 MG in SODIUM CHLORIDE 100 ML IVPB ONE (09:00)
[2020-05-30] MEDS ORDERED: PALONOSETRON HCL 0.25 MG/5 ML VIAL IVPUSH ONE (10:00)
[2020-05-30] MEDS ORDERED: DEXAMETHASONE SODIUM PHOSPHATE 10 MG in SODIUM CHLORIDE 50 ML IVPB ONE (10:00)
[2020-05-30 10:11] LABS: BASO % 0.1 % (0-2.0); EOS % 5.8 % (0-4.5); HEMATOCRIT 25.2 % (32.4-45.2); HEMOGLOBIN 8.1 GM/dL (10.7-15.3); LYMPH % 8.8 % (8-40); MCH 32.2 pg (25.7-33.7); MCHC 32.1 g/dl (32.0-36.0); MEAN CELL VOLUME 100.4 fl (80-96); MEAN PLT VOLUME 8.7 fl (7.5-11.1); MONO % 5.9 % (3.8-10.2); NEUT % 79.4 % (42.8-82.8); PLATELET COUNT 82 K/MM3 (134-434); RBC 2.51 M/mm3 (3.60-5.2); RDW 25.2 % (11.6-15.6)
[2020-05-30] MEDS ORDERED: SODIUM CHLORIDE IVPB ONE (10:30)
[2020-05-30] MEDS ORDERED: BEVACIZUMAB AWWB IVPB ONE (10:30)
[2020-05-30] MEDS ORDERED: LEUCOVORIN IVPB ONE (11:30)
[2020-05-30] MEDS ORDERED: WATER IVPB ONE (11:30)
[2020-05-30] MEDS ORDERED: DEXTROSE 5% IVPB ONE (11:30)
[2020-05-30 11:40] LABS: ANISOCYTOSIS 1+; MACROCYTOSIS 1+; PLATELET ESTIMATE DECREASED
[2020-05-30 12:19] LABS: ALBUMIN 2.5 g/dl (3.4-5.0); BILIRUBIN,DIRECT 0.1 mg/dL (0.0-0.2); BILIRUBIN,TOTAL 0.6 mg/dL (0.2-1); BLOOD UREA NITROGEN 15.2 mg/dL (7-18); CALCIUM 7.9 mg/dL (8.5-10.1); CREATININE 0.4 mg/dL (0.55-1.3); MAGNESIUM 1.9 mg/dL (1.8-2.4); POTASSIUM 3.5 mmol/L (3.5-5.1); TOT PROT 5.4 g/dl (6.4-8.2)
[2020-05-30] MEDS ORDERED: FLUOROURACIL 500 MG/10 ML VIAL IVPUSH ONE (12:30)
[2020-05-30 19:03] VITALS: TEMP 97.6
[2020-05-30 19:05] VITALS: BP 97/38; PULSE 81
== END 2020-05-30 17:30 | disposition home or self-care (01) ==
LOC: JONCCHEMO 07:40
PROVIDERS: ATTEND Internal Medicine Hematology & Oncology
PROC: 3E033GC Introduction of Other Therapeutic Substance into Peripheral Vein, Percutaneous Approach (ICD-10-PCS; principal; 2020-05-30)
PROC: 3E033GC Introduction of Other Therapeutic Substance into Peripheral Vein, Percutaneous Approach (ICD-10-PCS; 2020-05-30)
PROC: 3E0337Z Introduction of Electrolytic and Water Balance Substance into Peripheral Vein, Percutaneous Approach (ICD-10-PCS; 2020-05-30)
DX: Z76.89 Persons encountering health services in other specified circumstances (principal); C15.5 Malignant neoplasm of lower third of esophagus
CPT/HCPCS: 36415; 80048; 80076; 82607; 82728; 83540; 83550; 83735; 84156; 85025; 96361; 96365; 96366; 96375; J2469; J9190; Q5107

== ENCOUNTER 2020-06-13 08:38 | Day surgery (SDC) | payer OTHER, BC ==
[2020-06-13] MEDS ORDERED: SODIUM CHLORIDE 250 ML IV ONE (09:00)
[2020-06-13] MEDS ORDERED: IRON SUCROSE INJECTION 200 MG in SODIUM CHLORIDE 100 ML IVPB ONE (09:00)
[2020-06-13] MEDS ORDERED: DEXAMETHASONE SODIUM PHOSPHATE 10 MG in SODIUM CHLORIDE 50 ML IVPB ONE (10:00)
[2020-06-13] MEDS ORDERED: PALONOSETRON HCL 0.25 MG/5 ML VIAL IVPUSH ONE (10:00)
[2020-06-13] MEDS ORDERED: BEVACIZUMAB AWWB IVPB ONE (10:30)
[2020-06-13] MEDS ORDERED: SODIUM CHLORIDE IVPB ONE (10:30)
[2020-06-13] MEDS ORDERED: SODIUM CHLORIDE 0.9% 500 ML INFUS.BAG IV ONE (10:32)
[2020-06-13] MEDS ORDERED: DEXTROSE 5% IVPB ONE (11:30)
[2020-06-13] MEDS ORDERED: WATER IVPB ONE (11:30)
[2020-06-13] MEDS ORDERED: LEUCOVORIN IVPB ONE (11:30)
[2020-06-13 11:46] LABS: BASO % 0.7 % (0-2.0); EOS % 4.9 % (0-4.5); HEMATOCRIT 27.1 % (32.4-45.2); HEMOGLOBIN 8.8 GM/dL (10.7-15.3); LYMPH % 17.9 % (8-40); MCH 34.5 pg (25.7-33.7); MCHC 32.6 g/dl (32.0-36.0); MEAN CELL VOLUME 105.7 fl (80-96); MEAN PLT VOLUME 8.7 fl (7.5-11.1); MONO % 18.4 % (3.8-10.2); NEUT % 58.1 % (42.8-82.8); PLATELET COUNT 159 K/MM3 (134-434); RBC 2.56 M/mm3 (3.60-5.2); RDW 31.5 % (11.6-15.6); WHITE BLOOD COUNT 3.5 K/mm3 (4.0-10.0)
[2020-06-13 12:25] LABS: ALBUMIN 2.4 g/dl (3.4-5.0); BILIRUBIN,DIRECT 0.2 mg/dL (0.0-0.2); BILIRUBIN,TOTAL 0.5 mg/dL (0.2-1); CALCIUM 7.6 mg/dL (8.5-10.1); CREATININE 0.5 mg/dL (0.55-1.3); MAGNESIUM 1.6 mg/dL (1.8-2.4); TOT PROT 5.3 g/dl (6.4-8.2)
[2020-06-13] MEDS ORDERED: FLUOROURACIL 500 MG/10 ML VIAL IVPUSH ONE (12:30)
[2020-06-13 12:39] LABS: POTASSIUM 2.9 mmol/L (3.5-5.1)
[2020-06-13] MEDS ORDERED: MAGNESIUM 2GM/50ML STERILE WATER IVPB IVPB ONE (12:39)
[2020-06-13 15:20] LABS: MACROCYTOSIS 2+; OVALOCYTE 1+; TEAR DROP CELLS 1+
[2020-06-13 15:21] LABS: PLATELET ESTIMATE ADEQUATE
[2020-06-13] MEDS ORDERED: POTASSIUM CHLORIDE TABS 20 MEQ TABLET.ER (FP) PO ONE (16:22)
[2020-06-13 18:47] VITALS: BP 108/51; PULSE 79; TEMP 98.5
== END 2020-06-13 18:00 | disposition home or self-care (01) ==
LOC: JONCCHEMO 08:38
PROVIDERS: ATTEND Internal Medicine Hematology & Oncology
DX: Z51.11 Encounter for antineoplastic chemotherapy (principal); C15.5 Malignant neoplasm of lower third of esophagus
CPT/HCPCS: 36415; 80048; 80076; 83735; 85025; 96361; 96366; 96367; 96375; 96411; 96413; J2469; J9190; Q5107

== ENCOUNTER 2020-06-20 06:15 | Day surgery (SDC) | payer OTHER, BC ==
[2020-06-20] MEDS ORDERED: SODIUM CHLORIDE 250 ML IV ONE (09:00)
[2020-06-20] MEDS ORDERED: PALONOSETRON HCL 0.25 MG/5 ML VIAL IVPUSH ONE (09:30)
[2020-06-20] MEDS ORDERED: DEXAMETHASONE SODIUM PHOSPHATE 10 MG in SODIUM CHLORIDE 50 ML IVPB ONE (09:30)
[2020-06-20] MEDS ORDERED: LEUCOVORIN IVPB ONE (10:00)
[2020-06-20] MEDS ORDERED: WATER IVPB ONE (10:00)
[2020-06-20] MEDS ORDERED: DEXTROSE 5% IVPB ONE (10:00)
[2020-06-20 10:25] LABS: BASO % 0.2 % (0-2.0); EOS % 2.8 % (0-4.5); HEMATOCRIT 26.6 % (32.4-45.2); HEMOGLOBIN 8.6 GM/dL (10.7-15.3); LYMPH % 10.1 % (8-40); MCH 35.6 pg (25.7-33.7); MCHC 32.2 g/dl (32.0-36.0); MEAN CELL VOLUME 110.5 fl (80-96); MEAN PLT VOLUME 8.5 fl (7.5-11.1); MONO % 11.9 % (3.8-10.2); PLATELET COUNT 135 K/MM3 (134-434); WHITE BLOOD COUNT 5.1 K/mm3 (4.0-10.0)
[2020-06-20] MEDS ORDERED: FLUOROURACIL 500 MG/10 ML VIAL IVPUSH ONE (11:00)
[2020-06-20 11:36] LABS: ALBUMIN 2.4 g/dl (3.4-5.0); BILIRUBIN,DIRECT 0.1 mg/dL (0.0-0.2); BILIRUBIN,TOTAL 0.3 mg/dL (0.2-1); BLOOD UREA NITROGEN 11.1 mg/dL (7-18); CALCIUM 7.5 mg/dL (8.5-10.1); CREATININE 0.5 mg/dL (0.55-1.3); MAGNESIUM 2.1 mg/dL (1.8-2.4); POTASSIUM 4.7 mmol/L (3.5-5.1); TOT PROT 5.4 g/dl (6.4-8.2)
[2020-06-20 12:03] LABS: ANISOCYTOSIS 2+; MACROCYTOSIS 2+; PLATELET ESTIMATE DECREASED
[2020-06-20 12:20] LABS: EPI CELLS 1 /uL (0-25.1); HYALINE CASTS 7 /uL (0-3.1); PH,URINE 6.5 (5.0-8.0); URINE APPEARANCE CLEAR; URINE BACTERIA >9,000 /uL (0-1359); URINE BILIRUBIN NEGATIVE (NEGATIVE); URINE COLOR YELLOW; URINE GLUCOSE (UA) NEGATIVE (NEGATIVE); URINE KETONE NEGATIVE (NEGATIVE); URINE LEUK ESTERASE 1+ (NEGATIVE); URINE NITRITE NEGATIVE (NEGATIVE); URINE PROTEIN NEGATIVE (NEGATIVE); URINE RBC 6 /uL (0-23.9); URINE UROBILINOGEN 0.2 mg/dL (0.2-1.0); URINE WBC 248 /uL (0-25.8)
[2020-06-20 16:06] VITALS: TEMP 97.9
[2020-06-20 16:10] VITALS: BP 111/51; PULSE 98
== END 2020-06-20 14:30 | disposition home or self-care (01) ==
LOC: JONCCHEMO 06:15
PROVIDERS: ATTEND Internal Medicine Hematology & Oncology
PROC: 3E04305 Introduction of Other Antineoplastic into Central Vein, Percutaneous Approach (ICD-10-PCS; principal; 2020-06-20)
PROC: 3E043GC Introduction of Other Therapeutic Substance into Central Vein, Percutaneous Approach (ICD-10-PCS; 2020-06-20)
PROC: 3E043GC Introduction of Other Therapeutic Substance into Central Vein, Percutaneous Approach (ICD-10-PCS; 2020-06-20)
DX: Z51.11 Encounter for antineoplastic chemotherapy (principal); C15.5 Malignant neoplasm of lower third of esophagus
CPT/HCPCS: 36415; 80048; 80076; 81003; 82607; 83735; 84156; 85025; 87086; 87186; 96361; 96365; 96366; 96375; 96409; J2469; J9190

== ENCOUNTER 2020-06-28 07:15 | Day surgery (SDC) | payer OTHER, BC ==
[2020-06-28] MEDS ORDERED: SODIUM CHLORIDE 250 ML IV ONE (09:00)
[2020-06-28] MEDS ORDERED: PALONOSETRON HCL 0.25 MG/5 ML VIAL IVPUSH ONE (09:30)
[2020-06-28] MEDS ORDERED: DEXAMETHASONE SODIUM PHOSPHATE 10 MG in SODIUM CHLORIDE 50 ML IVPB ONE (09:30)
[2020-06-28 09:46] LABS: BASO % 0.4 % (0-2.0); EOS % 4.9 % (0-4.5); HEMATOCRIT 26.3 % (32.4-45.2); HEMOGLOBIN 8.5 GM/dL (10.7-15.3); LYMPH % 8.7 % (8-40); MCH 35.9 pg (25.7-33.7); MCHC 32.4 g/dl (32.0-36.0); MEAN CELL VOLUME 110.8 fl (80-96); MEAN PLT VOLUME 8.2 fl (7.5-11.1); MONO % 10.9 % (3.8-10.2); NEUT % 75.1 % (42.8-82.8); PLATELET COUNT 141 K/MM3 (134-434); RBC 2.37 M/mm3 (3.60-5.2); RDW 30.8 % (11.6-15.6); WHITE BLOOD COUNT 5.4 K/mm3 (4.0-10.0)
[2020-06-28] MEDS ORDERED: DEXTROSE 5% IVPB ONE (10:00)
[2020-06-28] MEDS ORDERED: LEUCOVORIN IVPB ONE (10:00)
[2020-06-28] MEDS ORDERED: WATER IVPB ONE (10:00)
[2020-06-28 10:14] LABS: BILIRUBIN,DIRECT 0.2 mg/dL (0.0-0.2); BILIRUBIN,TOTAL 0.4 mg/dL (0.2-1); TOT PROT 5.6 g/dl (6.4-8.2)
[2020-06-28 10:40] LABS: BLOOD UREA NITROGEN 12.1 mg/dL (7-18); CALCIUM 7.4 mg/dL (8.5-10.1); CREATININE 0.5 mg/dL (0.55-1.3)
[2020-06-28 10:44] LABS: ALBUMIN 2.5 g/dl (3.4-5.0)
[2020-06-28] MEDS ORDERED: FLUOROURACIL 500 MG/10 ML VIAL IVPUSH ONE (11:00)
[2020-06-28 11:13] LABS: EPI CELLS 2 /uL (0-25.1); HYALINE CASTS 6 /uL (0-3.1); PH,URINE 5.5 (5.0-8.0); URINE APPEARANCE CLEAR; URINE BACTERIA >9,000 /uL (0-1359); URINE BILIRUBIN NEGATIVE (NEGATIVE); URINE COLOR YELLOW; URINE GLUCOSE (UA) NEGATIVE (NEGATIVE); URINE KETONE NEGATIVE (NEGATIVE); URINE LEUK ESTERASE 2+ (NEGATIVE); URINE NITRITE POSITIVE (NEGATIVE); URINE PROTEIN NEGATIVE (NEGATIVE); URINE RBC 11 /uL (0-23.9); URINE UROBILINOGEN 0.2 mg/dL (0.2-1.0); URINE WBC 307 /uL (0-25.8)
[2020-06-28] MEDS ORDERED: BEVACIZUMAB AWWB IVPB ONE (12:00)
[2020-06-28] MEDS ORDERED: SODIUM CHLORIDE IVPB ONE (12:00)
[2020-06-28 13:59] LABS: ANISOCYTOSIS 2+; MACROCYTOSIS 2+; OVALOCYTE 1+; PLATELET ESTIMATE DECREASED
[2020-06-28] MEDS ORDERED: PORTA CATH FLUSH 10 ML IVPUSH ONE (17:53)
[2020-06-28 17:54] VITALS: BP 91/39; PULSE 89; TEMP 97.8
== END 2020-06-28 14:55 | disposition home or self-care (01) ==
LOC: JONCCHEMO 07:15
PROVIDERS: ATTEND Internal Medicine Hematology & Oncology
PROC: 3E04305 Introduction of Other Antineoplastic into Central Vein, Percutaneous Approach (ICD-10-PCS; principal; 2020-06-28)
PROC: 3E043GC Introduction of Other Therapeutic Substance into Central Vein, Percutaneous Approach (ICD-10-PCS; 2020-06-28)
PROC: 3E0437Z Introduction of Electrolytic and Water Balance Substance into Central Vein, Percutaneous Approach (ICD-10-PCS; 2020-06-28)
DX: Z51.11 Encounter for antineoplastic chemotherapy (principal); C15.9 Malignant neoplasm of esophagus, unspecified; C15.5 Malignant neoplasm of lower third of esophagus; I10 Essential (primary) hypertension; E78.00 Pure hypercholesterolemia, unspecified
CPT/HCPCS: 36415; 80048; 80076; 81003; 82728; 83540; 83550; 83735; 84156; 85025; 87086; 96361; 96367; 96375; 96413; J2469; J9190; Q5107

== ENCOUNTER 2020-07-11 06:58 | Day surgery (SDC) | payer OTHER, BC ==
--- OUTSIDE RECORDS SUMMARY | 2020-07-11 07:04 | XMS ---
:1950 Author Organization [facility] Support Name Relationship Address Phone RE, RETIRED Unavailable Unavailable Unavailable RE Unavailable Unavailable Unavailable ANDREA GREENFIELD SISTER [address] [place] [address] NERY SCHROEDER NIECE [address] [place] [phone] LESLIE HICKS SISTER [address] [place] [address] Re-disclosure Warning The records that you are about to access may contain information from federally- assisted alcohol or drug abuse programs. If such information is present, then the following federally mandated warning applies: This information has been disclosed to you from records protected by federal confidentiality rules (42 CFR part 2). The federal rules prohibit you from making any further disclosure of this information unless further disclosure is expressly permitted by the written consent of the person to whom it pertains or as otherwise permitted by 42 CFR part 2. A general authorization for the release of medical or other information is NOT sufficient for this purpose. The Federal rules restrict any use of the information to criminally investigate or prosecute any alcohol or drug abuse patient.The records that you are about to access may contain highly sensitive health information, the redisclosure of which is protected by Article 27-F of the [facility] Public [employer] law. If you continue you may haveaccess to information: Regarding HIV / AIDS; Provided by facilities licensed or operated by the [facility] Office of Mental Health; or Provided by the [facility] Office for People With Developmental Disabilities. If such information is present, then the following [facility] mandated warning applies: This information has been disclosed to you from confidential records which are protected by state law. State law prohibits you from making any further disclosure of this information without the specific written consent of the person to whom it pertains, or as otherwise permitted by law. Any unauthorized further disclosure in violation of state law may result in a fine or intermediate sentence or both. A general authorization for the release of medical or other information is NOT sufficient authorization for further disclosure. Insurance Providers Payer name Policy type Policy ID Covered Covered republican's Policy P patrice / Coverage republican ID relationship to [employer] ormation type [employer] MEDICARE [id number] SP [id number] BC PPO [id number] SP [id number] BC PPO [id number] SP [id number] MEDICARE [id number] SP [id number] A BC PPO [id number] SP [id number]
[2020-07-11] MEDS ORDERED: SODIUM CHLORIDE 250 ML IV ONE (09:00)
[2020-07-11 09:48] LABS: BASO % 0.4 % (0-2.0); EOS % 7.8 % (0-4.5); HEMATOCRIT 29.8 % (32.4-45.2); HEMOGLOBIN 9.9 GM/dL (10.7-15.3); LYMPH % 14.8 % (8-40); MCH 39.2 pg (25.7-33.7); MCHC 33.3 g/dl (32.0-36.0); MEAN CELL VOLUME 117.7 fl (80-96); MEAN PLT VOLUME 9.1 fl (7.5-11.1); MONO % 12.2 % (3.8-10.2); NEUT % 64.8 % (42.8-82.8); PLATELET COUNT 137 K/MM3 (134-434); RBC 2.53 M/mm3 (3.60-5.2); RDW 27.9 % (11.6-15.6); WHITE BLOOD COUNT 3.3 K/mm3 (4.0-10.0)
[2020-07-11] MEDS ORDERED: IRON SUCROSE INJECTION 200 MG in SODIUM CHLORIDE 100 ML IVPB ONE (10:00)
[2020-07-11] MEDS ORDERED: PALONOSETRON HCL 0.25 MG/5 ML VIAL IVPUSH ONE (10:30)
[2020-07-11] MEDS ORDERED: DEXAMETHASONE SODIUM PHOSPHATE 10 MG in SODIUM CHLORIDE 50 ML IVPB ONE (10:30)
[2020-07-11 10:34] LABS: ALBUMIN 2.7 g/dl (3.4-5.0); BILIRUBIN,DIRECT 0.1 mg/dL (0.0-0.2); BILIRUBIN,TOTAL 0.3 mg/dL (0.2-1); BLOOD UREA NITROGEN 14.8 mg/dL (7-18); CALCIUM 7.6 mg/dL (8.5-10.1); CREATININE 0.6 mg/dL (0.55-1.3); MAGNESIUM 1.8 mg/dL (1.8-2.4); POTASSIUM 3.7 mmol/L (3.5-5.1)
[2020-07-11] MEDS ORDERED: WATER IVPB ONE (11:00)
[2020-07-11] MEDS ORDERED: DEXTROSE 5% IVPB ONE (11:00)
[2020-07-11] MEDS ORDERED: LEUCOVORIN IVPB ONE (11:00)
[2020-07-11 11:11] LABS: ANISOCYTOSIS 3+; MACROCYTOSIS 3+; PLATELET ESTIMATE DECREASED
[2020-07-11] MEDS ORDERED: FLUOROURACIL 500 MG/10 ML VIAL IVPUSH ONE (12:00)
[2020-07-11 12:24] LABS: EPI CELLS 9 /uL (0-25.1); HYALINE CASTS 8 /uL (0-3.1); PH,URINE 5.5 (5.0-8.0); URINE APPEARANCE CLOUDY; URINE BACTERIA >9,000 /uL (0-1359); URINE BILIRUBIN NEGATIVE (NEGATIVE); URINE COLOR YELLOW; URINE GLUCOSE (UA) NEGATIVE (NEGATIVE); URINE KETONE NEGATIVE (NEGATIVE); URINE LEUK ESTERASE NEGATIVE (NEGATIVE); URINE NITRITE POSITIVE (NEGATIVE); URINE PROTEIN NEGATIVE (NEGATIVE); URINE UROBILINOGEN 0.2 mg/dL (0.2-1.0); URINE WBC 2 /uL (0-25.8)
[2020-07-11] MEDS ORDERED: SODIUM CHLORIDE IVPB ONE (13:00)
[2020-07-11] MEDS ORDERED: BEVACIZUMAB AWWB IVPB ONE (13:00)
[2020-07-11] MEDS ORDERED: MAGNESIUM OXIDE 400 MG TABLET (FP) PO ONE (14:15)
[2020-07-11] MEDS ORDERED: POTASSIUM CHLORIDE TABS 20 MEQ TABLET.ER (FP) PO ONE (14:15)
[2020-07-11 14:21] LABS: URINE CRYSTALS NON SEEN /hpf; URINE RBC 106.4 /uL (0-23.9)
[2020-07-11 17:08] VITALS: TEMP 97.7
[2020-07-11 17:10] VITALS: BP 92/38; PULSE 83
== END 2020-07-11 15:30 | disposition home or self-care (01) ==
LOC: JONCCHEMO 06:58
PROVIDERS: ATTEND Internal Medicine Hematology & Oncology
DX: Z51.11 Encounter for antineoplastic chemotherapy (principal); C15.5 Malignant neoplasm of lower third of esophagus
CPT/HCPCS: 36415; 80048; 80076; 81003; 83735; 84156; 85025; 96361; 96366; 96367; 96375; 96411; 96413; J1756; J2469; J9190; Q5107

== ENCOUNTER 2020-07-18 06:55 | Day surgery (SDC) | payer OTHER, BC ==
[2020-07-18] MEDS ORDERED: SODIUM CHLORIDE 250 ML IV ONE (09:00)
[2020-07-18 09:48] LABS: BASO % 0.7 % (0-2.0); EOS % 11.6 % (0-4.5); HEMATOCRIT 28.5 % (32.4-45.2); HEMOGLOBIN 9.4 GM/dL (10.7-15.3); LYMPH % 13.6 % (8-40); MCH 39.1 pg (25.7-33.7); MCHC 32.9 g/dl (32.0-36.0); MEAN CELL VOLUME 118.8 fl (80-96); MEAN PLT VOLUME 8.8 fl (7.5-11.1); MONO % 10.9 % (3.8-10.2); NEUT % 63.2 % (42.8-82.8); PLATELET COUNT 122 K/MM3 (134-434); RDW 24.6 % (11.6-15.6); WHITE BLOOD COUNT 3.6 K/mm3 (4.0-10.0)
[2020-07-18] MEDS ORDERED: PALONOSETRON HCL 0.25 MG/5 ML VIAL IVPUSH ONE (10:00)
[2020-07-18] MEDS ORDERED: DEXAMETHASONE SODIUM PHOSPHATE 10 MG in SODIUM CHLORIDE 50 ML IVPB ONE (10:00)
[2020-07-18 10:04] LABS: ALBUMIN 2.8 g/dl (3.4-5.0); BILIRUBIN,DIRECT 0.1 mg/dL (0.0-0.2); BILIRUBIN,TOTAL 0.4 mg/dL (0.2-1); BLOOD UREA NITROGEN 18.1 mg/dL (7-18); CALCIUM 8.1 mg/dL (8.5-10.1); MAGNESIUM 1.8 mg/dL (1.8-2.4); POTASSIUM 3.4 mmol/L (3.5-5.1); TOT PROT 5.9 g/dl (6.4-8.2)
[2020-07-18 10:08] LABS: CREATININE 0.5 mg/dL (0.55-1.3)
[2020-07-18] MEDS ORDERED: MAGNESIUM OXIDE 400 MG TABLET (FP) PO ONE (10:08)
[2020-07-18] MEDS ORDERED: POTASSIUM CHLORIDE TABS 20 MEQ TABLET.ER (FP) PO ONE (10:08)
[2020-07-18] MEDS ORDERED: WATER IVPB ONE (10:30)
[2020-07-18] MEDS ORDERED: DEXTROSE 5% IVPB ONE (10:30)
[2020-07-18] MEDS ORDERED: LEUCOVORIN IVPB ONE (10:30)
[2020-07-18] MEDS ORDERED: FLUOROURACIL 2,500 MG/50 ML VIAL IVPUSH ONE (11:30)
[2020-07-18 12:30] LABS: ANISOCYTOSIS 2+; MACROCYTOSIS 1+; OVALOCYTE 1+; PLATELET ESTIMATE DECREASED; TEAR DROP CELLS 1+
[2020-07-18 16:18] VITALS: TEMP 98.3
[2020-07-18] MEDS ORDERED: PORTA CATH FLUSH 10 ML IVPUSH ONE (16:21)
[2020-07-18 16:22] VITALS: BP 104/48; PULSE 85
== END 2020-07-18 13:15 | disposition home or self-care (01) ==
LOC: JONCCHEMO 06:55
PROVIDERS: ATTEND Internal Medicine Hematology & Oncology
PROC: 3E04305 Introduction of Other Antineoplastic into Central Vein, Percutaneous Approach (ICD-10-PCS; principal; 2020-07-18)
PROC: 3E043GC Introduction of Other Therapeutic Substance into Central Vein, Percutaneous Approach (ICD-10-PCS; 2020-07-18)
PROC: 3E0437Z Introduction of Electrolytic and Water Balance Substance into Central Vein, Percutaneous Approach (ICD-10-PCS; 2020-07-18)
DX: Z51.11 Encounter for antineoplastic chemotherapy (principal); C15.5 Malignant neoplasm of lower third of esophagus; I10 Essential (primary) hypertension; E78.00 Pure hypercholesterolemia, unspecified
CPT/HCPCS: 36415; 80048; 80076; 83735; 84156; 85025; 87086; 87186; 96361; 96375; 96413; 96415; J2469

== ENCOUNTER 2020-08-29 07:23 | Day surgery (SDC) | payer OTHER, BC ==
[2020-08-29] MEDS ORDERED: IRON SUCROSE INJECTION 200 MG in SODIUM CHLORIDE 100 ML IVPB ONE (09:00)
[2020-08-29] MEDS ORDERED: SODIUM CHLORIDE 250 ML IV ONE (09:00)
[2020-08-29] MEDS ORDERED: DEXAMETHASONE SODIUM PHOSPHATE 10 MG in SODIUM CHLORIDE 50 ML IVPB ONE (09:30)
[2020-08-29] MEDS ORDERED: PALONOSETRON HCL 0.25 MG/5 ML VIAL IVPUSH ONE (09:30)
[2020-08-29 09:44] LABS: BASO % 0.3 % (0-2.0); EOS % 9.1 % (0-4.5); HEMATOCRIT 29.6 % (32.4-45.2); HEMOGLOBIN 9.6 GM/dL (10.7-15.3); LYMPH % 7.8 % (8-40); MCH 38.5 pg (25.7-33.7); MCHC 32.4 g/dl (32.0-36.0); MEAN CELL VOLUME 118.7 fl (80-96); MEAN PLT VOLUME 8.8 fl (7.5-11.1); MONO % 8.5 % (3.8-10.2); NEUT % 74.3 % (42.8-82.8); PLATELET COUNT 161 K/MM3 (134-434); RBC 2.49 M/mm3 (3.60-5.2); RDW 17.1 % (11.6-15.6); WHITE BLOOD COUNT 6.1 K/mm3 (4.0-10.0)
[2020-08-29 09:51] LABS: INR 2.18 (0.83-1.09); PROTHROMBIN TIME (PATIENT) 26.2 SEC (9.7-13.0)
[2020-08-29] MEDS ORDERED: DEXTROSE 5% IVPB ONE (10:00)
[2020-08-29] MEDS ORDERED: WATER IVPB ONE (10:00)
[2020-08-29] MEDS ORDERED: LEUCOVORIN IVPB ONE (10:00)
[2020-08-29 10:06] LABS: POTASSIUM 3.4 mmol/L (3.5-5.1)
[2020-08-29 10:11] LABS: CALCIUM 7.9 mg/dL (8.5-10.1)
[2020-08-29 10:12] LABS: ALBUMIN 2.7 g/dl (3.4-5.0); BLOOD UREA NITROGEN 15.6 mg/dL (7-18); MAGNESIUM 1.8 mg/dL (1.8-2.4)
[2020-08-29 10:14] LABS: BILIRUBIN,DIRECT 0.1 mg/dL (0.0-0.2)
[2020-08-29 10:15] LABS: BILIRUBIN,TOTAL 0.3 mg/dL (0.2-1); CREATININE 0.5 mg/dL (0.55-1.3)
[2020-08-29] MEDS ORDERED: FLUOROURACIL 500 MG/10 ML VIAL IVPUSH ONE (11:00)
[2020-08-29] MEDS ORDERED: POTASSIUM CHLORIDE TABS 20 MEQ TABLET.ER (FP) PO ONE ×2 (11:34→12:34)
[2020-08-29] MEDS ORDERED: BEVACIZUMAB AWWB IVPB ONE (12:00)
[2020-08-29] MEDS ORDERED: SODIUM CHLORIDE IVPB ONE (12:00)
[2020-08-29 12:19] LABS: ANISOCYTOSIS 2+; MACROCYTOSIS 2+
[2020-08-29 14:06] LABS: EPI CELLS 8 /uL (0-25.1); HYALINE CASTS 3 /uL (0-3.1); PH,URINE 5.5 (5.0-8.0); URINE APPEARANCE CLEAR; URINE BACTERIA 15 /uL (0-1359); URINE BILIRUBIN NEGATIVE (NEGATIVE); URINE COLOR YELLOW; URINE GLUCOSE (UA) NEGATIVE (NEGATIVE); URINE KETONE NEGATIVE (NEGATIVE); URINE LEUK ESTERASE NEGATIVE (NEGATIVE); URINE NITRITE NEGATIVE (NEGATIVE); URINE PROTEIN NEGATIVE (NEGATIVE); URINE RBC 339 /uL (0-23.9); URINE UROBILINOGEN 0.2 mg/dL (0.2-1.0); URINE WBC 11 /uL (0-25.8)
[2020-08-29 14:42] LABS: URINE CRYSTALS AMORPHOUS URATE 4+ /hpf
[2020-08-29 16:19] VITALS: BP 123/51; PULSE 96; TEMP 98.4
== END 2020-08-29 15:50 | disposition home or self-care (01) ==
LOC: JONCCHEMO 07:23
PROVIDERS: ATTEND Internal Medicine Hematology & Oncology
DX: Z51.11 Encounter for antineoplastic chemotherapy (principal); C15.5 Malignant neoplasm of lower third of esophagus
CPT/HCPCS: 36415; 80048; 80076; 81003; 83735; 84156; 85025; 85610; 86301; 96361; 96367; 96375; 96411; 96413; J1756; J2469; J9190; Q5107

== ENCOUNTER 2020-09-06 06:23 | Day surgery (SDC) | payer OTHER, BC ==
[2020-09-06] MEDS ORDERED: SODIUM CHLORIDE 250 ML IV ONE (09:00)
[2020-09-06] MEDS ORDERED: DEXAMETHASONE SODIUM PHOSPHATE 10 MG in SODIUM CHLORIDE 50 ML IVPB ONE (09:30)
[2020-09-06] MEDS ORDERED: PALONOSETRON HCL 0.25 MG/5 ML VIAL IVPUSH ONE (09:30)
[2020-09-06] MEDS ORDERED: DEXTROSE 5% IVPB ONE (10:00)
[2020-09-06] MEDS ORDERED: WATER IVPB ONE (10:00)
[2020-09-06] MEDS ORDERED: LEUCOVORIN IVPB ONE (10:00)
[2020-09-06 10:23] LABS: BASO % 0.4 % (0-2.0); EOS % 6.8 % (0-4.5); HEMATOCRIT 29.9 % (32.4-45.2); HEMOGLOBIN 9.7 GM/dL (10.7-15.3); LYMPH % 10.4 % (8-40); MCH 38.4 pg (25.7-33.7); MCHC 32.6 g/dl (32.0-36.0); MEAN CELL VOLUME 118.1 fl (80-96); MEAN PLT VOLUME 8.4 fl (7.5-11.1); MONO % 9.9 % (3.8-10.2); NEUT % 72.5 % (42.8-82.8); PLATELET COUNT 182 K/MM3 (134-434); RBC 2.53 M/mm3 (3.60-5.2); RDW 16.5 % (11.6-15.6); WHITE BLOOD COUNT 4.8 K/mm3 (4.0-10.0)
[2020-09-06 10:28] LABS: INR 2.01 (0.83-1.09); PROTHROMBIN TIME (PATIENT) 24.2 SEC (9.7-13.0)
[2020-09-06 10:31] LABS: ACTIVATED PTT 35.8 SECONDS (25.2-36.5)
[2020-09-06 10:41] LABS: ALBUMIN 2.8 g/dl (3.4-5.0); MAGNESIUM 1.9 mg/dL (1.8-2.4)
[2020-09-06 10:44] LABS: BILIRUBIN,DIRECT 0.1 mg/dL (0.0-0.2)
[2020-09-06] MEDS ORDERED: POTASSIUM CHLORIDE TABS 20 MEQ TABLET.ER (FP) PO ONE (10:44)
[2020-09-06 10:46] LABS: BILIRUBIN,TOTAL 0.2 mg/dL (0.2-1); TOT PROT 6.4 g/dl (6.4-8.2)
[2020-09-06 10:48] LABS: ANISOCYTOSIS 1+; MACROCYTOSIS 1+; OVALOCYTE 1+; PLATELET ESTIMATE NORMAL
[2020-09-06] MEDS ORDERED: FLUOROURACIL 500 MG/10 ML VIAL IVPUSH ONE (11:00)
[2020-09-06 11:24] LABS: POTASSIUM 3.7 mmol/L (3.5-5.1)
[2020-09-06 11:25] LABS: BLOOD UREA NITROGEN 15.7 mg/dL (7-18); CALCIUM 7.7 mg/dL (8.5-10.1)
[2020-09-06 11:29] LABS: CREATININE 0.4 mg/dL (0.55-1.3)
[2020-09-06 16:06] VITALS: TEMP 97.5
[2020-09-06 16:24] VITALS: BP 121/66; PULSE 94
== END 2020-09-06 15:30 | disposition home or self-care (01) ==
LOC: JONCCHEMO 06:23
PROVIDERS: ATTEND Internal Medicine Hematology & Oncology
DX: Z51.11 Encounter for antineoplastic chemotherapy (principal); C15.5 Malignant neoplasm of lower third of esophagus
CPT/HCPCS: 36415; 80048; 80076; 82728; 83540; 83550; 83735; 84156; 85025; 85610; 85730; 96361; 96375; 96411; 96413; 96415; J2469; J9190

== ENCOUNTER 2020-09-27 05:59 | Day surgery (SDC) | payer OTHER, BC ==
[2020-09-27] MEDS ORDERED: IRON SUCROSE INJECTION 200 MG in SODIUM CHLORIDE 100 ML IVPB ONE (10:00)
[2020-09-27] MEDS ORDERED: SODIUM CHLORIDE 250 ML IV ONE (10:00)
[2020-09-27] MEDS ORDERED: PALONOSETRON HCL 0.25 MG/5 ML VIAL IVPUSH ONE (11:00)
[2020-09-27] MEDS ORDERED: DEXAMETHASONE SODIUM PHOSPHATE 10 MG in SODIUM CHLORIDE 50 ML IVPB ONE (11:00)
[2020-09-27 11:27] LABS: BASO % 0.4 % (0-2.0); EOS % 3.7 % (0-4.5); HEMATOCRIT 37.1 % (32.4-45.2); HEMOGLOBIN 11.8 GM/dL (10.7-15.3); LYMPH % 11.6 % (8-40); MCH 37.2 pg (25.7-33.7); MCHC 31.8 g/dl (32.0-36.0); MEAN CELL VOLUME 117.2 fl (80-96); MEAN PLT VOLUME 8.5 fl (7.5-11.1); MONO % 10.4 % (3.8-10.2); NEUT % 73.9 % (42.8-82.8); PLATELET COUNT 165 K/MM3 (134-434); POTASSIUM 3.5 mmol/L (3.5-5.1); RBC 3.17 M/mm3 (3.60-5.2); RDW 18.7 % (11.6-15.6)
[2020-09-27 11:28] LABS: CALCIUM 8.1 mg/dL (8.5-10.1)
[2020-09-27 11:29] LABS: ALBUMIN 3.4 g/dl (3.4-5.0); BLOOD UREA NITROGEN 11.5 mg/dL (7-18)
[2020-09-27] MEDS ORDERED: SODIUM CHLORIDE IVPB ONE (11:30)
[2020-09-27] MEDS ORDERED: BEVACIZUMAB AWWB IVPB ONE (11:30)
[2020-09-27 11:32] LABS: BILIRUBIN,DIRECT 0.1 mg/dL (0.0-0.2); CREATININE 0.5 mg/dL (0.55-1.3); MAGNESIUM 2.1 mg/dL (1.8-2.4)
[2020-09-27 11:33] LABS: BILIRUBIN,TOTAL 0.4 mg/dL (0.2-1)
[2020-09-27 11:35] LABS: TOT PROT 7.2 g/dl (6.4-8.2)
[2020-09-27] MEDS ORDERED: LEUCOVORIN IVPB ONE (12:00)
[2020-09-27] MEDS ORDERED: DEXTROSE 5% IVPB ONE (12:00)
[2020-09-27] MEDS ORDERED: WATER IVPB ONE (12:00)
[2020-09-27 12:16] LABS: ANISOCYTOSIS 1+; MACROCYTOSIS 2+; PLATELET ESTIMATE DECREASED
[2020-09-27] MEDS ORDERED: FLUOROURACIL 500 MG/10 ML VIAL IVPUSH ONE (13:00)
[2020-09-27 16:54] VITALS: TEMP 97.4
[2020-09-27 17:06] VITALS: BP 111/44; PULSE 89
== END 2020-09-27 15:45 | disposition home or self-care (01) ==
LOC: JONCCHEMO 05:59
PROVIDERS: ATTEND Internal Medicine Hematology & Oncology
DX: Z51.11 Encounter for antineoplastic chemotherapy (principal); C15.5 Malignant neoplasm of lower third of esophagus; D50.9 Iron deficiency anemia, unspecified
CPT/HCPCS: 36415; 80048; 80076; 82607; 82728; 83540; 83550; 83735; 84156; 84439; 84443; 85025; 96361; 96366; 96367; 96375; 96413; J1756; J2469; J9190; Q5107

== ENCOUNTER 2020-10-04 08:08 | Day surgery (SDC) | payer OTHER, BC ==
[2020-10-04] MEDS ORDERED: SODIUM CHLORIDE 250 ML IV ONE (09:00)
[2020-10-04] MEDS ORDERED: PALONOSETRON HCL 0.25 MG/5 ML VIAL IVPUSH ONE (10:00)
[2020-10-04] MEDS ORDERED: DEXAMETHASONE SODIUM PHOSPHATE 10 MG in SODIUM CHLORIDE 50 ML IVPB ONE (10:00)
[2020-10-04] MEDS ORDERED: LEUCOVORIN IVPB ONE (10:30)
[2020-10-04] MEDS ORDERED: DEXTROSE 5% IVPB ONE (10:30)
[2020-10-04] MEDS ORDERED: WATER IVPB ONE (10:30)
[2020-10-04 10:42] LABS: BASO % 0.4 % (0-2.0); EOS % 4.9 % (0-4.5); HEMOGLOBIN 11.1 GM/dL (10.7-15.3); LYMPH % 12.7 % (8-40); MCH 37.7 pg (25.7-33.7); MCHC 32.7 g/dl (32.0-36.0); MEAN CELL VOLUME 115.4 fl (80-96); MEAN PLT VOLUME 8.1 fl (7.5-11.1); MONO % 10.2 % (3.8-10.2); NEUT % 71.8 % (42.8-82.8); PLATELET COUNT 196 K/MM3 (134-434); RBC 2.94 M/mm3 (3.60-5.2); RDW 18.2 % (11.6-15.6)
[2020-10-04 11:01] LABS: POTASSIUM 3.9 mmol/L (3.5-5.1)
[2020-10-04 11:03] LABS: ALBUMIN 3.1 g/dl (3.4-5.0); BLOOD UREA NITROGEN 15.2 mg/dL (7-18); CALCIUM 8.1 mg/dL (8.5-10.1)
[2020-10-04 11:04] LABS: MAGNESIUM 1.9 mg/dL (1.8-2.4)
[2020-10-04 11:06] LABS: BILIRUBIN,DIRECT 0.1 mg/dL (0.0-0.2)
[2020-10-04 11:07] LABS: CREATININE 0.6 mg/dL (0.55-1.3)
[2020-10-04 11:08] LABS: BILIRUBIN,TOTAL 0.9 mg/dL (0.2-1); TOT PROT 6.6 g/dl (6.4-8.2)
[2020-10-04 11:25] LABS: ANISOCYTOSIS 2+; MACROCYTOSIS 2+; PLATELET ESTIMATE NORMAL
[2020-10-04] MEDS ORDERED: FLUOROURACIL 500 MG/10 ML VIAL IVPUSH ONE (11:30)
[2020-10-04 16:56] VITALS: TEMP 98.5
[2020-10-05 06:41] VITALS: BP 130/61; PULSE 96
== END 2020-10-04 15:15 | disposition home or self-care (01) ==
LOC: JONCCHEMO 08:08
PROVIDERS: ATTEND Internal Medicine Hematology & Oncology
PROC: 3E04305 Introduction of Other Antineoplastic into Central Vein, Percutaneous Approach (ICD-10-PCS; principal; 2020-10-04)
PROC: 3E043GC Introduction of Other Therapeutic Substance into Central Vein, Percutaneous Approach (ICD-10-PCS; 2020-10-04)
PROC: 3E0437Z Introduction of Electrolytic and Water Balance Substance into Central Vein, Percutaneous Approach (ICD-10-PCS; 2020-10-04)
DX: Z51.11 Encounter for antineoplastic chemotherapy (principal); C15.5 Malignant neoplasm of lower third of esophagus; I10 Essential (primary) hypertension; E78.00 Pure hypercholesterolemia, unspecified
CPT/HCPCS: 36415; 80048; 80076; 83735; 85025; 96361; 96375; 96413; 96415; J2469; J9190

== ENCOUNTER 2020-10-11 07:09 | Day surgery (SDC) | payer OTHER, BC ==
[2020-10-11] MEDS ORDERED: SODIUM CHLORIDE 250 ML IV ONE (09:00)
[2020-10-11] MEDS ORDERED: CYANOCOBALAMIN (VITAMIN B-12) 1000 MCG/1 ML VIAL IM ONE (09:10)
[2020-10-11 09:24] LABS: BASO % 0.4 % (0-2.0); EOS % 5.4 % (0-4.5); HEMATOCRIT 34.9 % (32.4-45.2); HEMOGLOBIN 11.5 GM/dL (10.7-15.3); LYMPH % 11.4 % (8-40); MCH 38.1 pg (25.7-33.7); MCHC 32.9 g/dl (32.0-36.0); MEAN CELL VOLUME 115.7 fl (80-96); MEAN PLT VOLUME 8.2 fl (7.5-11.1); MONO % 8.1 % (3.8-10.2); NEUT % 74.7 % (42.8-82.8); PLATELET COUNT 173 K/MM3 (134-434); RBC 3.02 M/mm3 (3.60-5.2); RDW 18.3 % (11.6-15.6); WHITE BLOOD COUNT 5.5 K/mm3 (4.0-10.0)
[2020-10-11] MEDS ORDERED: PALONOSETRON HCL 0.25 MG/5 ML VIAL IVPUSH ONE (09:30)
[2020-10-11] MEDS ORDERED: DEXAMETHASONE SODIUM PHOSPHATE 10 MG in SODIUM CHLORIDE 50 ML IVPB ONE (09:30)
[2020-10-11 09:50] LABS: POTASSIUM 3.2 mmol/L (3.5-5.1)
[2020-10-11 09:53] LABS: ALBUMIN 3.1 g/dl (3.4-5.0); BLOOD UREA NITROGEN 17.2 mg/dL (7-18); CALCIUM 7.9 mg/dL (8.5-10.1); MAGNESIUM 1.8 mg/dL (1.8-2.4)
[2020-10-11 09:57] LABS: CREATININE 0.5 mg/dL (0.55-1.3)
[2020-10-11 09:58] LABS: BILIRUBIN,TOTAL 0.4 mg/dL (0.2-1); TOT PROT 6.5 g/dl (6.4-8.2)
[2020-10-11] MEDS ORDERED: SODIUM CHLORIDE IVPB ONE (10:00)
[2020-10-11] MEDS ORDERED: BEVACIZUMAB AWWB IVPB ONE (10:00)
[2020-10-11 10:01] LABS: BILIRUBIN,DIRECT 0.2 mg/dL (0.0-0.2)
[2020-10-11] MEDS ORDERED: POTASSIUM CHLORIDE TABS 20 MEQ TABLET.ER (FP) PO ONE (10:06)
[2020-10-11] MEDS ORDERED: LEUCOVORIN IVPB ONE (10:30)
[2020-10-11] MEDS ORDERED: DEXTROSE 5% IVPB ONE (10:30)
[2020-10-11] MEDS ORDERED: WATER IVPB ONE (10:30)
[2020-10-11] MEDS ORDERED: FLUOROURACIL 500 MG/10 ML VIAL IVPUSH ONE (11:30)
[2020-10-11 11:47] LABS: ANISOCYTOSIS 1+; MACROCYTOSIS 2+; PLATELET ESTIMATE NORMAL
[2020-10-11 14:53] VITALS: TEMP 97.4
[2020-10-11] MEDS ORDERED: PORTA CATH FLUSH 10 ML IVPUSH ONE (15:40)
[2020-10-11 15:41] VITALS: BP 123/64; PULSE 93
== END 2020-10-11 14:40 | disposition home or self-care (01) ==
LOC: JONCCHEMO 07:09
PROVIDERS: ATTEND Nurse Practitioner Family
PROC: 3E04305 Introduction of Other Antineoplastic into Central Vein, Percutaneous Approach (ICD-10-PCS; principal; 2020-10-11)
PROC: 3E043GC Introduction of Other Therapeutic Substance into Central Vein, Percutaneous Approach (ICD-10-PCS; 2020-10-11)
PROC: 3E0437Z Introduction of Electrolytic and Water Balance Substance into Central Vein, Percutaneous Approach (ICD-10-PCS; 2020-10-11)
PROC: 3E013GC Introduction of Other Therapeutic Substance into Subcutaneous Tissue, Percutaneous Approach (ICD-10-PCS; 2020-10-11)
DX: Z51.11 Encounter for antineoplastic chemotherapy (principal); C15.5 Malignant neoplasm of lower third of esophagus; I10 Essential (primary) hypertension; E78.00 Pure hypercholesterolemia, unspecified
CPT/HCPCS: 36415; 80048; 80076; 82378; 83735; 84156; 85025; 86301; 96361; 96366; 96367; 96372; 96375; 96413; J2469; J9190; Q5107

== ENCOUNTER 2020-10-26 07:21 | Day surgery (SDC) | payer OTHER, BC ==
[~2020-10-26 07:21] MED LIST changes: -DEXAMETHASONE INJECTION 20 MG in SODIUM CHLORIDE 50 ML IVPB ONE; -OXALIPLATIN 100 MG, OXALIPLATIN 45 MG in DEXTROSE 5%-WATER - 500 ML IV ONE; -PALONOSETRON HCL 0.25 MG/5 ML VIAL IVPUSH ONE
[2020-10-26] MEDS ORDERED: SODIUM CHLORIDE 250 ML IV ONE (09:00)
[2020-10-26] MEDS ORDERED: CYANOCOBALAMIN (VITAMIN B-12) 1000 MCG/1 ML VIAL IM ONE (09:30)
[2020-10-26] MEDS ORDERED: PALONOSETRON HCL 0.25 MG/5 ML VIAL IVPUSH ONE (09:30)
[2020-10-26] MEDS ORDERED: DEXAMETHASONE SODIUM PHOSPHATE 10 MG in SODIUM CHLORIDE 50 ML IVPB ONE (09:30)
[2020-10-26] MEDS ORDERED: LEUCOVORIN IVPB ONE (10:00)
[2020-10-26] MEDS ORDERED: WATER IVPB ONE (10:00)
[2020-10-26] MEDS ORDERED: DEXTROSE 5% IVPB ONE (10:00)
[2020-10-26 10:37] LABS: BASO % 0.5 % (0-2.0); EOS % 9.3 % (0-4.5); HEMATOCRIT 38.4 % (32.4-45.2); HEMOGLOBIN 12.5 GM/dL (10.7-15.3); LYMPH % 12.5 % (8-40); MCH 38.3 pg (25.7-33.7); MCHC 32.6 g/dl (32.0-36.0); MEAN CELL VOLUME 117.5 fl (80-96); MEAN PLT VOLUME 8.6 fl (7.5-11.1); MONO % 10.7 % (3.8-10.2); PLATELET COUNT 178 K/MM3 (134-434); RBC 3.27 M/mm3 (3.60-5.2); RDW 19.7 % (11.6-15.6); WHITE BLOOD COUNT 4.9 K/mm3 (4.0-10.0)
[2020-10-26] MEDS ORDERED: FLUOROURACIL 500 MG/10 ML VIAL IVPUSH ONE (11:00)
[2020-10-26 11:05] LABS: ALBUMIN 3.2 g/dl (3.4-5.0); BLOOD UREA NITROGEN 14.4 mg/dL (7-18); MAGNESIUM 1.9 mg/dL (1.8-2.4)
[2020-10-26 11:07] LABS: BILIRUBIN,DIRECT 0.1 mg/dL (0.0-0.2)
[2020-10-26 11:08] LABS: CREATININE 0.6 mg/dL (0.55-1.3)
[2020-10-26 11:09] LABS: BILIRUBIN,TOTAL 0.4 mg/dL (0.2-1); TOT PROT 6.9 g/dl (6.4-8.2)
[2020-10-26] MEDS ORDERED: BEVACIZUMAB AWWB IVPB ONE (12:00)
[2020-10-26] MEDS ORDERED: SODIUM CHLORIDE IVPB ONE (12:00)
[2020-10-26 13:43] LABS: ANISOCYTOSIS 1+; MACROCYTOSIS 1+; PLATELET ESTIMATE NORMAL
[2020-10-26 18:02] VITALS: BP 110/50; PULSE 88; TEMP 97
== END 2020-10-26 15:00 | disposition home or self-care (01) ==
LOC: JONCCHEMO 07:21
PROVIDERS: ATTEND Internal Medicine Hematology & Oncology
DX: Z51.11 Encounter for antineoplastic chemotherapy (principal); C15.5 Malignant neoplasm of lower third of esophagus
CPT/HCPCS: 36415; 80048; 80076; 82728; 83540; 83550; 83735; 84156; 85025; 96361; 96366; 96367; 96375; 96411; 96413; J2469; J9190; Q5107

== ENCOUNTER 2020-10-31 07:55 | Day surgery (SDC) | payer OTHER, BC ==
[2020-10-31 08:56] LABS: BASO % 0.6 % (0-2.0); EOS % 7.5 % (0-4.5); HEMATOCRIT 37.1 % (32.4-45.2); HEMOGLOBIN 12.1 GM/dL (10.7-15.3); LYMPH % 13.4 % (8-40); MCH 38.1 pg (25.7-33.7); MCHC 32.6 g/dl (32.0-36.0); MEAN CELL VOLUME 116.9 fl (80-96); MEAN PLT VOLUME 7.9 fl (7.5-11.1); MONO % 7.6 % (3.8-10.2); NEUT % 70.9 % (42.8-82.8); PLATELET COUNT 171 K/MM3 (134-434); RBC 3.17 M/mm3 (3.60-5.2); RDW 19.4 % (11.6-15.6); WHITE BLOOD COUNT 4.4 K/mm3 (4.0-10.0)
[2020-10-31] MEDS ORDERED: SODIUM CHLORIDE 250 ML IV ONE (09:00)
[2020-10-31 09:15] LABS: CALCIUM 7.8 mg/dL (8.5-10.1)
[2020-10-31 09:16] LABS: ALBUMIN 3.3 g/dl (3.4-5.0); BLOOD UREA NITROGEN 20.9 mg/dL (7-18); MAGNESIUM 1.9 mg/dL (1.8-2.4)
[2020-10-31 09:18] LABS: BILIRUBIN,DIRECT 0.1 mg/dL (0.0-0.2)
[2020-10-31 09:19] LABS: CREATININE 0.6 mg/dL (0.55-1.3)
[2020-10-31 09:20] LABS: BILIRUBIN,TOTAL 0.5 mg/dL (0.2-1); TOT PROT 6.9 g/dl (6.4-8.2)
[2020-10-31] MEDS ORDERED: CYANOCOBALAMIN (VITAMIN B-12) 1000 MCG/1 ML VIAL IM ONE (09:30)
[2020-10-31] MEDS ORDERED: DEXAMETHASONE SODIUM PHOSPHATE 10 MG in SODIUM CHLORIDE 50 ML IVPB ONE (09:30)
[2020-10-31] MEDS ORDERED: PALONOSETRON HCL 0.25 MG/5 ML VIAL IVPUSH ONE (09:30)
[2020-10-31] MEDS ORDERED: CALCIUM GLUCONATE 10% - 1,000 MG/10 ML VIAL IVPB ONE (09:55)
[2020-10-31] MEDS ORDERED: LEUCOVORIN IVPB ONE (10:00)
[2020-10-31] MEDS ORDERED: WATER IVPB ONE (10:00)
[2020-10-31] MEDS ORDERED: DEXTROSE 5% IVPB ONE (10:00)
[2020-10-31] MEDS ORDERED: CALCIUM GLUCONATE 10% - 1,000 MG in SODIUM CHLORIDE 100 ML IVPB ONE (11:00)
[2020-10-31] MEDS ORDERED: FLUOROURACIL 500 MG/10 ML VIAL IVPUSH ONE (11:00)
[2020-10-31 11:38] LABS: ANISOCYTOSIS 1+; MACROCYTOSIS 1+; PLATELET ESTIMATE NORMAL
[2020-10-31 15:10] VITALS: TEMP 97.5
[2020-10-31] MEDS ORDERED: PORTA CATH FLUSH 10 ML IVPUSH ONE (15:19)
[2020-10-31 15:20] VITALS: BP 122/58; PULSE 104
== END 2020-10-31 14:00 | disposition home or self-care (01) ==
LOC: JONCCHEMO 07:55
PROVIDERS: ATTEND Internal Medicine Hematology & Oncology
DX: Z51.11 Encounter for antineoplastic chemotherapy (principal); C15.5 Malignant neoplasm of lower third of esophagus
CPT/HCPCS: 36415; 80048; 80076; 83735; 85025; 96361; 96367; 96372; 96375; 96413; 96415; J2469; J9190

== ENCOUNTER 2020-11-08 06:53 | Day surgery (SDC) | payer OTHER, BC ==
[2020-11-08] MEDS ORDERED: SODIUM CHLORIDE 250 ML IV ONE (09:00)
[2020-11-08 09:43] LABS: BASO % 0.4 % (0-2.0); EOS % 7.8 % (0-4.5); HEMATOCRIT 32.4 % (32.4-45.2); HEMOGLOBIN 10.9 GM/dL (10.7-15.3); LYMPH % 13.1 % (8-40); MCH 38.3 pg (25.7-33.7); MCHC 33.5 g/dl (32.0-36.0); MEAN CELL VOLUME 114.5 fl (80-96); MEAN PLT VOLUME 8.4 fl (7.5-11.1); MONO % 10.8 % (3.8-10.2); NEUT % 67.9 % (42.8-82.8); PLATELET COUNT 164 K/MM3 (134-434); RBC 2.83 M/mm3 (3.60-5.2); RDW 19.5 % (11.6-15.6); WHITE BLOOD COUNT 5.5 K/mm3 (4.0-10.0)
[2020-11-08] MEDS ORDERED: CYANOCOBALAMIN (VITAMIN B-12) 1000 MCG/1 ML VIAL IM ONE (10:00)
[2020-11-08] MEDS ORDERED: PALONOSETRON HCL 0.25 MG/5 ML VIAL IVPUSH ONE (10:00)
[2020-11-08] MEDS ORDERED: DEXAMETHASONE SODIUM PHOSPHATE 10 MG in SODIUM CHLORIDE 50 ML IVPB ONE (10:00)
[2020-11-08 10:10] LABS: ALBUMIN 3.3 g/dl (3.4-5.0); BLOOD UREA NITROGEN 15.4 mg/dL (7-18); CALCIUM 8.1 mg/dL (8.5-10.1); MAGNESIUM 1.6 mg/dL (1.8-2.4)
[2020-11-08 10:13] LABS: BILIRUBIN,DIRECT 0.2 mg/dL (0.0-0.2); CREATININE 0.6 mg/dL (0.55-1.3)
[2020-11-08 10:15] LABS: BILIRUBIN,TOTAL 0.6 mg/dL (0.2-1); TOT PROT 6.6 g/dl (6.4-8.2)
[2020-11-08] MEDS ORDERED: BEVACIZUMAB AWWB IVPB ONE (10:30)
[2020-11-08] MEDS ORDERED: SODIUM CHLORIDE IVPB ONE (10:30)
[2020-11-08] MEDS ORDERED: POTASSIUM CHLORIDE TABS 20 MEQ TABLET.ER (FP) PO ONE (10:38)
[2020-11-08] MEDS ORDERED: LEUCOVORIN IVPB ONE (11:00)
[2020-11-08] MEDS ORDERED: WATER IVPB ONE (11:00)
[2020-11-08] MEDS ORDERED: DEXTROSE 5% IVPB ONE (11:00)
[2020-11-08] MEDS ORDERED: FLUOROURACIL 2,500 MG/50 ML VIAL IVPUSH ONE (12:00)
[2020-11-08 13:33] LABS: ANISOCYTOSIS 2+; MACROCYTOSIS 2+; PLATELET ESTIMATE NORMAL
[2020-11-08] MEDS ORDERED: MAGNESIUM SULF 50% (8.12 MEQ/2 ML-1 GM VIAL) IVPB ONE (13:45)
[2020-11-08 15:31] VITALS: TEMP 97.6
[2020-11-08] MEDS ORDERED: PORTA CATH FLUSH 10 ML IVPUSH ONE (15:42)
[2020-11-08 16:12] VITALS: BP 125/51; PULSE 95
== END 2020-11-08 18:50 | disposition home or self-care (01) ==
LOC: JONCCHEMO 06:53
PROVIDERS: ATTEND Internal Medicine Hematology & Oncology
DX: Z51.11 Encounter for antineoplastic chemotherapy (principal); C15.5 Malignant neoplasm of lower third of esophagus
CPT/HCPCS: 36415; 80048; 80076; 83735; 84156; 85025; 96361; 96366; 96367; 96372; 96375; 96411; 96413; J2469; Q5107

== ENCOUNTER 2020-11-23 07:41 | Day surgery (SDC) | payer OTHER, BC ==
[2020-11-23] MEDS ORDERED: SODIUM CHLORIDE 250 ML IV ONE (09:00)
[2020-11-23 09:49] VITALS: BP 97/41; PULSE 87; TEMP 98.1
[2020-11-23] MEDS ORDERED: PALONOSETRON HCL 0.25 MG/5 ML VIAL IVPUSH ONE (10:00)
[2020-11-23] MEDS ORDERED: SODIUM CHLORIDE IVPB ONE (10:00)
[2020-11-23] MEDS ORDERED: DEXAMETHASONE SODIUM PHOSPHATE 10 MG in SODIUM CHLORIDE 50 ML IVPB ONE (10:00)
[2020-11-23] MEDS ORDERED: BEVACIZUMAB AWWB IVPB ONE (10:00)
[2020-11-23] MEDS ORDERED: CYANOCOBALAMIN (VITAMIN B-12) 1000 MCG/1 ML VIAL IM ONE (10:00)
[2020-11-23 10:14] LABS: BASO % 0.8 % (0-2.0); EOS % 9.5 % (0-4.5); HEMATOCRIT 35.4 % (32.4-45.2); HEMOGLOBIN 11.6 GM/dL (10.7-15.3); LYMPH % 14.2 % (8-40); MCH 38.2 pg (25.7-33.7); MCHC 32.7 g/dl (32.0-36.0); MEAN CELL VOLUME 116.8 fl (80-96); MONO % 14.4 % (3.8-10.2); NEUT % 61.1 % (42.8-82.8); PLATELET COUNT 197 K/MM3 (134-434); RBC 3.03 M/mm3 (3.60-5.2); RDW 22.8 % (11.6-15.6); WHITE BLOOD COUNT 4.1 K/mm3 (4.0-10.0)
[2020-11-23 10:29] LABS: POTASSIUM 4.2 mmol/L (3.5-5.1)
[2020-11-23] MEDS ORDERED: WATER IVPB ONE (10:30)
[2020-11-23] MEDS ORDERED: DEXTROSE 5% IVPB ONE (10:30)
[2020-11-23] MEDS ORDERED: LEUCOVORIN IVPB ONE (10:30)
[2020-11-23 10:32] LABS: IRON SERUM 80 ug/dL (50-175)
[2020-11-23 10:34] LABS: ALBUMIN 3.2 g/dl (3.4-5.0); BLOOD UREA NITROGEN 18.5 mg/dL (7-18); CALCIUM 8.6 mg/dL (8.5-10.1); IRON SERUM 81 ug/dL (50-175); MAGNESIUM 2.1 mg/dL (1.8-2.4)
[2020-11-23 10:36] LABS: BILIRUBIN,DIRECT 0.2 mg/dL (0.0-0.2); TOT PROT 6.4 g/dl (6.4-8.2); TOTAL IRON BINDING CAPACITY 476 ug/dL (250-450)
[2020-11-23 10:37] LABS: CREATININE 0.6 mg/dL (0.55-1.3)
[2020-11-23 10:44] LABS: BILIRUBIN,TOTAL 0.6 mg/dL (0.2-1)
[2020-11-23] MEDS ORDERED: PORTA CATH FLUSH 10 ML IVPUSH ONE (11:14)
[2020-11-23] MEDS ORDERED: FLUOROURACIL 2,500 MG/50 ML VIAL IVPUSH ONE (11:30)
[2020-11-23 14:14] LABS: ANISOCYTOSIS 2+; MACROCYTOSIS 2+
[2020-11-23 14:15] LABS: PLATELET ESTIMATE ADEQUATE
== END 2020-11-23 14:10 | disposition home or self-care (01) ==
LOC: JONCCHEMO 07:41
PROVIDERS: ATTEND Internal Medicine Hematology & Oncology
DX: Z51.11 Encounter for antineoplastic chemotherapy (principal); C15.5 Malignant neoplasm of lower third of esophagus
CPT/HCPCS: 36415; 80048; 80076; 82607; 82728; 83540; 83550; 83735; 84156; 85025; 96361; 96375; 96413; 96417; J2469; Q5107

== ENCOUNTER 2020-11-28 07:06 | Day surgery (SDC) | payer OTHER, BC ==
[2020-11-28] MEDS ORDERED: SODIUM CHLORIDE 250 ML IV ONE (09:00)
[2020-11-28] MEDS ORDERED: PALONOSETRON HCL 0.25 MG/5 ML VIAL IVPUSH ONE (10:00)
[2020-11-28] MEDS ORDERED: DEXAMETHASONE SODIUM PHOSPHATE 10 MG in SODIUM CHLORIDE 50 ML IVPB ONE (10:00)
[2020-11-28] MEDS ORDERED: WATER IVPB ONE (10:30)
[2020-11-28] MEDS ORDERED: LEUCOVORIN IVPB ONE (10:30)
[2020-11-28] MEDS ORDERED: DEXTROSE 5% IVPB ONE (10:30)
[2020-11-28] MEDS ORDERED: FLUOROURACIL 500 MG/10 ML VIAL IVPUSH ONE (11:30)
[2020-11-28 12:08] LABS: BASO % 0.4 % (0-2.0); EOS % 7.3 % (0-4.5); HEMATOCRIT 32.2 % (32.4-45.2); HEMOGLOBIN 10.6 GM/dL (10.7-15.3); LYMPH % 12.5 % (8-40); MCH 38.4 pg (25.7-33.7); MCHC 32.9 g/dl (32.0-36.0); MEAN CELL VOLUME 116.7 fl (80-96); MEAN PLT VOLUME 8.8 fl (7.5-11.1); NEUT % 67.8 % (42.8-82.8); PLATELET COUNT 171 K/MM3 (134-434); RBC 2.76 M/mm3 (3.60-5.2); RDW 21.8 % (11.6-15.6); WHITE BLOOD COUNT 4.8 K/mm3 (4.0-10.0)
[2020-11-28 12:38] LABS: POTASSIUM 3.4 mmol/L (3.5-5.1)
[2020-11-28 12:40] LABS: BLOOD UREA NITROGEN 15.5 mg/dL (7-18)
[2020-11-28 12:41] LABS: ALBUMIN 2.9 g/dl (3.4-5.0); CALCIUM 7.9 mg/dL (8.5-10.1); MAGNESIUM 1.9 mg/dL (1.8-2.4)
[2020-11-28] MEDS ORDERED: POTASSIUM CHLORIDE TABS 20 MEQ TABLET.ER (FP) PO ONE (12:41)
[2020-11-28 12:44] LABS: BILIRUBIN,DIRECT 0.1 mg/dL (0.0-0.2)
[2020-11-28 12:45] LABS: CREATININE 0.5 mg/dL (0.55-1.3)
[2020-11-28 12:46] LABS: BILIRUBIN,TOTAL 0.7 mg/dL (0.2-1); TOT PROT 6.1 g/dl (6.4-8.2)
[2020-11-28 13:15] LABS: ANISOCYTOSIS 2+; MACROCYTOSIS 2+; PLATELET ESTIMATE NORMAL
[2020-11-28 17:56] VITALS: BP 102/47; PULSE 78; TEMP 97.3
== END 2020-11-28 17:25 | disposition home or self-care (01) ==
LOC: JONCCHEMO 07:06
PROVIDERS: ATTEND Internal Medicine Hematology & Oncology
DX: Z51.11 Encounter for antineoplastic chemotherapy (principal); C15.5 Malignant neoplasm of lower third of esophagus
CPT/HCPCS: 36415; 80048; 80076; 83735; 85025; 96360; 96375; 96409; J2469; J9190

== ENCOUNTER 2020-12-06 06:19 | Day surgery (SDC) | payer OTHER, BC ==
[2020-12-06] MEDS ORDERED: SODIUM CHLORIDE 250 ML IV ONE (09:00)
[2020-12-06] MEDS ORDERED: DEXAMETHASONE SODIUM PHOSPHATE 10 MG in SODIUM CHLORIDE 50 ML IVPB ONE (09:30)
[2020-12-06] MEDS ORDERED: PALONOSETRON HCL 0.25 MG/5 ML VIAL IVPUSH ONE (09:30)
[2020-12-06] MEDS ORDERED: WATER IVPB ONE (10:00)
[2020-12-06] MEDS ORDERED: DEXTROSE 5% IVPB ONE (10:00)
[2020-12-06] MEDS ORDERED: LEUCOVORIN IVPB ONE (10:00)
[2020-12-06 10:51] LABS: BASO % 0.4 % (0-2.0); EOS % 4.7 % (0-4.5); HEMATOCRIT 29.3 % (32.4-45.2); HEMOGLOBIN 9.8 GM/dL (10.7-15.3); LYMPH % 11.5 % (8-40); MCH 38.7 pg (25.7-33.7); MCHC 33.5 g/dl (32.0-36.0); MEAN CELL VOLUME 115.6 fl (80-96); MEAN PLT VOLUME 8.6 fl (7.5-11.1); MONO % 13.7 % (3.8-10.2); NEUT % 69.7 % (42.8-82.8); PLATELET COUNT 180 K/MM3 (134-434); RBC 2.54 M/mm3 (3.60-5.2); RDW 21.3 % (11.6-15.6); WHITE BLOOD COUNT 5.3 K/mm3 (4.0-10.0)
[2020-12-06] MEDS ORDERED: FLUOROURACIL 500 MG/10 ML VIAL IVPUSH ONE (11:00)
[2020-12-06 11:21] LABS: CALCIUM 7.7 mg/dL (8.5-10.1); MAGNESIUM 1.5 mg/dL (1.8-2.4)
[2020-12-06 11:22] LABS: ALBUMIN 2.5 g/dl (3.4-5.0); BLOOD UREA NITROGEN 19.4 mg/dL (7-18)
[2020-12-06 11:25] LABS: BILIRUBIN,DIRECT 0.1 mg/dL (0.0-0.2); CREATININE 0.5 mg/dL (0.55-1.3)
[2020-12-06 11:26] LABS: TOT PROT 5.5 g/dl (6.4-8.2)
[2020-12-06 11:37] LABS: BILIRUBIN,TOTAL 0.4 mg/dL (0.2-1); POTASSIUM 3.1 mmol/L (3.5-5.1)
[2020-12-06] MEDS ORDERED: MAGNESIUM SULF 50% (8.12 MEQ/2 ML-1 GM VIAL) IVPB ONE (12:00)
[2020-12-06] MEDS ORDERED: POTASSIUM CHLORIDE TABS 20 MEQ TABLET.ER (FP) PO ONE (12:00)
[2020-12-06] MEDS ORDERED: MAGNESIUM OXIDE 400 MG TABLET (FP) PO ONE (12:00)
[2020-12-06] MEDS ORDERED: MAGNESIUM 2GM/50ML STERILE WATER IVPB IVPB ONE (12:00)
[2020-12-06 13:23] LABS: ANISOCYTOSIS 1+; MACROCYTOSIS 2+; PLATELET ESTIMATE NORMAL
[2020-12-06 17:00] VITALS: TEMP 97.6
[2020-12-06 17:01] VITALS: BP 90/30; PULSE 94
== END 2020-12-06 16:40 | disposition home or self-care (01) ==
LOC: JONCCHEMO 06:19
PROVIDERS: ATTEND Internal Medicine Hematology & Oncology
PROC: 3E04305 Introduction of Other Antineoplastic into Central Vein, Percutaneous Approach (ICD-10-PCS; principal; 2020-12-06)
PROC: 3E033GC Introduction of Other Therapeutic Substance into Peripheral Vein, Percutaneous Approach (ICD-10-PCS; 2020-12-06)
PROC: 3E043GC Introduction of Other Therapeutic Substance into Central Vein, Percutaneous Approach (ICD-10-PCS; 2020-12-06)
DX: C15.5 Malignant neoplasm of lower third of esophagus (principal)
CPT/HCPCS: 36415; 80048; 80076; 83735; 84156; 85025; 96361; 96365; 96366; 96367; 96375; 96409; J2469; J9190

== ENCOUNTER 2021-02-04 11:02 | Inpatient (IN) | payer OTHER, BC ==
[2021-02-04 12:49] LABS: BASO % 0.4 % (0-2.0); EOS % 0.6 % (0-4.5); HEMATOCRIT 25.7 % (32.4-45.2); HEMOGLOBIN 8.4 GM/dL (10.7-15.3); LYMPH % 2.8 % (8-40); MCH 34.8 pg (25.7-33.7); MCHC 32.7 g/dl (32.0-36.0); MEAN CELL VOLUME 106.7 fl (80-96); MONO % 4.2 % (3.8-10.2); PLATELET COUNT 223 K/MM3 (134-434); RBC 2.41 M/mm3 (3.60-5.2); RDW 18.3 % (11.6-15.6); WHITE BLOOD COUNT 7.6 K/mm3 (4.0-10.0)
[2021-02-04 12:56] LABS: INR 1.93 (0.83-1.09); PROTHROMBIN TIME (PATIENT) 22.9 SEC (9.7-13.0)
[2021-02-04 12:58] LABS: ACTIVATED PTT 33.8 SECONDS (25.2-36.5)
[2021-02-04 13:14] LABS: CHLORIDE 106 mmol/L (98-107); SODIUM 136 mmol/L (136-145)
[2021-02-04 13:17] LABS: ALBUMIN 1.9 g/dl (3.4-5.0); ANION GAP 7 MMOL/L (8-16); BLOOD UREA NITROGEN 18.5 mg/dL (7-18); CALCIUM 7.5 mg/dL (8.5-10.1); CO2 23 mmol/L (21-32); GLUCOSE,RANDOM 70 mg/dL (74-106); MAGNESIUM 2.1 mg/dL (1.8-2.4)
[2021-02-04 13:20] LABS: CREATININE 0.6 mg/dL (0.55-1.3); SGOT/AST 106 U/L (15-37); SGPT/ALT 34 U/L (13-61)
[2021-02-04 13:22] LABS: ALK PHOS 119 U/L (45-117); BILIRUBIN,TOTAL 0.3 mg/dL (0.2-1); TOT PROT 5.7 g/dl (6.4-8.2)
[2021-02-04 13:26] LABS: N-TERMINAL BNP 863.3 pg/ml (5-125)
[2021-02-04 13:29] LABS: ANISOCYTOSIS 2+; MACROCYTOSIS 2+; PLATELET ESTIMATE NORMAL
[2021-02-04] MEDS ORDERED: MEROPENEM 1 GM in DEXTROSE 5%-WATER 100 ML IVPB ONE (14:20)
[2021-02-04] MEDS ORDERED: VANCOMYCIN 750 MG in DEXTROSE 5%-WATER - 150 ML IVPB ONE (14:23)
[2021-02-04] MEDS ORDERED: MEROPENEM 1 GM VIAL (RESTRICTED TO ID) IVPB ONE (14:27)
[2021-02-04] MEDS ORDERED: VANCOMYCIN 750 MG in DEXTROSE 5%-WATER - 250 ML IVPB ONE (14:30)
[2021-02-04 21:54] LABS: EPI CELLS 5 /uL (0-25.1); HYALINE CASTS 2 /uL (0-3.1); PH,URINE 5.5 (5.0-8.0); URINE APPEARANCE CLOUDY; URINE BACTERIA >9,000 /uL (0-1359); URINE BILIRUBIN NEGATIVE (NEGATIVE); URINE COLOR YELLOW; URINE GLUCOSE (UA) NEGATIVE (NEGATIVE); URINE KETONE 1+ (NEGATIVE); URINE LEUK ESTERASE 1+ (NEGATIVE); URINE NITRITE POSITIVE (NEGATIVE); URINE PROTEIN 1+ (NEGATIVE); URINE RBC 24 /uL (0-23.9); URINE UROBILINOGEN 0.2 mg/dL (0.2-1.0); URINE WBC 1291 /uL (0-25.8)
[2021-02-04 22:24] LABS: ALBUMIN 2.1 g/dl (3.4-5.0); BLOOD UREA NITROGEN 18.2 mg/dL (7-18); CALCIUM 8.1 mg/dL (8.5-10.1)
[2021-02-04 22:27] LABS: CREATININE 0.5 mg/dL (0.55-1.3)
[2021-02-04 22:29] LABS: BILIRUBIN,TOTAL 0.2 mg/dL (0.2-1); TOT PROT 5.7 g/dl (6.4-8.2)
[2021-02-05] MEDS: ACETAMINOPHEN 325 MG TABLET (FP) PO PRN ×2 (03:02→23:46)
[2021-02-05 08:05] LABS: BASO % 0.6 % (0-2.0); EOS % 1.9 % (0-4.5); HEMATOCRIT 24.4 % (32.4-45.2); HEMOGLOBIN 7.8 GM/dL (10.7-15.3); LYMPH % 4.6 % (8-40); MCH 34.5 pg (25.7-33.7); MEAN CELL VOLUME 107.6 fl (80-96); MEAN PLT VOLUME 8.6 fl (7.5-11.1); MONO % 5.7 % (3.8-10.2); NEUT % 87.2 % (42.8-82.8); PLATELET COUNT 186 K/MM3 (134-434); RBC 2.27 M/mm3 (3.60-5.2); RDW 18.1 % (11.6-15.6); WHITE BLOOD COUNT 7.1 K/mm3 (4.0-10.0)
[2021-02-05 08:10] LABS: CALCIUM 7.6 mg/dL (8.5-10.1)
[2021-02-05 08:11] LABS: ALBUMIN 1.9 g/dl (3.4-5.0); BLOOD UREA NITROGEN 18.9 mg/dL (7-18)
[2021-02-05 08:14] LABS: CREATININE 0.5 mg/dL (0.55-1.3)
[2021-02-05 08:16] LABS: BILIRUBIN,TOTAL 0.2 mg/dL (0.2-1)
[2021-02-05] MEDS ORDERED: APIXABAN 5 MG TABLET PO SCH (11:30)
[2021-02-05] MEDS: ASCORBIC ACID 500 MG TABLET (FP) PO SCH ×2 (13:10→21:18)
[2021-02-05] MEDS: CHOLECALCIFEROL (VIT D3) 1,000 UNIT (25 MCG) TABLET PO SCH (13:10)
[2021-02-05] MEDS: MAGNESIUM OXIDE 400 MG TABLET (FP) PO SCH ×2 (13:10→21:18)
[2021-02-05] MEDS: LIDOCAINE 5% TOPICAL PATCH TP SCH (13:11)
[2021-02-05] MEDS: DOCUSATE SODIUM 100 MG CAPSULE (FP) PO SCH ×2 (13:11→21:18)
[2021-02-05] MEDS: ZINC SULFATE 220 MG CAPSULE (FP) PO SCH (13:11)
[2021-02-05] MEDS ORDERED: PORTA CATH FLUSH 10 ML IVPUSH ONE (16:37)
[2021-02-05] MEDS: LIDOCAINE PATCH REMOVAL MC SCH (21:18)
[2021-02-06 07:18] LABS: HEMATOCRIT 22.3 % (32.4-45.2); HEMOGLOBIN 7.3 GM/dL (10.7-15.3); MCH 34.9 pg (25.7-33.7); MCHC 32.8 g/dl (32.0-36.0); MEAN CELL VOLUME 106.2 fl (80-96); MEAN PLT VOLUME 8.9 fl (7.5-11.1); PLATELET COUNT 187 K/MM3 (134-434); RDW 18.1 % (11.6-15.6); WHITE BLOOD COUNT 7.7 K/mm3 (4.0-10.0)
[2021-02-06 07:19] LABS: INR 1.25 (0.83-1.09); PROTHROMBIN TIME (PATIENT) 15.3 SEC (9.7-13.0)
[2021-02-06 07:29] LABS: ALBUMIN 1.8 g/dl (3.4-5.0); BLOOD UREA NITROGEN 18.9 mg/dL (7-18); CALCIUM 7.8 mg/dL (8.5-10.1)
[2021-02-06 07:32] LABS: CREATININE 0.5 mg/dL (0.55-1.3)
[2021-02-06 07:34] LABS: BILIRUBIN,TOTAL 0.3 mg/dL (0.2-1); TOT PROT 5.3 g/dl (6.4-8.2)
[2021-02-06 08:10] LABS: ACTIVATED PTT 136.1 SECONDS (25.2-36.5)
[2021-02-06] MEDS: CHOLECALCIFEROL (VIT D3) 1,000 UNIT (25 MCG) TABLET PO SCH (10:19)
[2021-02-06] MEDS: ASCORBIC ACID 500 MG TABLET (FP) PO SCH ×2 (10:20→21:11)
[2021-02-06] MEDS: MAGNESIUM OXIDE 400 MG TABLET (FP) PO SCH ×2 (10:20→21:11)
[2021-02-06] MEDS: LIDOCAINE 5% TOPICAL PATCH TP SCH (10:20)
[2021-02-06] MEDS: DOCUSATE SODIUM 100 MG CAPSULE (FP) PO SCH ×2 (10:21→21:11)
[2021-02-06] MEDS: ZINC SULFATE 220 MG CAPSULE (FP) PO SCH (10:21)
[2021-02-06] MEDS: DEXAMETHASONE SOD PHOSPHATE 4 MG/1 ML VIAL IVPUSH SCH (15:43)
[2021-02-06] MEDS: ACETAMINOPHEN 325 MG TABLET (FP) PO PRN ×2 (15:45→21:50)
[2021-02-06] MEDS: ALBUTEROL SO4 2.5/IPRATROPIUM 0.5 INH SOL 3 ML VIAL.NEB. NEB SCH ×2 (16:13→20:54)
[2021-02-06] MEDS ORDERED: REMDESIVIR 200 MG in SODIUM CHLORIDE 210 ML IVPB ONE (17:00)
[2021-02-06] MEDS: LIDOCAINE PATCH REMOVAL MC SCH (21:21)
[2021-02-06] MEDS: BUDESONIDE/FORMETEROL FUMARATE 160/4.5 mcg INHALER IH SCH (21:21)
[2021-02-07 07:34] LABS: HEMATOCRIT 22.1 % (32.4-45.2); HEMOGLOBIN 7.2 GM/dL (10.7-15.3); MCH 34.7 pg (25.7-33.7); MCHC 32.6 g/dl (32.0-36.0); MEAN CELL VOLUME 106.6 fl (80-96); MEAN PLT VOLUME 8.7 fl (7.5-11.1); PLATELET COUNT 168 K/MM3 (134-434); RBC 2.07 M/mm3 (3.60-5.2); RDW 17.4 % (11.6-15.6); WHITE BLOOD COUNT 4.7 K/mm3 (4.0-10.0)
[2021-02-07 07:40] LABS: MAGNESIUM 2.4 mg/dL (1.8-2.4)
[2021-02-07 07:43] LABS: PHOSPHOROUS 3.2 mg/dL (2.5-4.9)
[2021-02-07] MEDS: ALBUTEROL SO4 2.5/IPRATROPIUM 0.5 INH SOL 3 ML VIAL.NEB. NEB SCH (08:25)
[2021-02-07] MEDS: DEXAMETHASONE SOD PHOSPHATE 4 MG/1 ML VIAL IVPUSH SCH (09:29)
[2021-02-07 11:01] LABS: ALBUMIN 1.8 g/dl (3.4-5.0); BILIRUBIN,TOTAL 0.2 mg/dL (0.2-1); BLOOD UREA NITROGEN 19.6 mg/dL (7-18); CALCIUM 8.1 mg/dL (8.5-10.1); CREATININE 0.4 mg/dL (0.55-1.3); TOT PROT 5.2 g/dl (6.4-8.2)
[2021-02-07] MEDS: ASCORBIC ACID 500 MG TABLET (FP) PO SCH ×2 (11:27→21:05)
[2021-02-07] MEDS: LIDOCAINE 5% TOPICAL PATCH TP SCH (11:27)
[2021-02-07] MEDS: DOCUSATE SODIUM 100 MG CAPSULE (FP) PO SCH ×2 (11:27→21:05)
[2021-02-07] MEDS: ZINC SULFATE 220 MG CAPSULE (FP) PO SCH (11:27)
[2021-02-07] MEDS: CHOLECALCIFEROL (VIT D3) 1,000 UNIT (25 MCG) TABLET PO SCH (11:28)
[2021-02-07] MEDS: BUDESONIDE/FORMETEROL FUMARATE 160/4.5 mcg INHALER IH SCH ×2 (11:28→21:05)
[2021-02-07] MEDS: MAGNESIUM OXIDE 400 MG TABLET (FP) PO SCH ×2 (11:28→21:05)
[2021-02-07] MEDS: ACETAMINOPHEN 325 MG TABLET (FP) PO PRN ×3 (11:28→23:54)
[2021-02-07 14:36] LABS: BF WBC & OTHER NUCLEATED CELLS 237 /mm3; BODY FLUID MACROPHAGES 16 %; BODY FLUID MONOCYTE 10 %
[2021-02-07 14:37] LABS: BODY FLUID MESOTHELIAL 2 %
[2021-02-07] MEDS ORDERED: REMDESIVIR 100 MG in SODIUM CHLORIDE 250 ML IVPB SCH (17:00)
[2021-02-07] MEDS ORDERED: REMDESIVIR 100 MG in SODIUM CHLORIDE 230 ML IVPB SCH (17:00)
[2021-02-07] MEDS: LIDOCAINE PATCH REMOVAL MC SCH (21:05)
[2021-02-08] MEDS: LIDOCAINE 5% TOPICAL PATCH TP SCH (09:14)
[2021-02-08] MEDS: ASCORBIC ACID 500 MG TABLET (FP) PO SCH ×2 (09:15→22:14)
[2021-02-08] MEDS: ZINC SULFATE 220 MG CAPSULE (FP) PO SCH (09:15)
[2021-02-08] MEDS: oxyCODONE HCL 5 MG TABLET PO PRN ×2 (09:15→18:17)
[2021-02-08] MEDS: MAGNESIUM OXIDE 400 MG TABLET (FP) PO SCH ×2 (09:15→22:14)
[2021-02-08] MEDS: CHOLECALCIFEROL (VIT D3) 1,000 UNIT (25 MCG) TABLET PO SCH (09:18)
[2021-02-08] MEDS: BUDESONIDE/FORMETEROL FUMARATE 160/4.5 mcg INHALER IH SCH ×2 (09:33→22:26)
[2021-02-08] MEDS: DOCUSATE SODIUM 100 MG CAPSULE (FP) PO SCH ×2 (13:18→22:26)
[2021-02-08] MEDS: ACETAMINOPHEN 650 MG/20.3 ML ORAL SOLUTION (CUPS) PO PRN (13:43)
[2021-02-08] MEDS: ALBUTEROL SO4 2.5/IPRATROPIUM 0.5 INH SOL 3 ML VIAL.NEB. NEB SCH (20:50)
[2021-02-08] MEDS: LIDOCAINE PATCH REMOVAL MC SCH (22:14)
[2021-02-09] MEDS: oxyCODONE HCL 5 MG TABLET PO PRN ×4 (00:33→23:04)
[2021-02-09] MEDS: DOCUSATE SODIUM 100 MG CAPSULE (FP) PO SCH ×3 (05:35→21:47)
[2021-02-09 07:35] LABS: BASO % 0.8 % (0-2.0); EOS % 3.1 % (0-4.5); HEMATOCRIT 22.3 % (32.4-45.2); HEMOGLOBIN 7.3 GM/dL (10.7-15.3); LYMPH % 5.7 % (8-40); MCH 34.9 pg (25.7-33.7); MCHC 32.8 g/dl (32.0-36.0); MEAN CELL VOLUME 106.5 fl (80-96); MEAN PLT VOLUME 9.2 fl (7.5-11.1); MONO % 7.4 % (3.8-10.2); PLATELET COUNT 171 K/MM3 (134-434); RDW 17.1 % (11.6-15.6); WHITE BLOOD COUNT 7.1 K/mm3 (4.0-10.0)
[2021-02-09] MEDS: ALBUTEROL SO4 2.5/IPRATROPIUM 0.5 INH SOL 3 ML VIAL.NEB. NEB SCH ×5 (07:53→21:00)
[2021-02-09 07:55] LABS: CALCIUM 7.7 mg/dL (8.5-10.1)
[2021-02-09 07:58] LABS: ALBUMIN 1.9 g/dl (3.4-5.0); BLOOD UREA NITROGEN 17.4 mg/dL (7-18)
[2021-02-09 07:59] LABS: CREATININE 0.4 mg/dL (0.55-1.3)
[2021-02-09 08:01] LABS: BILIRUBIN,TOTAL 0.2 mg/dL (0.2-1)
[2021-02-09] MEDS: MAGNESIUM OXIDE 400 MG TABLET (FP) PO SCH ×2 (09:51→21:47)
[2021-02-09] MEDS: ASCORBIC ACID 500 MG TABLET (FP) PO SCH ×2 (09:51→21:47)
[2021-02-09] MEDS: BUDESONIDE/FORMETEROL FUMARATE 160/4.5 mcg INHALER IH SCH ×2 (09:52→21:48)
[2021-02-09] MEDS: ZINC SULFATE 220 MG CAPSULE (FP) PO SCH (09:52)
[2021-02-09] MEDS: CHOLECALCIFEROL (VIT D3) 1,000 UNIT (25 MCG) TABLET PO SCH (09:52)
[2021-02-09] MEDS: LIDOCAINE 5% TOPICAL PATCH TP SCH (09:52)
[2021-02-09 10:21] LABS: ANISOCYTOSIS 2+; MACROCYTOSIS 2+; OVALOCYTE 1+; PLATELET ESTIMATE NORMAL
[2021-02-09 14:09] LABS: BODY FLUID ALBUMIN 1.2 g/dL (Not Estab.)
[2021-02-09 15:11] LABS: BF WBC & OTHER NUCLEATED CELLS 109 /mm3
[2021-02-09 15:19] LABS: HEMATOCRIT 31.6 % (32.4-45.2); HEMOGLOBIN 10.3 GM/dL (10.7-15.3); MCH 33.1 pg (25.7-33.7); MCHC 32.6 g/dl (32.0-36.0); MEAN CELL VOLUME 101.5 fl (80-96); MEAN PLT VOLUME 8.8 fl (7.5-11.1); RBC 3.11 M/mm3 (3.60-5.2); RDW 21.6 % (11.6-15.6)
[2021-02-09 15:21] LABS: WHITE BLOOD COUNT 1.3 K/mm3 (4.0-10.0)
[2021-02-09 15:43] LABS: CALCIUM 8.2 mg/dL (8.5-10.1)
[2021-02-09 15:44] LABS: ALBUMIN 2.2 g/dl (3.4-5.0); BLOOD UREA NITROGEN 17.4 mg/dL (7-18)
[2021-02-09 15:47] LABS: CREATININE 0.5 mg/dL (0.55-1.3)
[2021-02-09 15:49] LABS: BILIRUBIN,TOTAL 0.2 mg/dL (0.2-1); TOT PROT 6.2 g/dl (6.4-8.2)
[2021-02-09 16:09] LABS: PLATELET COUNT 171 K/MM3 (134-434)
[2021-02-09 16:10] LABS: BODY FLUID MACROPHAGES 5 %; BODY FLUID MESOTHELIAL 17 %; BODY FLUID MONOCYTE 2 %
[2021-02-09 17:05] LABS: ANISOCYTOSIS 2+; MACROCYTOSIS 1+; PLATELET ESTIMATE NORMAL
[2021-02-09 17:18] LABS: EPI CELLS 2 /uL (0-25.1); HYALINE CASTS 9 /uL (0-3.1); URINE APPEARANCE CLOUDY; URINE BACTERIA >9,000 /uL (0-1359); URINE BILIRUBIN NEGATIVE (NEGATIVE); URINE COLOR YELLOW; URINE GLUCOSE (UA) NEGATIVE (NEGATIVE); URINE KETONE NEGATIVE (NEGATIVE); URINE LEUK ESTERASE 2+ (NEGATIVE); URINE NITRITE POSITIVE (NEGATIVE); URINE PROTEIN 1+ (NEGATIVE); URINE RBC 5 /uL (0-23.9); URINE UROBILINOGEN 0.2 mg/dL (0.2-1.0); URINE WBC 215 /uL (0-25.8)
[2021-02-09] MEDS ORDERED: SODIUM CHLORIDE 250 ML IV ONE (20:00)
[2021-02-09] MEDS: LIDOCAINE PATCH REMOVAL MC SCH (21:47)
[2021-02-10] MEDS: DOCUSATE SODIUM 100 MG CAPSULE (FP) PO SCH ×3 (06:18→21:18)
[2021-02-10] MEDS: oxyCODONE HCL 5 MG TABLET PO PRN ×2 (06:18→20:33)
[2021-02-10 07:56] LABS: BASO % 0.3 % (0-2.0); EOS % 0.9 % (0-4.5); HEMATOCRIT 24.5 % (32.4-45.2); HEMOGLOBIN 8.1 GM/dL (10.7-15.3); LYMPH % 3.2 % (8-40); MCH 33.6 pg (25.7-33.7); MCHC 33.1 g/dl (32.0-36.0); MEAN CELL VOLUME 101.5 fl (80-96); MEAN PLT VOLUME 9.1 fl (7.5-11.1); MONO % 7.2 % (3.8-10.2); NEUT % 88.4 % (42.8-82.8); PLATELET COUNT 161 K/MM3 (134-434); RBC 2.41 M/mm3 (3.60-5.2); WHITE BLOOD COUNT 7.7 K/mm3 (4.0-10.0)
[2021-02-10] MEDS: ALBUTEROL SO4 2.5/IPRATROPIUM 0.5 INH SOL 3 ML VIAL.NEB. NEB SCH ×4 (07:58→20:56)
[2021-02-10 08:21] LABS: ALBUMIN 1.8 g/dl (3.4-5.0); BLOOD UREA NITROGEN 22.3 mg/dL (7-18); CALCIUM 7.7 mg/dL (8.5-10.1)
[2021-02-10 08:24] LABS: CREATININE 0.5 mg/dL (0.55-1.3)
[2021-02-10 08:25] LABS: BILIRUBIN,TOTAL 0.3 mg/dL (0.2-1); TOT PROT 4.9 g/dl (6.4-8.2)
[2021-02-10] MEDS ORDERED: ENOXAPARIN NA (PORCINE) 40 MG/0.4 ML DISP.SYRIN SQ SCH (10:00)
[2021-02-10] MEDS: LIDOCAINE 5% TOPICAL PATCH TP SCH (10:37)
[2021-02-10] MEDS: BUDESONIDE/FORMETEROL FUMARATE 160/4.5 mcg INHALER IH SCH ×2 (10:37→21:18)
[2021-02-10] MEDS: BENZOCAINE/MENTH/CETYLPYRD CL 1 EACH LOZENGE MM PRN (10:38)
[2021-02-10] MEDS: ENOXAPARIN NA (PORCINE) 30 MG/0.3 ML DISP.SYRIN SQ SCH (10:57)
[2021-02-10] MEDS: ONDANSETRON 4 MG/2 ML VIAL IVPB PRN (14:36)
[2021-02-10] MEDS: LIDOCAINE PATCH REMOVAL MC SCH (21:18)
[2021-02-11] MEDS: oxyCODONE HCL 5 MG TABLET PO PRN ×4 (03:27→23:46)
[2021-02-11] MEDS: DOCUSATE SODIUM 100 MG CAPSULE (FP) PO SCH ×3 (06:15→21:38)
[2021-02-11 07:58] LABS: HEMATOCRIT 25.1 % (32.4-45.2); HEMOGLOBIN 8.2 GM/dL (10.7-15.3); MCH 33.1 pg (25.7-33.7); MCHC 32.8 g/dl (32.0-36.0); MEAN CELL VOLUME 100.9 fl (80-96); PLATELET COUNT 201 K/MM3 (134-434); RBC 2.48 M/mm3 (3.60-5.2); RDW 20.8 % (11.6-15.6); WHITE BLOOD COUNT 9.2 K/mm3 (4.0-10.0)
[2021-02-11 08:18] LABS: CHLORIDE 106 mmol/L (98-107); SODIUM 141 mmol/L (136-145)
[2021-02-11 08:21] LABS: CALCIUM 8.1 mg/dL (8.5-10.1)
[2021-02-11 08:22] LABS: ALBUMIN 1.8 g/dl (3.4-5.0); ANION GAP 8 MMOL/L (8-16); BLOOD UREA NITROGEN 28.2 mg/dL (7-18); CO2 27 mmol/L (21-32); MAGNESIUM 2.6 mg/dL (1.8-2.4)
[2021-02-11 08:25] LABS: CREATININE 0.5 mg/dL (0.55-1.3); SGPT/ALT 24 U/L (13-61)
[2021-02-11 08:27] LABS: BILIRUBIN,TOTAL 0.3 mg/dL (0.2-1)
[2021-02-11 08:28] LABS: ALK PHOS 117 U/L (45-117); SGOT/AST 38 U/L (15-37)
[2021-02-11 08:34] LABS: GLUCOSE,RANDOM 46 mg/dL (74-106)
[2021-02-11] MEDS: LIDOCAINE 5% TOPICAL PATCH TP SCH (09:31)
[2021-02-11] MEDS: ENOXAPARIN NA (PORCINE) 30 MG/0.3 ML DISP.SYRIN SQ SCH (09:31)
[2021-02-11] MEDS: ALBUTEROL SO4 2.5/IPRATROPIUM 0.5 INH SOL 3 ML VIAL.NEB. NEB SCH ×2 (09:51→12:45)
[2021-02-11] MEDS: BUDESONIDE/FORMETEROL FUMARATE 160/4.5 mcg INHALER IH SCH ×2 (09:57→21:39)
[2021-02-11 13:11] LABS: BODY FLUID ALBUMIN 0.8 g/dL (Not Estab.)
[2021-02-11] MEDS ORDERED: PT OWN MED DRAWER 7, Y5N ONE (13:47)
[2021-02-11] MEDS: BENZOCAINE/MENTH/CETYLPYRD CL 1 EACH LOZENGE MM PRN ×2 (14:09→21:38)
[2021-02-11] MEDS: NYSTATIN 500,000 UNITS/5 ML SUSPENSION PO SCH ×2 (17:23→23:46)
[2021-02-11] MEDS: LIDOCAINE PATCH REMOVAL MC SCH (21:38)
[2021-02-12] MEDS: DOCUSATE SODIUM 100 MG CAPSULE (FP) PO SCH ×3 (06:17→21:11)
[2021-02-12] MEDS: oxyCODONE HCL 5 MG TABLET PO PRN ×3 (06:17→18:05)
[2021-02-12] MEDS: BENZOCAINE/MENTH/CETYLPYRD CL 1 EACH LOZENGE MM PRN ×2 (06:17→21:11)
[2021-02-12] MEDS: NYSTATIN 500,000 UNITS/5 ML SUSPENSION PO SCH ×3 (06:17→17:59)
[2021-02-12] MEDS: ENOXAPARIN NA (PORCINE) 30 MG/0.3 ML DISP.SYRIN SQ SCH (09:59)
[2021-02-12] MEDS: FLUCONAZOLE 100 MG/NS 50 ML IVPB SCH (09:59)
[2021-02-12] MEDS: LIDOCAINE 5% TOPICAL PATCH TP SCH (10:00)
[2021-02-12] MEDS: BUDESONIDE/FORMETEROL FUMARATE 160/4.5 mcg INHALER IH SCH ×2 (10:25→21:11)
[2021-02-12] MEDS: LIDOCAINE PATCH REMOVAL MC SCH (21:11)
[2021-02-13] MEDS: NYSTATIN 500,000 UNITS/5 ML SUSPENSION PO SCH ×4 (00:06→17:01)
[2021-02-13] MEDS: oxyCODONE HCL 5 MG TABLET PO PRN ×2 (00:06→06:15)
[2021-02-13] MEDS: DOCUSATE SODIUM 100 MG CAPSULE (FP) PO SCH ×3 (06:15→22:04)
[2021-02-13] MEDS: ONDANSETRON 4 MG/2 ML VIAL IVPB PRN (06:50)
[2021-02-13] MEDS ORDERED: PT OWN MED DRAWER 7, Y5N ONE ×4 (08:24→22:18)
[2021-02-13] MEDS: LIDOCAINE 5% TOPICAL PATCH TP SCH (10:22)
[2021-02-13] MEDS: ENOXAPARIN NA (PORCINE) 30 MG/0.3 ML DISP.SYRIN SQ SCH (10:22)
[2021-02-13] MEDS: FLUCONAZOLE 100 MG/NS 50 ML IVPB SCH (10:23)
[2021-02-13] MEDS: BUDESONIDE/FORMETEROL FUMARATE 160/4.5 mcg INHALER IH SCH ×2 (10:23→22:04)
[2021-02-13] MEDS: ACETAMINOPHEN 650 MG/20.3 ML ORAL SOLUTION (CUPS) PO PRN (17:22)
[2021-02-13] MEDS ORDERED: ALBUTEROL SO4 2.5/IPRATROPIUM 0.5 INH SOL 3 ML VIAL.NEB. NEB ONE (20:59)
[2021-02-13] MEDS: ALBUTEROL SO4 2.5/IPRATROPIUM 0.5 INH SOL 3 ML VIAL.NEB. NEB SCH (21:04)
[2021-02-13] MEDS: LIDOCAINE PATCH REMOVAL MC SCH (22:05)
[2021-02-14] MEDS: ACETAMINOPHEN 650 MG/20.3 ML ORAL SOLUTION (CUPS) PO PRN ×2 (01:08→17:24)
[2021-02-14] MEDS: NYSTATIN 500,000 UNITS/5 ML SUSPENSION PO SCH ×4 (01:09→17:22)
[2021-02-14] MEDS: DOCUSATE SODIUM 100 MG CAPSULE (FP) PO SCH ×3 (06:31→21:25)
[2021-02-14 08:07] LABS: IGA IMMUNOGLOBULIN 187 mg/dL (64-422); IGG QN IMMUNOGLOBULIN 1053 mg/dL (586-1602); IGM QN SERUM 50 mg/dL (26-217)
[2021-02-14 09:05] LABS: BASO % 0.1 % (0-2.0); HEMATOCRIT 23.3 % (32.4-45.2); HEMOGLOBIN 7.5 GM/dL (10.7-15.3); LYMPH % 1.9 % (8-40); MCH 32.6 pg (25.7-33.7); MCHC 32.1 g/dl (32.0-36.0); MEAN CELL VOLUME 101.8 fl (80-96); MEAN PLT VOLUME 9.3 fl (7.5-11.1); MONO % 3.1 % (3.8-10.2); NEUT % 94.9 % (42.8-82.8); PLATELET COUNT 162 K/MM3 (134-434); RBC 2.29 M/mm3 (3.60-5.2); RDW 19.3 % (11.6-15.6); WHITE BLOOD COUNT 13.7 K/mm3 (4.0-10.0)
[2021-02-14] MEDS ORDERED: PT OWN MED DRAWER 7, Y5N ONE (09:24)
[2021-02-14] MEDS: BUDESONIDE/FORMETEROL FUMARATE 160/4.5 mcg INHALER IH SCH ×2 (09:25→21:25)
[2021-02-14] MEDS: LIDOCAINE 5% TOPICAL PATCH TP SCH (09:25)
[2021-02-14] MEDS: ENOXAPARIN NA (PORCINE) 30 MG/0.3 ML DISP.SYRIN SQ SCH (09:25)
[2021-02-14] MEDS: FLUCONAZOLE 100 MG/NS 50 ML IVPB SCH (09:25)
[2021-02-14 09:28] LABS: ALBUMIN 1.6 g/dl (3.4-5.0); BLOOD UREA NITROGEN 30.5 mg/dL (7-18)
[2021-02-14 09:31] LABS: BILIRUBIN,TOTAL 0.2 mg/dL (0.2-1); CREATININE 0.8 mg/dL (0.55-1.3)
[2021-02-14 09:33] LABS: TOT PROT 4.8 g/dl (6.4-8.2)
[2021-02-14 09:55] LABS: ANISOCYTOSIS 1+; MACROCYTOSIS 1+; OVALOCYTE 1+; PLATELET ESTIMATE NORMAL
[2021-02-15] MEDS: ACETAMINOPHEN 650 MG/20.3 ML ORAL SOLUTION (CUPS) PO PRN ×4 (00:16→22:07)
[2021-02-15] MEDS: NYSTATIN 500,000 UNITS/5 ML SUSPENSION PO SCH ×4 (00:17→17:59)
[2021-02-15] MEDS: LIDOCAINE PATCH REMOVAL MC SCH ×2 (01:35→22:04)
[2021-02-15] MEDS: DOCUSATE SODIUM 100 MG CAPSULE (FP) PO SCH ×3 (06:01→22:02)
[2021-02-15] MEDS: ENOXAPARIN NA (PORCINE) 30 MG/0.3 ML DISP.SYRIN SQ SCH (10:09)
[2021-02-15] MEDS: LIDOCAINE 5% TOPICAL PATCH TP SCH (10:10)
[2021-02-15] MEDS: FLUCONAZOLE 100 MG/NS 50 ML IVPB SCH (10:10)
[2021-02-15] MEDS: BUDESONIDE/FORMETEROL FUMARATE 160/4.5 mcg INHALER IH SCH ×2 (10:10→22:03)
[2021-02-16] MEDS: NYSTATIN 500,000 UNITS/5 ML SUSPENSION PO SCH ×4 (00:59→17:39)
[2021-02-16] MEDS: ACETAMINOPHEN 650 MG/20.3 ML ORAL SOLUTION (CUPS) PO PRN ×3 (05:51→22:12)
[2021-02-16] MEDS: DOCUSATE SODIUM 100 MG CAPSULE (FP) PO SCH ×3 (05:51→22:12)
[2021-02-16] MEDS: ENOXAPARIN NA (PORCINE) 30 MG/0.3 ML DISP.SYRIN SQ SCH (09:54)
[2021-02-16] MEDS: LIDOCAINE 5% TOPICAL PATCH TP SCH (09:54)
[2021-02-16] MEDS: FLUCONAZOLE 100 MG/NS 50 ML IVPB SCH (09:55)
[2021-02-16] MEDS: BUDESONIDE/FORMETEROL FUMARATE 160/4.5 mcg INHALER IH SCH ×2 (09:55→22:13)
[2021-02-16] MEDS: FUROSEMIDE 40 MG/4 ML INJECTABLE VIAL IVPUSH SCH (11:03)
[2021-02-16] MEDS: LIDOCAINE PATCH REMOVAL MC SCH (22:13)
[2021-02-17] MEDS: NYSTATIN 500,000 UNITS/5 ML SUSPENSION PO SCH ×5 (00:42→23:18)
[2021-02-17] MEDS: DOCUSATE SODIUM 100 MG CAPSULE (FP) PO SCH ×3 (05:42→22:34)
[2021-02-17] MEDS: ACETAMINOPHEN 650 MG/20.3 ML ORAL SOLUTION (CUPS) PO PRN ×3 (05:42→20:42)
[2021-02-17 07:55] LABS: HEMATOCRIT 17.4 % (32.4-45.2); MCH 31.6 pg (25.7-33.7); MCHC 31.5 g/dl (32.0-36.0); MEAN CELL VOLUME 100.4 fl (80-96); MEAN PLT VOLUME 9.2 fl (7.5-11.1); PLATELET COUNT 247 K/MM3 (134-434); RBC 1.73 M/mm3 (3.60-5.2); RDW 18.8 % (11.6-15.6); WHITE BLOOD COUNT 18.8 K/mm3 (4.0-10.0)
[2021-02-17 08:26] LABS: ALBUMIN 1.7 g/dl (3.4-5.0); BLOOD UREA NITROGEN 41.1 mg/dL (7-18); CALCIUM 7.6 mg/dL (8.5-10.1)
[2021-02-17 08:28] LABS: BILIRUBIN,TOTAL 0.2 mg/dL (0.2-1)
[2021-02-17 08:29] LABS: CREATININE 0.6 mg/dL (0.55-1.3); TOT PROT 4.8 g/dl (6.4-8.2)
[2021-02-17 08:36] LABS: HEMOGLOBIN 5.5 GM/dL (10.7-15.3)
[2021-02-17] MEDS ORDERED: PT OWN MED DRAWER 7, Y5N ONE (09:54)
[2021-02-17] MEDS: LIDOCAINE 5% TOPICAL PATCH TP SCH (09:58)
[2021-02-17] MEDS: ENOXAPARIN NA (PORCINE) 30 MG/0.3 ML DISP.SYRIN SQ SCH (09:58)
[2021-02-17] MEDS: FUROSEMIDE 40 MG/4 ML INJECTABLE VIAL IVPUSH SCH (09:58)
[2021-02-17] MEDS: BUDESONIDE/FORMETEROL FUMARATE 160/4.5 mcg INHALER IH SCH ×2 (09:59→23:18)
[2021-02-17] MEDS: FLUCONAZOLE 100 MG/NS 50 ML IVPB SCH (09:59)
[2021-02-17] MEDS ORDERED: methylPREDNISolone NA SUCC 40 MG/1 ML VIAL IVPB ONE (16:22)
[2021-02-17] MEDS ORDERED: ACETAMINOPHEN 325 MG TABLET (FP) PO ONE (16:24)
[2021-02-17] MEDS: LIDOCAINE PATCH REMOVAL MC SCH (22:34)
[2021-02-18] MEDS: NYSTATIN 500,000 UNITS/5 ML SUSPENSION PO SCH ×4 (05:38→23:02)
[2021-02-18] MEDS: ACETAMINOPHEN 650 MG/20.3 ML ORAL SOLUTION (CUPS) PO PRN ×3 (05:41→21:18)
[2021-02-18] MEDS: DOCUSATE SODIUM 100 MG CAPSULE (FP) PO SCH ×3 (05:44→21:16)
[2021-02-18 07:28] LABS: HEMATOCRIT 24.5 % (32.4-45.2); HEMOGLOBIN 8.2 GM/dL (10.7-15.3); MCH 32.6 pg (25.7-33.7); MCHC 33.3 g/dl (32.0-36.0); MEAN CELL VOLUME 97.7 fl (80-96); MEAN PLT VOLUME 9.2 fl (7.5-11.1); PLATELET COUNT 171 K/MM3 (134-434); RBC 2.51 M/mm3 (3.60-5.2); RDW 17.2 % (11.6-15.6); WHITE BLOOD COUNT 10.5 K/mm3 (4.0-10.0)
[2021-02-18] MEDS: FUROSEMIDE 40 MG/4 ML INJECTABLE VIAL IVPUSH SCH (11:03)
[2021-02-18] MEDS: ENOXAPARIN NA (PORCINE) 30 MG/0.3 ML DISP.SYRIN SQ SCH (11:04)
[2021-02-18] MEDS: FLUCONAZOLE 100 MG/NS 50 ML IVPB SCH (11:04)
[2021-02-18] MEDS: LIDOCAINE 5% TOPICAL PATCH TP SCH (11:04)
[2021-02-18] MEDS: BUDESONIDE/FORMETEROL FUMARATE 160/4.5 mcg INHALER IH SCH ×2 (11:08→21:15)
[2021-02-18 17:53] VITALS: BMI 13.2
[2021-02-18] MEDS: LIDOCAINE PATCH REMOVAL MC SCH (21:15)
[2021-02-19] MEDS: ACETAMINOPHEN 650 MG/20.3 ML ORAL SOLUTION (CUPS) PO PRN ×3 (04:09→21:30)
[2021-02-19] MEDS: DOCUSATE SODIUM 100 MG CAPSULE (FP) PO SCH ×3 (05:50→21:30)
[2021-02-19] MEDS: NYSTATIN 500,000 UNITS/5 ML SUSPENSION PO SCH ×4 (05:50→23:57)
[2021-02-19 07:21] LABS: HEMATOCRIT 25.1 % (32.4-45.2); HEMOGLOBIN 8.3 GM/dL (10.7-15.3); MCH 32.1 pg (25.7-33.7); MCHC 33.1 g/dl (32.0-36.0); MEAN CELL VOLUME 97.1 fl (80-96); PLATELET COUNT 186 K/MM3 (134-434); RBC 2.58 M/mm3 (3.60-5.2); RDW 17.2 % (11.6-15.6); WHITE BLOOD COUNT 15.1 K/mm3 (4.0-10.0)
[2021-02-19] MEDS: LIDOCAINE 5% TOPICAL PATCH TP SCH (10:20)
[2021-02-19] MEDS: BUDESONIDE/FORMETEROL FUMARATE 160/4.5 mcg INHALER IH SCH ×2 (10:21→21:30)
[2021-02-19] MEDS: ENOXAPARIN NA (PORCINE) 30 MG/0.3 ML DISP.SYRIN SQ SCH (10:21)
[2021-02-19] MEDS: FUROSEMIDE 40 MG/4 ML INJECTABLE VIAL IVPUSH SCH (10:21)
[2021-02-19] MEDS: ASCORBIC ACID 500 MG TABLET (FP) PO SCH (10:21)
[2021-02-19] MEDS: LIDOCAINE PATCH REMOVAL MC SCH (21:30)
[2021-02-20] MEDS: NYSTATIN 500,000 UNITS/5 ML SUSPENSION PO SCH ×2 (05:52→11:59)
[2021-02-20] MEDS: DOCUSATE SODIUM 100 MG CAPSULE (FP) PO SCH ×3 (06:02→14:56)
[2021-02-20] MEDS: ENOXAPARIN NA (PORCINE) 30 MG/0.3 ML DISP.SYRIN SQ SCH (09:10)
[2021-02-20] MEDS: FUROSEMIDE 40 MG/4 ML INJECTABLE VIAL IVPUSH SCH (09:10)
[2021-02-20] MEDS: ASCORBIC ACID 500 MG TABLET (FP) PO SCH (09:10)
[2021-02-20] MEDS: LIDOCAINE 5% TOPICAL PATCH TP SCH (09:10)
[2021-02-20] MEDS: ACETAMINOPHEN 650 MG/20.3 ML ORAL SOLUTION (CUPS) PO PRN (09:11)
[2021-02-20] MEDS: BUDESONIDE/FORMETEROL FUMARATE 160/4.5 mcg INHALER IH SCH (09:28)
[2021-02-20 13:05] VITALS: BP 72/44; PULSE 89; TEMP 98.2
== END 2021-02-20 15:30 | DRG 186 ==
LOC: JER 11:02 → JERBED 14:12 → J7W 20:15
PROVIDERS: ADMIT Internal Medicine; ATTEND Internal Medicine
PROC: 0W993ZX Drainage of Right Pleural Cavity, Percutaneous Approach, Diagnostic (ICD-10-PCS; 2021-02-07)
PROC: 0W9B3ZX Drainage of Left Pleural Cavity, Percutaneous Approach, Diagnostic (ICD-10-PCS; principal; 2021-02-09)
PROC: 30233N1 Transfusion of Nonautologous Red Blood Cells into Peripheral Vein, Percutaneous Approach (ICD-10-PCS; 2021-02-09)
DX: J90 Pleural effusion, not elsewhere classified (principal); E43 Unspecified severe protein-calorie malnutrition; U07.1 COVID-19; J12.82 Pneumonia due to coronavirus disease 2019; R64 Cachexia; Z68.1 Body mass index [BMI] 19.9 or less, adult; C15.9 Malignant neoplasm of esophagus, unspecified; N39.0 Urinary tract infection, site not specified; I10 Essential (primary) hypertension; E78.5 Hyperlipidemia, unspecified; D63.8 Anemia in other chronic diseases classified elsewhere; T80.92XA Unspecified transfusion reaction, initial encounter; L89.152 Pressure ulcer of sacral region, stage 2
CPT/HCPCS: 32555; 36415; 36430; 36511; 71045-TC-FY; 71046-TC-FY; 71275-TC; 74230-TC-FY; 76942; 80053; 81003; 82042; 82150; 82465; 82550; 82553; 82728; 82784; 82945; 82962; 83615; 83735; 83880; 83986; 84100; 84157; 84443; 84478; 84484; 85025; 85027; 85379; 85384; 85610; 85730; 86078; 86140; 86769; 86850; 86900; 86901; 86922; 87040; 87070; 87075; 87086; 87102; 87116; 87186; 87205; 87206; 87210; 88108; 88305-TC; 92611-GN; 93005; 93010; 93306-TC; 94640; 94761; 97116-GP; 97161-GP; 99285-25; C9399; C9803; P9022; P9038; P9058; Q9967; U0003; U0005